=== PATIENT | male | born 1965 | race African-American/Black ===

== ENCOUNTER 2018-11-07 16:13 | Emergency (ER) | payer OTHER, SELFPAY ==
[2018-11-07] MEDS ORDERED: NA CHLORIDE 0.9% 1,000 ML ONE (17:04)
--- NOTE | 2018-11-07 17:04 | RAD REPORT ---
EXAM DESCRIPTION: CT - Stone Protocol - 11/07/2018 4:51 pm CLINICAL HISTORY: Abdominal pain. Hematuria and right flank pain COMPARISON: 2010 TECHNIQUE: Computed axial tomography of the abdomen pelvis was obtained without oral or IV contrast. Lack of IV and oral contrast limits evaluation of solid organs, bowel, and vessels. Coronal reformat citlaly images were obtained and reviewed. All CT scans are performed using dose optimization technique as appropriate and may include automated exposure control or mA/KV adjustment according to patient size. FINDINGS: A 3 millimeter left renal calculus without hydronephrosis. Right renal calculus is not see n. Right hydronephrosis is not noted. A ureteral calculus is not noted. A bladder calculus is not see n. Small left renal cyst is present The liver, spleen, pancreas and adrenals appear grossly normal There is no evidence of diverticulitis. The appendix appears normal Small bilateral inguinal hernias contain fat IMPRESSION: Small nonobstructing left renal calculus
[2018-11-07 17:35] LABS: Absolute Lymphocytes (CBC) 1.8 K/uL (0.7-4.9); Absolute Monocytes 0.8 K/uL (0.1-1.3); Absolute Neutrophil 3.6 K/uL (1.8-8.0); Eosinophils % 0.5 % (0-4.4); Hematocrit 46.3 % (39.6-49.0); Lymphocytes % 28.4 % (15.3-44.8); MCH 30.9 pg (27.0-35.0); MCV 94.5 fL (80-100); MPV 9.2 fL (7.6-11.3); Monocytes % 13.1 % (3.3-12.3)
--- NOTE | 2018-11-07 17:53 | EDPHYS ---
Physician Documentation [facility] Name: Chito Alfonso Age: 53 yrs Sex: Male : 1965 Arrival Date: 11/07/2018 Time: 16:16 Bed 26 Private MD: ED Physician Samuel Golden HPI: 11/07 16:40 This 53 yrs old Black Male presents to ER via Unassigned with complaints of Possible kb Kidney Stone. 16:40 The patient presents with urinary symptoms, dark urine, blood in semen. Onset: The kb symptoms/episode began/occurred this morning. Modifying factors: The symptoms are alleviated by nothing, the symptoms are aggravated by nothing. Associated signs and symptoms: The patient has no apparent associated signs or symptoms. Severity of symptoms: At their worst the symptoms were mild, in the emergency department the symptoms are unchanged. The patient has experienced similar episodes in the past. The patient has not recently seen a physician. Pt states he thinks his kidney stones are back because he had blood in his semen and dark urine today. Historical: - Allergies: 18:22 No Known Allergies; mg2 - Home Meds: 18:22 amlodipine 5 mg tab 1 tab once daily [Active]; mg2 - PMHx: 18:22 Hypertension; kidney stenting; mg2 - Immunization history:: Flu vaccine is not up to date. - Social history:: Smoking status: Patient/guardian denies using tobacco, Patient/guardian denies using alcohol, street drugs, IV drugs. - Ebola Screening: : No symptoms or risks identified at this time. ROS: 16:36 Constitutional: Negative for fever, chills, and weight loss, Cardiovascular: Negative kb for chest pain, palpitations, and edema, Respiratory: Negative for shortness of breath, cough, wheezing, and pleuritic chest pain, Abdomen/GI: Negative for abdominal pain, nausea, vomiting, diarrhea, and constipation, MS/Extremity: Negative for injury and deformity, Skin: Negative for injury, rash, and discoloration, Neuro: Negative for headache, weakness, numbness, tingling, and seizure. 16:36 : Positive for dark urine and blood in semen. Exam: 16:40 Constitutional: This is a well developed, well nourished patient who is awake, alert, kb and in no acute distress. Head/Face: Normocephalic, atraumatic. Neck: Trachea midline, no thyromegaly or masses palpated, and no cervical lymphadenopathy. Supple, full range of motion without nuchal rigidity, or vertebral point tenderness. No Meningismus. Chest/axilla: Normal chest wall appearance and motion. Nontender with no deformity. No lesions are appreciated. Cardiovascular: Regular rate and rhythm with a normal S1 and S2. No gallops, murmurs, or rubs. Normal PMI, no JVD. No pulse deficits. Respiratory: Lungs have equal breath sounds bilaterally, clear to auscultation and percussion. No rales, rhonchi or wheezes noted. No increased work of breathing, no retractions or nasal flaring. Abdomen/GI: Soft, non-tender, with normal bowel sounds. No distension or tympany. No guarding or rebound. No evidence of tenderness throughout. Back: No spinal tenderness. No costovertebral tenderness. Full range of motion. Skin: Warm, dry with normal turgor. Normal color with no rashes, no lesions, and no evidence of cellulitis. MS/ Extremity: Pulses equal, no cyanosis. Neurovascular intact. Full, normal range of motion. Neuro: Awake and alert, GCS 15, oriented to person, place, time, and situation. Cranial nerves II-XII grossly intact. Motor strength 5/5 in all extremities. Sensory grossly intact. Cerebellar exam normal. Normal gait. Vital Signs: 16:44 BP 170 / 100; Pulse 80; Resp 18; Temp 98.7; Pulse Ox 100% on R/A; Weight 93.44 kg; mg2 Height 5 ft. 9 in. (175.26 cm); Pain 2/10; 18:20 BP 160 / 100; Pulse 85; Resp 18; Pulse Ox 100% on R/A; Pain 0/10; mg2 16:44 Body Mass Index 30.42 (93.44 kg, 175.26 cm) mg2 MDM: 16:31 Patient medically screened. kb 16:36 Data reviewed: vital signs, nurses notes. Data interpreted: Pulse oximetry: on room air kb is 100 %. Interpretation: normal. 17:49 Counseling: I had a detailed discussion with the patient and/or guardian regarding: the kb historical points, exam findings, and any diagnostic results supporting the discharge/admit diagnosis, lab results, radiology results, the need for outpatient follow up, a urologist, to return to the emergency department if symptoms worsen or persist or if there are any questions or concerns that arise at home. 11/07 16:36 Order name: Basic Metabolic Panel; Complete Time: 17:48 kb 11/07 16:36 Order name: CBC with Diff kb 11/07 16:36 Order name: CT Stone Protocol; Complete Time: 17:06 kb 11/07 16:50 Order name: Urine Dipstick--Ancillary (enter results); Complete Time: 18:15 bd 11/07 16:36 Order name: Urine Dipstick-Ancillary (obtain specimen); Complete Time: 17:04 kb 11/07 16:36 Order name: IV Start; Complete Time: 17:14 kb Administered Medications: 17:04 Drug: NS 0.9% 1000 ml Route: IV; Rate: 1000 ml; Site: left antecubital; mg2 18:04 Follow up: Response: No adverse reaction; IV Status: Completed infusion mg2 18:21 Follow up: Response: No adverse reaction; IV Status: Completed infusion mg2 Disposition: 11/07/18 17:53 Discharged to Home. Impression: Calculus of kidney. - Condition is Stable. - Discharge Instructions: Kidney Stones, [id number]. - Medication Reconciliation Form, Thank You Letter, Antibiotic Education, Prescription Opioid Use form. - Follow up: Emergency Department; When: As needed; Reason: Worsening of condition. Follow up: Private Physician; When: 2 - 3 days; Reason: Recheck today's complaints, Continuance of care, Re-evaluation by your physician. Addendum: 11/13/2018 01:36 Co-signature as Attending Physician, Samuel Golden MD. r n Signatures: Dispatcher [employer] EDMarilin Nuno, SILICA FILTER OPERATOR-C SILICA FILTER OPERATOR-Ckb Samuel Golden MD MD rn Gardose, Michele, RN RN mg2 Corrections: (The following items were deleted from the chart) 11/07 18:22 17:53 11/07/2018 17:53 Discharged to Home. Impression: Calculus of kidney. Condition is mg2 Stable. Forms are Medication Reconciliation Form, Thank You Letter, Antibiotic Education, Prescription Opioid Use. Follow up: Emergency Department; When: As needed; Reason: Worsening of condition. Follow up: Private Physician; When: 2 - 3 days; Reason: Recheck today's complaints, Continuance of care, Re-evaluation by your physician. kb
--- NOTE | 2018-11-07 17:53 | ER ---
Nurse's Notes [facility] Name: Chito Alfonso Age: 53 yrs Sex: Male : 1965 Arrival Date: 11/07/2018 Time: 16:16 Bed 26 Private MD: Diagnosis: Calculus of kidney Presentation: 11/07 16:43 Presenting complaint: Patient states: he has hematuria and blood in his semen for 2 mg2 weeks, mild right flank pain. he has prior history of kidney stones. Transition of care: patient was not received from another setting of care. Onset of symptoms was October 2018. Risk Assessment: Do you want to hurt yourself or someone else? Patient reports no desire to harm self or others. Initial Sepsis Screen: Does the patient meet any 2 criteria? No. Patient's initial sepsis screen is negative. Does the patient have a suspected source of infection? No. Patient's initial sepsis screen is negative. Care prior to arrival: None. 16:43 Method Of Arrival: Ambulatory mg2 16:43 Acuity: MARK 3 mg2 Historical: - Allergies: 18:22 No Known Allergies; mg2 - Home Meds: 18:22 amlodipine 5 mg tab 1 tab once daily [Active]; mg2 - PMHx: 18:22 Hypertension; kidney stenting; mg2 - Immunization history:: Flu vaccine is not up to date. - Social history:: Smoking status: Patient/guardian denies using tobacco, Patient/guardian denies using alcohol, street drugs, IV drugs. - Ebola Screening: : No symptoms or risks identified at this time. Screenin:09 Abuse screen: Denies threats or abuse. Denies injuries from another. Nutritional mg2 screening: No deficits noted. Tuberculosis screening: No symptoms or risk factors identified. Fall Risk IV access (20 points). Assessment: 17:06 General: Appears in no apparent distress. comfortable, Behavior is calm, cooperative. mg2 Pain: Complains of pain in right flank Pain does not radiate. Pain currently is 2 out of 10 on a pain scale. Quality of pain is described as aching, Pain began gradually. Neuro: Level of Consciousness is awake, alert, obeys commands, Oriented to person, place, time, situation. Cardiovascular: Capillary refill < 3 seconds Patient's skin is warm and dry. Respiratory: Airway is patent Respiratory effort is even, unlabored, Respiratory pattern is regular, symmetrical. GI: Bowel sounds present X 4 quads. Abd is soft and non tender. : Reports pain in right flank(s). EENT: No signs and/or symptoms were reported regarding the EENT system. Derm: Skin is intact, is healthy with good turgor, Skin is pink, warm \T\ dry. normal. Musculoskeletal: No signs and/or symptoms reported regarding the musculoskeletal system. 18:20 Reassessment: Patient appears in no apparent distress at this time. Patient and/or mg2 family updated on plan of care and expected duration. Pain level reassessed. Patient is alert, oriented x 3, equal unlabored respirations, skin warm/dry/pink. Vital Signs: 16:44 BP 170 / 100; Pulse 80; Resp 18; Temp 98.7; Pulse Ox 100% on R/A; Weight 93.44 kg; mg2 Height 5 ft. 9 in. (175.26 cm); Pain 2/10; 18:20 BP 160 / 100; Pulse 85; Resp 18; Pulse Ox 100% on R/A; Pain 0/10; mg2 16:44 Body Mass Index 30.42 (93.44 kg, 175.26 cm) mg2 ED Course: 16:16 Patient arrived in ED. rg4 16:31 Marilin Salazar [facility]-C [facility] kb 16:31 Samuel Golden MD is Attending Physician. kb 16:43 Molina Sauer, PROSPER is Primary Nurse. mg2 16:44 Triage completed. mg2 16:[address] nj 16:49 CT completed. Patient tolerated procedure well. Patient moved back from CT. nj 16:52 CT Stone Protocol In Process Unspecified. EDMS 17:04 No provider procedures requiring assistance completed. Inserted saline lock: 20 gauge mg2 in left antecubital area, using aseptic technique. Blood collected. 17:09 Patient has correct armband on for positive identification. mg2 18:20 IV discontinued, intact, bleeding controlled, No redness/swelling at site. Pressure mg2 dressing applied. 18:22 Arm band placed on. mg2 Administered Medications: 17:04 Drug: NS 0.9% 1000 ml Route: IV; Rate: 1000 ml; Site: left antecubital; mg2 18:04 Follow up: Response: No adverse reaction; IV Status: Completed infusion mg2 18:21 Follow up: Response: No adverse reaction; IV Status: Completed infusion mg2 Outcome: 17:53 Discharge ordered by MD. kiran 18:21 Discharged to home ambulatory. mg2 18:21 Condition: stable 18:21 Discharge instructions given to patient, Instructed on discharge instructions, follow up and referral plans. Demonstrated understanding of instructions, follow-up care. 18:22 Patient left the ED. mg2 Signatures: Dispatcher [employer] EDMarilin Nuno, SIMRANC KIMMY-Adriana Linares rg4 rDe Sutton Michele, RN RN mg2
[2018-11-07 18:14] LABS: Urine Blood TRACE (NEG); Urine Glucose NEGATIVE (NEG); Urine Protein 3+ (NEG); Urine Specific Gravity >1.030 (1.005-1.030); Urine pH 5.5 (5.0-7.0)
[2018-11-07 18:32] LABS: Blood Morphology Comment NOT SEEN (NOT SEEN); Macrocytosis 1+; Platelet Estimate ADEQ; Platelets, Giant NOTED; Polychromasia SLIGHT
== END 2018-11-07 18:22 | disposition home or self-care (01) ==
LOC: ER 16:13
DX: N20.0 Calculus of kidney (principal); I10 Essential (primary) hypertension
CPT/HCPCS: 36415; 74176; 76377; 80048; 81003; 85025; 96360; 99284; J7030

== ENCOUNTER 2018-11-28 16:10 | Emergency (ER) | payer OTHER, SELFPAY ==
--- NOTE | 2018-11-28 17:53 | RAD REPORT ---
EXAM DESCRIPTION: US - Renal Ultrasound-Complete - 11/28/2018 5:40 pm CLINICAL HISTORY: SWELLING COMPARISON: No comparisons FINDINGS: Both kidneys are normal in size, shape and echotexture. The right kidney measures 11.4 x 5.3 x 5.3 cm. No hydronephrosis, focal mass or perinephric fluid. The left kidney measures 11.1 x 6.7 x 4.4 cm. No hydronephrosis, focal mass or perinephric fluid. 2 c m left renal cyst noted, benign in appearance. The urinary bladder is incompletely distended without gross abnormality seen. IMPRESSION: Unremarkable renal sonogram.
--- NOTE | 2018-11-28 18:01 | RAD REPORT ---
EXAM DESCRIPTION: RAD - Chest Pa And Lat (2 Views) - 11/28/2018 5:53 pm CLINICAL HISTORY: Cough;SOB Chest pain. COMPARISON: Chest Single View dated 08/26/2017 FINDINGS: Small right pleural effusion is noted. The lungs are grossly clear acute infiltrate. The h eart is upper limit normal size. No displaced fractures. IMPRESSION: Small right pleural effusion.
[2018-11-28] MEDS ORDERED: FUROSEMIDE 40 MG TABLET ONE (18:14)
[2018-11-28] MEDS ORDERED: AMLODIPINE 5 MG TAB ONE (18:15)
[2018-11-28] MEDS ORDERED: LISINOPRIL 10 MG TAB ONE (18:26)
[2018-11-28 18:31] LABS: Urine Blood TRACE (NEG); Urine Glucose NEGATIVE (NEG); Urine Protein 3+ (NEG); Urine Specific Gravity >1.030 (1.005-1.030); Urine pH 5.5 (5.0-7.0)
[2018-11-28 18:58] LABS: Absolute Lymphocytes (CBC) 1.6 K/uL (0.7-4.9); Absolute Monocytes 0.9 K/uL (0.1-1.3); Basophils % 0.8 % (0-1.3); Eosinophils % 1.4 % (0-4.4); Hematocrit 45.2 % (39.6-49.0); Lymphocytes % 24.2 % (15.3-44.8); MPV 9.8 fL (7.6-11.3); Monocytes % 13.6 % (3.3-12.3); RBC Red Blood Cell Count 4.79 M/uL (4.33-5.43)
[2018-11-28 19:31] LABS: Albumin 3.3 g/dL (3.4-5.0); Bilirubin Direct 0.3 mg/dL (0-0.2); Bilirubin Total 0.5 mg/dL (0.2-1.0); Potassium 5.1 mmol/L (3.5-5.1); Protein, Total 6.7 g/dL (6.4-8.2)
[2018-11-28] MEDS ORDERED: cloNIDine HCl 0.1 MG TAB ONE ×2 (20:57→21:44)
[2018-11-28] MEDS ORDERED: HYDRALAZINE HCL 20 MG/ML VIAL ONE (21:44)
--- NOTE | 2018-11-28 21:44 | ER ---
Nurse's Notes [facility] Name: Chito Alfonso Age: 53 yrs Sex: Male : 1965 Arrival Date: 11/28/2018 Time: 16:20 Bed 23 Private MD: Burton ANDERSON Diagnosis: Essential (primary) hypertension;Patient's noncompliance with medical treatment and regimen;Fluid overload, unspecified Presentation: 11/28 16:38 Presenting complaint: Patient states: Swelling all over body with SOB. Patient reports aj HX of being non compliant with HTN medications. Transition of care: patient was not received from another setting of care. Onset of symptoms was November 28, 2018. Risk Assessment: Do you want to hurt yourself or someone else? Patient reports no desire to harm self or others. Initial Sepsis Screen: Does the patient meet any 2 criteria? No. Patient's initial sepsis screen is negative. Does the patient have a suspected source of infection? No. Patient's initial sepsis screen is negative. Care prior to arrival: None. 16:38 Method Of Arrival: Ambulatory 16:38 Acuity: MARK 3 aj Triage Assessment: 16:40 General: Appears in no apparent distress. comfortable, Behavior is calm, cooperative, aj appropriate for age. Pain: Denies pain. Neuro: Level of Consciousness is awake, alert, obeys commands, Oriented to person, place, time, situation, Appropriate for age. Cardiovascular: Edema is 2+ to left midcalf, left ankle, right midcalf and right ankle. Respiratory: Airway is patent Respiratory effort is even, unlabored, Respiratory pattern is regular, symmetrical. GI: Abdomen is flat. Derm: Skin is intact, is healthy with good turgor, Skin is pink, warm \T\ dry. normal. Historical: - Allergies: 16:40 No Known Allergies; aj - Home Meds: 16:40 amlodipine 10 mg tab 1 tab once daily [Active]; aj - PMHx: 16:40 Hypertension; kidney stenting; aj - Immunization history:: Adult Immunizations up to date. - Social history:: Smoking status: Patient/guardian denies using tobacco. - Ebola Screening: : Patient negative for fever greater than or equal to 101.5 degrees Fahrenheit, and additional compatible Ebola Virus Disease symptoms Patient denies exposure to infectious person Patient denies travel to an Ebola-affected area in the 21 days before illness onset No symptoms or risks identified at this time. Screenin:13 Abuse screen: Denies threats or abuse. Denies injuries from another. Nutritional mg2 screening: No deficits noted. Tuberculosis screening: No symptoms or risk factors identified. Fall Risk None identified. Assessment: 16:45 General: Appears in no apparent distress. comfortable, well groomed, well developed, kr2 well nourished, Behavior is calm, cooperative, appropriate for age. Pain: Denies pain. Neuro: Level of Consciousness is awake, alert, obeys commands, Oriented to person, place, time, situation, Appropriate for age. Cardiovascular: Capillary refill < 3 seconds in bilateral fingers Patient's skin is warm and dry. Pulses are all present. Edema is 1+ to right ankle and right midcalf and left ankle and left midcalf Rhythm is regular. Cardiovascular: Reports being off of his blood pressure medication for six months, educated on importance of keeping regular follow up appointments with his primary care physician and staying on his medications, verbalized understanding. Respiratory: Reports shortness of breath on exertion Airway is patent Respiratory effort is even, unlabored, Respiratory pattern is regular, symmetrical. GI: Bowel sounds present X 4 quads. Abd is soft and non tender X 4 quads. Patient currently denies nausea, vomiting. : Denies inability to void. EENT: Oral mucosa is moist. Derm: Skin is intact, is healthy with good turgor, Skin is pink, warm \T\ dry. Musculoskeletal: Circulation, motion, and sensation intact. 17:45 Reassessment: Patient appears in no apparent distress at this time. Patient and/or kr2 family updated on plan of care and expected duration. Pain level reassessed. Patient is alert, oriented x 3, equal unlabored respirations, skin warm/dry/pink. Patient denies pain at this time. 18:55 Reassessment: Patient appears in no apparent distress at this time. Patient and/or kr2 family updated on plan of care and expected duration. Pain level reassessed. Patient is alert, oriented x 3, equal unlabored respirations, skin warm/dry/pink. Patient denies pain at this time. 19:00 Reassessment: Difficulty obtaining blood from patient, laboratory notified, provider kr2 notified. Transit Proof Machine Operator will attempt blood draw. 20:00 Reassessment: Patient appears in no apparent distress at this time. Patient and/or kr2 family updated on plan of care and expected duration. Pain level reassessed. Patient is alert, oriented x 3, equal unlabored respirations, skin warm/dry/pink. Patient denies pain at this time. 20:46 Reassessment: Patient appears in no apparent distress at this time. Patient and/or kr2 family updated on plan of care and expected duration. Pain level reassessed. Patient is alert, oriented x 3, equal unlabored respirations, skin warm/dry/pink. Patient denies pain at this time. 21:30 Reassessment: Patient appears in no apparent distress at this time. Patient and/or kr2 family updated on plan of care and expected duration. Pain level reassessed. Patient is alert, oriented x 3, equal unlabored respirations, skin warm/dry/pink. Patient denies pain at this time. 22:15 Reassessment: Patient appears in no apparent distress at this time. Patient and/or kr2 family updated on plan of care and expected duration. Pain level reassessed. Patient is alert, oriented x 3, equal unlabored respirations, skin warm/dry/pink. Patient denies pain at this time. Patient states symptoms have improved. Vital Signs: 16:40 BP 154 / 104; Pulse 115; Resp 24; Temp 97.0; Pulse Ox 98% on R/A; Weight 92.99 kg; aj Height 5 ft. 9 in. (175.26 cm); 17:58 BP 159 / 136; Pulse Ox 99% on R/A; gm 18:55 BP 156 / 119; Pulse 110; Resp 20; Pulse Ox 99% on R/A; kr2 19:23 BP 161 / 118; Pulse 108; Resp 18; Pulse Ox 98% ; kr2 20:00 BP 158 / 116; Pulse 108; Resp 18; Pulse Ox 99% on R/A; kr2 20:45 BP 162 / 116; Pulse 108; Resp 18; Pulse Ox 98% ; kr2 22:14 BP 149 / 109; Pulse 103; Resp 18; Pulse Ox 100% on R/A; Pain 0/10; mg2 22:20 BP 144 / 98; Pulse 100; Resp 16; Pulse Ox 99% on R/A; kr2 16:40 Body Mass Index 30.27 (92.99 kg, 175.26 cm) aj ED Course: 16:20 Patient arrived in ED. sb2 16:21 Burton ANDERSON is Private Physician. sb2 16:26 Viji Romano FNP-C is PHCP. snw 16:26 Shadi Reynoso MD is Attending Physician. snw 16:39 Triage completed. aj 16:40 Arm band placed on left wrist. Patient placed in an exam room. aj 16:45 Patient has correct armband on for positive identification. Bed in low position. Call kr2 light in reach. Side rails up X 1. pvc monitor on. Pulse ox on. NIBP on. Door closed. Warm blanket given. Head of bed elevated. 16:52 Alyssa John, PROSPER is Primary Nurse. kr2 17:00 Initial lab(s) drawn, by me, sent to lab. kr2 17:32 Patient taken to ultrasound. via wheelchair. aa4 17:32 Ultrasound completed. Patient moved back from ultrasound. aa4 17:41 US Rp Exam Complete In Process Unspecified. EDMS 17:52 Chest Pa And Lat (2 Views) XRAY In Process Unspecified. EDMS 18:15 PHCP role handed off by Viji Romano FNP-C kb 18:15 Marilin Salazar FNP-C is PHCP. kb 22:10 No provider procedures requiring assistance completed. Patient did not have IV access kr2 during this emergency room visit. Administered Medications: 18:17 Drug: Lisinopril 10 mg Route: PO; kr2 19:00 Follow up: Response: No adverse reaction; Blood pressure is unchanged; provider notifiedkr2 18:29 Drug: LaSIX 40 mg Route: PO; mg2 19:30 Follow up: Response: No adverse reaction; No adverse reaction, blood pressure kr2 unchanged, provider notified 18:29 Drug: amLODIPine 10 mg Route: PO; mg2 19:30 Follow up: Response: No adverse reaction; Blood pressure is unchanged; Blood pressure kr2 is unchanged, provider notified 20:48 Drug: cloNIDine 0.1 mg Route: PO; kr2 21:45 Follow up: Response: No adverse reaction; Blood pressure is unchanged; Blood pressure kr2 is unchanged, provider notified 21:43 Drug: hydrALAZINE 20 mg Route: IM; Site: left deltoid; kr2 22:15 Follow up: Response: No adverse reaction; Blood pressure is lowered kr2 21:43 Drug: cloNIDine 0.1 mg Route: PO; kr2 22:15 Follow up: Response: No adverse reaction; Blood pressure is lowered kr2 Intake: Outcome: 21:44 Discharge ordered by MD. kiran 22:15 Discharged to home ambulatory. kr2 22:15 Condition: improved 22:15 Discharge instructions given to patient, Instructed on discharge instructions, follow up and referral plans. medication usage, Demonstrated understanding of instructions, follow-up care, medications, Prescriptions given X 1. 22:21 Patient left the ED. kr2 Signatures: Dispatcher [employer] EDMS Marilin Salazar, DIRECTOR FINANCIAL PLANNING-C DIRECTOR FINANCIAL PLANNING-Deepti Canseco RN Viji Price, DIRECTOR FINANCIAL PLANNING-C DIRECTOR FINANCIAL PLANNING-Denysw Deepti Barber aa4 Alyssa John RN RN kr2 Donna Gutiérrez sb2 Molina Sauer RN RN mg2 Moya, Gabriella
--- NOTE | 2018-11-28 21:44 | EDPHYS ---
Physician Documentation [facility] Name: Chito Alfonso Age: 53 yrs Sex: Male : 1965 Arrival Date: 11/28/2018 Time: 16:20 Bed 23 Private MD: Burton ANDERSON ED Physician Shadi Reynoso HPI: 11/28 17:06 This 53 yrs old Black Male presents to ER via Ambulatory with complaints of Feet snw Swelling. 17:06 The patient has shortness of breath at rest, with light activity. Onset: The snw symptoms/episode began/occurred gradually, and became persistent. Duration: The symptoms are continuous. The patient's shortness of breath is aggravated by light activity. Associated signs and symptoms: The patient has no apparent associated signs or symptoms. Severity of symptoms: At their worst the symptoms were moderate. It is unknown whether or not the patient has had similar symptoms in the past. The patient has not recently seen a physician. Pt has not taken his Amlodipine in 6 months. Historical: - Allergies: 16:40 No Known Allergies; aj - Home Meds: 16:40 amlodipine 10 mg tab 1 tab once daily [Active]; aj - PMHx: 16:40 Hypertension; kidney stenting; aj - Immunization history:: Adult Immunizations up to date. - Social history:: Smoking status: Patient/guardian denies using tobacco. - Ebola Screening: : Patient negative for fever greater than or equal to 101.5 degrees Fahrenheit, and additional compatible Ebola Virus Disease symptoms Patient denies exposure to infectious person Patient denies travel to an Ebola-affected area in the 21 days before illness onset No symptoms or risks identified at this time. ROS: 17:04 Eyes: Negative for injury, pain, redness, and discharge, ENT: Negative for injury, snw pain, and discharge, Neck: Negative for injury, pain, and swelling. 17:04 Back: Negative for injury and pain, : Negative for injury, bleeding, discharge, and swelling, MS/Extremity: Negative for injury and deformity, Skin: Negative for injury, rash, and discoloration, Neuro: Negative for headache, weakness, numbness, tingling, and seizure. 17:04 Constitutional: Positive for body aches, fatigue, malaise. 17:04 Cardiovascular: Positive for palpitations. 17:04 Respiratory: Positive for dyspnea on exertion, orthopnea, shortness of breath. 17:04 Abdomen/GI: Positive for abdominal distension. Exam: 16:58 Head/Face: Normocephalic, atraumatic. Eyes: Pupils equal round and reactive to light, snw extra-ocular motions intact. Lids and lashes normal. Conjunctiva and sclera are non-icteric and not injected. Cornea within normal limits. Periorbital areas with no swelling, redness, or edema. ENT: Nares patent. No nasal discharge, no septal abnormalities noted. Tympanic membranes are normal and external auditory canals are clear. Oropharynx with no redness, swelling, or masses, exudates, or evidence of obstruction, uvula midline. Mucous membranes moist. Neck: Trachea midline, no thyromegaly or masses palpated, and no cervical lymphadenopathy. Supple, full range of motion without nuchal rigidity, or vertebral point tenderness. No Meningismus. Chest/axilla: Normal chest wall appearance and motion. Nontender with no deformity. No lesions are appreciated. 16:58 Back: No spinal tenderness. No costovertebral tenderness. Full range of motion. Skin: Warm, dry with normal turgor. Normal color with no rashes, no lesions, and no evidence of cellulitis. MS/ Extremity: Pulses equal, no cyanosis. Neurovascular intact. Full, normal range of motion. Neuro: Awake and alert, GCS 15, oriented to person, place, time, and situation. Cranial nerves II-XII grossly intact. Motor strength 5/5 in all extremities. Sensory grossly intact. Cerebellar exam normal. Normal gait. 16:58 Constitutional: The patient appears alert, uncomfortable. 16:58 Cardiovascular: Rate: tachycardic, Rhythm: regular, Pulses: no pulse deficits are appreciated, Heart sounds: normal, Edema: 2+ edema to level of bilateral lower ext, abdomen. 16:58 Respiratory: mild respiratory distress is noted, Respirations: shallow respirations, tachypnea. 16:58 Abdomen/GI: Bowel sounds: normal, Palpation: soft. Vital Signs: 16:40 BP 154 / 104; Pulse 115; Resp 24; Temp 97.0; Pulse Ox 98% on R/A; Weight 92.99 kg; aj Height 5 ft. 9 in. (175.26 cm); 17:58 BP 159 / 136; Pulse Ox 99% on R/A; gm 18:55 BP 156 / 119; Pulse 110; Resp 20; Pulse Ox 99% on R/A; kr2 19:23 BP 161 / 118; Pulse 108; Resp 18; Pulse Ox 98% ; kr2 20:00 BP 158 / 116; Pulse 108; Resp 18; Pulse Ox 99% on R/A; kr2 20:45 BP 162 / 116; Pulse 108; Resp 18; Pulse Ox 98% ; kr2 22:14 BP 149 / 109; Pulse 103; Resp 18; Pulse Ox 100% on R/A; Pain 0/10; mg2 22:20 BP 144 / 98; Pulse 100; Resp 16; Pulse Ox 99% on R/A; kr2 16:40 Body Mass Index 30.27 (92.99 kg, 175.26 cm) aj MDM: 16:43 Patient medically screened. snw 17:59 Data reviewed: vital signs, nurses notes. Data interpreted: Pulse oximetry: on room air snw is 99 %. Interpretation: normal. Counseling: I had a detailed discussion with the patient and/or guardian regarding: the historical points, exam findings, and any diagnostic results supporting the discharge/admit diagnosis, the presence of at least one elevated blood pressure reading (>120/80) during this emergency department visit, lab results, radiology results, the need for outpatient follow up. Special discussion: I have referred the patient to see his PCP for further evaluation of high blood pressure. Based on the history and exam findings, there is no indication for further emergent testing or inpatient evaluation. I discussed with the patient/guardian the need to see the primary care provider for further evaluation of the symptoms. 18:02 ED course: denies chest pain. snw 18:36 Transition of care: After a detail discussion of the patient's case, care is snw transferred to Marilin SANTIAGOPXiang. 11/28 16:53 Order name: CBC with Diff; Complete Time: 19:05 snw 11/28 16:53 Order name: Chem 7; Complete Time: 19:38 snw 11/28 16:53 Order name: Chest Pa And Lat (2 Views) XRAY; Complete Time: 18:04 snw 11/28 16:53 Order name: BNP; Complete Time: 19:38 snw 11/28 16:53 Order name: LFT's; Complete Time: 19:38 snw 11/28 16:57 Order name: Urine Dipstick--Ancillary (enter results); Complete Time: 18:35 ag 11/28 16:53 Order name: US Rp Exam Complete; Complete Time: 17:56 snw 11/28 17:58 Order name: EKG; Complete Time: 17:58 snw 11/28 16:27 Order name: Urine Dipstick-Ancillary (obtain specimen); Complete Time: 16:52 snw 11/28 17:25 Order name: Labs - recollect needed; Complete Time: 17:35 ag 11/28 17:58 Order name: EKG - Nurse/Tech; Complete Time: 19:21 snw 11/28 18:24 Order name: Vital Signs: q 30 min; Complete Time: 18:56 snw Administered Medications: 18:17 Drug: Lisinopril 10 mg Route: PO; kr2 19:00 Follow up: Response: No adverse reaction; Blood pressure is unchanged; provider notifiedkr2 18:29 Drug: LaSIX 40 mg Route: PO; mg2 19:30 Follow up: Response: No adverse reaction; No adverse reaction, blood pressure kr2 unchanged, provider notified 18:29 Drug: amLODIPine 10 mg Route: PO; mg2 19:30 Follow up: Response: No adverse reaction; Blood pressure is unchanged; Blood pressure kr2 is unchanged, provider notified 20:48 Drug: cloNIDine 0.1 mg Route: PO; kr2 21:45 Follow up: Response: No adverse reaction; Blood pressure is unchanged; Blood pressure kr2 is unchanged, provider notified 21:43 Drug: hydrALAZINE 20 mg Route: IM; Site: left deltoid; kr2 22:15 Follow up: Response: No adverse reaction; Blood pressure is lowered kr2 21:43 Drug: cloNIDine 0.1 mg Route: PO; kr2 22:15 Follow up: Response: No adverse reaction; Blood pressure is lowered kr2 Disposition: 11/28/18 21:44 Discharged to Home. Impression: Essential (primary) hypertension, Patient's noncompliance with medical treatment and regimen, Fluid overload, unspecified. - Condition is Stable. - Discharge Instructions: Heart Failure, Hypertension, Aspirin and Your Heart, DASH Eating Plan, Managing Your Hypertension. - Prescriptions for Lisinopril- Hydrochlorothiazide 20-12.5 mg Oral Tablet - take 1 tablet by ORAL route once daily; 20 tablet. - Medication Reconciliation Form, Thank You Letter, Antibiotic Education, Prescription Opioid Use, Work release form form. - Follow up: Private Physician; When: 1 - 2 days; Reason: Recheck today's complaints, Continuance of care, Re-evaluation by your physician. Follow up: Emergency Department; When: As needed; Reason: Worsening of condition. Addendum: 12/05/2018 10:48 Co-signature as Attending Physician, Shadi Reynoso MD I agree with the assessment and c pedro plan of care. Signatures: Dispatcher [employer] EDMS Marilin Salazar, DIRECTOR LEARNING-C DIRECTOR LEARNING-CkDeepti Retana RN Shadi Fernando MD MD cha Therrien, Shelly, DIRECTOR LEARNING-C DIRECTOR LEARNING-Csnw Cris Lazaro Karey RN RN kr2 David Li MD MD tw4 Molina Sauer RN RN mg2 Corrections: (The following items were deleted from the chart) 11/28 21:44 21:43 Transition of care: After a detail discussion of the patient's case, care is kb transferred to David kiran 22:21 21:44 11/28/2018 21:44 Discharged to Home. Impression: Essential (primary) kr2 hypertension; Patient's noncompliance with medical treatment and regimen; Fluid overload, unspecified. Condition is Stable. Discharge Instructions: Hypertension, Heart Failure, Aspirin and Your Heart, DASH Eating Plan, Managing Your Hypertension. Prescriptions for Lisinopril-Hydrochlorothiazide 20-12.5 mg Oral Tablet - take 1 tablet by ORAL route once daily; 20 tablet. and Forms are Work release form, Medication Reconciliation Form, Thank You Letter, Antibiotic Education, Prescription Opioid Use. Follow up: Private Physician; When: 1 - 2 days; Reason: Recheck today's complaints, Continuance of care, Re-evaluation by your physician. Follow up: Emergency Department; When: As needed; Reason: Worsening of condition. kb
--- NOTE | 2018-11-29 07:38 | EKG ---
Test Date: 2018-11-28 Test Time: 18:24:53 Electronic Publications Specialist: REGINA MEASUREMENT RESULTS: Intervals: Rate: 113 CO: 130 QRSD: 80 QT: 344 QTc: 471 [place]: P: 73 CO: 130 QRS: 38 T: 30 INTERPRETIVE STATEMENTS: Sinus tachycardia Possible Left atrial enlargement Possible Anterior infarct, age undetermined Abnormal ECG Compared to ECG 08/26/2017 11:13:41 Myocardial infarct finding now present Sinus rhythm no longer present Left ventricular hypertrophy no longer present Electronically Signed On 11-29-18 07:37:14 GENERAL FOUNDRY WORKER by Héctor Gamino
== END 2018-11-28 22:21 | disposition home or self-care (01) ==
LOC: ER 16:10
DX: I10 Essential (primary) hypertension (principal); E87.70 Fluid overload, unspecified; Z91.14 Patient's other noncompliance with medication regimen
CPT/HCPCS: 36415; 71046; 76770; 80048; 80076; 81003; 83880; 85025; 93005; 96372; 99285; J0360

== ENCOUNTER 2020-05-05 06:40 | Inpatient (IN) | payer OTHER, SELFPAY ==
[2020-05-05] MEDS ORDERED: FENTANYL CITR 100 MCG/2 ML ONE (07:34)
[2020-05-05 07:36] LABS: Absolute Lymphocytes (CBC) 1.6 K/uL (0.7-4.9); Hematocrit 45.2 % (39.6-49.0); Lymphocytes % 27.4 % (15.3-44.8); MPV 8.8 fL (7.6-11.3); RBC Red Blood Cell Count 4.82 M/uL (4.33-5.43)
[2020-05-05 07:40] LABS: Protime INR 1.53
[2020-05-05 08:04] LABS: Albumin 3.4 g/dL (3.4-5.0); Bilirubin Direct 0.4 mg/dL (0-0.2); Magnesium 2.2 mg/dL (1.8-2.4); Potassium 4.2 mmol/L (3.5-5.1); Protein, Total 7.6 g/dL (6.4-8.2)
[2020-05-05 08:06] LABS: Troponin (Emerg Dept Use Only) 0.55 ng/mL (0.0-0.045)
[2020-05-05] MEDS ORDERED: METOPROLOL TAR 25 MG TAB ONE (08:30)
[2020-05-05] MEDS ORDERED: ASPIRIN 81 MG CHEWABLE TABLET ONE (08:30)
[2020-05-05] MEDS ORDERED: CLOPIDOGREL 75 MG TABLET ONE (08:30)
--- NOTE | 2020-05-05 09:06 | RAD REPORT ---
EXAM DESCRIPTION: CT - Angio Aorta For Dissection - 05/05/2020 8:41 am CLINICAL HISTORY: . Chest and abd pain COMPARISON: 2018 CT abdomen TECHNIQUE: Computed tomography angiography of the chest, abdomen pelvis were obtained. 100 cc Isovue 370 was administered intravenously. Coronal and sagittal reconstruction were performed. MIP 3D reconstruction was performed All CT scans are performed using dose optimization technique as appropriate and may include automated exposure control or mA/KV adjustment according to patient size. FINDINGS: An aortic dissection is not seen. An aortic aneurysm is not displayed. The celiac, SMA and JOSH are patent . A lung consolidation is not present. A pericardial effusion is not seen. A pleural effusion is not n oted. Fatty liver Cholelithiasis. Gallbladder wall is thickened. 3 centimeter low-density area within the spleen reaching the periphery. The pancreas and adrenals are unremarkable. Small renal cysts The appendix is borderline enlarged. No stranding within the adjacent fat. There is no evidence of diverticulitis. Small amount of ascites is present. Inguinal hernias contain fat. IMPRESSION: Negative for an aortic dissection. Cholelithiasis. Thickened gallbladder wall may indicate cholecystitis Borderline enlargement of the appendix. No stranding within the adjacent fat 3 centimeter low-density area within the spleen reaching the periphery suspicious for infarction and can be monitored on subsequent exam
--- NOTE | 2020-05-05 09:08 | RAD REPORT ---
EXAM DESCRIPTION: Jesse Single View05/05/2020 7:50 am CLINICAL HISTORY: Abdominal pain COMPARISON: 2019 FINDINGS: The lungs appear clear of acute infiltrate. The heart is mildly to moderately enlarged. Upper lobe vessels are prominent indicative of pulmonary venous hypertension
--- NOTE | 2020-05-05 09:08 | RAD REPORT ---
EXAM DESCRIPTION: US - Abdomen Exam Limited - 05/05/2020 7:35 am CLINICAL HISTORY: Abdominal pain. COMPARISON: 2018 FINDINGS: Gallbladder wall is thickened measuring 5 millimeters. Tiny echogenic structures likely st ones The biliary tree is normal caliber. IMPRESSION: Cholelithiasis Thickened gallbladder wall may indicate cholecystitis
[2020-05-05 09:12] LABS: Urine Blood TRACE (NEG); Urine Glucose NEGATIVE (NEG); Urine Protein 3+ (NEG); Urine Specific Gravity >1.030 (1.005-1.030); Urine pH 5.5 (5.0-7.0)
--- NOTE | 2020-05-05 09:13 | ER ---
Nurse's Notes [facility] Name: Chito Alfonso Age: 55 yrs Sex: Male : 1965 Arrival Date: 05/05/2020 Time: 06:41 Bed 16 Private MD: Diagnosis: Essential (primary) hypertension;Upper abdominal pain, unspecified;Cholecystitis;Elevated troponin Presentation: 05/05 06:57 Chief complaint: Patient states: I have been having abdominal pain for about 4 weeks tl1 and have lost 30 pounds. I thought I might have a kidney stone because it shirley when I urinate. My back hurt about 4 weeks ago but it isn't hurting now. Coronavirus screen: Patient denies a cough. Patient denies shortness of breath or difficulty breathing. Patient denies measured and/or subjective temperature greater than 100.4F prior to today's visit. Patient denies travel on a cruise ship or to a country the [facility] currently lists as an affected area. Patient denies contact with known and/or suspected case of COVID-19. Ebola Screen: Patient negative for fever greater than or equal to 101.5 degrees Fahrenheit, and additional compatible Ebola Virus Disease symptoms Patient denies exposure to infectious person. Patient denies travel to an Ebola-affected area in the 21 days before illness onset. Initial Sepsis Screen: Does the patient meet any 2 criteria? No. Patient's initial sepsis screen is negative. Does the patient have a suspected source of infection? No. Patient's initial sepsis screen is negative. Risk Assessment: Do you want to hurt yourself or someone else? Patient reports no desire to harm self or others. Onset of symptoms was March 27, 2020. 06:57 Method Of Arrival: Ambulatory tl1 06:57 Acuity: MARK 3 tl1 Historical: - Allergies: 07:01 No Known Allergies; tl1 - Home Meds: 07:01 amlodipine 5 mg tab 1 tab once daily [Active]; Lasix Oral [Active]; tl1 - PMHx: 07:01 Hypertension; kidney stenting; tl1 - Immunization history:: Adult Immunizations up to date. - Social history:: Smoking status: Patient denies any tobacco usage or history of. Patient uses alcohol, occasionally. Screenin:00 Abuse screen: Denies threats or abuse. Nutritional screening: No deficits noted. rb1 Tuberculosis screening: No symptoms or risk factors identified. Fall Risk None identified. Assessment: 07:00 General: Appears uncomfortable, Behavior is calm, cooperative. Pain: Complains of pain rb1 in left upper quadrant and right upper quadrant and epigastric area Pain currently is 9 out of 10 on a pain scale. Pain began x 4 weeks ago. Pt. reports he thought it was a kidney stone that he needed to pass. Neuro: Level of Consciousness is awake, alert, obeys commands, Oriented to person, place, time, situation. Cardiovascular: Capillary refill < 3 seconds. Respiratory: Airway is patent Respiratory effort is even, unlabored, Respiratory pattern is regular, symmetrical. GI: Reports nausea, vomiting. : No signs and/or symptoms were reported regarding the genitourinary system. Derm: Skin is pink, warm \T\ dry. 08:00 Reassessment: Patient appears in no apparent distress at this time. Patient and/or rb1 family updated on plan of care and expected duration. Pain level reassessed. Patient is alert, oriented x 3, equal unlabored respirations, skin warm/dry/pink. 08:26 Reassessment: Pt. went to CT. rb1 09:18 Reassessment: Patient appears in no apparent distress at this time. Patient and/or rb1 family updated on plan of care and expected duration. Pain level reassessed. Patient is alert, oriented x 3, equal unlabored respirations, skin warm/dry/pink. Patient states feeling better. 10:20 Reassessment: Called report to PROSPER Curtis. Information from the [facility] was given. All rb1 questions asked and answered. 10:30 Reassessment: Patient appears in no apparent distress at this time. No changes from rb1 previously documented assessment. Vital Signs: 06:52 BP 148 / 112; Pulse 93; Pulse Ox 97% on R/A; rb1 07:00 BP 137 / 99; Pulse 100; Resp 17; Temp 98.2; Pulse Ox 97% on R/A; Weight 89.81 kg; tl1 Height 5 ft. 9 in. (175.26 cm); Pain 10; 08:04 BP 123 / 104; Pulse 115; Resp 22; Pulse Ox 94% on R/A; rb1 09:00 BP 126 / 115; Pulse 117; Resp 20; Pulse Ox 100% ; rb1 10:00 BP 119 / 94; Pulse 104; Resp 17; Pulse Ox 97% ; rb1 07:00 Body Mass Index 29.24 (89.81 kg, 175.26 cm) tl1 06:52 PROSPER Calvin did BP on left and right arm; second BP documented at 0700 rb1 ED Course: 06:41 Patient arrived in ED. ds1 06:43 Viji Romano FNP-C is [facility]. snw 06:43 Juan Manuel Elizalde MD is Attending Physician. snw 06:59 Triage completed. tl1 07:00 Arm band placed on right wrist. tl1 07:00 Patient has correct armband on for positive identification. Bed in low position. Call rb1 light in reach. Side rails up X 1. color television console monitor on. Pulse ox on. NIBP on. 07:20 Inserted saline lock: 22 gauge in left antecubital area, using aseptic technique. Blood rb1 collected. 07:22 Ale Arguelles RN is Primary Nurse. rb1 07:35 US Abdomen Limited In Process Unspecified. EDMS 07:51 XRAY Chest (1 view) In Process Unspecified. EDMS 08:35 EKG done, by ED staff, reviewed by Viji COLINDRES. em1 08:42 CT Aorta for Dissection In Process Unspecified. EDMS 09:09 Bradly Benson MD is Hospitalizing Provider. snw 09:14 Attending Physician role handed off by Juan Manuel Elizalde MD kdr 09:14 Shyam Almonte MD is Attending Physician. kdr 10:49 No provider procedures requiring assistance completed. Patient admitted, IV remains in rb1 place. Administered Medications: 07:35 Drug: fentaNYL (PF) 50 mcg Route: IVP; Site: left antecubital; rb1 07:55 Follow up: Response: No adverse reaction; Pain is decreased rb1 08:23 Drug: Aspirin Chewable Tablet 324 mg Route: PO; rb1 09:05 Follow up: Response: No adverse reaction rb1 08:23 Drug: PlaVIX 75 mg Route: PO; rb1 09:00 Follow up: Response: No adverse reaction rb1 08:23 Drug: Metoprolol 25 mg Route: PO; rb1 09:00 Follow up: Response: No adverse reaction rb1 Outcome: 09:12 Decision to Hospitalize by Provider. snw 10:49 Admitted to Med/surg accompanied by tech, via wheelchair, room 205, with chart, Report rb1 called to PROSPER Curtis 10:49 Condition: stable 10:49 Instructed on the need for admit. 10:50 Patient left the ED. rb1 Signatures: Dispatcher [employer] EDMS Shyam Almonte MD MD [facility] Viji Romano, [employer]-C [employer]-Csnw Brenda Epstein ds1 Lorenzo Grant em1 Tracy Carvalho RN RN tl1 Ale Arguelles, PROSPER RN rb1
--- NOTE | 2020-05-05 09:13 | EDPHYS ---
Physician Documentation [facility] Name: Chito Alfonso Age: 55 yrs Sex: Male : 1965 Arrival Date: 05/05/2020 Time: 06:41 Bed 16 Private MD: ED Physician Shyam Almonte HPI: 05/05 07:16 This 55 yrs old Black Male presents to ER via Ambulatory with complaints of Possible snw Kidney Stone. 07:16 Onset: The symptoms/episode began/occurred gradually, 4 week(s) ago, and became worse. snw Associated signs and symptoms: Pertinent positives: abdominal pain. Modifying factors: The patient symptoms are alleviated by nothing. pt states he thinks he has a kidney stone as he has a hx of htn and renal calculi. However, pt complains more of central upper abdominal pain and states he has lost 30 pounds during this time without trying. The patient has not recently seen a physician. pt did go to an urgent care a few weeks ago and they restarted his lisinopril at 5mg, lasix added. Pt denies hematuria. Historical: - Allergies: 07:01 No Known Allergies; tl1 - Home Meds: 07:01 amlodipine 5 mg tab 1 tab once daily [Active]; Lasix Oral [Active]; tl1 - PMHx: 07:01 Hypertension; kidney stenting; tl1 - Immunization history:: Adult Immunizations up to date. - Social history:: Smoking status: Patient denies any tobacco usage or history of. Patient uses alcohol, occasionally. ROS: 07:16 Constitutional: Negative for fever, chills, positive for 30# weight loss, Eyes: snw Negative for injury, pain, redness, and discharge, ENT: Negative for injury, pain, and discharge, Neck: Negative for injury, pain, and swelling, Cardiovascular: Negative for chest pain, palpitations, and edema, Respiratory: Negative for shortness of breath, cough, wheezing, and pleuritic chest pain, Back: Negative for injury and pain, : Negative for injury, bleeding, discharge, and swelling, + burning on urination MS/Extremity: Negative for injury and deformity, Skin: Negative for injury, rash, and discoloration, Neuro: Negative for headache, weakness, numbness, tingling, and seizure, Psych: Negative for depression, anxiety, suicide ideation, homicidal ideation, and hallucinations. 07:16 Abdomen/GI: Positive for abdominal pain, nausea and vomiting, of the epigastric area, right upper quadrant and left upper quadrant. Exam: 07:20 Head/Face: Normocephalic, atraumatic. Eyes: Pupils equal round and reactive to light, snw extra-ocular motions intact. Lids and lashes normal. Conjunctiva and sclera are non-icteric and not injected. Cornea within normal limits. Periorbital areas with no swelling, redness, or edema. ENT: Nares patent. No nasal discharge, no septal abnormalities noted. Tympanic membranes are normal and external auditory canals are clear. Oropharynx with no redness, swelling, or masses, exudates, or evidence of obstruction, uvula midline. Mucous membranes moist. Neck: Trachea midline, no thyromegaly or masses palpated, and no cervical lymphadenopathy. Supple, full range of motion without nuchal rigidity, or vertebral point tenderness. No Meningismus. Chest/axilla: Normal chest wall appearance and motion. Nontender with no deformity. No lesions are appreciated. 07:20 Respiratory: Lungs have equal breath sounds bilaterally, clear to auscultation and percussion. No rales, rhonchi or wheezes noted. No increased work of breathing, no retractions or nasal flaring. 07:20 Back: No spinal tenderness. No costovertebral tenderness. Full range of motion. Skin: Warm, dry with normal turgor. Normal color with no rashes, no lesions, and no evidence of cellulitis. MS/ Extremity: Pulses equal, no cyanosis. Neurovascular intact. Full, normal range of motion. Neuro: Awake and alert, GCS 15, oriented to person, place, time, and situation. Cranial nerves II-XII grossly intact. Motor strength 5/5 in all extremities. Sensory grossly intact. Cerebellar exam normal. Normal gait. Psych: Awake, alert, with orientation to person, place and time. Behavior, mood, and affect are within normal limits. 07:20 Constitutional: The patient appears uncomfortable. 07:20 Cardiovascular: Rate: tachycardic, Rhythm: regular, Heart sounds: gallop, S3 noted. 07:20 Abdomen/GI: Inspection: abdomen appears normal, Bowel sounds: normal, Palpation: moderate abdominal tenderness, in the epigastric area, right upper quadrant and left upper quadrant. Vital Signs: 06:52 BP 148 / 112; Pulse 93; Pulse Ox 97% on R/A; rb1 07:00 BP 137 / 99; Pulse 100; Resp 17; Temp 98.2; Pulse Ox 97% on R/A; Weight 89.81 kg; tl1 Height 5 ft. 9 in. (175.26 cm); Pain 9/10; 08:04 BP 123 / 104; Pulse 115; Resp 22; Pulse Ox 94% on R/A; rb1 09:00 BP 126 / 115; Pulse 117; Resp 20; Pulse Ox 100% ; rb1 10:00 BP 119 / 94; Pulse 104; Resp 17; Pulse Ox 97% ; rb1 07:00 Body Mass Index 29.24 (89.81 kg, 175.26 cm) tl1 06:52 PROSPER Calvin did BP on left and right arm; second BP documented at 0700 rb1 MDM: 06:51 Patient medically screened. snw 09:08 Data reviewed: vital signs, nurses notes. Data interpreted: Pulse oximetry: on room air snw is 94 %. Interpretation: hypoxia. Counseling: I had a detailed discussion with the patient and/or guardian regarding: the historical points, exam findings, and any diagnostic results supporting the discharge/admit diagnosis, the presence of at least one elevated blood pressure reading (>120/80) during this emergency department visit, lab results, radiology results, the need for further work-up and treatment in the hospital. Physician consultation: Bradly Benson MD was called at 09:08, was contacted at 09:08, regarding admission, to the telemetry unit. 09:22 Other consultation: Spoke with Dr. Ruelas to clarify interval for follow up exam to snw check possible splenic infarct. He recommends ultrasound in 2 weeks. 05/05 07:00 Order name: Basic Metabolic Panel; Complete Time: 08:10 snw 05/05 07:00 Order name: CBC with Diff; Complete Time: 08:06 snw 05/05 07:00 Order name: LFT's; Complete Time: 08:10 snw 05/05 07:00 Order name: Magnesium; Complete Time: 08:10 snw 05/05 07:00 Order name: NT PRO-BNP; Complete Time: 08:10 snw 05/05 07:00 Order name: PT-INR; Complete Time: 08:06 snw 05/05 07:00 Order name: Troponin (emerg Dept Use Only); Complete Time: 08:10 snw 05/05 07:20 Order name: Urine Culture snw 05/05 07:20 Order name: Urine Microscopic Only; Complete Time: 09:54 snw 05/05 07:44 Order name: Glucose, Ancillary Testing; Complete Time: 08:06 EDMS 05/05 07:45 Order name: Glucose, Ancillary Testing EDMS 05/05 09:03 Order name: Urine Dipstick--Ancillary (enter results); Complete Time: 09:14 bd 05/05 09:12 Order name: Add On-Lab snw 05/05 09:20 Order name: Thyroid Stimulating Hormone; Complete Time: 09:54 EDMS 05/05 07:00 Order name: XRAY Chest (1 view); Complete Time: 09:12 snw 05/05 07:00 Order name: EKG; Complete Time: 07:01 snw 05/05 07:00 Order name: Cardiac monitoring; Complete Time: 07:39 snw 05/05 07:00 Order name: EKG - Nurse/Tech; Complete Time: 08:29 snw 05/05 07:00 Order name: IV Saline Lock; Complete Time: 07:39 snw 05/05 07:00 Order name: Labs collected and sent; Complete Time: 07:39 snw 05/05 07:00 Order name: O2 Per Protocol; Complete Time: 07:39 snw 05/05 07:00 Order name: O2 Sat Monitoring; Complete Time: 07:40 snw 05/05 07:00 Order name: US Abdomen Limited; Complete Time: 09:12 snw 05/05 07:00 Order name: FSBS; Complete Time: 07:40 snw 05/05 08:17 Order name: CT Aorta for Dissection; Complete Time: 09:12 snw 05/05 07:20 Order name: Urine Dipstick-Ancillary (obtain specimen); Complete Time: 09:17 snw EC:30 Rate is 111 beats/min. Rhythm is regular. QRS [place] is Normal. WA interval is normal. snw QRS interval is normal. QT interval is normal. No Q waves. T waves are Inverted in leads V5, V6. Clinical impression: NSR w/ Non-specific ST/T Changes. Administered Medications: 07:35 Drug: fentaNYL (PF) 50 mcg Route: IVP; Site: left antecubital; rb1 07:55 Follow up: Response: No adverse reaction; Pain is decreased rb1 08:23 Drug: Aspirin Chewable Tablet 324 mg Route: PO; rb1 09:05 Follow up: Response: No adverse reaction rb1 08:23 Drug: PlaVIX 75 mg Route: PO; rb1 09:00 Follow up: Response: No adverse reaction rb1 08:23 Drug: Metoprolol 25 mg Route: PO; rb1 09:00 Follow up: Response: No adverse reaction rb1 Disposition: 05/06 00:07 Co-signature as Attending Physician, Juan Manuel Elizalde MD. [email or web address] Disposition: 05/05/20 09:12 Hospitalization ordered by Bradly Benson for Inpatient Admission. Preliminary diagnosis are Essential (primary) hypertension, Upper abdominal pain, unspecified, Cholecystitis, Elevated troponin. - Bed requested for Telemetry/MedSurg (Inpatient). - Status is Inpatient Admission. rb1 - Condition is Stable. - Problem is an ongoing problem. - Symptoms have worsened. Signatures: Dispatcher [employer] [facility] Isamar Sanchez RN RN dw Shyam Almonte MD MD kdr Viji Romano, CONVEYOR SYSTEM DISPATCHER-C CONVEYOR SYSTEM DISPATCHER-Csnw Tracy Carvalho, RN RN tl1 Ale Arguelles, PROSPER RN rb1 Juan Manuel Elizalde MD MD [email or web address] Corrections: (The following items were deleted from the chart) 05/05 08:31 07:02 Abdomen Pelvis W Con+CT.RAD.BRZ ordered. [facility] EDSD 09:53 09:12 Hospitalization Ordered by Bradly Benson MD for Inpatient Admission. Preliminary diagnosis is Essential (primary) hypertension; Upper abdominal pain, unspecified; Cholecystitis; Elevated troponin. Bed requested for Telemetry/MedSurg (Inpatient). Status is Inpatient Admission. Condition is Stable. Problem is an ongoing problem. Symptoms have worsened. snw 10:50 09:53 05/05/2020 09:12 Hospitalization Ordered by Bradly Benson MD for Inpatient rb1 Admission. Preliminary diagnosis is Essential (primary) hypertension; Upper abdominal pain, unspecified; Cholecystitis; Elevated troponin. Bed requested for Telemetry/MedSurg (Inpatient). Status is Inpatient Admission. Condition is Stable. Problem is an ongoing problem. Symptoms have worsened. dw
[2020-05-05 09:43] LABS: Urine Bacteria <20 /HPF (NONE SEEN); Urine Culture Reflex Order NOT NEEDED; Urine Mucus 2+ /HPF (NONE SEEN); Urine RBC <5 /HPF (NONE SEEN)
[2020-05-05] MEDS ORDERED: ACETAMINOPHEN 500 MG TAB PO PRN (10:50)
[2020-05-05] MEDS ORDERED: NITROGLYCERIN 0.4 MG/TAB SL PRN (10:50)
[2020-05-05 11:16] VITALS: BMI 28.9
--- NOTE | 2020-05-05 11:44 | EKG ---
Test Date: 2020-05-05 Test Time: 08:22:46 Assistant Brand Manager: BILLY MEASUREMENT RESULTS: Intervals: Rate: 111 MS: 140 QRSD: 82 QT: 364 QTc: 495 [place]: P: 70 MS: 140 QRS: 70 T: 31 INTERPRETIVE STATEMENTS: Sinus tachycardia Biatrial enlargement Nonspecific ST and T wave abnormality Abnormal ECG Compared to ECG 11/28/2018 18:24:53 ST (T wave) deviation now present Myocardial infarct finding no longer present Electronically Signed On 05-05-20 11:43:02 CDT by Elliott Mack
[2020-05-05] MEDS: ENOXAPARIN 100 MG/ML SYR SQ SCH ×2 (11:53→21:17)
[2020-05-05] MEDS: PIPER/TAZO/NS 2.25gm 2.25 GM/50 ML BAG IVPB SCH ×3 (12:41→23:22)
[2020-05-05] MEDS: D5 0.45 NS 1,000 ML IV SCH (16:01)
--- NOTE | 2020-05-05 16:28 | P.CNS ---
Date of Consult: 05/05/20 Reason for Consult: KATIE Requesting Physician: Bradly Benson Chief Complaint: Abdominal Pain History of Present Illness: 55 yo BM CKD, HTN presented to the ER with 4 weeks of moderate, progressive abdominal pain with associated weight loss. +Edema Reports a history of multiple kidney stones. Denies urinary complaints at this time. Denies NSAIDs. 07:16 This 55 yrs old Black Male presents to ER via Ambulatory with complaints of Possible snw Kidney Stone. 07:16 Onset: The symptoms/episode began/occurred gradually, 4 week(s) ago, and became worse. snw Associated signs and symptoms: Pertinent positives: abdominal pain. Modifying factors: The patient symptoms are alleviated by nothing. pt states he thinks he has a kidney stone as he has a hx of htn and renal calculi. However, pt complains more of central upper abdominal pain and states he has lost 30 pounds during this time wit hout trying. The patient has not recently seen a physician. pt did go to an urgent care a few weeks ago and they restarted his lisinopril at 5mg, lasix added. Pt denies hematuria. Allergies No Known Allergies Allergy (Unverified 08/26/17 14:10) Home medications list reviewed: Yes Home Medications: Furosemide [Lasix] 1 tab PO DAILY 05/05/20 Lisinopril [Zestril] 5 mg PO DAILY 05/05/20 - Past Medical/Surgical History Diabetic: No -: Hypertension -: Sleep Apnea -: Kidney stones -: Removal of soft palate,uvula, tonsils -: Removal of kidney stones -: surgery on right wrist- with Titanium plate - Social History Alcohol use: Yes Caffeine use: Yes Place of Residence: Home Review of Systems 10-point ROS is otherwise unremarkable Cardiovascular: Edema Gastrointestinal: Abdominal Pain Physical Examination Temp Pulse Resp BP Pulse Ox 97.1 F 107 H 16 129/86 100 05/05/20 12:00 05/05/20 12:00 05/05/20 12:00 05/05/20 12:00 05/05/20 12:00 General: In no apparent distress, Oriented x3, Cooperative HEENT: Atraumatic Neck: Supple Respiratory: Clear to auscultation bilaterally Cardiovascular: Regular rate/rhythm, Edema Gastrointestinal: Soft and benign, Non-distended Musculoskeletal: No clubbing, No contractures Integumentary: No rashes, No cyanosis Neurological: Normal speech Laboratory Data (last 24 hrs) 05/05/20 07:20: PT 17.9 H, INR 1.53 05/05/20 07:20: WBC 5.9, Hgb 14.2, Hct 45.2, Plt Count 319 05/05/20 07:20: Sodium 140, Potassium 4.2, BUN 17, Creatinine 1.55 H, Glucose 101, Magnesium 2.2, Total Bilirubin 1.0, AST 35, ALT 48, Alkaline Phosphatase 127 H Imagings Data: EXAM DESCRIPTION: CT - Angio Aorta For Dissection - 05/05/2020 8:41 am CLINICAL HISTORY: . Chest and abd pain COMPARISON: 2018 CT abdomen TECHNIQUE: Computed tomography angiography of the chest, abdomen pelvis were obtained. 100 cc Isovue 370 was administered intravenously. Coronal and sagittal reconstruction were performed. MIP 3D reconstruction was performed All CT scans are performed using dose optimization technique as appropriate and may include automated exposure control or mA/KV adjustment according to patient size. FINDINGS: An aortic dissection is not seen. An aortic aneurysm is not displayed The celiac, SMA and JOSH are patent . A lung consolidation is not present. A pericardial effusion is not seen. A pleural effusion is not noted. Fatty liver Cholelithiasis. Gallbladder wall is thickened. 3 centimeter low-density area within the spleen reaching the periphery. The pancreas and adrenals are unremarkable. Small renal cysts The appendix is borderline enlarged. No stranding within the adjacent fat. There is no evidence of diverticulitis. Small amount of ascites is present. Inguinal hernias contain fat. IMPRESSION: Negative for an aortic dissection. Cholelithiasis. Thickened gallbladder wall may indicate cholecystitis Borderline enlargement of the appendix. No stranding within the adjacent fat 3 centimeter low-density area within the spleen reaching the periphery suspicious for infarction and can be monitored on subsequent exam [facility] 7[facility]50 am CLINICAL HISTORY: Abdominal pain COMPARISON: 2019 FINDINGS: The lungs appear clear of acute infiltrate. The heart is mildly to moderately enlarged. Upper lobe vessels are prominent indicative of pulmonary venous hypertension EXAM DESCRIPTION: US - Abdomen Exam Limited - 05/05/2020 7:35 am CLINICAL HISTORY: Abdominal pain. COMPARISON: 2018 FINDINGS: Gallbladder wall is thickened measuring 5 millimeters. Tiny echogenic structures likely stones The biliary tree is normal caliber. IMPRESSION: Cholelithiasis Thickened gallbladder wall may indicate cholecystitis Conclusions/Impression: A/ KATIE/ CKD III Proteinuria. Recurrent nephrolithiasis. HTN with CKD. BRAYDEN LE Edema. HyperPTH Vitamin D Deficiency. P/ Continue current POC and Medications. Continue gentle IVF. Continue abx. Low sodium diet. No NSAIDs. AM labs. Daily weight. Thank you kindly for the consultation. Case reviewed with Dr. Benson.
--- NOTE | 2020-05-05 20:37 | HP ---
Date of Admission: 05/05/2020 Chief Complaint: Abdominal pain, shortness of breath. Primary Care Physician: None. Consultants: Dr. Mack, Cardiology and Dr. Summers of General Surgery. History Of Present Illness: Patient is a 55-year-old male with past medical history of hypertension, kidney stones, who comes into the hospital for abdominal pain, which is more in the center of his ab domen which is radiating to the back. Initially, patient thought he was having another kidney stone. He has had history of stenting in the past. Also, reports some decreased appetite, nausea, and vom iting. Also, reports some generalized weakness. The patient's symptoms are constant, moderate, prog ressively worsening. He also reports some gradual shortness of breath which is worse with lying flat . Patient also reported some lower extremity edema. Patient has not been on his blood pressure medi cations, usually takes lisinopril and Lasix, went to an Urgent Care couple weeks ago and was restarte d on a lower dose of lisinopril, came into the ER for further evaluation. His workup revealed normal WBC count. Kidney function was elevated at 1.55. Liver enzymes were normal. Did have elevated tro ponin of 0.55. Blood pressure was elevated 148/112. Patient was given aspirin and Plavix, fentanyl and metoprolol. Imaging studies including CT aortic dissection showed splenic infarction 3 cm, showe d acute cholecystitis and pericholecystic fluid. Ultrasound of the gallbladder also showed possible acute cholecystitis, normal CBD. Chest x-ray showed clear lungs. Patient was then referred for admi ssion. Past Medical History: Hypertension, history of kidney stones. Surgical History: Ureteral stent for kidney stones in the past by Dr. Feliz and right wrist trauma status post hardware placement. Allergies: NO KNOWN DRUG ALLERGIES. Social History: Patient does report drinking, drinks whiskey once a week and then binges on the week end, has been drinking like this for the past 25-30 years. Denies any illicit drug use or tobacco us e. Medications: Lisinopril 5 mg daily and Lasix. Family History: The patient specifically denies any family history of blood clots, diabetes, heart d isease, colon cancer. Review of Systems: Ten-point system reviewed, negative except as per HPI. The patient also reports 30 pounds weight los s over the past month or so. Physical Examination: Vital Signs: Temperature 98.2, heart rate 93, blood pressure 148/112, respirations 17, O2 97% on johnnie m air. General: Awake, alert, oriented x3, ill-appearing male in some mild distress. HEENT: Normocephalic, atraumatic. PERRLA, EOMI. Conjunctivae anicteric. Neck: Supple. No JVD. Trachea midline. CV: S1, S2. Sinus tachycardia. Peripheral pulses present. Respiratory: Moving air well bilaterally. No wheezing or stridor. No use of accessory muscles. Gastrointestinal: Abdomen is soft. Minimal tenderness to palpation in the epigastric region. No re bound or guarding. Positive bowel sounds. Extremities: No clubbing, cyanosis. Patient has peripheral edema, 2+ bilateral lower extremities. No calf tenderness. Neuro: Cranial nerves 2 through 12 intact grossly. No focal neurological deficits. Speech is jovanny l. Strength is symmetric bilateral upper and lower extremities Skin: No rashes. Normal skin turgor. Psych: Mood is okay. Affect is full. Insight and judgment are good. Laboratory Data: Sodium 140, potassium 4.2, chloride 107, CO2 of 26, BUN 17, creatinine 1.55, glucos e of 101, calcium 8.9, magnesium 2.2, AST 35, ALT 48, troponin 0.55. BNP 3996. TSH 3.66. INR 1.5. WBC 5.9, H and H 14.2 and 45.2, platelets 319. UA, negative nitrite, negative leukocyte esterase. Imaging Studies: Abdominal ultrasound shows cholelithiasis, thickened gallbladder wall may indicate cholecystitis. CT angio dissection shows negative for aortic dissection, cholelithiasis, thickened g allbladder wall may indicate cholecystitis, borderline enlargement of the appendix, no stranding with in the adjacent fat, 3 cm low-density area within the spleen which in the periphery suspicious for in farction. Chest x-ray personally reviewed shows lungs appear clear of acute infiltrate, heart is mil d to moderately enlarged, upper lobe vessels are prominent indicative of pulmonary venous hypertensio n. EKG shows sinus tachycardia, rate of 111, nonspecific ST-T changes. Assessment/plan: 55-year-old male with 1.Acute epigastric abdominal pain likely due to acute cholecystitis without obstruction. 2.Acute cholecystitis without obstruction. We will start on IV antibiotics. We spoke with Dr. Derek warren of General Surgery. No acute intervention at this time until the patient's cardiac issues have b een cleared up. 3.Elevated troponin level likely [id number] myocardial infarction versus possible result from splenic infarction per Cardiology. We will start on full-dose anticoagulation. Chest pain guideline s and monitor serial EKGs and obtain echocardiogram. Cardiology recommends Lexiscan in a.m. Spoke w corrina Mack. Troponin is 0.55. EKG is nonspecific. 4.Splenic infarction may be occult atrial fibrillation. Continue with anticoagulation and monitor. 5.Essential hypertension, not well controlled. Patient is on lisinopril at home has been noncomplia nt. He does not have a PCP, was unable to get his medications refilled. We will continue to monitor closely. 6.Likely congestive heart failure, acute, unknown ejection fraction. We will obtain echocardiogram. Chest x-ray shows cardiomegaly. Patient has peripheral edema. Chest x-ray, however, is clear. We will follow up on echocardiogram. Monitor I's and O's, free fluid restriction. 7.Possible acute appendicitis. CT scan shows borderline enlarged appendix, however, no fat strandin g. Case discussed with Dr. Summers. He recommends IV antibiotics at this time. No acute surgical i ntervention. We will keep n.p.o. 8.Alcohol dependence and abuse. Patient has been counseled. 9.Acute kidney injury. Creatinine is 1.55, likely due to dehydration. Patient has been having naus ea and vomiting. Start on gentle IV fluids. 10.Deep vein thrombosis prophylaxis. Patient is on full-dose Lovenox. PLAN: Admit patient to Med-Surg, place as inpatient. Length of stay greater than 2 midnights. /GULSHAN Voice ID: [id number]
[2020-05-05] MEDS ORDERED: ENOXAPARIN 100 MG/ML SYR SQ SCH (21:00)
[2020-05-05] MEDS: METOPROLOL TAR 25 MG TAB PO SCH (21:17)
[2020-05-05] MEDS: MORPHINE 2 MG/ML SYR IV PRN (23:09)
[2020-05-05] MEDS ORDERED: ONDANSETRON 4 MG/2 ML VIAL IV PRN (23:16)
--- NOTE | 2020-05-06 00:43 | CON ---
Date of Consultation: 05/05/2020 Patient was admitted to Dr. Benson's service on 05/05/2020. I saw the patient on 05/05/2020. Reason For Consultation: Elevated troponin and splenic infarct. History Of Present Illness: Mr. Alfonso is -utaa-jiv white male, no significant past medica l history except for hypertension and kidney stones. He came in with mid epigastric pain as well as right upper quadrant pain. He was found on workup to have a splenic infarct and possible cholecystit is with cholelithiasis. He was also noted on chest x-ray to have pulmonary venous hypertension. He had some issues with edema and weight gain. Has had some dyspnea on exertion. He denied any nausea or vomiting or diaphoresis. He denied any palpitations or syncope. Denied any fever or chills. His troponin was slightly elevated at 0.55. His creatinine is 1.55. The rest of his blood work was unr emarkable. Past Medical History: As stated above. Allergies: NONE. Review of Systems: Negative. Social History: Negative. Family History: Negative. Medications: He does not take any medications at home. Physical Examination: Vital Signs: Stable. He was afebrile. General: He was in no acute distress, although he complained of slight pain in the right upper quadr ant and mid epigastric region. HEENT: Negative. Neck: Supple with no bruit. Chest: Clear. Cardiac: Revealed a regular rhythm and rate with a tricuspid regurgitation murmur. No gallops or ru bs. Abdomen: Obese, but benign. Extremities: Revealed no clubbing, cyanosis. He had 1+ edema. Diagnostic Data: As stated earlier. Impression And Plan: 1.Splenic infarct. 2.Cholelithiasis with possible cholecystitis. 3.Renal insufficiency. 4.Abnormal troponin. 5.Pulmonary venous hypertension on x-ray. 6.History of hypertension. 7.Edema. 8.Nephrolithiasis history. I think Mr. Alfonso's history is rather interesting, his splenic infarct may or may not be causing his symptoms, but nevertheless, we should suspect that he has atrial fibrillation causing splenic infarc t. I think he needs to be diuresed and needs to have an echocardiogram and Lexiscan. He needs to be placed on Lovenox and eventually should be on Xarelto and he should also have an event monitor as an outpatient to rule out atrial fibrillation. Surgical consultation has been obtained regarding his g allbladder. I will continue to follow him. KAM/GULSHAN Voice ID: [id number] Report ID: [id number]
[2020-05-06] MEDS: PIPER/TAZO/NS 2.25gm 2.25 GM/50 ML BAG IVPB SCH ×3 (05:23→17:32)
[2020-05-06] MEDS: D5 0.45 NS 1,000 ML IV SCH (05:24)
[2020-05-06 05:31] LABS: Absolute Lymphocytes (CBC) 1.8 K/uL (0.7-4.9); Basophils % 1.2 % (0-1.3); Hematocrit 46.9 % (39.6-49.0); Lymphocytes % 26.2 % (15.3-44.8); MPV 9.4 fL (7.6-11.3); RBC Red Blood Cell Count 4.96 M/uL (4.33-5.43)
[2020-05-06 05:45] LABS: Albumin 3.2 g/dL (3.4-5.0); Bilirubin Total 1.5 mg/dL (0.2-1.0); Magnesium 2.1 mg/dL (1.8-2.4); Phosphorus 4.3 mg/dL (2.5-4.9); Potassium 4.9 mmol/L (3.5-5.1); Protein, Total 7.3 g/dL (6.4-8.2)
[2020-05-06 06:13] LABS: Urine Appearance CLOUDY; Urine Blood NEGATIVE (NEG); Urine Color DK YELLOW; Urine Glucose NEGATIVE (NEG); Urine Protein 3+ (NEG); Urine Specific Gravity >=1.030 (1.005-1.030); Urine pH 5.5 (5.0-7.0)
[2020-05-06 06:47] LABS: Urine Bilirubin 1+ (NEG)
[2020-05-06 07:57] LABS: Urine Bacteria <20 /HPF (NONE SEEN); Urine RBC <5 /HPF (NONE SEEN)
[2020-05-06 07:58] LABS: Urine Coarse Granular Casts 0-5 /LPF (NONE SEEN); Urine Culture Reflex Order NOT NEEDED
[2020-05-06] MEDS: ASPIRIN EC 81 MG TAB PO SCH (09:00)
[2020-05-06] MEDS ORDERED: lisinopriL 10 MG TAB PO SCH (09:00)
[2020-05-06] MEDS ORDERED: REGADENOSON 0.4 MG/5 ML SYR IV ONE (09:37)
--- NOTE | 2020-05-06 11:58 | PN ---
Date of Progress Note: 05/06/2020 Subjective: Patient was admitted with cholecystitis. Patient known to have kidney stone. Patient f ound to have ldf-JQ-lxfxusubo AK, over volume. Patient had orthopnea. Physical Examination: Vital Signs: When I saw the patient, blood pressure 103/87, pulse of 90, afebrile. Patient had been voiding normally. Chest: Crackles, bilateral base. Heart: S1, S2. Regular. Abdomen: Soft, nontender. Extremities: Trace edema. Neurologic: Alert. No focal. Laboratory Data: Chest x-ray, cardiomegaly with congestion. CT abdomen and pelvis, renal cyst witho ut any obstruction. WBC 6.9, H and H 14.9/46.9, platelets 334. Sodium 140, potassium 4.9, bicarb 23 , BUN 22, creatinine 1.6. Uric acid of 11, calcium 8.5, phosphorus 4.3. BNP 3400. PTH 249, vitamin D 21, TSH of 3.6. Current Medications: The patient on include: 1.Lisinopril 10 mg. 2.Metoprolol. 3.Nitroglycerin. 4.Tylenol. Assessment And Plan: 1.Acute kidney injury secondary to cardiorenal, slightly on the over volume side. I am going to go ahead and discontinue IV fluid. Start the patient on gentle diuresis. 2.Hyper uric acid without any gouty activity. I am going to start the patient on allopurinol. 3.Hypertension. We will utilize blood pressure for more diuresis. 4.Secondary hyperparathyroidism. We will start the patient on ergocalciferol and we will follow up the patient. 5.Ahf-XY-sxyezbscj myocardial infarction as by Cardiology. KATY/GULSHAN Voice ID: [id number] Report ID: [id number]
--- NOTE | 2020-05-06 13:21 | RAD REPORT ---
EXAM DESCRIPTION: NM - Rest Stress Cardiac Imaging - 05/06/2020 10:44 am CLINICAL HISTORY: Chest pain COMPARISON: None. TECHNIQUE: The patient was administered 9.6 mCi of Tc 99m Sestamibi prior to resting SPECT imaging o f the heart. The patient was then administered 32.2 mCi of Tc 99m Sestamibi following exercise or pha rmacologic stress. Multiplanar SPECT images were reviewed. FINDINGS: The end diastolic volume is 195 ml, the end systolic volume is 177 ml, and the ejection fr action is 9 %. No stress-induced ischemic changes are identifiable. There is thinning and diminished activity along the anterior wall base to apex similar between stress and rest imaging. Similar diminished activity a long the inferior wall also without change from stressed to rest imaging. Focal fixed defects seen at the apex. The unusually low ejection fraction was re-evaluated for possible technical artifact. Multiple re- ca lculations resulted in a similar very poor ejection fraction. No error could be identified. IMPRESSION: 1. No stress-induced ischemic changes identifiable. 2. Areas of fixed diminished activity along the anterior and inferior glass could be soft tissue atte nuation artifact, diaphragm artifact, scarring or a combination. 3. End-diastolic volume was calculated as 195 mL with the end systolic volume of 177 milliliters. The calculated ejection fraction was 9%. 4. No technical factor could be found to explain the extremely low and ejection fraction. Correlation is needed with cardiac echo study.
[2020-05-06] MEDS: METOPROLOL TAR 25 MG TAB PO SCH ×2 (15:02→20:38)
[2020-05-06] MEDS: ENOXAPARIN 100 MG/ML SYR SQ SCH ×2 (16:32→20:38)
--- NOTE | 2020-05-06 17:13 | CON ---
Date of Consultation: 05/05/2020 Brief History Of Present Illness: Patient is a 55-year-old black male with past medical history of h ypertension and kidney stones, who comes to hospital with abdominal pain in the epigastric region, wh ich was radiating to his back. He thought he was having kidney stones by report as he has had stenti ng procedure performed in the past. He has some decreased appetite, nausea, and vomiting. Some gene ralized weakness occurs as well. The pain was predominantly in the epigastric region, but significan tly better after come to the hospital. He has never had similar episodes before in the past. He is given aspirin and Plavix. Past Medical History: Significant for hypertension, kidney stones. Past Surgical History: Ureteral stent for kidney stones in the past by Dr. Feliz. Wrist surgery fo r traumatic fracture repair. Allergies: NO KNOWN DRUG ALLERGIES. Medications: Lisinopril and Lasix daily. Social History: He does report drinking whiskey once, binge drinking on the weekends. He has been d [employer] for approximately 30 years. He denies any recreational drug use. Review of Systems: 10-point review of systems other than HPI, he reports a weight loss of 30 pounds over the past 1 or 2 months. Physical Examination: Vital Signs: At the time of examination, his BMI was 28.7. His temperature was 98.2, heart rate 93, blood pressure 148/112, respirations 17, and O2 97% on room air. General: He is awake, alert, oriented. Psychiatric: Appropriate, conversive. HEENT: Normocephalic. Sclerae are icteric. Mucous membranes are moist. Oropharynx clear. Neck: Supple. No JVD. Chest: Normal expansion and excursion. Cardiovascular: Regular rate. Abdomen: Soft with mild epigastric tenderness to palpation. Negative right upper quadrant tendernes s to palpation. Negative Wood sign. No rebound. No guarding. No focal peritonitis. No palpable masses. Extremities: No clubbing, cyanosis, or edema. Skin: Warm and dry. Laboratory Data: White blood cell count of 5.9, hemoglobin was 14.2, hematocrit 45.2, platelet count was 319. His neutrophils were normal at 57%. His PT was 17.9, INR 1.53. His sodium was 140, potas sium 4.2, chloride 107, carbon dioxide 26, BUN 17, creatinine 1.5, glucose 101. His calcium was 8.9. His total bilirubin was 1.0, direct bilirubin 0.4, AST 35, ALT 48, alkaline phosphatase 127. His r apid troponin was 0.55. Subsequent check on troponin was 0.32 and then 0.27. His PTH was 249. TSH 3.6. He had UA, which was essentially negative. He had imaging performed, which included abdominal ultrasound performed on 05/05, which was officially read as cholelithiasis and thickened gallbladder wall, may indicate cholecystitis. The gallbladder was thickened. 5 mm tiny echogenic structures lik lalitha representing stones are evident. He had a CT dissection protocol, which was officially read as a ortic dissection, not seen; aortic aneurysm, not displayed. All the celiac SMA and JOSH are patent. Pericardial effusions not seen. Pleural effusion is not noted. Fatty liver, cholelithiasis, gallbla dder wall thickened. 3 cm low-density area within the spleen reaching the periphery. Appendix is rubina rderline enlarged. No evidence of diverticulosis. He is negative for aortic dissection. Cholelithi asis, thickened gallbladder wall, may indicate cholecystitis. Borderline enlargement of the appendix . No stranding within the adjacent fat. 3 cm low-density area within the spleen reaching the periph lottie suspicious for infarction, could be monitored on subsequent exam. Assessment And Plan: This is a 55-year-old male who comes in with epigastric abdominal pain. I am u ncertain if this is truly a cholecystitis as he does not have any right upper quadrant pain and curre ntly his symptoms have significantly improved; however, he has elevation of his cardiac enzymes. In addition, he has evidence of a possible splenic infarction. His coag panel is also abnormal. I am c oncerned about his cardiovascular status and as such I recommend consultation with Dr. Mack prior to any surgical intervention as the patient has no evidence of active cholecystitis causing infection on clinical grounds. Therefore, I recommend cardiac workup prior to consideration of any surgical i ntervention. I will follow along with you. The patient also would likely benefit from abdominal sherie n workup after his cardiovascular status has been properly ruled out. I have explained the risks, be nefits, and alternatives of the above-stated plan. The patient agrees to proceed as indicated. TK/MODL Voice ID: [id number] Report ID: [id number]
--- NOTE | 2020-05-06 19:04 | PN ---
Date of Progress Note: 05/06/2020 Subjective: Patient seen and examined. Chart reviewed and case discussed with RN and Dr. Summers. Patient states his pain is better. Had cardiac stress test and echocardiogram done today. Medications: List reviewed. Physical Examination: Vital Signs: Temperature 96.9, heart rate 90, blood pressure 103/87, respirations 18, O2 sat 93% on room air. General: Awake, alert, oriented x3 in some mild distress ill-appearing male. CV: S1, S2. Peripheral pulses present. Respiratory: Moving air well bilaterally. Diminished breath sounds on the bases. Gastrointestinal: Abdomen is soft. Mild tenderness and distention in the epigastric region. Hypoac tive bowel sounds. No guarding or rigidity. Extremities: No clubbing, cyanosis. Patient has peripheral edema 2+, bilateral lower extremities. Laboratory Data: Sodium 140, potassium 4.9, chloride 107, CO2 of 22, BUN 22, creatinine 1.64, glucos e 86, uric acid 11, calcium 8.5, magnesium 2.1, phosphorus 4.3, total bilirubin 1.5, AST 124, ALT 110 . Troponin 0.55, 0.32 and then 0.27. BNP 3402. Albumin 3.2. Triglycerides 59, cholesterol 103, LD L 68, HDL 23. PTH 249. WBC 6.9, H and H 14.9 and 46.9, platelets 334. Urine culture, no growth to date. Cardiac stress test shows no stress-induced ischemic changes identifiable areas of fixed dimin ished activity along the anterior inferior glass could be soft tissue attenuation artifact. Diaphrag m artifact, scarring or combination. End-diastolic volume was 195 mL with end-systolic volume of 177 mL. Calculated EF is 9%. Assessment And Plan: A 55-year-old male with 1.Acute epigastric abdominal pain secondary to acute cholecystitis. 2.Acute cholecystitis without obstruction. We will continue with IV antibiotics and n.p.o. Appreci ate Dr. Summers's input. No acute intervention at this time due to his cardiac issues, nonsurgical m anagement for right now. 3.Alx-IB-dudtgbtsr myocardial infarction. Continue with chest pain guidelines. Continue full-dose anticoagulation, EF is very low at 9 to 13%. 4.Alcohol related cardiomyopathy. We will adjust medications. We will add Aldactone. 5.Acute congestive heart failure, systolic dysfunction. We will start on diuretics. Monitor I's an d O's, daily weights. 6.Splenic infarction, may be due to occult atrial fibrillation. Continue with full-dose anticoagula tion. Patient will need to be on oral anticoagulation as outpatient. 7.Essential hypertension, not well controlled. Medications have been restarted. 8.Possible acute appendicitis, borderline enlarged appendix on CT scan without any fat stranding, ho wever. Continue with nonsurgical management. Continue IV antibiotics. Keep n.p.o. 9.Alcohol dependence and abuse, counseled. 10.Acute kidney injury. Creatinine worse today. Appreciate Nephrology input. 11.Deep venous thrombosis prophylaxis. Patient is on Lovenox. SA/MODL Voice ID: [id number] Report ID: [id number]
[2020-05-06] MEDS: MORPHINE 2 MG/ML SYR IV PRN (20:34)
[2020-05-07] MEDS: PIPER/TAZO/NS 2.25gm 2.25 GM/50 ML BAG IVPB SCH ×2 (00:10→07:00)
[2020-05-07] MEDS: MORPHINE 2 MG/ML SYR IV PRN (00:10)
[2020-05-07 06:36] LABS: Albumin 3.1 g/dL (3.4-5.0); Bilirubin Total 0.9 mg/dL (0.2-1.0); Potassium 5.1 mmol/L (3.5-5.1); Protein, Total 6.8 g/dL (6.4-8.2)
--- NOTE | 2020-05-07 08:51 | TREADPHA ---
DX: LANIEALLYSSA COXIO Date of Study: 05/06/2020 Ht: 5' 9 " Wt: 194 lb 3.2 oz Consulting Physician: CHING MEDICATIONS: LINSINOPRIL, LASIX, ASPIRIN, LOPRESSOR, LOVENOX, PRINIVIL, ZOFRAN, MORPHINE, ZOFRAN HISTORY: 55 YEAR OLD MALE WITH HISTORY OF HYPERTENSION, RENAL STONES. ADMITTED FOR ABDOMINAL PAIN AND ELEVATED TROPONIN PHYSICIAL EXAMINATION: RESTING B.P.: 131/105 RESTING H.R.: 98 RESTING EKG: SINUS RHYTHM, POSSIBLE LATERAL ISCHEMIA PROTOCOL: LEXISCAN EXERCISE TIME: 3:30 B.P. AT PEAK STRESS: 144/108 IMPRESSION: LEXISCAN STRESS TEST PERFORMED. CARDIOLITE INJECTED PER PROTOCOL. NO SUPRA VENTRICULAR TACHYCARDIA, NO VENTRICULAR TACHYCARDIA, OCCASIONAL PREMATURE VENTRICULAR COMPLEXES NOTED. PATIENT DENIED CHEST PAIN. RESPIRATORY NONLABORED, TOLERATED WELL. SEE NUCLEAR MEDICINE REPORT.
--- NOTE | 2020-05-07 08:54 | ECHO ---
HEIGHT: 5 ft 9 in WEIGHT: 194 lb 3.2 oz DATE OF STUDY: 05/06/[address]: Bradly Benson MD 2-DIMENSIONAL: YES M.MODE: YES DOPPLER: YES COLOR FLOW: YES TDS: NO PORTABLE: NO DEFINITY: NO BUBBLE STUDY: NO DIAGNOSIS: NSTEMI CARDIAC HISTORY: CATHERIZATION: NO SURGERY: NO PROSTHETIC VALVE: NO PACEMAKER: NO MEASUREMENTS (cm) DIASTOLIC (NORMALS) SYSTOLIC (NORMALS) IVSd 1.1 (0.6-1.2) LA Diam 4.8 (1.9-4.0) LVEF 11% LVIDd 5.8 (3.5-5.7) LVIDs 5.5 (2.0-3.5) %FS 5% LVPWd 1.0 (0.6-1.2) Ao Diam 2.5 (2.0-3.7) 2 DIMENSIONAL ASSESSMENT: RIGHT ATRIUM: NORMAL LEFT ATRIUM: DILATED RIGHT VENTRICLE: NORMAL LEFT VENTRICLE: DILATED TRICUSPID VALVE: NORMAL MITRAL VALVE: NORMAL PULMONIC VALVE: NORMAL AORTIC VALVE: NORMAL PERICARDIAL EFFUSION: NONE AORTIC ROOT: NORMAL LEFT VENTRICULAR WALL MOTION: SEVERE GLOBAL HYPOKINESIS. DOPPLER/COLOR FLOW: MILD TRICUSPID REGURGITATION. COMMENTS: SEVERE GLOBAL HYPOKINESIS. EJECTION FRACTION 10-11%. NO EFFUSION. MILD TRICUSPID REGURGITATION - NORMAL RIGHT VENTRICULAR SYSTOLIC PRESSURE. TECHNOLOGIST: SOCRATES FLORES
[2020-05-07] MEDS ORDERED: lisinopriL 5 MG TAB PO SCH (09:00)
[2020-05-07] MEDS ORDERED: HOME MED 1 EA UNK (Losartan Potassium [Cozaar] 100 MG) PO SCH (09:00)
[2020-05-07] MEDS: FUROSEMIDE 20 MG/ 2ML VIAL IV SCH (09:05)
[2020-05-07] MEDS: ENOXAPARIN 100 MG/ML SYR SQ SCH ×2 (09:05→20:09)
[2020-05-07] MEDS: allopurinoL 100 MG TAB PO SCH (09:05)
[2020-05-07] MEDS: TAMSULOSIN 0.4 MG SR CAP PO SCH (09:05)
[2020-05-07] MEDS: ASPIRIN EC 81 MG TAB PO SCH (09:06)
[2020-05-07] MEDS: SPIRONOLACTONE 25 MG TABLET PO SCH (09:06)
[2020-05-07] MEDS: LOSARTAN POTASSIUM 50 MG TABLET PO SCH (09:06)
[2020-05-07] MEDS: METOPROLOL TAR 25 MG TAB PO SCH (09:06)
[2020-05-07] MEDS: VITAMIN D 5,000 UNIT CAP PO SCH (09:07)
--- NOTE | 2020-05-07 12:36 | PN ---
Date of Progress Note: 05/07/2020 Subjective: Patient was admitted with cholecystitis. Patient apparently had new CHF secondary to no m-KG-pwbsypyfl DE. Patient was started on diuresis. Physical Examination: Vital Signs: Blood pressure 128/90, pulse of 88, afebrile. Patient had good urine output. Still pedro ve some swelling in his leg Chest: Crackles, left base. Heart: S1, S2. Systolic murmur. Abdomen: Soft, nontender. Extremities: Trace edema. Neurologic: Alert. No focal. Laboratory Data: WBC 6.9, H and H 14.9/46.9, platelets 334. Sodium 142, potassium 5.1, bicarb 19, B UN 28, creatinine 1.5, GFR of 58. Calcium 8.5. Uric acid of 11. AST 325, ALT 259, albumin 3.1. Current Medications: Zosyn 2.25 q.6, aspirin, Flomax, Lovenox, losartan 100 daily, metoprolol, negrita nolactone 25, Lasix 20, Zofran. Assessment And Plan: 1.Acute kidney injury on chronic kidney disease secondary to cardiorenal, slightly on the wet side. I am going to continue on the diuresis. Agree with Aldactone and challenging with losartan. We italo l follow up. 2.Congestive heart failure, advanced. Ejection fraction of 15%. Continue diuresis. We will follow up with the primary. 3.Hyper uric acid in the presence of acute kidney injury. We will continue allopurinol. 4.Secondary hyperparathyroidism, vitamin D deficiency. Patient was started on ergocalciferol. 5.Cholecystitis. Given the current kidney function, I am going to change the dosage for the patient . KATY/GULSHAN Voice ID: [id number] Report ID: [id number]
--- NOTE | 2020-05-07 14:15 | PN ---
Date of Progress Note: 05/07/2020 Subjective: Patient seen and examined, chart reviewed, and case discussed with RN and Dr. Summers. Patient is tolerating his diet. Does not complain of any abdominal pain. Patient counseled cheryl g his treatment plan and anticoagulation options. Medication List: Reviewed. Physical Examination: Vital Signs: Temperature 96.9, heart rate 88, blood pressure 128/90, respirations 18, O2 saturation 97% on room air. General: Awake, alert, oriented x3, does not appear to be in any acute distress. CV: S1, S2. Regular rate and rhythm. Peripheral pulses present. Respiratory: Moving air well bilaterally. No wheezing or stridor. Gastrointestinal: Abdomen is soft, nontender, nondistended. Positive bowel sounds. Extremities: No clubbing or cyanosis. Patient has 2+ edema, slightly improved from yesterday. Neurologic: Nonfocal. Laboratory Data: Sodium 142, potassium 5.1, chloride 111, CO2 of 19, BUN 28, creatinine 1.53, glucos e 73, calcium 8.5, total bilirubin 0.9, AST 325, ALT 259, alkaline phosphatase 107. COVID screen is negative. Assessment And Plan: 55-year-old male with: 1.Acute epigastric abdominal pain, likely secondary to acute cholecystitis. 2.Acute cholecystitis without obstruction. Continue with IV antibiotics. The patient is tolerating his diet. Nonsurgical management at this time. White count is normal. 3.Qpr-WL-nsbrlvmxa myocardial infarction. Continue with chest pain guidelines. Patient is on thera peutic dose of Lovenox. Has very low EF. 4.Alcohol-related cardiomyopathy. EF of 9% to 13%, has been added on Aldactone. Patient would bene fit from Entresto, however, is uninsured. 5.Acute congestive heart failure, systolic dysfunction, EF 9% to 13%. Continue diuretics. Monitor I's and O's, free fluid restriction, daily weights. 6.Splenic infarction, may be due to occult atrial fibrillation. Cardiology recommends oral anticoag ulation on discharge. Patient is uninsured, was given a coupon book for Eliquis. He is able to rece gibran 1 month for free. He was recommended to call the 800 number or go on the website to see if he wi ll qualify for longer, at least 3 months of the medication. If not, he will need to be switched to C oumadin with bridging with Lovenox. 7.Essential hypertension, not well controlled, improved with medications. 8.Alcohol dependence and abuse, counseled. 9.Acute kidney injury. Creatinine is slightly better. The patient is being seen by Nephrology. Ap preciate their input. 10.Elevated liver enzymes, likely secondary to acute cholecystitis. We will check hepatitis panel a s well. Surgery does not feel that the patient has acute appendicitis. CT scan had shown some borde rline enlarged appendix without any fat stranding. Patient is tolerating diet. White count is jovanny l. No signs of sepsis. 11.Deep venous thrombosis prophylaxis, Lovenox. Plan: The patient needs social director. Case Management is also now involved. Patient will need t o be set up with PCP, likely at the [facility], especially if he needs INR checks and he will also need to be evaluated for a LifeVest. However, due to his uninsured status, may not be deonna muniz. /GULSHAN Voice ID: [id number] Report ID: [id number]
[2020-05-07] MEDS: WARFARIN SODIUM 5 MG TAB PO SCH (16:32)
[2020-05-07] MEDS: PIPER/TAZO/NS 3.375gm 3.375 GM/100 ML BAG IVPB SCH (16:33)
[2020-05-07] MEDS: carvediloL 12.5 MG TAB PO SCH (17:40)
[2020-05-08] MEDS: PIPER/TAZO/NS 3.375gm 3.375 GM/100 ML BAG IVPB SCH ×3 (00:15→17:06)
[2020-05-08] MEDS: MORPHINE 2 MG/ML SYR IV PRN (01:47)
[2020-05-08] MEDS: carvediloL 12.5 MG TAB PO SCH ×2 (05:13→16:55)
[2020-05-08 06:34] LABS: Absolute Lymphocytes (CBC) 1.4 K/uL (0.7-4.9); Basophils % 1.3 % (0-1.3); Lymphocytes % 26.5 % (15.3-44.8); RBC Red Blood Cell Count 4.84 M/uL (4.33-5.43)
[2020-05-08 06:39] LABS: Protime INR 1.8
[2020-05-08 06:54] LABS: Albumin 2.9 g/dL (3.4-5.0); Bilirubin Total 0.9 mg/dL (0.2-1.0); Potassium 4.2 mmol/L (3.5-5.1); Protein, Total 6.3 g/dL (6.4-8.2)
[2020-05-08 09:06] LABS: Platelet Estimate ADEQ
[2020-05-08 09:07] LABS: Blood Morphology Comment NOTED (NOT SEEN); Polychromasia 1+
[2020-05-08] MEDS: FUROSEMIDE 20 MG/ 2ML VIAL IV SCH (09:26)
[2020-05-08] MEDS: VITAMIN D 5,000 UNIT CAP PO SCH (09:26)
[2020-05-08] MEDS: TAMSULOSIN 0.4 MG SR CAP PO SCH (09:26)
[2020-05-08] MEDS: LOSARTAN POTASSIUM 50 MG TABLET PO SCH (09:26)
[2020-05-08] MEDS: ASPIRIN EC 81 MG TAB PO SCH (09:27)
[2020-05-08] MEDS: allopurinoL 100 MG TAB PO SCH (09:27)
[2020-05-08] MEDS: ENOXAPARIN 100 MG/ML SYR SQ SCH ×2 (09:27→20:55)
[2020-05-08] MEDS: SPIRONOLACTONE 25 MG TABLET PO SCH (09:27)
--- NOTE | 2020-05-08 09:42 | P.PN ---
Subjective Date of Service: 05/08/20 Chief Complaint: Abdominal Pain Subjective pt admitted for abdominal pain, found to have elevated LFT and spelnic infraction , had KATIE Today no new complaints Cr stable Cont current meds INR 1.8 can be discharged tomorrow from Nephrology point of view Physical exam general: AAOX3, NAD , Neck; Supple, No elevated JVD hear: RRR, normal S1,2 no murmur or rub Chest: CTAB, no rlaes or wheezes Abdomen: Soft , Nt Extremities edema Assessment And Plan: KATIE on CKD III due to cardiorenal Cr stable now cont losartan renal dose meds HTN Bp cpntrolled CHF EF ~10% likely due to alcoholic cardiomyopathy cont diuretics Cholecysitis tolerating diet LFT improving , also elevated LFT could be due to alcoholic liver disease Splenic infraction on coumadin Total time spent 40 min Physical Examination - Vital Signs Temperature: 97.2 F Blood Pressure: 110/80 Pulse: 87 Respirations: 16 Pulse Ox (%): 100 - Studies Microbiology Data (last 24 hrs): 05/05/20 08:50 Clean Catch Urine [place] Count - Final 05/05/20 08:50 Clean Catch Urine - Final No growth.
--- NOTE | 2020-05-08 17:04 | PN ---
Subjective: Patient seen and examined, chart reviewed, and case discussed with RN and Dr. Burciaga. Patient is doing well, no acute events overnight. Medications: List reviewed. Physical Examination: Vital Signs: Temperature 97.2, heart rate 87, blood pressure 110/80 respirations 16, O2 100% on room air. General: Awake, alert, oriented x3. No acute distress. CV: S1, S2. Regular rate and rhythm. Peripheral pulses present. Respiratory: Moving air well bilaterally. No wheezing or stridor. Gastrointestinal: Abdomen is soft, nontender, nondistended. Positive bowel sounds. Extremities: No clubbing, cyanosis. Patient has 2+ edema. Neurologic: Nonfocal. Laboratory Data: Sodium 142, potassium 4.2, chloride 109, CO2 of 23, BUN 30, creatinine 1.49, glucos e 88, calcium 8.6, AST 283, ALT 289, albumin 2.9. INR 1.8. WBC 5.3, H and H 14.4 and 45, platelets 282. COVID test is negative. Hepatitis panel is pending. Assessment: 55-year-old male with: 1.Acute qnm-HL-atazntbdn myocardial infarction. Continue with chest pain guidelines. Patient is on therapy with Lovenox, very low ejection fraction. No further pain. Appreciate Cardiology input. 2.Acute cholecystitis without obstruction, improving. Continue IV antibiotics. Patient is tolerati ng his diet. Nonsurgical management. Surgery has signed off. 3.Acute epigastric abdominal pain secondary to above, resolved. 4.Acute alcohol related cardiomyopathy, ejection fraction of 11%. Continue Aldactone, unable to aff ord Entresto. 5.Acute congestive heart failure, systolic dysfunction, ejection fraction 11%. We will continue diu retics. Monitor I's and O's, free fluid restriction daily weights. 6.Splenic infarction, may be due to occult atrial fibrillation. We will continue anticoagulation fo r now. 7.Essential hypertension, improved with medications. 8.Alcohol dependence and abuse, counseled. 9.Acute kidney injury. Creatinine is improving. Appreciate Nephrology input. Continue to monitor creatinine level. Avoid NSAIDs. 10.Elevated liver enzymes secondary to acute cholecystitis. Hep panel is pending, trending down sli ghtly. 11.Deep venous thrombosis prophylaxis. Patient is on Lovenox. Plan: We will continue bridging with Coumadin. Patient unable to have Eliquis long-term due to unin sured status. He has been referred to [facility] for INR checks and he will need to hav e repeat echo done by Dr. Mack to be evaluated for LifeVest and possible defibrillator. Discharge once INR in range between 2 and 3. /GULSHAN Voice ID: [id number] Report ID: [id number]
[2020-05-08] MEDS: WARFARIN SODIUM 5 MG TAB PO SCH (17:05)
[2020-05-09] MEDS: PIPER/TAZO/NS 3.375gm 3.375 GM/100 ML BAG IVPB SCH ×3 (00:27→16:18)
[2020-05-09] MEDS: carvediloL 12.5 MG TAB PO SCH ×2 (05:14→16:59)
[2020-05-09 05:52] LABS: Absolute Lymphocytes (CBC) 1.6 K/uL (0.7-4.9); Basophils % 0.8 % (0-1.3); Hematocrit 44.3 % (39.6-49.0); Lymphocytes % 28.3 % (15.3-44.8); MPV 9.3 fL (7.6-11.3); RBC Red Blood Cell Count 4.72 M/uL (4.33-5.43)
[2020-05-09 06:56] LABS: Protime INR 1.82
[2020-05-09 07:10] LABS: Albumin 2.7 g/dL (3.4-5.0); Bilirubin Total 0.8 mg/dL (0.2-1.0); Potassium 4.3 mmol/L (3.5-5.1); Protein, Total 6.2 g/dL (6.4-8.2)
[2020-05-09] MEDS: LOSARTAN POTASSIUM 50 MG TABLET PO SCH (09:00)
[2020-05-09] MEDS: SPIRONOLACTONE 25 MG TABLET PO SCH (09:00)
[2020-05-09] MEDS: FUROSEMIDE 20 MG/ 2ML VIAL IV SCH ×2 (09:00→14:15)
[2020-05-09] MEDS: ENOXAPARIN 100 MG/ML SYR SQ SCH ×2 (09:50→20:50)
[2020-05-09] MEDS: ASPIRIN EC 81 MG TAB PO SCH (09:50)
[2020-05-09] MEDS: TAMSULOSIN 0.4 MG SR CAP PO SCH (09:51)
[2020-05-09] MEDS: allopurinoL 100 MG TAB PO SCH (09:52)
[2020-05-09] MEDS: VITAMIN D 5,000 UNIT CAP PO SCH (09:52)
--- NOTE | 2020-05-09 11:44 | PN ---
Date of Progress Note: 05/09/2020 Subjective: Patient was seen and examined. Chart was reviewed and case was discussed with RN and Dr Noe Burciaga. Patient denies any specific events overnight. No acute complaints. Medications: List reviewed. Physical Examination: Vital Signs: Temperature 97, heart rate 84, blood pressure 100/72, respirations 20, O2 of 99% on johnnie m air. General: Awake, alert, oriented x3, not in any acute distress. CV: S1, S2. Regular rate and rhythm. Peripheral pulses present. Respiratory: Moving air well bilaterally. No wheezing or stridor. Gastrointestinal: Abdomen is soft, nontender, nondistended. Positive bowel sounds. Extremities: No clubbing or cyanosis. Patient has 2+ edema of the lower extremities. Neurologic: Nonfocal. Laboratory Data: Sodium 142, potassium 4.3, chloride 111, CO2 of 24, BUN 26, creatinine 1.36, glucos e 94, calcium 8.5, AST 130, ALT 217, albumin 2.7. WBC 5.6, H and H 14.4 and 44.3, platelets 274, deborah trophils 53%. Assessment: A 55-year-old male with: 1.Acute non-ST elevation myocardial infarction. Continue with chest pain guidelines. No further ch est pain. Patient has very low ejection fraction. Cardiology on board. 2.Acute cholecystitis without obstruction, resolving. We will continue IV antibiotics. Nonsurgical management per Dr. Summers. 3.Acute epigastric abdominal pain secondary to above, resolved. 4.Acute alcoholic cardiomyopathy, ejection fraction of 11%. We will continue Aldactone, beta-blocke r, JEAN-PAUL inhibitor. Patient is unable to afford eParachuteo, uninsured. 5.Acute congestive heart failure, systolic dysfunction, ejection fraction of 11%. We will continue congestive heart failure guidelines. Monitor I's and O's, free fluid restriction. Patient still has some peripheral edema. 6.Splenic infarction, possibly due to occult atrial fibrillation. Continue with anticoagulation. 7.Essential hypertension, stable. Continue medications. 8.Acute kidney injury. Creatinine is improving. Appreciate Nephrology's input. Continue to monito r creatinine, avoid NSAIDs and nephrotoxins. 9.Elevated liver enzymes secondary to acute cholecystitis. Hepatitis panel is pending. Liver enzym es are trending down. 10.Alcohol dependence and abuse, counseled. 11.Deep venous thrombosis prophylaxis, Lovenox. Plan: We will adjust Coumadin dose to 7.5, INR is 1.82, can be discharged once INR is above 2. He w ill need close followup with Cardiology and he will need to establish care at the [facility], [place], operated by [facility] for INR checks and for evaluation for LifeVest or repeat echo to determine if he needs a defibri llator. Treatment plan was explained at length to the patient. All questions were answered. HENRY Voice ID: [id number] Report ID: [id number]
--- NOTE | 2020-05-09 13:30 | P.PN ---
Subjective Date of Service: 05/09/20 Chief Complaint: Abdominal Pain Subjective pt admitted for abdominal pain, found to have elevated LFT and spelnic infraction , had KATIE Today no new complaints INR 1.8 Cr and LFT rending down rales on exam, will increase lasix INT 1.8 Physical exam general: AAOX3, NAD , Neck; Supple, No elevated JVD hear: RRR, normal S1,2 no murmur or rub Chest: CTAB, mild basal rales Abdomen: Soft , Nt Extremities edema Assessment And Plan: KATIE on CKD III due to cardiorenal Cr stable now cont losartan renal dose meds HTN Bp cpntrolled CHF EF ~10% likely due to alcoholic cardiomyopathy will increase lasix Cholecysitis tolerating diet LFT improving , also elevated LFT could be due to alcoholic liver disease Splenic infraction on Coumadin Total time spent 35 min Physical Examination - Vital Signs Temperature: 97 F Blood Pressure: 90/60 Pulse: 81 Respirations: 20 Pulse Ox (%): 99
[2020-05-09] MEDS ORDERED: WARFARIN SODIUM 2.5 MG TAB ONE (16:08)
[2020-05-09] MEDS ORDERED: WARFARIN SODIUM 7.5 MG TAB PO SCH (17:00)
[2020-05-10] MEDS: PIPER/TAZO/NS 3.375gm 3.375 GM/100 ML BAG IVPB SCH ×2 (00:37→09:00)
[2020-05-10 02:06] VITALS: O2SAT 95
[2020-05-10] MEDS: carvediloL 12.5 MG TAB PO SCH (05:35)
[2020-05-10 05:55] LABS: Absolute Lymphocytes (CBC) 1.5 K/uL (0.7-4.9); Basophils % 0.9 % (0-1.3); Hematocrit 43.9 % (39.6-49.0); Lymphocytes % 30.6 % (15.3-44.8); MPV 9.5 fL (7.6-11.3); Protime INR 2.71; RBC Red Blood Cell Count 4.67 M/uL (4.33-5.43)
[2020-05-10 06:13] LABS: Albumin 2.8 g/dL (3.4-5.0); Bilirubin Total 0.5 mg/dL (0.2-1.0); Protein, Total 6.5 g/dL (6.4-8.2)
[2020-05-10] MEDS: ENOXAPARIN 100 MG/ML SYR SQ SCH (09:00)
[2020-05-10] MEDS: LOSARTAN POTASSIUM 50 MG TABLET PO SCH (09:57)
[2020-05-10] MEDS: FUROSEMIDE 20 MG/ 2ML VIAL IV SCH (09:57)
[2020-05-10] MEDS: ASPIRIN EC 81 MG TAB PO SCH (09:58)
[2020-05-10] MEDS: allopurinoL 100 MG TAB PO SCH (09:58)
[2020-05-10] MEDS: SPIRONOLACTONE 25 MG TABLET PO SCH (09:58)
[2020-05-10] MEDS: VITAMIN D 5,000 UNIT CAP PO SCH (09:58)
[2020-05-10] MEDS: TAMSULOSIN 0.4 MG SR CAP PO SCH (09:58)
[2020-05-10 09:59] VITALS: BP 136/76
[2020-05-10 10:09] VITALS: TEMP 97.3
--- NOTE | 2020-05-10 10:34 | P.PN ---
Subjective Date of Service: 05/10/20 Chief Complaint: Abdominal Pain Subjective pt admitted for abdominal pain, found to have elevated LFT and spelnic infraction , had KATIE Today no new complaints Cr stable BP borderline , will dc losartan can be discharged from nephrology point of view, to be discharged on lasix 40mg po daily f/u with nephrology clinic in 2-3 wks Physical exam general: AAOX3, NAD , Neck; Supple, No elevated JVD hear: RRR, normal S1,2 no murmur or rub Chest: CTAB, mild basal rales Abdomen: Soft , Nt Extremities trace edema Assessment And Plan: KATIE on CKD III due to cardiorenal Cr stable now cont losartan renal dose meds HTN Bp borderline dc losartan CHF EF ~10% likely due to alcoholic cardiomyopathy cont lasix Cholecysitis tolerating diet LFT improving , also elevated LFT could be due to alcoholic liver disease Splenic infraction on Coumadin Total time spent 35 min Physical Examination - Vital Signs Temperature: 97.3 F Blood Pressure: 136/76 Pulse: 90 Respirations: 18 Pulse Ox (%): 99
[2020-05-10] MEDS ORDERED: WARFARIN SODIUM 5 MG TAB PO SCH (17:00)
--- NOTE | 2020-05-10 21:26 | DS ---
Date of Discharge: 05/10/2020 Consultants: 1.Dr. Summers with General Surgery. 2.Dr. Mack with Cardiology. 3.Dr. Maier with Nephrology. 4.Dr. Burciaga. 5.Dr. Saenz with Nephrology. Procedures: Cardiac stress test on 05/06/2020 shows no stress-induced ischemic changes. There is a fixed diminished activity along the anterior inferior wall, could be soft tissue attenuation artifact , diaphragmatic artifact, scarring or combination. Calculated EF 9%. Admitting Diagnoses: 1.Bqk-HI-egjqceljq myocardial infarction. 2.Acute cholecystitis without obstruction. 3.Acute epigastric abdominal pain. 4.Splenic infarction. 5.Essential hypertension. 6.Congestive heart failure. 7.Possible acute appendicitis. 8.Alcohol dependence and abuse. 9.Acute kidney injury. Discharge Diagnoses: 1.Nkw-UM-qmeavuyir myocardial infarction. 2.Acute cholecystitis without obstruction. 3.Acute epigastric abdominal pain, resolved secondary to above. 4.Acute alcoholic cardiomyopathy, ejection fraction of 11%. 5.Acute congestive heart failure, systolic dysfunction. 6.Splenic infarction, possibly due to occult atrial fibrillation. 7.Essential hypertension, stable. 8.Acute kidney injury, improved. 9.Elevated liver enzymes secondary to acute cholecystitis, trending down. 10.Alcohol dependence and abuse, counseled. Hospital Course: Patient is a 55-year-old male with past medical history of hypertension, kidney sto greg, comes in with abdominal pain. Patient was found to have acute cholecystitis on CT scan, also fo und to have incidental finding of splenic infarction 3 cm, and the CT scan also showed some possible appendicitis due to borderline enlargement of the appendix, but no fat stranding. Patient was admitt ed to the hospital. He also had elevated cardiac enzyme of 0.55. Patient was started on therapeutic Lovenox. Cardiology and General Surgery were consulted regarding his acute cholecystitis. Patient was started on IV antibiotics. Dr. Summers evaluated him, did not feel that he would need to have dixon rgery immediately until cardiac issues were resolved. In the meantime echocardiogram was done, which showed a very low EF of about 11%. This was thought to be due to his alcoholic cardiomyopathy. The refore, cardiac stress test was ordered, which did not show any stress-induced ischemia. Please see report as listed above. EKG was nonspecific. Patient was continued on chest pain guidelines and he was started on Aldactone. Patient will be a good candidate for Entresto. However, he is unfunded, u nable to afford the Entresto. Patient's splenic infarction was thought to be due to possible occult atrial fibrillation. He was continued on telemetry and he will need anticoagulation going forward. Regarding his cholecystitis, the patient was managed nonoperatively per Dr. Summers. He did not feel that this patient had any appendicitis. He did not have any pain in the right lower quadrant and cherelle gallagher's diet was advanced. He was able to tolerate his diet. His white blood cell count remained st able. There was no signs of sepsis. Patient was counseled regarding his new onset congestive heart failure secondary to alcoholic cardiomyopathy. He will need to be on 1500 mL fluid restriction, sodi um restriction of 2 g, and he will need to completely discontinue any alcohol use. Patient is a long -time drinker for at least 25 years with hard liquor. Patient also had some acute kidney injury. Cr eatinine of 1.55. Seen by Nephrology. Creatinine remained stable. He also had some elevated liver enzymes, which were likely due to the acute cholecystitis, they were trending down. Hepatitis panel was also sent off, still pending. He will need to have hepatitis panel followed up by his PCP. Mallory joe was initially given trial of Eliquis, however, as he is unfunded despite the coupon card, he will not be able to receive more than 1 month, therefore he was switched to Coumadin with Lovenox bridgin g. Patient's INR slowly improved to within range. He was counseled regarding Coumadin, dietary rest rictions including avoiding leafy greens, which contain vitamin K. He was also counseled regarding w atching for signs of bleeding and the importance of monitoring his INR and to have his primary care p ortega adjust his dose. He was set up with [facility] and he was also given Dr. Nix 's information to establish care with a PCP. He will need to have his INR checked at the latest with in 24 to 72 hours. Patient will also finish up course of oral antibiotics. Patient is to follow up with plow shaker, Dr. Mack in 2 weeks. He will need to have a repeat echocardiogram to monitor h is ejection fraction. He will likely need a Life Vest. However, due to COVID-19 and due to his unfu nded status, he is unable to receive one. If his ejection fraction does not improve despite alcohol cessation and medications, he will need to be referred for defibrillator placement. Followup: With thresher broomcorn, Dr. Burciaga in 2 weeks. Follow up with general surgeon, Dr. Summers in 2 weeks. Return to ER for worsening condition. INR check in 2 to 3 days. PCP to adjust Coumadin dose. Establish care with primary care physician within the next 2 to 3 days. If unable to obtain appointment, return to ER. Call the nurses station with any questions. Diet: Low-sodium 1500 mL fluid restriction. Activity: As tolerated. Physical Examination: General: Awake, alert, and oriented x3. No acute distress. CV: S1, S2. No murmurs. Respiratory: Moving air well bilaterally. Abdomen: Soft, nontender, nondistended. Positive bowel sounds. Extremities: No clubbing or cyanosis. Patient has 2+ edema. Neurologic: Nonfocal. SA/MODL Voice ID: [id number] Report ID: [id number]
[2020-05-11 02:20] LABS: HBsAG Nonreactive (Nonreactive)
[2020-05-11] MEDS ORDERED: FUROSEMIDE 20 MG/ 2ML VIAL ONE (09:34)
== END 2020-05-10 10:30 | disposition home or self-care (01) | DRG 444 ==
LOC: ER 06:40 → ERHOLD 09:28 → 2ND 10:28
PROVIDERS: ADMIT Family Medicine; ATTEND Family Medicine
PROC: 4A02XM4 Measurement of Cardiac Total Activity, External Approach (ICD-10-PCS; principal; 2020-05-06)
DX: K81.0 Acute cholecystitis (principal); I21.4 Non-ST elevation (NSTEMI) myocardial infarction; I50.21 Acute systolic (congestive) heart failure; K35.80 Unspecified acute appendicitis; N17.9 Acute kidney failure, unspecified; I42.6 Alcoholic cardiomyopathy; I13.0 Hypertensive heart and chronic kidney disease with heart failure and stage 1 through stage 4 chronic kidney disease, or unspecified chronic kidney disease; N25.81 Secondary hyperparathyroidism of renal origin; F10.20 Alcohol dependence, uncomplicated; E86.0 Dehydration; N18.3 Chronic kidney disease, stage 3 (moderate); N20.0 Calculus of kidney; G47.33 Obstructive sleep apnea (adult) (pediatric); R60.0 Localized edema; E21.3 Hyperparathyroidism, unspecified; E55.9 Vitamin D deficiency, unspecified; N28.9 Disorder of kidney and ureter, unspecified; D73.5 Infarction of spleen; I48.91 Unspecified atrial fibrillation; Z20.828 Contact with and (suspected) exposure to other viral communicable diseases; Z79.899 Other long term (current) drug therapy
CPT/HCPCS: 36415; 71045; 71275; 74175; 76705; 78452; 80048; 80053; 80061; 80074; 80076; 81001; 81003; 81015; 82043; 82306; 82570; 82947; 83735; 83880; 83970; 84100; 84443; 84484; 84550; 85025; 85610; 87086; 87088; 93005; 93017; 93306; 94760; 96374; 99285; A9500; J1650; J1940; J2270; J2405; J2543; J2785; J3010; J7799; Q9967; U0002

== ENCOUNTER 2020-05-10 20:42 | Inpatient (IN) | payer SELFPAY ==
[2020-05-10] MEDS ORDERED: NITROGLYCERIN 0.4 MG/TAB SL ONE (21:12)
[2020-05-10 21:19] LABS: Protime INR 2.7
[2020-05-10 21:29] LABS: Absolute Lymphocytes (CBC) 1.3 K/uL (0.7-4.9); Basophils % 1.3 % (0-1.3); Hematocrit 44.9 % (39.6-49.0); Lymphocytes % 23.2 % (15.3-44.8); MPV 9.3 fL (7.6-11.3); RBC Red Blood Cell Count 4.78 M/uL (4.33-5.43)
[2020-05-10 21:39] LABS: Bilirubin Direct 0.3 mg/dL (0-0.2); Bilirubin Total 0.5 mg/dL (0.2-1.0); Magnesium 1.7 mg/dL (1.8-2.4); Potassium 4.1 mmol/L (3.5-5.1); Protein, Total 7.2 g/dL (6.4-8.2)
[2020-05-10 21:44] LABS: Troponin (Emerg Dept Use Only) 0.77 ng/mL (0.0-0.045)
--- NOTE | 2020-05-10 21:56 | RAD REPORT ---
EXAM DESCRIPTION: Jesse Single View05/10/2020 9:15 pm CLINICAL HISTORY: Chest pain COMPARISON: May 05 FINDINGS: The lungs appear clear of acute infiltrate. The heart is mildly to moderately enlarged IMPRESSION: No acute abnormalities displayed
[2020-05-10] MEDS ORDERED: ASPIRIN 81 MG CHEWABLE TABLET ONE (21:59)
[2020-05-10] MEDS ORDERED: CLOPIDOGREL 75 MG TABLET ONE (22:00)
[2020-05-10] MEDS ORDERED: MAGNESIUM SULFATE 1 gm IVPB 1 GM/100 ML BAG IV ONE (22:05)
[2020-05-10 22:14] LABS: Blood Morphology Comment NOTED (NOT SEEN); Platelet Estimate ADEQ; Poikilocytosis 1+; Urine White Blood Cell Casts OK
--- NOTE | 2020-05-10 22:24 | EDPHYS ---
Physician Documentation [facility] Name: Chito Alfonso Age: 55 yrs Sex: Male : 1965 Arrival Date: 05/10/2020 Time: 20:43 Bed 6 Private MD: ED Physician David Li HPI: 05/10 20:58 This 55 yrs old Black Male presents to ER via Unassigned with complaints of Chest Pain cp and numbness of left arm. 20:58 The patient or guardian reports chest pain that is located primarily in the left side cp of chest. 21:00 Onset: 1 hour(s) ago. cp 21:00 The pain radiates to the left arm. Associated signs and symptoms: Pertinent positives: cp numbness of left arm, Pertinent negatives: abdominal pain, diaphoresis, lower extremity pain, lower extremity swelling, palpitations, syncope. Duration: The patient or guardian reports a single episode, that is still ongoing. 21:00 The chest pain is described as burning. cp 21:00 Severity of pain: in the emergency department the pain is a 9 / 10. cp Historical: - Allergies: 21:02 No Known Allergies; aj1 - Home Meds: 21:02 spironolactone 25 mg Oral tab 1 tab once daily [Active]; aspirin 81 mg Oral chew 1 tab aj1 once daily [Active]; carvedilol 12.5 mg oral tab 1 tab every 12 hours [Active]; warfarin 5 mg Oral tab 1 tab once daily [Active]; Lasix 20 mg oral tab once daily [Active]; lisinopril 5 mg Oral tab 1 tab once daily [Active]; - PMHx: 21:02 Hypertension; kidney stenting; Kidney stones; Myocardial infarction; Atrial Fib; aj1 splenic infarct; cholecystitis; CHF; renal insufficiency; pulmonary hypertension; Sleep Apnea; - Immunization history:: Flu vaccine is not up to date. - Social history:: Smoking status: Patient/guardian denies using tobacco. ROS: 21:00 Cardiovascular: Positive for chest pain, Negative for palpitations. cp 21:00 Eyes: Negative for injury, pain, redness, and discharge. cp 21:00 Constitutional: Negative for body aches, chills, fever, poor PO intake. 21:00 Respiratory: Negative for cough, shortness of breath, wheezing. cp 21:00 Abdomen/GI: Negative for abdominal pain, nausea, vomiting, and diarrhea. cp 21:00 Back: Negative for pain at rest, pain with movement, radiated pain. 21:00 Skin: Negative for cellulitis, rash. 21:00 Neuro: Positive for numbness, of the left arm, Negative for altered mental status, dizziness, headache, weakness. 21:00 All other systems are negative. Exam: 21:00 ECG was reviewed by the Attending Physician. cp 21:05 Constitutional: The patient appears in no acute distress, alert, awake, cp non-diaphoretic, non-toxic, well developed, well nourished. 21:05 Head/Face: Normocephalic, atraumatic. cp 21:05 Eyes: Periorbital structures: appear normal, Pupils: equal, round, and reactive to light and accomodation, Extraocular movements: intact throughout, Conjunctiva: normal, no exudate, no injection, Sclera: no appreciated abnormality, Lids and lashes: appear normal, bilaterally. 21:05 ENT: External ear(s): are unremarkable, Nose: is normal, Mouth: is normal, Posterior pharynx: is normal, airway is patent, no erythema, no exudate. 21:05 Neck: ROM/movement: is normal, is supple, without pain, no range of motions limitations. 21:05 Chest/axilla: Inspection: normal, Palpation: is normal, no crepitus, no tenderness. 21:05 Cardiovascular: Rate: normal, Rhythm: regular, Pulses: Pulses are 2+ in right radial artery and left radial artery. Edema: ankle edema, that is mild, JVD: is not appreciated. 21:05 Respiratory: the patient does not display signs of respiratory distress, Respirations: normal, no use of accessory muscles, no retractions, no splinting, no tachypnea, labored breathing, is not present, Breath sounds: are clear throughout, no decreased breath sounds, no stridor, no wheezing. 21:05 Abdomen/GI: Inspection: abdomen appears normal, Bowel sounds: active, all quadrants, Palpation: abdomen is soft and non-tender, in all quadrants. 21:05 Back: pain, is absent, ROM is normal. 21:05 Skin: no rash present. 21:05 Neuro: Orientation: to person, place \T\ time. Mentation: is normal, Cerebellar function: is grossly normal, Motor: moves all fours, strength is normal, Sensation: numbness, that is mild, of the left arm. Vital Signs: 20:56 BP 152 / 112; Pulse 115; Resp 21; Temp 96.9(TE); Pulse Ox 100% on R/A; Weight 88 kg aj1 (R); Height 5 ft. 9 in. (175.26 cm) (R); 21:00 BP 148 / 114; Pulse 104; Resp 18; Pulse Ox 100% on R/A; mg2 21:27 BP 134 / 102; Pulse 104; Resp 18; Pulse Ox 100% on R/A; mg2 22:22 BP 140 / 98; Pulse 110; Resp 17; Pulse Ox 98% on R/A; Pain 0/10; mg2 05/11 00:04 BP 142 / 110; Pulse 107; Resp 18; Temp 97; Pulse Ox 100% on R/A; mg2 05/10 20:56 Body Mass Index 28.65 (88.00 kg, 175.26 cm) [facility] MDM: 05/10 20:56 Patient medically screened. 22:15 Data reviewed: vital signs, nurses notes, lab test result(s), EKG, radiologic studies, cp plain films, I have discussed the patient's presentation/case with the attending Emergency Department Physician;. 22:15 The patient was given aspirin in the Emergency Department. Test interpretation: by ED cp physician or midlevel provider: ECG. 22:15 Physician consultation: Jayson Pryor MD was contacted at 22:15, regarding consult, cp patient's condition, would like admission per Dr. Cabrera Rodriguez wants patient npo after midnight, Coumadin stopped and consult for cardiac cath. 22:25 Physician consultation: Cabrera Rodriguez was called at 22:20, was contacted at 22:20, regarding admission, to the telemetry unit. patient's condition, and will see patient in ED. 05/10 20:55 Order name: Basic Metabolic Panel; Complete Time: 21:46 05/10 21:46 Interpretation: Normal except: GLUC 131; BUN 25; CRE 1.63; GFR 54. 05/10 20:55 Order name: CBC with Diff; Complete Time: 22:36 05/10 21:46 Interpretation: Normal except: MCHC 31.7; RDW 16.3; MN% 15.1. cp /14 20:55 Order name: LFT's; Complete Time: 21:46 cp / 21:47 Interpretation: Normal except: AST 72; ALT 158; ALK 134; BILID 0.3; ALB 3.0; GLOB 4.2; cp A/G 0.7. 05/10 20:55 Order name: Magnesium; Complete Time: 21:46 cp /14 21:47 Interpretation: Abnormal: MG 1.7. cp /14 20:55 Order name: NT PRO-BNP; Complete Time: 21:46 cp 14 20:55 Order name: PT-INR; Complete Time: 21:46 cp /14 20:55 Order name: Troponin (emerg Dept Use Only); Complete Time: 21:46 cp /14 21:47 Interpretation: Abnormal: TROPED 0.77. cp /14 20:55 Order name: XRAY Chest (1 view); Complete Time: 22:14 cp 14 22:14 Order name: CBC Smear Scan; Complete Time: 22:36 EDMS 05/10 20:55 Order name: EKG; Complete Time: 20:56 cp 14 20:55 Order name: Cardiac monitoring; Complete Time: 21:04 cp /14 20:55 Order name: EKG - Nurse/Tech; Complete Time: 21:04 cp 14 20:55 Order name: IV Saline Lock; Complete Time: 21:04 cp /14 20:55 Order name: Labs collected and sent; Complete Time: 21:04 cp 14 20:55 Order name: O2 Per Protocol; Complete Time: 21:04 cp 14 20:55 Order name: O2 Sat Monitoring; Complete Time: 21:04 cp EC:00 Rate is 113 beats/min. Rhythm is regular. NC interval is normal. QRS interval is cp normal. QT interval is normal. T waves are Flattened in lead aVL. Interpreted by me. Reviewed by me. Administered Medications: 21:07 Drug: Nitroglycerin 0.4 mg Route: Sublingual; mg2 21:35 Follow up: Response: No adverse reaction; Pain is decreased mg2 21:50 Drug: Magnesium Sulfate 1 grams Route: IVPB; Infused Over: 1 hrs; Site: left forearm; mg2 23:04 Follow up: Response: No adverse reaction; IV Status: Completed infusion; IV Intake: rr5 100ml 21:55 Drug: Aspirin Chewable Tablet 324 mg Route: PO; rr5 23:05 Follow up: Response: No adverse reaction rr5 21:55 Drug: PlaVIX 300 mg Route: PO; rr5 23:05 Follow up: Response: No adverse reaction rr5 22:32 Drug: Lopressor 25 mg Route: PO; mg2 05/11 00:04 Follow up: Response: No adverse reaction mg2 Disposition: 05/10/20 22:23 Hospitalization ordered by Cabrera Rodriguez for Inpatient Admission. Preliminary diagnosis is Non-ST elevation (NSTEMI) myocardial infarction. - Bed requested for Telemetry/MedSurg (Inpatient). - Status is Inpatient Admission. mg2 - Condition is Stable. - Problem is new. - Symptoms have improved. Addendum: 05/12/2020 07:10 Co-signature as Attending Physician, David Li MD I agree with the assessment and t w4 plan of care. Signatures: Dispatcher [employer] EDMS Evelyn Olivares RN RN aj1 Shadi Tapia PA PA Alexus Yuen RN RN David Li MD MD tw4 Molina Sauer RN RN mg2 Bayron Shanks RN RN rr5 Corrections: (The following items were deleted from the chart) 05/10 23:48 22:23 Hospitalization Ordered by Cabrera Rodriguez for Inpatient Admission. Preliminary cg diagnosis is Non-ST elevation (NSTEMI) myocardial infarction. Bed requested for Telemetry/MedSurg (Inpatient). Status is Inpatient Admission. Condition is Stable. Problem is new. Symptoms have improved. cp 05/11 00:34 05/10 23:48 05/10/2020 22:23 Hospitalization Ordered by Cabrera Rodriguez for Inpatient mg2 Admission. Preliminary diagnosis is Non-ST elevation (NSTEMI) myocardial infarction. Bed requested for Telemetry/MedSurg (Inpatient). Status is Inpatient Admission. Condition is Stable. Problem is new. Symptoms have improved. cg
--- NOTE | 2020-05-10 22:24 | ER ---
Nurse's Notes [facility] Name: Chito Alfonso Age: 55 yrs Sex: Male : 1965 Arrival Date: 05/10/2020 Time: 20:43 Bed 6 Private MD: Diagnosis: Non-ST elevation (NSTEMI) myocardial infarction Presentation: 05/10 20:56 Chief complaint: Patient states: Chest pain, shortness of breath, and tingling to the aj1 left arm that started one hour ago. Patient states that he was discharged from this hospital this morning, where he had been admitted for the past 5 days. Patient's discharge paperwork lists diagnoses of NSTEMI, A-Fib, splenic infarct, nephrolithiasis, and cholecystitis. Patient describes his pain as "burning" and states that it does not feel like the pain he had prior to being admitted 5 days ago. Coronavirus screen: Proceed with normal triage. Patient denies measured and/or subjective temperature greater than 100.4F prior to today's visit. Prior COVID test collected on: While he was hospitalized, states he does not remember the day but he was told his test was negative results are located within the EHR/EMR. Ebola Screen: Patient denies travel to an Ebola-affected area in the 21 days before illness onset. Initial Sepsis Screen: Does the patient meet any 2 criteria? RR > 20 per min. HR > 90 bpm. Yes Does the patient have a suspected source of infection? No. Patient's initial sepsis screen is negative. Risk Assessment: Do you want to hurt yourself or someone else?. Onset of symptoms was May 10, 2020. 20:56 Method Of Arrival: Wheelchair aj1 20:56 Acuity: MARK 2 aj1 Triage Assessment: 21:02 General: Appears in no apparent distress. uncomfortable, Behavior is calm, cooperative, aj1 appropriate for age. Pain: Complains of pain in chest Pain radiates to left arm. Neuro: Level of Consciousness is awake, alert, obeys commands, Oriented to person, place, time, situation. Cardiovascular: Patient's skin is warm and dry. Respiratory: Airway is patent Respiratory effort is even, unlabored, Respiratory pattern is regular, symmetrical. Historical: - Allergies: 21: No Known Allergies; aj1 - Home Meds: 21:02 spironolactone 25 mg Oral tab 1 tab once daily [Active]; aspirin 81 mg Oral chew 1 tab aj1 once daily [Active]; carvedilol 12.5 mg oral tab 1 tab every 12 hours [Active]; warfarin 5 mg Oral tab 1 tab once daily [Active]; Lasix 20 mg oral tab once daily [Active]; lisinopril 5 mg Oral tab 1 tab once daily [Active]; - PMHx: 21:02 Hypertension; kidney stenting; Kidney stones; Myocardial infarction; Atrial Fib; aj1 splenic infarct; cholecystitis; CHF; renal insufficiency; pulmonary hypertension; Sleep Apnea; - Immunization history:: Flu vaccine is not up to date. - Social history:: Smoking status: Patient/guardian denies using tobacco. Screenin:07 Abuse screen: Denies threats or abuse. Denies injuries from another. Nutritional rr5 screening: No deficits noted. Tuberculosis screening: No symptoms or risk factors identified. Fall Risk IV access (20 points). Total Lazo Fall Scale indicates No Risk (0-24 pts). 21:07 Abuse screen: Denies threats or abuse. Denies injuries from another. Nutritional mg2 screening: No deficits noted. Tuberculosis screening: No symptoms or risk factors identified. Fall Risk IV access (20 points). Assessment: 21:05 General: Appears in no apparent distress. uncomfortable, Behavior is calm, cooperative, rr5 appropriate for age. Pain: Complains of pain in chest Pain radiates to left arm Pain currently is 8 out of 10 on a pain scale. Quality of pain is described as aching, tingling, Pain began gradually, Is intermittent. Neuro: Level of Consciousness is awake, alert, obeys commands, Oriented to person, place, time, situation, Appropriate for age. Cardiovascular: Reports chest pain, shortness of breath, numbness left arm Capillary refill < 3 seconds Patient's skin is warm and dry. Respiratory: Reports shortness of breath Airway is patent Respiratory effort is even, unlabored, Respiratory pattern is regular, symmetrical. GI: No signs and/or symptoms were reported involving the gastrointestinal system. : No signs and/or symptoms were reported regarding the genitourinary system. EENT: No signs and/or symptoms were reported regarding the EENT system. Derm: Skin is intact, is healthy with good turgor, Skin temperature is warm. Musculoskeletal: Circulation, motion, and sensation intact. Capillary refill < 3 seconds, Reports pain in left arm. 21:43 Reassessment: troponin of of 0.77 called by deborah from laboratory. ED provider informed. rr5 22:33 Reassessment: Patient appears in no apparent distress at this time. Patient and/or mg2 family updated on plan of care and expected duration. Pain level reassessed. Patient is alert, oriented x 3, equal unlabored respirations, skin warm/dry/pink. patient said the numbness in the left wrist disappeared Patient denies pain at this time. Patient states feeling better. Patient states symptoms have improved. 22:33 Reassessment: informed about the plan for hospitalization. mg2 22:55 Reassessment: hospitalist at bedside examining the patient. rr5 Vital Signs: 20:56 BP 152 / 112; Pulse 115; Resp 21; Temp 96.9(TE); Pulse Ox 100% on R/A; Weight 88 kg aj (R); Height 5 ft. 9 in. (175.26 cm) (R); 21:00 BP 148 / 114; Pulse 104; Resp 18; Pulse Ox 100% on R/A; mg2 21:27 BP 134 / 102; Pulse 104; Resp 18; Pulse Ox 100% on R/A; mg2 22:22 BP 140 / 98; Pulse 110; Resp 17; Pulse Ox 98% on R/A; Pain 0/10; mg2 05/11 00:04 BP 142 / 110; Pulse 107; Resp 18; Temp 97; Pulse Ox 100% on R/A; mg2 05/10 20:56 Body Mass Index 28.65 (88.00 kg, 175.26 cm) [facility] ED Course: 05/10 20:43 Patient arrived in ED. cl3 20:45 Molina Sauer, PROSPER is Primary Nurse. mg2 20:49 David Li MD is Attending Physician. tw4 20:49 Shadi Tapia PA is PHCP. cp 20:49 Shadi Tapia PA is PHCP. cp 20:49 David Li MD is Attending Physician. cp 20:50 EKG done, by ED staff, reviewed by David Li MD. rr5 20:55 Inserted saline lock: 20 gauge in left forearm, using aseptic technique. ,using aseptic rr5 technique. by jorge CHENG Blood collected. 20:59 Triage completed. aj1 21:02 Arm band placed on Patient placed in an exam room. aj1 21:07 Patient has correct armband on for positive identification. 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 Pulse mg2 ox on. NIBP on. Door closed. Warm blanket given. 21:16 XRAY Chest (1 view) In Process Unspecified. EDMS 22:21 Cabrera Rodriguez is Hospitalizing Provider. 05/11 00:02 No provider procedures requiring assistance completed. Patient admitted, IV remains in mg2 place. Administered Medications: 05/10 21:07 Drug: Nitroglycerin 0.4 mg Route: Sublingual; mg2 21:35 Follow up: Response: No adverse reaction; Pain is decreased mg2 21:50 Drug: Magnesium Sulfate 1 grams Route: IVPB; Infused Over: 1 hrs; Site: left forearm; mg2 23:04 Follow up: Response: No adverse reaction; IV Status: Completed infusion; IV Intake: rr5 100ml 21:55 Drug: Aspirin Chewable Tablet 324 mg Route: PO; rr5 23:05 Follow up: Response: No adverse reaction rr5 21:55 Drug: PlaVIX 300 mg Route: PO; rr5 23:05 Follow up: Response: No adverse reaction rr5 22:32 Drug: Lopressor 25 mg Route: PO; mg2 05/11 00:04 Follow up: Response: No adverse reaction mg2 Intake: 05/10 23:04 IV: 100ml; Total: 100ml. rr5 Outcome: 22:23 Decision to Hospitalize by Provider. 05/11 00:03 Admitted to Med/surg accompanied by tech, via wheelchair, room 214, with chart, Report mg2 called to PROSPER Lynch Condition: stable Instructed on the need for admit, Demonstrated understanding of instructions. 00:34 Patient left the ED. mg2 Signatures: Dispatcher [employer] EDID Evelyn Olivares RN RN aj1 Shadi Tapia PA PA cp David Li MD MD tw4 Molina Sauer RN RN mg2 Bayron Shanks RN RN rr5 Madhav Myers cl3
[2020-05-10] MEDS ORDERED: METOPROLOL TAR 25 MG TAB ONE (22:38)
--- NOTE | 2020-05-10 23:16 | P.HP ---
Certification for Inpatient Patient admitted to: Inpatient With expected LOS: <2 Midnights Practitioner: I am a practitioner with admitting privileges, knowledge of patient current condition, hospital course, and medical plan of care. Services: Services provided to patient in accordance with Admission requirements found in Title 42 Section 412.3 of the Code of Federal Regulations Patient History Date of Service: 05/10/20 Reason for admission: Chest pain History of Present Illness: 55-year-old gentleman, recently diagnosed with advanced systolic heart failure, EF of 9-11%, atrial fibrillation, nephrolithiasis and cholelithiasis, hospitalized 5 days ago and discharged this morning, presented to the ED with a complaint of chest pain described as burning and associated with shortness of breath. Patient stated his symptoms resolved after nitroglycerin given in the ED. His troponin is elevated to 0.77. EKG demonstrated sinus tachycardia with nonspecific ST-T changes. Nuclear stress test done 4 days ago demonstrated no stress-induced ischemia. Cardiology -Dr Pryor was contacted who recommended hospitalization for cardiac catheterization. Patient was chest pain-free during my examination in the ED. Allergies No Known Allergies Allergy (Unverified 08/26/17 14:10) Home Medications: Tamsulosin [Flomax*] 1 cap PO DAILY 05/06/20 Amox/Clavulanate [Augmentin 875-125 Tab] 875 mg PO BID #10 tab 05/10/20 Aspirin [Aspirin EC 81 MG] 81 mg PO DAILY #30 tablet. 05/10/20 Furosemide [Lasix] 20 mg PO DAILY #30 tablet 05/10/20 Spironolactone [Aldactone*] 25 mg PO DAILY #30 tab 05/10/20 Warfarin Sodium [Coumadin*] 5 mg PO DAILY 5 PM #30 tab 05/10/20 carvediloL [Coreg*] 12.5 mg PO BID 6AM 6PM #60 tab 05/10/20 lisinopriL [Lisinopril] 5 mg PO DAILY #30 tablet 05/10/20 - Past Medical/Surgical History Diabetic: No -: Hypertension -: Sleep Apnea -: Kidney stones -: Advanced systolic heart failure -: Atrial fibrillation -: Cholelithiasis -: Removal of soft palate,uvula, tonsils -: Removal of kidney stones -: surgery on right wrist- with Titanium plate - Family History Family History: Reviewed- Non-Contributory - Social History Alcohol use: Yes Caffeine use: Yes Review of Systems Other: Except as documented, all other systems reviewed and negative. Physical Examination - Physical Exam General: Alert, In no apparent distress, Oriented x3 HEENT: Mucous membr. moist/pink Neck: Supple, JVD not distended Respiratory: Clear to auscultation bilaterally, Normal air movement Cardiovascular: Normal pulses, Normal S1 S2, Other (Tachycardia), Edema (1+ bilateral lower extremity edema) Gastrointestinal: Normal bowel sounds, Soft and benign, Non-distended, No ascites, No tenderness Musculoskeletal: No erythema Integumentary: No rashes Neurological: Normal speech, Normal strength at 5/5 x4 extr - Studies Laboratory Data (last 24 hrs) 05/10/20 21:00: PT 31.2 H, INR 2.70 05/10/20 21:00: WBC 5.4, Hgb 14.3, Hct 44.9, Plt Count 259 05/10/20 21:00: Sodium 141, Potassium 4.1, BUN 25 H, Creatinine 1.63 H, Glucose 131 H, Magnesium 1.7 L, Total Bilirubin 0.5, AST 72 H, ALT 158 H, Alkaline Phosphatase 134 H Assessment and Plan - Problems (Diagnosis) (1) Chest pain Current Visit: Yes Status: Acute (2) Chronic systolic heart failure Current Visit: Yes Status: Acute (3) Atrial fibrillation Current Visit: Yes Status: Acute (4) Cholelithiasis Current Visit: Yes Status: Acute (5) Chronic kidney disease, stage 3 Current Visit: Yes Status: Acute - Plan Admit to the medical floor. Trend troponin. Aspirin, Coreg. Hold Lasix NTG p.r.n. Hold Coumadin Cardiology consult Monitor renal function. - Advance Directives Does patient have a Living Will: No Does patient have a Durable POA for Healthcare: No
[2020-05-11] MEDS ORDERED: MORPHINE 4 MG/ML SYR IV PRN (00:50)
[2020-05-11] MEDS: NITROGLYCERIN 0.4 MG/TAB SL PRN ×3 (03:12→03:34)
[2020-05-11 04:45] LABS: Absolute Lymphocytes (CBC) 1.6 K/uL (0.7-4.9); Hematocrit 40.3 % (39.6-49.0); Lymphocytes % 26.1 % (15.3-44.8); MPV 9.2 fL (7.6-11.3); RBC Red Blood Cell Count 4.36 M/uL (4.33-5.43)
[2020-05-11 05:09] LABS: Potassium 3.9 mmol/L (3.5-5.1)
[2020-05-11 05:12] LABS: Troponin I 8.62 ng/mL (0.0-0.045)
[2020-05-11] MEDS ORDERED: NA CHLORIDE 0.9% 1,000 ML ONE (06:06)
[2020-05-11] MEDS: carvediloL 12.5 MG TAB PO SCH ×2 (06:41→17:12)
--- NOTE | 2020-05-11 06:57 | P.PN ---
Subjective Date of Service: 05/11/20 Chief Complaint: Chest pain Patient denies any complain this morning. He has been afebrile. He denies shortness of breath. Physical Examination - Vital Signs Temperature: 97.5 F Blood Pressure: 124/82 Pulse: 102 Respirations: 20 Pulse Ox (%): 97 - Physical Exam General: Alert, In no apparent distress HEENT: Mucous membr. moist/pink Neck: JVD not distended Respiratory: Clear to auscultation bilaterally, Normal air movement Cardiovascular: No edema, Normal pulses, Regular rate/rhythm, Normal S1 S2 Gastrointestinal: Normal bowel sounds, Soft and benign, No tenderness Musculoskeletal: No erythema Neurological: Normal speech, Normal strength at 5/5 x4 extr - Studies Laboratory Data (last 24 hrs) 05/10/20 21:00: PT 31.2 H, INR 2.70 05/10/20 21:00: WBC 5.4, Hgb 14.3, Hct 44.9, Plt Count 259 05/10/20 21:00: Sodium 141, Potassium 4.1, BUN 25 H, Creatinine 1.63 H, Glucose 131 H, Magnesium 1.7 L, Total Bilirubin 0.5, AST 72 H, ALT 158 H, Alkaline Phosphatase 134 H Assessment And Plan - Current Problems (Diagnosis) (1) Chest pain Current Visit: Yes Status: Acute (2) Chronic systolic heart failure Current Visit: Yes Status: Acute (3) Atrial fibrillation Current Visit: Yes Status: Acute (4) Cholelithiasis Current Visit: Yes Status: Acute (5) Chronic kidney disease, stage 3 Current Visit: Yes Status: Acute - Plan Troponin trended up. Aspirin, Coreg. Heparin drip Hold Lasix NTG p.r.n. Hold Coumadin Cardiology is planning cardiac catheterization today. Add Plavix. Monitor renal function.
[2020-05-11] MEDS ORDERED: SPIRONOLACTONE 25 MG TABLET PO SCH (09:00)
[2020-05-11] MEDS ORDERED: ASPIRIN EC 81 MG TAB PO SCH (09:00)
[2020-05-11] MEDS ORDERED: TAMSULOSIN 0.4 MG SR CAP PO SCH (09:00)
[2020-05-11] MEDS ORDERED: CLOPIDOGREL 75 MG TABLET PO SCH (09:00)
[2020-05-11] MEDS ORDERED: SODIUM CHLORIDE 0.9% 10ML INJ IV PRN (09:01)
[2020-05-11] MEDS ORDERED: PANTOPRAZOLE 40 MG INJ IVP SCH (09:02)
[2020-05-11] MEDS ORDERED: ONDANSETRON 4 MG/2 ML VIAL IV PRN (09:03)
[2020-05-11] MEDS ORDERED: NITROGLYCERIN/D5W 50 MG/250 ML BTL IV PRN (09:27)
[2020-05-11] MEDS ORDERED: FUROSEMIDE 40 MG/4 ML VIAL ONE (09:29)
[2020-05-11] MEDS ORDERED: HEPA 1000U/500MLS 0 UNIT/0 ML BAG IV ONE (09:38)
[2020-05-11] MEDS ORDERED: HEPARIN 5000 UNIT/ML 1 ML VIAL ONE ×2 (09:39→09:40)
[2020-05-11] MEDS ORDERED: MIDAZOLAM HCL 2 MG/2 ML INJ ONE (09:39)
[2020-05-11] MEDS ORDERED: FENTANYL CITR 100 MCG/2 ML ONE (09:39)
[2020-05-11] MEDS ORDERED: ATROPINE SULF 1 MG/10 ML SYR IV ONE (09:39)
[2020-05-11] MEDS ORDERED: NICARDIPINE HCL 25 MG/10 ML IV ONE (09:39)
--- NOTE | 2020-05-11 09:50 | P.PN ---
Subjective Date of Service: 05/11/20 Primary Care Provider: none Chief Complaint: Chest pain Subjective: Other (Rapid response initiated. Patient was having shortness of breath. Patient found to have elevated blood pressure.) Physical Examination - Vital Signs Temperature: 97 F Blood Pressure: 136/92 Pulse: 99 Respirations: 18 Pulse Ox (%): 99 - Physical Exam General: Alert, Cooperative, Other (Patient appeared cold and clammy.) HEENT: Atraumatic Neck: JVD distended Respiratory: Diminished (Bilateral), Crackles/rales (Bilateral) Cardiovascular: Normal pulses, Regular rate/rhythm Gastrointestinal: Normal bowel sounds, No tenderness Musculoskeletal: Other (Extremities cold and clammy.) Neurological: Normal speech, Normal strength at 5/5 x4 extr, Normal tone - Studies Laboratory Data (last 24 hrs) 05/10/20 21:00: PT 31.2 H, INR 2.70 05/10/20 21:00: WBC 5.4, Hgb 14.3, Hct 44.9, Plt Count 259 05/10/20 21:00: Sodium 141, Potassium 4.1, BUN 25 H, Creatinine 1.63 H, Glucose 131 H, Magnesium 1.7 L, Total Bilirubin 0.5, AST 72 H, ALT 158 H, Alkaline Phosphatase 134 H Medications List Reviewed: Yes Assessment & Plan Discharge Plan: Transfer Plan to discharge in: 24 Hours Physician Review Additional Text: Impression: Shortness of breath secondary to acute on chronic systolic congestive heart failure with EF of 11% complicated with acute alcoholic cardiomyopathy, and non ST wave ME Hypertension Splenic infarct on chronic anti coagulation therapy Alcohol dependence and abuse Acute on chronic renal failure stage 3 BPH GERD Plan: Shortness of breath secondary to acute on chronic systolic congestive heart failure with EF of 11% complicated with acute alcoholic cardiomyopathy, and non ST wave ME: Patient stabilize at this time. Patient found to have acute on chronic systolic CHF. Patient transferred to ICU for close monitoring. Case discussed in detail with cardiology. Patient given 80 mg Lasix IV now. Patient to continue with Lasix 80 mg IV 3 times a day. Patient to be placed on a nitro drip to maintain systolic around 120. Cardiology recommends transfer to higher level care center as the patient will require intra-aortic balloon pump/Impella to support his CHF. Will need to monitor for cardiogenic shock. Patient will need ICU bed. Patient currently on Coumadin due to splenic infarct. INR therapeutic. Will recheck lab-CBC, INR, CMP, magnesium, cardiac enzymes. Patient currently on non-rebreather. Patient recently hospitalized for NSTEMI, acute cholecystitis without obstruction, and acute epigastric abdominal pain. Patient was recently evaluated by surgery. No surgical intervention was required or recommended due to his heart failure. Will initiate transfer at this time due to above recommendations. Patient remained stable. Continue with Cardiology recommendations. Hypertension: Patient will be placed on nitro drip to maintain systolic around 120. Splenic infarct on chronic anti coagulation therapy: Will continue to monitor closely. Will filter changer to Lovenox once INR below 2.0. Alcohol dependence and abuse: This was evaluated recently. Acute on chronic renal failure stage 3 failure: Will continue to monitor closely. Will consult nephrology for further recommendation. BPH: Hold Flomax. Sanders catheter to be placed. GERD: Continue Pepcid IV b.i.d.. Time Spent Managing Pts Care (In Minutes): 55
[2020-05-11 10:01] LABS: Blood Gas Oxyhemoglobin 92.1 % (94-97); Blood O2 Saturation 93.8 % (92-98.5)
[2020-05-11 10:03] LABS: Protime INR 1.98
[2020-05-11 10:19] VITALS: BMI 28.0
[2020-05-11 10:26] LABS: Bilirubin Total 0.7 mg/dL (0.2-1.0); Magnesium 1.9 mg/dL (1.8-2.4); Potassium 4.1 mmol/L (3.5-5.1); Protein, Total 7.5 g/dL (6.4-8.2)
[2020-05-11 10:29] LABS: Troponin I 10.5 ng/mL (0.0-0.045)
[2020-05-11] MEDS ORDERED: HEPARIN/D5W 25,000 UNIT/500 ML BAG IV SCH (11:00)
[2020-05-11 11:02] LABS: Barbiturates NEGATIVE (NEGATIVE); Benzodiazepines NEGATIVE (NEGATIVE); Cocaine NEGATIVE (NEGATIVE); METHAMPHETAM NEGATIVE (NEGATIVE); Methadone NEGATIVE (NEGATIVE); Opiates NEGATIVE (NEGATIVE); Phencyclidine NEGATIVE (NEGATIVE); THC Cannibis NEGATIVE (NEGATIVE)
[2020-05-11] MEDS ORDERED: FUROSEMIDE 40 MG/4 ML VIAL IV SCH (14:00)
[2020-05-11] MEDS ORDERED: FUROSEMIDE 100 MG in NA CHLORIDE 0.9% 90 ML IV SCH (15:00)
--- NOTE | 2020-05-11 16:08 | CON ---
Date of Consultation: 05/11/2020 Reason For Consultation: Advanced heart failure and elevated troponin. History Of Present Illness: This is a 55-year-old male with known advanced systolic dysfunction with very low ejection fraction at 10% . He was hospitalized about 5 days ago for gallbladder issues. Presented to the emergency room with chest pain associated with shortness of breath, signifi cant orthopnea and lower extremity edema. Chest pain was relieved after nitroglycerin. Troponin was elevated at 0.77 at the emergency room. I was contacted by the emergency room doctor and recommende d admission with thorough cardiac evaluation. Today this morning, he became unstable and respiratory distress, and rapid response team was called, was found to be in acute heart failure. Started on [place] six and 100% oxygen supplements, and ICU. I had discussion with [place] about the further care. Past Medical History: Hypertension, sleep apnea, congestive heart failure, systolic dysfunction, atr ial fibrillation. Medications: Refer to reconciliation sheet for detailed list. Allergies: NO KNOWN DRUG ALLERGIES. Social History: He uses alcohol and drinks on a regular basis. Does not smoke or use any drugs. Family History: No premature coronary artery disease or cancer. Review of Systems: All systems reviewed and they were negative except what is mentioned in the HPI. Physical Examination: Vital Signs: Showed a temperature of 97.0, pulse 99, breathing at 28, blood pressure is 136/92. General: Pleasant middle-aged man, in no apparent distress. Head and Neck: Pupils are equal and reactive to light. Intact eye movements. Positive JVD. No cer vical lymphadenopathy. Neck is supple. Thyroid is not enlarged. Lungs: Crackles half the way up with increased respiratory efforts and using accessory muscles. Heart: Regular rate and rhythm with S3. Abdomen: Soft, nontender. Bowel sounds positive. No organomegaly. No masses or hernia. No rigidi ty or rebound. Extremities: 2+ pitting edema bilaterally. No clubbing or cyanosis. Intact pulses. Skin: Cold extremities. No rash. Neurologic: Alert, awake, and oriented x3. No acute focal deficits appreciated. Lymph Nodes: No cervical or axillary lymphadenopathy. Investigations: Sodium 140, BUN is 27, creatinine is 1.35. His troponin is 8.62. INR is 2.7. Assessment And Plan: 1.Acute myocardial infarction, non-ST elevation type. Patient will need a cardiac cath done as soon as possible if his INR is elevated, but he is becoming rather unstable and he has a very low ejectio n fraction. He will need higher level of care facility for possible Impella assisted intervention. Of note, the patient had recent stress test that did not show any acute reversible ischemia, but has had fixed of inferior wall. His ejection fraction was reported at 9%, and on recent echo, EF was reported to be very low. Continue anticoagulation with heparin, aspirin 81 mg daily and I pedro d a long discussion with the primary hospitalist then to transfer the patient to higher level of care facility, as he has cold and clammy extremities suggesting of a beginning of cardiogenic shock. Pat ient will need a support device like Impella and proceed with angiogram after that immediately. 2.Acute respiratory failure due to acute congestive heart failure. Lasix 80 mg q.8 hours and use th e nitroglycerin drip to decrease afterload and maintain blood pressure below 120. Again, recommend t ransfer to higher level of care facility for possible cardiac support and needs left and right heart catheterization as soon as possible and may need to reverse the Coumadin effect atrial fib rillation. This is stable. As above, may need to reverse Coumadin effect to allow left and right co ronary angiogram and possible Impella insertion intervention as needed. This patient's prognosis is poor. He is crit ically ill. SR/MODL Voice ID: [id number] Report ID: [id number]
[2020-05-11 16:51] VITALS: O2SAT 100
[2020-05-11] MEDS ORDERED: HYDROCODONE/APAP 10/325 TAB PO PRN (20:32)
[2020-05-11] MEDS ORDERED: ENOXAPARIN 100 MG/ML SYR SQ SCH (21:00)
[2020-05-11] MEDS ORDERED: FAMOTIDINE 20 MG/2 ML VIAL IV SCH (21:00)
[2020-05-11 23:00] VITALS: BP 105/79
[2020-05-11 23:45] VITALS: TEMP 97.2
--- NOTE | 2020-05-12 05:58 | P.DS ---
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 Patient stated his symptoms resolved after nitroglycerin given in the ED. His troponin is elevated to 0.77. EKG demonstrated sinus tachycardia with nonspecific ST-T changes. Nuclear stress test done 4 days ago demonstrated no stress-induced ischemia. Cardiology -Dr Pryor was contacted who recommended hospitalization for cardiac catheterization. Patient was chest pain-free during my examination in the ED. Hospital Course: Patient was diagnosed with cardiogenic shock. Patient was going to need transfer to tertiary care facility. Patient was accepted at [facility]. Patient was transferred to cardiology service. Vital Signs/Physical Exam: Temp Pulse Resp BP Pulse Ox 97.2 F 90 19 105/79 99 05/11/20 20:00 05/11/20 22:45 05/11/20 22:45 05/11/20 22:45 05/11/20 22:45 General: Alert, In no apparent distress, Oriented x3 Laboratory Data at Discharge: WBC Cancelled 05/12/20 05:00 Hgb Cancelled 05/12/20 05:00 Hct Cancelled 05/12/20 05:00 Plt Count Cancelled 05/12/20 05:00 PT 23.1 SECONDS (9.5-12.5) H 05/11/20 09:44 INR 1.98 05/11/20 09:44 APTT 80.7 SECONDS (24.3-36.9) H 05/11/20 19:31 Sodium Cancelled 05/12/20 05:00 Potassium Cancelled 05/12/20 05:00 BUN Cancelled 05/12/20 05:00 Creatinine Cancelled 05/12/20 05:00 Glucose Cancelled 05/12/20 05:00 Magnesium 1.9 mg/dL (1.8-2.4) 05/11/20 09:44 Total Bilirubin 0.7 mg/dL (0.2-1.0) 05/11/20 09:44 AST 99 U/L (15-37) H 05/11/20 09:44 ALT 146 U/L (12-78) H 05/11/20 09:44 Alkaline Phosphatase 135 U/L (45-117) H 05/11/20 09:44 Troponin I 10.50 ng/mL (0.0-0.045) H* D 05/11/20 09:44 Home Medications: Tamsulosin [Flomax*] 1 cap PO DAILY 05/06/20 Aspirin [Aspirin EC 81 MG] 81 mg PO DAILY #30 tablet. 05/10/20 Furosemide [Lasix] 20 mg PO DAILY #30 tablet 05/10/20 Spironolactone [Aldactone*] 25 mg PO DAILY #30 tab 05/10/20 Warfarin Sodium [Coumadin*] 5 mg PO DAILY 5 PM #30 tab 05/10/20 carvediloL [Coreg*] 12.5 mg PO BID 6AM 6PM #60 tab 05/10/20 lisinopriL [Lisinopril] 5 mg PO DAILY #30 tablet 05/10/20 Patient Discharge Instructions: [facility] Diet: AHA Activity: Fall precautions Time spent managing pt's care (in minutes): 20
== END 2020-05-11 23:00 | disposition short-term general hospital (02) | DRG 280 ==
LOC: ER 20:42 → ERHOLD 23:22 → 2ND 05-11 00:03 → 3RD-ICU 05-11 09:37
PROVIDERS: ADMIT Internal Medicine; ATTEND Internal Medicine
DX: I13.0 Hypertensive heart and chronic kidney disease with heart failure and stage 1 through stage 4 chronic kidney disease, or unspecified chronic kidney disease (principal); I50.23 Acute on chronic systolic (congestive) heart failure; I21.4 Non-ST elevation (NSTEMI) myocardial infarction; J96.00 Acute respiratory failure, unspecified whether with hypoxia or hypercapnia; N17.9 Acute kidney failure, unspecified; N18.3 Chronic kidney disease, stage 3 (moderate); I48.91 Unspecified atrial fibrillation; K80.20 Calculus of gallbladder without cholecystitis without obstruction; I25.2 Old myocardial infarction; F10.20 Alcohol dependence, uncomplicated; I42.6 Alcoholic cardiomyopathy; D73.5 Infarction of spleen; N40.0 Benign prostatic hyperplasia without lower urinary tract symptoms; K21.9 Gastro-esophageal reflux disease without esophagitis; Z79.899 Other long term (current) drug therapy; Z79.82 Long term (current) use of aspirin; Z79.01 Long term (current) use of anticoagulants
CPT/HCPCS: 36415; 71045; 80048; 80053; 80076; 80307; 80320; 82805; 82947; 83605; 83735; 83880; 84484; 85025; 85610; 85730; 93005; 96365; 99285; C9113; J1644; J1940; J2250; J2405; J3010; J3475; J7030

== ENCOUNTER 2020-08-12 08:48 | Emergency (ER) | payer SELFPAY ==
--- OUTSIDE RECORDS SUMMARY | 2020-08-12 08:52 | XMS REPORT | Clinical Summary ---
:1965 Author Organization [facility] Address [address] [place] [address] Care Team Providers Name Role Phone Pcp, No Primary Care Provider Unavailable Allergies No Known Allergies Medications Medication Sig Dispensed Refills Start Date End Date Status furosemide (LASIX) Take 20 mg by 0 Active 20 MG tablet mouth daily. carvediloL (COREG) Take 2 60 tablet 11 05/19/2020 05/19/2021 Active 3.125 MG tablet tablets (6.25 mg total) by mouth 2 (two) times daily. pravastatin Take 1 tablet 0 05/19/2020 05/19/2021 Ac tive (PRAVACHOL) 40 MG (40 mg total) tablet by mouth nightly. sacubitriL-valsartan Take 1 tablet 0 05/19/2020 Active (ENTRESTO) 24-26 mg by mouth 2 Tab (two) times daily. spironolactone Take 1 tablet 0 05/20/2020 05/20/2021 Active (ALDACTONE) 25 MG (25 mg total) tablet by mouth daily. warfarin (COUMADIN, Take 5 mg by 0 Active JANTOVEN) 5 MG mouth daily. tablet isosorbide dinitrate Take 5 mg by 0 2019 Discontinued (ISORDIL) 5 MG mouth daily. tablet warfarin (COUMADIN, Take 1 tablet 0 05/19/202005/22 Discontinued JANTOVEN) 10 MG (10 mg total) tablet by mouth daily. 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) 05/22/2020 Atrial fibrillation 05/22/2020 Encounters Date Type Specialty Care Team Description 05/22/2020 Video - Telemedicine Cardiology [place], Chronic combined Emilie Mcnair, systolic an d MD diastolic CHF Carolann Grant (congestive hea rt MD Manjit failure) ([facility]) Walter Rees NP 05/13/2020 Surgery Bradly Pichardo R & L CATH / MD Tita CORONARY TERRANCE OS (+/- LV) 05/12/2020 - Hospital Encounter Cardiology [place], Acute on chronic 05/19/2020 Emilie Mcnair systolic he art MD failure ([facility]) Carolann Grant MD 05/12/2020 Orders Only General Internal Medicine 05/12/2020 Travel after 08/12/2019 Social History Tobacco Use Types Packs/Day Years Used Date Never Smoker Smokeless Tobacco: Never Used Alcohol Use Drinks/Week oz/Week Comments Yes Alcohol Habits Answer Date Recorded How often do you have a drink containing alcohol? 2-4 times a month 05/12/2020 How many drinks containing alcohol do you have on a Not aske d typical day when you are drinking? How often do you have six or more drinks on one Not asked occasion? Sex Assigned at Date Recorded Not on file Job Start Date Occupation Industry Not on file Not on file Not on file Travel History Travel Start Travel End No recent travel history available. Last Filed Vital Signs Vital Sign Reading Time Taken Blood Pressure 105/74 05/22/2020 3:46 PM CDT Pulse 60 05/22/2020 3:46 PM CDT Temperature 36.5 C (97.7 F) 05/19/2020 11:40 AM CDT Respiratory Rate 18 05/22/2020 3:46 PM CDT Oxygen Saturation 96% 05/19/2020 11:40 AM CDT Inhaled Oxygen Concentration - - Weight 79 kg (174 lb 2.6 oz) 05/22/2020 3:46 P M CDT Height 175.3 cm (5' 9") 05/22/2020 3:46 PM CDT Body Mass Index 25.72 05/22/2020 3:46 PM CDT Plan of Treatment Health Maintenance Due Date Last Done Comments COLON CANCER SCREENING COLONOSCOPY 1965 INFLUENZA VACCINE (#1) 2020 LIPID PANEL 05/15/2025 05/15/2020 Procedures Procedure Name Priority Date/Time Associated Diagnosis Comme nts CARDIAC CATH REPORT 05/20/2020 2:14 - SCAN PM CDT RHYTHM STRIP - SCAN 05/20/2020 2:14 PM CDT CBC (HEMOGRAM ONLY) Routine 05/19/2020 4:54 Resu lts for this AM CDT procedure are i n the results section. APTT Routine 05/19/2020 4:54 Results for this AM CDT procedure are i n the results section. PROTHROMBIN TIME/INR Routine 05/19/2020 4:54 Res ults for this AM CDT procedure are i n the results section. APTT Routine 05/18/2020 10:06 Results for this PM CDT procedure are i n the results section. APTT Routine 05/18/2020 1:40 Results for this PM CDT procedure are i n the results section. PROTHROMBIN TIME/INR Add-On 05/18/2020 5:30 Res ults for this AM CDT procedure are i n the results section. CBC (HEMOGRAM ONLY) Routine 05/18/2020 5:30 Resu lts for this AM CDT procedure are i n the results section. APTT Routine 05/18/2020 5:30 Results for this AM CDT procedure are i n the results section. BASIC METABOLIC Routine 05/18/2020 5:30 Results for this PANEL (7) AM CDT procedure are i n the results section. CBC (HEMOGRAM ONLY) Routine 05/17/2020 3:57 Resu lts for this AM CDT procedure are i n the results section. APTT Routine 05/17/2020 3:57 Results for this AM CDT procedure are i n the results section. HEPATIC FUNCTION Routine 05/17/2020 3:57 Results for this PANEL AM CDT procedure are i n the results section. BASIC METABOLIC Routine 05/17/2020 3:57 Results for this PANEL (7) AM CDT procedure are i n the results section. MAGNESIUM Routine 05/17/2020 3:57 Results for this AM CDT procedure are i n the results section. APTT Routine 05/16/2020 1:15 Results for this PM CDT procedure are i n the results section. MR CARDIAC WITHOUT & COREY 05/16/2020 12:03 Res ults for this WITH CONTRAST PM CDT procedure are in the results section. APTT Routine 05/16/2020 5:22 Results for this AM CDT procedure are i n the results section. CBC (HEMOGRAM ONLY) Routine 05/16/2020 5:22 Resu lts for this AM CDT procedure are i n the results section. HEPATIC FUNCTION Routine 05/16/2020 5:22 Results for this PANEL AM CDT procedure are i n the results section. BASIC METABOLIC Routine 05/16/2020 5:22 Results for this PANEL (7) AM CDT procedure are i n the results section. MAGNESIUM Routine 05/16/2020 5:22 Results for this AM CDT procedure are i n the results section. APTT Routine 05/15/2020 8:45 Results for this PM CDT procedure are i n the results section. APTT Routine 05/15/2020 1:18 Results for this PM CDT procedure are i n the results section. CBC (HEMOGRAM ONLY) Routine 05/15/2020 5:23 Resu lts for this AM CDT procedure are i n the results section. APTT Routine 05/15/2020 5:20 Results for this AM CDT procedure are i n the results section. LIPID PANEL Routine 05/15/2020 5:16 Results for this AM CDT procedure are i n the results section. HEPATIC FUNCTION Routine 05/15/2020 5:16 Results for this PANEL AM CDT procedure are i n the results section. HEMOGLOBIN A1C Routine 05/15/2020 5:16 Results f or this AM CDT procedure are i n the results section. BASIC METABOLIC Routine 05/15/2020 5:16 Results for this PANEL (7) AM CDT procedure are i n the results section. MAGNESIUM Routine 05/15/2020 5:16 Results for this AM CDT procedure are i n the results section. APTT Routine 05/14/2020 10:11 Results for this PM CDT procedure are i n the results section. TSH/FREE T4 IF Routine 05/14/2020 3:53 Results f or this INDICATED PM CDT procedure are i n the results section. MAGNESIUM Routine 05/14/2020 6:02 Results for this AM CDT procedure are i n the results section. BASIC METABOLIC Routine 05/14/2020 6:02 Results for this PANEL (7) AM CDT procedure are i n the results section. CBC (HEMOGRAM ONLY) Routine 05/14/2020 6:02 Resu lts for this AM CDT procedure are i n the results section. R & L CATH / 05/13/2020 2:49 Chest pain, CORONARY ANGIOS (+/- PM CDT unspecified type LV) MAGNESIUM Routine 05/13/2020 5:02 Results for this AM CDT procedure are i n the results section. BASIC METABOLIC Routine 05/13/2020 5:02 Results for this PANEL (7) AM CDT procedure are i n the results section. CBC (HEMOGRAM ONLY) Routine 05/13/2020 5:01 Resu lts for this AM CDT procedure are i n the results section. APTT Routine 05/12/2020 10:25 Results for this PM CDT procedure are i n the results section. APTT Routine 05/12/2020 3:40 Results for this PM CDT procedure are i n the results section. TROPONIN I STAT 05/12/2020 3:40 Results for this PM CDT procedure are i n the results section. 2D ECHO W/ DOPPLER Routine 05/12/2020 8:55 Resul ts for this (CW/PW/COLOR) AM CDT procedure are in the results section. MAGNESIUM Routine 05/12/2020 8:53 Results for this AM CDT procedure are i n the results section. POTASSIUM Routine 05/12/2020 8:53 Results for this AM CDT procedure are i n the results section. TROPONIN I STAT 05/12/2020 8:53 Results for this AM CDT procedure are i n the results section. SARS-COV2/RT-PCR Routine 05/12/2020 8:53 Results for this (HS & REF LABS) AM CDT procedure are in the results section. APTT Routine 05/12/2020 7:34 Results for this AM CDT procedure are i n the results section. XR CHEST 1 VIEW STAT 05/12/2020 1:49 Results for this PORTABLE/BEDSIDE AM CDT procedure a re in the results section. ECG 12-LEAD Routine 05/12/2020 1:39 Results for this AM CDT procedure are i n the results section. ECG 12-LEAD Routine 05/12/2020 1:39 AM CDT Procedure Note - Interface, External Ris In - 05/12/2020 6:43 AM CDT Ventricular Rate 86 BPM Atrial Rate 86 BPM P-R Interval 144 ms QRS Duration 88 ms Q-T Interval 450 ms QTC Calculation(Bazett) 538 ms P [place] 64 degrees R [place] -13 degrees T [place] 129 degrees Normal sinus rhythm Biatrial enlargement Possible Anterior infarct , age undetermined T wave abnormality, consider lateral ischemia Prolonged QT Abnormal ECG ECG 12-LEAD Routine 05/12/2020 1:39 AM CDT Procedure Note - Interface, External Ris In - 05/12/2020 6:43 AM CDT Ventricular Rate 86 BPM Atrial Rate 86 BPM P-R Interval 146 ms QRS Duration 88 ms Q-T Interval 446 ms QTC Calculation(Bazett) 533 ms P [place] 64 degrees R [place] -14 degrees T [place] 123 degrees Normal sinus rhythm Biatrial enlargement Cannot rule out Anterior inf arct , age undetermined T wave abnormality, consider lateral ischemia Abnormal ECG CBC W/PLT COUNT & AUTO Routine 05/12/2020 1:12 AM CDT Results for this DIFFERENTIAL procedure are i n the results section . HEPATIC FUNCTION PANEL Routine 05/12/2020 1:12 AM CDT Results for this procedure are i n the results section . APTT Routine 05/12/2020 1:12 AM CDT Resu lts for this procedure are i n the results section . LACTIC ACID, VENOUS Routine 05/12/2020 1:12 AM CDT Results for this procedure are i n the results section . CBC W/PLT COUNT & AUTO Routine 05/12/2020 1:12 AM CDT Results for this DIFFERENTIAL procedure are i n the results section . B-TYPE NATRIURETIC FACTOR Routine 05/12/2020 1:12 AM CDT Results for this (BNP) procedure are i n the results section . TROPONIN I STAT 05/12/2020 1:12 AM CDT Resu lts for this procedure are i n the results section . COMPREHENSIVE METABOLIC Routine 05/12/2020 1:12 AM CDT Results for this PANEL procedure are i n the results section . after 08/12/2019 Results CARDIAC CATH REPORT - SCAN (05/20/2020 2:14 PM CDT) Narrative Performed At This result has an attachment that is no t available. RHYTHM STRIP - SCAN (05/20/2020 2:14 PM CDT) Narrative Performed At This result has an attachment that is no t available. aPTT (05/19/2020 4:54 AM CDT)Only the most recent of15 resultswithin the time period is included. PTT 81.3 (H) 22.5 - 36.0 seconds [facility] Specimen Blood Performing Organization Address City/State/Zipcode Phone Number [facility] [address] [place] [address] [place] Prothrombin time/INR (05/19/2020 4:54 AM CDT)Only the most recent of2 results within the time period is included. Protime 14.2 11.9 - 14.2 seconds [facility] INR 1.1 <=5.9 [facility] Specimen Blood Narrative Performed At Effective 04/24/2019: PT Reference Range [facility] Change New: 11.9-14.2Previous: 11.7-14.7 RECOMMENDED COUMADIN/WARFARIN INR THERAPY RANGES STANDARD DOSE: 2.0-3.0Includes: PROPHYLAXIS for venous thrombosis, systemic embolization; TREATMENT for venous thrombosis and/or pulmonary embolus. HIGH RISK: Target INR is 2.5-3.5 for patients wiht mechanical heart valves. Performing Organization Address City/State/Zipcode Phone Number [place] [phone] [place] [address] [place] CBC (hemogram only) (05/19/2020 4:54 AM CDT)Only the most recent of7 results within the time period is included. WBC 5.3 3.5 - 10.5 K/L [facility] RBC 5.29 4.63 - 6.08 M/L [facility] Hemoglobin 15.3 13.7 - 17.5 GM/DL [facility] Hematocrit 49.3 40.1 - 51.0 % [facility] MCV 93.2 (H) 79.0 - 92.2 fL [facility] MCH 28.9 25.7 - 32.2 pg [facility] MCHC 31.0 (L) 32.3 - 36.5 GM/DL [facility] RDW 15.5 (H) 11.6 - 14.4 % [facility] Platelets 213 150 - 450 K/CU MM [facility] MPV 10.4 9.4 - 12.4 fL [facility] nRBC 0 0 - 0 /100 WBC [facility] Specimen Blood Performing Organization Address City/[facility]/Zipcode Phone Number [facility] [address] [place] [address] CENTER Basic Metabolic Panel (05/18/2020 5:30 AM CDT)Only the most recent of6 results within the time period is included. Sodium 140 136 - 145 meq/L [facility] Potassium 4.4 3.5 - 5.1 meq/L [facility] Chloride 108 (H) 98 - 107 meq/L [facility] CO2 23 22 - 29 meq/L [facility] BUN 14 7 - 21 mg/dL [facility] Creatinine 1.12 0.57 - 1.25 mg/dL [facility] Glucose 112 (H) 70 - 105 mg/dL [facility] Calcium 9.4 8.4 - 10.2 mg/dL [facility] EGFR 83Comment: ESTIMATED GFR IS mL/min/1.73 sq m [facility] NOT ACCURATE CREATININE NM DICAL CENTER CLEARANCE IN PREDICTING GLOMERULAR FILTRATION RATE. ESTIMATED GFR IS NOT APPLICABLE FOR DIALYSIS PATIENTS. Specimen Blood Narrative Performed At Route Driver ID - PIAYA L [facility] Performing Organization Address City/[facility]/Zipcode Phone Number [facility] [address] [place] [address] CENTER Magnesium (05/17/2020 3:57 AM CDT)Only the most recent of6 resultswithin the time period is included. Magnesium 1.6 1.6 - 2.6 mg/dL [facility] Specimen Blood Narrative Performed At Route Driver ID - PILITO Cole [facility] Performing Organization Address [facility]/Zipcode Phone Number [facility] [address] [place] [address] [place] Hepatic function panel (05/17/2020 3:57 AM CDT)Only the most recent of4 results within the time period is included. Protein, Total 7.0 6.0 - 8.3 gm/dL [facility] Albumin 3.4 (L) 3.5 - 5.0 g/dL [facility] Total Bilirubin 0.5 0.2 - 1.2 mg/dL [facility] Bilirubin, Direct 0.3 0.1 - 0.5 mg/dL [facility] Alkaline Phosphatase 129 40 - 150 U/L [facility] AST 37 (H) 5 - 34 U/L [facility] ALT 48 6 - 55 U/L [facility] Specimen Blood Narrative Performed At Route Driver ID - KALPESH Cole [facility] Performing Organization Address [facility] Phone Number [facility] [address] [place], [place] [id number] [place] MR cardiac without & with IV contrast (05/16/2020 12:03 PM CDT) Specimen Narrative Performed At FINAL REPORT [employer] [facility] Cardiac MRI dated 16-May-20 INDICATION: This is a 55 year-old male w ith cardiomyopathy presents for assessment. This also a concern for left ventricular thrombus. TECHNIQUE: Christophe ACHIEVAMRI scanne r. Morphologic and dynamic cine imaging were performed in multiple proje ctions before and after contrast administration.Thereafter, gadolinium was administered, which was followed by viability/scar carlyn ging.Finally, flow quantification sequences were performed to determine the degree of valvular dysfunction. Please refer to the contrast sheet scann ed in the EPIC system for the amount and route of contrast given. Scanning blood pressure was 112/74. Mallory ent weighs 178 pounds, with height of 69 inches. Body surface area i s approximately 1.98 sq m. FINDINGS: The chest wall and mediastinum appears unremarkable. No pericardial effusion is identified. The central pulmonary artery is normal in calibre. Limited imaging throu gh the lungs reveals no gross abnormalities; MR is not optimised in th e assessment of pulmonary parenchymal lung disease.The cardiac chambers demonstrate normal atrioventricular and ventriculoarterial concordance, and systemic and pulmonary venous return. The thoracic aorta is normal in course, calibre, and contour. There is no evidence of acute aortic pathology , such as dissection, intramural hematoma, or contained ruptur e. The left ventricle is enlarged, with sev ere global systolic dysfunction. The apex is akinetic. Q uantitative values are as follows: EDV = 250 cc; ESV = 211 cc; str mitra volume = 39 cc; and ejection fraction = 16%.Calculated a bsolute cardiac output = 3.9 liters/min.Absolute left ventricular mass = 145 grams. Indexed LVEDV = 126 cc/sq m. No imaging evidence of hypertrophic card iomyopathy or left ventricular noncompaction is noted. The right ventricle is normal in size wi th at least moderate systolic dysfunction globally.Quantitative va lues are as follows: EDV = 172 cc; ESV = 124 cc; stroke volume = 48 cc; and ejection fraction = 28%. Cine imaging and flow quantification rev eals trace mitral regurgitation is mild to moderate tricus pid regurgitation. Aortic valve function is unremarkable. Viability/scar imaging majority of the l eft ventricle has full-thickness, viable appearing myocard ium. Interestingly, in various imaging orientation including th e long axis and short axis orientations, hyperenhancement is identi fied confined to the the left ventricular apex. In addition, in the two chamber scar seq uence, tiny linear thrombus is identified, that measure 7 mm in dinorah th, and perhaps 1 to 2 mm in thickness, suggesting tiny laminated thr ombus in the left ventricular apex. Left atrial enlargement is identified. CONCLUSIONS: 1.The left ventricle is enlarged, wi th severe global systolic dysfunction. Ejection fraction is quanti fied to be 16%.Quantitative left ventricular functional values are a s described above. There is no evidence of hypertrophic car diomyopathy or left ventricular noncompaction. Viability/scar imaging majority of the l eft ventricle has full-thickness, viable appearing myocard ium. In various imaging orientation including the long axis and short axis orientations, hyperenhancement is identified localised to the left ventricular apex. In addition, in the two chamber scar seq uence, TINY LINEAR THROMBUS is identified, that measure 7 mm in dinorah th, and perhaps 1 to 2 mm in thickness, suggesting tiny laminated thr ombus in the left ventricular apex, especially in the setting of akine tic apex. 2.The right ventricle is normal in s ize, with at least moderate systolic dysfunction globally. Ejection fraction is quantified to be 20%. No abnormal enhancement of the right zo tricular myocardium is seen after contrast administration. 3.Other findings as described above. Signed: Solis Cross MD Report Verified Date/Time:05/17/2020 10:15:01 Reading Location: [place] [address] [address] Reading Room Procedure Note Interface, External Ris In - 05/17/2020 10:17 AM CDT FINAL REPORT Cardiac MRI dated 16-May-20 INDICATION: This is a 55 year-old male w ith cardiomyopathy presents for assessment. This also a concern for left ventricular thrombus. TECHNIQUE: Christophe ACHIEVA MRI scanner. Morphologic and dynamic cine imaging were performed in multiple proje ctions before and after contrast administration. Thereafter, ga dolinium was administered, which was followed by viability/scar carlyn ging. Finally, flow quantification sequences were performed to determine the degree of valvular dysfunction. Please refer to the contrast sheet scann ed in the EPIC system for the amount and route of contrast given. Scanning blood pressure was 112/74. Mallory ent weighs 178 pounds, with height of 69 inches. Body surface area i s approximately 1.98 sq m. FINDINGS: The chest wall and mediastinum appears unremarkable. No pericardial effusion is identified. The central pulmonary artery is normal in calibre. Limited imaging throu gh the lungs reveals no gross abnormalities; MR is not optimised in th e assessment of pulmonary parenchymal lung disease. The cardiac c hambers demonstrate normal atrioventricular and ventriculoarterial concordance, and systemic and pulmonary venous return. The thoracic aorta is normal in course, calibre, and contour. There is no evidence of acute aortic pathology , such as dissection, intramural hematoma, or contained ruptur e. The left ventricle is enlarged, with sev ere global systolic dysfunction. The apex is akinetic. Thuan ntitative values are as follows: EDV = 250 cc; ESV = 211 cc; str mitra volume = 39 cc; and ejection fraction = 16%. Calculated abs olute cardiac output = 3.9 liters/min. Absolute left ventricular m ass = 145 grams. Indexed LVEDV = 126 cc/sq m. No imaging evidence of hypertrophic card iomyopathy or left ventricular noncompaction is noted. The right ventricle is normal in size wi th at least moderate systolic dysfunction globally. Quantitative valu es are as follows: EDV = 172 cc; ESV = 124 cc; stroke volume = 48 cc; and ejection fraction = 28%. Cine imaging and flow quantification rev eals trace mitral regurgitation is mild to moderate tricus pid regurgitation. Aortic valve function is unremarkable. Viability/scar imaging majority of the l eft ventricle has full-thickness, viable appearing myocard ium. Interestingly, in various imaging orientation including th e long axis and short axis orientations, hyperenhancement is identi fied confined to the the left ventricular apex. In addition, in the two chamber scar seq uence, tiny linear thrombus is identified, that measure 7 mm in dinorah th, and perhaps 1 to 2 mm in thickness, suggesting tiny laminated thr ombus in the left ventricular apex. Left atrial enlargement is identified. CONCLUSIONS: 1. The left ventricle is enlarged, with severe global systolic dysfunction. Ejection fraction is quanti fied to be 16%. Quantitative left ventricular functional values are a s described above. There is no evidence of hypertrophic car diomyopathy or left ventricular noncompaction. Viability/scar imaging majority of the l eft ventricle has full-thickness, viable appearing myocard ium. In various imaging orientation including the long axis and short axis orientations, hyperenhancement is identified localised to the left ventricular apex. In addition, in the two chamber scar seq uence, TINY LINEAR THROMBUS is identified, that measure 7 mm in dinorah th, and perhaps 1 to 2 mm in thickness, suggesting tiny laminated thr ombus in the left ventricular apex, especially in the setting of akine tic apex. 2. The right ventricle is normal in siz e, with at least moderate systolic dysfunction globally. Ejection fraction is quantified to be 20%. No abnormal enhancement of the right zo tricular myocardium is seen after contrast administration. 3. Other findings as described above. Signed: Solis Cross MD Report Verified Date/Time: 05/17/2020 1 0:15:01 Reading Location: [facility] [id number] MD Reading Room Performing Organization Address City/State/Zipcode Phone Number [facility] Hemoglobin A1c (05/15/2020 5:16 AM CDT) Hemoglobin A1C 6.1 4.3 - 6.1 % [facility] Specimen Blood Performing Organization Address City/[facility] Phone Number [address] [address] C[place] Lipid panel (05/15/2020 5:16 AM CDT) Triglycerides 54Comment: Specimen slightly mg/dL [facility] Cholesterol 97Comment: Specimen slightly mg/dL [facility] HDL 31 mg/dL [facility] [facility] LDL Calculated 55 mg/dL [facility] Specimen Blood Narrative Performed At Triglyceride Reference Range: [facility] Low Risk <150 [id number] High Risk 200-499 Very High Risk>=500 Cholesterol Reference Range: Low Risk <200 [id number] High Risk>240 HDL Cholesterol Reference Range: Low Risk >=60 High Risk <40 LDL Cholesterol Reference Range: Optimal<100 Near [id number] Very High >=190 Route Driver ID - AAHAMID Performing Organization Address [facility] [place] Phone Number [address] [address] CENTER TSH/Free T4 If Indicated (05/14/2020 3:53 PM CDT) TSH 4.124 0.350 - 4.940 uIU/mL [facility] Specimen Blood Narrative Performed At Route Driver ID - BS [facility] Performing Organization Address City/[facility]/Zipcode Phone Number [address] [phone] CENTER Troponin I (05/12/2020 3:40 PM CDT)Only the most recent of3 resultswithin the time period is included. Troponin I 3.14 (HH) 0.00 - 0.03 ng/mL [facility] Specimen Blood Narrative Performed At Troponin I (TnI) levels must be interpreted [facility] in the context of the presenting symptoms and the clinical findings. Elevated TnI levels indicate myocardial damage, but are not specific for ischemic heart disease. Elevated TnI levels are seen in patients with other cardiac conditions (including myocarditis and congestive heart failure), and slight TnI elevations occur in patients with other conditions, including sepsis, renal failure, acidosis, acute neurological disease, and persistent tachyarrhythmia. Route Driver ID - BS Performing Organization Address City/State/Zipcode Phone Number [facility] [address] [place] [address] [place] Transthoracic 2D echo w/ doppler (cw/pw/color) (05/12/2020 8:55 AM CDT) Ejection Fraction [facility] ECHO HEAR TLAB [facility] Specimen Narrative Performed At Transthoracic Echocardiography Report (T TE) [facility] ECHO HEARTLAB CKESSON [facility] Demographics Patient Name ALIDA SHER Date of Study 05/12/2020 [id number] GenderMale Visit Number [id number] Black [id number] Room Number [id number] Number Date of Birth1965Referring Physician MD George Louis FEL Age55 year(s)Pension Adviser José TorrestIitalia GarciaNikia Brush MD Procedure Type of Study TTE procedure:2DECHO W DOPPLER(CW/PW/COLOR) (Routine) Indications:Known or suspected cardiomyo preston. Clinical History HGB 14.6 HCT 44.9 % HEART FAILURE Contrast Medium: Definity. Height: 69 inches Weight: 80.74 kg (178 lbs) BSA: 1.97 m^2 BMI: 26.29 kg/m^2 HR: 82 bpm BP: 98/79 mmHg Summary The left ventricle is chamber size (by vol index) is mildly enlarged (male - LVED 75-89ml/m2). LV endocardium is adequately visualized with IV ultrasound enhancing agent. Normal LV wall thickness. All of the LV segments are severely hyp okinetic . Global LV systolic function severely re duced . LVEF by Peralta's method of disk assessment is severely reduced (20-24%) . The LVEF was measured using Peralta's bi-plane method of disk . LV endocardium is adequately visualized with IV ultrasound enhancing agent. Grade 3 diastolic dysfunction (marked elevated LA pressure). Low (cardiac index <2 L/min/m2) cardiac output state at rest is noted. Mild tricuspid regurgitation. Estimated peak systolic PA pressure is 40-45 mmHg (mild pulmonary The estimated RA pressure by IVC dynamics 5-10mmHg . Previous Study No prior exam available for comparison. Signature Findings Technical Quality: Technically adequate exam. Rhythm/BPRegular sinus rhythm during the exam. Left Ventricle The left ventricle is chamber size (by vol index) is mildly enlarged (male - LVED 75-89ml/m2) . LV endocardium is adequately visualized wit h IV ul trasound enhancing agent. No rmal LV wall thickness. Al l of the LV segments are severely hypoki netic . Gl obal LV systolic function severely reduc ed . LV EF by Peralta's method of disk assessmen t is se verely reduced (20-24%) . Th e LVEF was measured using Peralta's bi-p melina me thod of disk . LV endocardium is adequately visualized wit h IV ul trasound enhancing agent. Gr laney 3 diastolic dysfunction (marked elev ated LA pr essure). Lo w (cardiac index <2 L/min/m2) cardiac ou tput st ate at rest is noted. Left AtriumLA size is severely enlarged (>48 ml/m2) . Right VentricleRV chamber size is moderately dilated . Gl obal RV systolic function is mildly redu kush . Right Atrium RA cavity size is normal . Aortic Valve Normal AoV structure and function. Mitral Valve Mild MV leaflet thickening. Mi ld mitral regurgitation. Tricuspid ValveMild TV leaflet thickening. Mi ld tricuspid regurgitation. Es timated peak systolic PA pressure is 40- 45 mmHg (m ild pulmonary hypertension) . Pulmonic Valve Normal PV structure and function. A trace of pulmonary regurgitation. AortaAortic root size (SInus of Valsalva diameter) i s no rmal . Proximal ascending aorta size is normal . PericardiumA trivial pericardial effusion is present po steriorly. IVC/SVC/PA/PV/PleuralPulmonary vein flow is consistent with increased LA P . Th e estimated RA pressure by IVC dynamics 5-10mmHg . Chambers/Structures Left Atrium LA Volume: 133.36 mlLA Area: 31.44 cm^2 LA Vol. Index: 68 ml/m^2 Left Ventricle LVIDd: 5.86 cm LVIDs: 5.5 cm LV Septum Diastolic: 0.79 cm LV PW Diastolic: 1 cm LV FS: 6.1 % LVEDV Peralta's:162.3 ml LVESV Peralta's:129.7 mlLVEDVI: 82 ml/m^2 LVEF Peralta's: 20.1 %LVESV I: 66 ml/m^2 LVOT Diameter: 2.03 cm Right Atrium RA Vol. (Sngl Plane): 5 5.38 ml Right Ventricle TAPSE: 1.39 cm Aorta Ao Root S of Vilma.: 2.23 cmAscending Aorta: 2.92 cm Doppler/Quantitative Measurements Mitral Valve MV Peak E-Wave: 0.73 m/sMV Peak A-Wave: 0.26 m/s E/A Ratio: 2. 79 Peak Gradient: 2.12 mmHg Deceleration Time: 95.3 msec MV Omar. Peak: Tissue Doppler E' Septal Velocity: 0.04 m/sE/E': 17.56 E' Lateral Velocity: 0.09 m/s Aortic Valve Peak Velocity: 0.8 m/sMean Velocity: 0.54 m/s Peak Gradient: 2.58 mmHgMean Gradient: 1.4 mmHg AV Area (continuity): 2.17 cm^2 AV VTI: 12.88 cm AV DVI: 0.67 LVOT Peak Velocity: 0.58 m/s Peak Gradient: 1.34 mmHg Mean Velocity: 0.42 m/s Mean Gradient: 0.78 mmHg LVOT Diameter: 2.03 cmLVOT VTI: 8.63 cm LVOT Area: 3.24 cm^2LVOT SV:27.92 ml LVOT CO: 2.29 l/min LVOT CI: 1.16 l/min/m^2 Tricuspid Valve TR Velocity: 3.14 m/s TR Gradient: 39.55 mmHg Procedure Note Interface, External Ris In - 05/12/2020 1:39 PM CDT Transthoracic Echocardiography Report (TTE) Demographics Patient Name ALIDA SHER Date of Study 05/12/2020 Gender Male Visit Number [id number] Race Black Room [place] [address] Number Date of 1965 Jose stroud Physician MD George Louis, MIRELA Age 55 year(s) Sonograp her JarrellJosé Neetu Die Try Out Worker Nikia Carnes MD Procedure Type of Study TTE procedure:2DECHO W DOPPLE R(CW/PW/COLOR) (Routine) Indications:Known or suspected cardiomyo preston. Clinical History HGB 14.6 HCT 44.9 % HEART FAILURE Contrast Medium: Definity. Height: 69 inches Weight: 80.74 kg (178 lbs) BSA: 1.97 m^2 BMI: 26.29 kg/m^2 HR: 82 bpm BP: 98/79 mmHg Summary The left ventricle is chamber size (by vol index) is mildly enlarged (male - LVED 75-89ml/m2). LV endocardium is adequately visualized with IV ultrasound enhancing agent. Normal LV wall thickness. All of the LV segments are severely hyp okinetic . Global LV systolic function severely re duced . LVEF by Peralta's method of disk assess ment is severely reduced (20-24%) . The LVEF was measured using Peralta's b i-plane method of disk . LV endocardium is adequately visualized with IV ultrasound enhancing agent. Grade 3 diastolic dysfunction (marked e levated LA pressure). Low (cardiac index <2 L/min/m2) cardiac output state at rest is noted. Mild tricuspid regurgitation. Estimated peak systolic PA pressure is 40-45 mmHg (mild pulmonary The estimated RA pressure by IVC dynami cs 5-10mmHg . Previous Study No prior exam available for comparison. Signature Findings Technical Quality: Technically adequate exam. Rhythm/BP Regular sinus rh ythm during the exam. Left Ventricle The left ventric le is chamber size (by vol index) is mildly enlarg ed (male - LVED 75-89ml/m2). LV endocardium i s adequately visualized with IV ultrasound enhan cing agent. Normal LV wall t hickness. All of the LV se gments are severely hypokinetic . Global LV systol ic function severely reduced . LVEF by Peralta' s method of disk assessment is severely reduced (20-24%) . The LVEF was estephania sured using Peralta's bi-plane method of disk . LV endocardium i s adequately visualized with IV ultrasound enhan cing agent. Grade 3 diastoli c dysfunction (marked elevated LA pressure). Low (cardiac ind ex <2 L/min/m2) cardiac output state at rest is noted. Left Atrium LA size is sever lalitha enlarged (>48 ml/m2) . Right Ventricle RV chamber size is moderately dilated . Global RV systol ic function is mildly reduced . Right Atrium RA cavity size i s normal . Aortic Valve Normal AoV struc ture and function. Mitral Valve Mild MV leaflet thickening. Mild mitral regu rgitation. Tricuspid Valve Mild TV leaflet thickening. Mild tricuspid r egurgitation. Estimated peak s ystolic PA pressure is 40-45 mmHg (mild pulmonary hypertension) . Pulmonic Valve Normal PV struct ure and function. A trace of pulmo nary regurgitation. Aorta Aortic root size (SInus of Valsalva diameter) is normal . Proxima l ascending aorta size is normal . Pericardium A trivial perica rdial effusion is present posteriorly. IVC/SVC/PA/PV/Pleural Pulmonary vein f low is consistent with increased LAP . The estimated RA pressure by IVC dynamics 5-10mmHg . Chambers/Structures Left Atrium LA Volume: 133.36 ml LA Area: 31.44 cm^2 LA Vol. Index: 68 ml/m^2 Left Ventricle LVIDd: 5.86 cm LVIDs: 5.5 cm LV Septum Diastolic: 0.79 cm LV PW Diastolic: 1 cm LV FS: 6.1 % LVEDV Peralta's:162.3 ml LVESV Peralta's:129.7 ml LVEDVI: 82 ml/m^2 LVEF Peralta's: 20.1 % LVESVI: 66 ml/m^2 LVOT Diameter: 2.03 cm Right Atrium RA Vol. (Sngl Plane): 55.38 ml Right Ventricle TAPSE: 1.39 cm Aorta Ao Root S of Vilma.: 2.23 cm Ascending Aorta: 2.92 cm Doppler/Quantitative Measurements Mitral Valve MV Peak E-Wave: 0.73 m/s M V Peak A-Wave: 0.26 m/s E /A Ratio: 2.79 P eak Gradient: 2.12 mmHg D eceleration Time: 95.3 msec MV Omar. Peak: Tissue Doppler E' Septal Velocity: 0.04 m/s E /E': 17.56 E' Lateral Velocity: 0.09 m/s Aortic Valve Peak Velocity: 0.8 m/s Mean Velocity: 0.54 m/s Peak Gradient: 2.58 mmHg Mean Gradient: 1.4 mmHg AV Area (continuity): 2.17 cm^2 AV VTI: 12.88 cm AV DVI: 0.67 LVOT Peak Velocity: 0.58 m/s Pea k Gradient: 1.34 mmHg Mean Velocity: 0.42 m/s Estephania n Gradient: 0.78 mmHg LVOT Diameter: 2.03 cm LVO T VTI: 8.63 cm LVOT Area: 3.24 cm^2 LVO T SV:27.92 ml LVOT CO: 2.29 l/min LVO T CI: 1.16 l/min/m^2 Tricuspid Valve TR Velocity: 3.14 m/s TR Gradient: 39.55 mmHg Performing Organization Address City/State/Zipcode Phone Number [facility] ECHO HEARTLAB MK[facility]ON [facility] SARS-CoV2/RT-PCR (Asymptomatic ONLY) (05/12/2020 8:53 AM CDT) SARS-COV2/RT-PCR Not Detected Not Detected, Negative [facility] SARS-COV-2 PERFORMING LAB [facility] Specimen Other Narrative Performed At Negative results do not preclude SARS-CoV-2 [facility] infection and should not be used as the sole basis for patient management decisions. Negative results must be combined with clinical observations, patient history, and epidemiological information. A false negative result may occur if a specimen is improperly collected, transported or handled. The limit of detection for this assay is 250 copies/mL. This SARS CoV-2 test is a rapid, real-time RT-PCR test intended for the qualitative detection of nucleic acid from SARS-CoV-2 in a nasopharyngeal swab specimen collected from individuals suspected of COVID-19 by their healthcare provider. This test has not been Food and Drug Administration (FDA) cleared or approved and has been authorized by FDA under an Emergency Use Authorization (EUA). This EUA will be effective until the declaration that circumstances exist justifying the authorization of the emergency use of in vitro diagnostic tests for detection and/or diagnosis of COVID-19 is terminated under Section 564(b)(2) of the Act or the EUA is revoked under Section 564(g) of the Act. Fact Sheet for Healthcare Providers: https://www.[employer]/Documents/Xpert%20Xpre ss%20SARS%20CoV-2/Fact%20Sheets/302-2659%20SAR S-COV-2%20HEALTHCARE%20PROVIDERS%20FACT%20SHEE T.pdf Fact Sheet for Healthcare Patients: https://www.[employer]/Documents/Xpert%20Xpre ss%20SARS%20CoV-2/Fact%20Sheets/302-3801%20SAR S-COV-2%20PATIENT%20FACT%20SHEET.pdf Performing Laboratory: [facility] [address] [place] [address]. [place] [address] Performing Organization Address City/[facility]/Zipcode Phone Number [address] [address] CENTER Potassium (05/12/2020 8:53 AM CDT) Potassium 3.6 3.5 - 5.1 meq/L [facility] Specimen Blood Narrative Performed At Route Driver ID - ROBERT Griffith [facility] Performing Organization Address [facility] [place] Phone Number [address] [address] CENTER XR chest 1 view portable / bedside (05/12/2020 1:49 AM CDT) Specimen Narrative Performed At FINAL REPORT GE RIS Chest, 1 view. History: Shortness of breath. Comparison: None available. IMPRESSION: Low lung volumes. Minimal bi basilar atelectasis. No pleural effusion or pneumothorax. Promin ence of interstitial lung markings favored to be related to techni que. No lobar consolidation. Osseous structures are grossly unremarka ble. Signed: Stanley Tucker MD Report Verified Date/Time:05/12/2020 02:04:12 Procedure Note Interface, External Ris In - 05/12/2020 2:06 AM CDT FINAL REPORT Chest, 1 view. History: Shortness of breath. Comparison: None available. IMPRESSION: Low lung volumes. Minimal bi basilar atelectasis. No pleural effusion or pneumothorax. Promin ence of interstitial lung markings favored to be related to techni que. No lobar consolidation. Osseous structures are grossly unremarka ble. Signed: Stanley Tucker MD Report Verified Date/Time: 05/12/2020 0 2:04:12 Performing Organization Address [facility] Phone Number GE RIS ECG 12 lead (05/12/2020 1:39 AM CDT) Specimen Narrative Performed At Ventricular Rate 86 BPM GE MUSE Atrial Rate 86 BPM P-R Interval 144 ms QRS Duration 88 ms Q-T Interval 450 ms QTC Calculation(Bazett) 538 ms P [place] 64 degrees R [place] -13 degrees T [place] 129 degrees Normal sinus rhythm Biatrial enlargement Possible Anterior infarct , age undeterm ined T wave inversion lateral leads consider postischemic changes Prolonged QT Abnormal ECG No previous ECGs available Confirmed by MD MAGUE, SACHIN ([id number]) on 05/12/2020 12:32:03 PM Procedure Note Interface, External Ris In - 05/12/2020 12:32 PM CDT Ventricular Rate 86 BPM Atrial Rate 86 BPM P-R Interval 144 ms QRS Duration 88 ms Q-T Interval 450 ms QTC Calculation(Bazett) 538 ms P [place] 64 degrees R [place] -13 degrees T [place] 129 degrees Normal sinus rhythm Biatrial enlargement Possible Anterior infarct , age undeterm ined T wave inversion lateral leads consider postischemic changes Prolonged QT Abnormal ECG No previous ECGs available Confirmed by MD MAGUE, SACHIN ([id number]) on 05/12/2020 12:32:03 PM Performing Organization Address [facility] Phone Number GE MUSE CBC with platelet count + automated diff (05/12/2020 1:12 AM CDT) WBC 7.5 3.5 - 10.5 K/L [facility] RBC 4.90 4.63 - 6.08 M/L [facility] Hemoglobin 14.6 13.7 - 17.5 GM/DL [facility] Hematocrit 44.9 40.1 - 51.0 % [facility] MCV 91.6 79.0 - 92.2 fL [facility] MCH 29.8 25.7 - 32.2 pg [facility] MCHC 32.5 32.3 - 36.5 GM/DL [facility] RDW 14.9 (H) 11.6 - 14.4 % [facility] Platelets 351 150 - 450 K/CU MM [facility] MPV 10.7 9.4 - 12.4 fL [facility] nRBC 0 0 - 0 /100 WBC [facility] % Neutros 56 % [facility] % Lymphs 27 % [facility] % Monos 15 % [facility] % Eos 1 % [facility] % Baso 1 % [facility] # Neutros 4.19 1.78 - 5.38 K/L [facility] # Lymphs 1.99 1.32 - 3.57 K/L [facility] # Monos 1.12 (H) 0.30 - 0.82 K/L [facility] # Eos 0.08 0.04 - 0.54 K/L [facility] # Baso 0.04 0.01 - 0.08 K/L [facility] Immature Granulocytes-Relative 0 0 - 1 % C HI [facility] Specimen Blood Performing Organization Address City/[facility]/Zipcode Phone Number [address] [address] CENTER Lactic acid, venous (05/12/2020 1:12 AM CDT) Lactate, Venous 0.98Comment: Specimen 0.50 - 2.20 mmol/L [facility] slightly hemolyzed [facility] Specimen Blood Narrative Performed At Route Driver ID - ECHO Stanford [facility] Performing Organization Address City/[facility]/Zipcode Phone Number [address] [address] CENTER B-type natriuretic peptide (05/12/2020 1:12 AM CDT) BNP 766 (H) 0 - 100 pg/mL [facility] Specimen Blood Narrative Performed At Route Driver ID Xiang Stanford [facility] CENTER Performing Organization Address City/State/Zipcode Phone Number [facility] [address] [place] [address] [place] Comprehensive metabolic panel (05/12/2020 1:12 AM CDT) Protein, Total 7.0Comment: Specimen 6.0 - 8.3 gm/dL [facility] slightly hemolyzed [facility] Albumin 3.4 (L)Comment: Specimen 3.5 - 5.0 g/dL [facility] slightly hemolyzed [facility] Alkaline Phosphatase 113 40 - 150 U/L [facility] Total Bilirubin 0.9Comment: Specimen 0.2 - 1.2 mg/dL [facility] slightly hemolyzed [facility] Sodium 142 136 - 145 meq/L [facility] Potassium 4.0Comment: Specimen 3.5 - 5.1 meq/L [facility] slightly hemolyzed [facility] Chloride 103 98 - 107 meq/L [facility] CO2 26 22 - 29 meq/L [facility] BUN 21 7 - 21 mg/dL [facility] Creatinine 1.39 (H)Comment: 0.57 - 1.25 mg/dL [facility] Specimen slightly [facility] hemolyzed Glucose 108 (H) 70 - 105 mg/dL [facility] Calcium 8.8 8.4 - 10.2 mg/dL [facility] AST 70 (H)Comment: Specimen 5 - 34 U/L [facility] slightly hemolyzed [facility] ALT 105 (H)Comment: Specimen 6 - 55 U/L [facility] slightly hemolyzed [facility] ENTER EGFR 65Comment: ESTIMATED GFR mL/min/1.[address] [facility] IS NOT ACCURATE [facility] CREATININE CLEARANCE IN PREDICTING GLOMERULAR FILTRATION RATE. ESTIMATED GFR IS NOT APPLICABLE FOR DIALYSIS PATIENTS. Specimen Blood Narrative Performed At Route Driver ID - ECHO W [facility] Performing Organization Address City/State/Zipcode Phone Number [facility] [address] [place], [place] [phone] CENTER after 08/12/2019 Insurance Payer Benefit Plan / Group Subscriber ID Type Phone A ddress PENDING EES PENDING SSI MEDICAID-OTHER CDC REVIEW CDC REVIEW xxxxx[place] [address] [place] [place] [address] Advance Directives For more information, please contact:[facility] [place] [address] [phone] Code Status Date Activated Date Inactivated Comments Full Code 05/12/2020 12:50 AM 05/19/2020 7:14 PM This code status was determined by: Patient
--- OUTSIDE RECORDS SUMMARY | 2020-08-12 08:52 | XMS REPORT | Continuity of Care Document ---
:1965 Author Organization [facility] Care Team Providers Name Role Phone [employer] Information [employer] Unavailable Un available Problems Problem Status Onset Classification Date Comments Sourc e Date Reported Closed Active 10/04/2013 [place] [facility] Fracture Of The Distal End Of The Radius Medications Medication Details Route Status Patient Ordering Order Source Instructions Provider Date Naproxen 500 ; Start Active [facility] MG Oral Date: [facility] Tablet 07/03/2013 (Active) Hydrocodone-A ; Start Active [facility] cetaminophen Date: Physicians 5-325 MG Oral 07/03/2013 Tablet (Active) Allergies, Adverse Reactions, Alerts Substance Category Reaction Severity Reaction Status Date Comments S ource type Reported No Known drug drug Active [facility] Drug allergy allergy Physicia ns Allergies Immunizations No Data Provided for This Section Results No Data Provided for This Section Pathology Reports No Data Provided for This Section Diagnostic Reports No Data Provided for This Section Consultation Notes No Data Provided for This Section Discharge Summaries No Data Provided for This Section History and Physicals No Data Provided for This Section Vital Signs No Data Provided for This Section Encounters Location Location Encounter Encounter Reason Attending ADM [place] Stat Source Details Type Number For Provider Date Date Visit AUDIT [id number] 07/06 /2012 [facility] [place], [id number] 07/17 07/06 [place] Provider: SHELLEY Ramirez, Status: Pen, Time: 8:30 AM AUDIT [id number] 10/03 /2012 [facility] [place], [id number] 12/04 10/04 [place] Provider: SHELLEY Ramirez, Status: Ryley, Time: 1:30 PM Procedures No Data Provided for This Section Assessment and Plan No Data Provided for This Section Plan of Care No Data Provided for This Section Social History Social History Date Source Never A Smoker 10/04/2013 [place] [facility] (Active) Family History No Data Provided for This Section Advance Directives Order Name Results Value Date Source Advance Directives Advance Directives No Advance 10/04/2013 [place] [facility] Directives available. Advance Directives Advance Directives No Advance 07/06/2013 [place] [facility] Directives available. Functional Status No Data Provided for This Section
--- OUTSIDE RECORDS SUMMARY | 2020-08-12 08:53 | XMS REPORT | Continuity of Care Document ---
:1965 Author Organization [facility] t Address [address] [place] [address] Care Team Providers Name Role Phone Pcp, No Primary Care Physician Unavailable Sonia JALLOH, Emilie Mcnair Attending Clinician [phone] Rudy JALLOH, Manjit Attending Clinician Cabrera PECK Attending Clinician Marino JALLOH, Tita Attending Clinician DEBBIE MORRISSEY Attending Clinician Unavailable DEBBIE MORRISSEY Admitting Clinician Unavailable Payers Payer Name Policy Type Policy Number Effective Date Expiration Date S ource [facility] REVIEWCDC xxxxxxxx [facility] RE[facility] [place] Medical [id number] Center Problems Condition Condition Condition Status Onset Resolution Last Treating Co mments Source Name Details Category Date Date Treatment Clinician Date Cholelithi Cholelithi Disease Active [facility] asis asis - [facility] - 00:00: Medical 00 Center Stage 3 Stage [address] [facility] chronic chronic -26 [facility] - kidney kidney 00:00: Medical disease disease 00 Center 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 - [facility] - systolic systolic 00:00: Medica l and and 00 Center diastolic diastolic CHF CHF (congestiv (congestiv e heart e heart failure) failure) Atrial Atrial Disease Active [facility] fibrillati fibrillati - Lynsey kes - on on 00:00: Medical 00 Center Closed Problem Active 2013-10-04 Memor ia Fracture 00:31:09 l Of The Closed [place] Distal End Fracture Of The Of The Radius Distal End Of The Radius Active 3 [place] Physicians Allergies, Adverse Reactions, Alerts Allergy Allergy Status Severity Reaction(s) Onset Inactive Treating Comm ents Source Name Type Date Date Clinician No Known No Known Active Memori a Drug Drug l Allergie Allergie Gary n s s Social History Social Habit Start Date Stop Date Quantity Comments Source History [facility] Alcohol [facility] - Std Drinks [facility] History [facility] Alcohol [facility] - [facility]inge [facility] Sex Assigned At [facility] kes - [facility] History SDMA Alcohol 2020-05-12 2020-05-12 3 [facility] - Frequency 00:00:00 00:00:[address] [facility] Social History 2013-10-04 2013-10-04 [facility] 00:31:09 00:31:09 Smoking Status Start Date Stop Date Source Never smoker [facility] Ordered Filled Start Stop Current Ordering Indication Dosage Frequency Signature Comments Components Source Medication Medication Date Date Medication? Clinician (SIG) Name Name warfarin Yes 5mg QD Take [address] [address] (COUMADIN, 6-26 by mouth [facility] - JANTOVEN) 5 11:32: daily. Medi chandra MG tablet 25 [place] spironolact 2020- Yes 25mg QD Take [address] one 6-20 05-24 tablet (25 [facility] - (ALDACTONE) 00:00: 23:59 mg total) Medical 25 MG 00 :00 by mouth Center tablet daily. isosorbide 2020- No 5mg QD Take [address] dinitrate 05-19- by mouth [facility] - (ISORDIL) 5 16:11: 00:00 daily. Med ical MG tablet 50 :00 Center sacubitriL- Yes 1{tbl} Q.5D Take [address] valsartan 6-23 tablet by [facility] - (ENTRESTO) 00:00: mouth 2 Medi chandra 24-26 mg 00 (two) Center Tab times daily. carvediloL 2020- Yes 6.25mg Q.5D Take [address] (COREG) 6-19 05- tablets [facility] - 3.125 MG 00:00: 23:59 (6.25 mg Medi chandra tablet 00 :00 total) by Center mouth 2 (two) times daily. pravastatin 2020- Yes 40mg QD Take [address] (PRAVACHOL) 05-19 tablet (40 L ukes - 40 MG 00:00: 23:59 mg total) Medica l tablet 00 :00 by mouth Center nightly. warfarin 2019- No 10mg QD Take [address] (COUMADIN, 05-19 tablet (10 Lynsey kes - JANTOVEN) 00:00: 00:00 mg total) Me dical 10 MG 00 :00 by mouth Center tablet daily. furosemide Yes 20mg QD Take [address] (LASIX) 20 05-13 by mouth [facility] - MG tablet 08:50: daily. Medica l 18 Center Naproxen Yes ; Start Memori a 500 MG Oral 07-03 Date: l Tablet 05:00: 07/03/2013 Jaleesa nn 00 (Active) Hydrocodone Yes ; Start Mem oria -Acetaminop 07-03 Date: l hen 5-325 05:00: 07/03/2013 He rmann MG Oral 00 (Active) Tablet Vital Signs Vital Name Observation Time Observation Value Comments Source Systolic blood 2020-05-22 15:46:00 105 mm[Hg] [facility] Diastolic blood 2020-05-22 15:46:00 74 mm[Hg] [facility] S [facility] Heart rate 2020-05-22 15:46:00 60 /min [facility] Respiratory rate 2020-05-22 15:46:00 18 /min [facility] Body height 2020-05-22 15:46:00 175.3 cm [facility] Body weight Measured 2020-05-22 15:46:[address] [facility] BMI 2020-05-22 15:46:00 25.72 kg/m2 [facility] Body temperature 2020-05-19 11:40:[address] [facility] Oxygen saturation in 2020-05-19 11:40:00 96 /min [facility] Arterial blood by Medical Ce nter Pulse oximetry Procedures Procedure Date / Time Performed Performing Clinician [facility] e CARDIAC CATH REPORT - 2020-05-20 14:14:32 Provider, [place] [facility] RHYTHM STRIP - SCAN 2020-05-20 14:14:30 Provider, [facility] PROTHROMBIN TIME/INR 2020-05-19 04:54:[address] [facility] APTT 2020-05-19 04:54:00 Bradly Pichardo [facility] CBC (HEMOGRAM ONLY) 2020-05-19 04:54:00 [facility] APTT 2020-05-18 22:06:00 [facility] APTT 2020-05-18 13:40:00 [facility] BASIC METABOLIC PANEL (7) 2020-05-18 05:30:00 Carolann Grant [facility] APTT 2020-05-18 05:30:00 [facility] CBC (HEMOGRAM ONLY) 2020-05-18 05:30:00 [facility] PROTHROMBIN TIME/INR 2020-05-18 05:30:[address] [facility] MAGNESIUM 2020-05-17 03:57:00 [facility]OL[facility] (7) 2020-05-17 03:57:00 Carolann Grant [facility] HEPATIC FUNCTION PANEL 2020-05-17 03:57:00 Carolann Grant [facility] APTT 2020-05-17 03:57:00 [facility] CBC (HEMOGRAM ONLY) 2020-05-17 03:57:00 [facility] APTT 2020-05-16 13:15:00 [facility] MR CARDIAC WITHOUT & WITH 2020-05-16 12:03:00 Toni Sanford [facility] MAGNESIUM 2020-05-16 05:22:00 [facility] BASIC METABOLIC PANEL (7) 2020-05-16 05:22:00 Rud[facility] HEPATIC FUNCTION PANEL 2020-05-16 05:22:00 Rudy [facility] CBC (HEMOGRAM ONLY) 2020-05-16 05:22:00 [facility] APTT 2020-05-16 05:22:00 [facility] APTT 2020-05-15 20:45:00 [facility] APTT 2020-05-15 13:18:00 [facility] CBC (HEMOGRAM ONLY) 2020-05-15 05:23:00 [facility] APTT 2020-05-15 05:20:00 [facility] MAGNESIUM 2020-05-15 05:16:00 Rudy Carolann [facility] BASIC METABOLIC PANEL (7) 2020-05-15 05:16:00 Rudy [facility] HEMOGLOBIN A1C 2020-05-15 05:16:00 Rudy [facility] HEPATIC FUNCTION PANEL 2020-05-15 05:16:00 Rduy [facility] LIPID PANEL 2020-05-15 05:16:00 Carolann Grant [facility] APTT 2020-05-14 22:11:00 [facility] T4 IF INDICATED 2020-05-14 15:53:00 Carolann Grant [facility] CBC (HEMOGRAM ONLY) 2020-05-14 06:02:[address] [facility] BASIC METABOLIC PANEL (7) 2020-05-14 06:02:00 Kelle Verde [facility] MAGNESIUM 2020-05-14 06:02:00 Courtney Angelp [facility] R & L CATH / CORONARY 2020-05-13 14:49:00 Bradly Pichardo [facility] S [facility] - ANGIOS (+/- LV) [facility] BASIC METABOLIC PANEL (7) 2020-05-13 05:02:00 Sonia Emilie [facility] MAGNESIUM 2020-05-13 05:02:00 [facility] (HE[facility] ONLY) 2020-05-13 05:01:[address] [facility] APTT 2020-05-12 22:25:00 [facility] TROPONIN I 2020-05-12 15:40:00 [facility] AP[facility] 2020-05-12 15:40:00 [facility] 2D ECHO W/ DOPPLER 2020-05-12 08:55:45 [facility] George [facility] S t [facility] - (CW/PW/COLOR) [facility] SARS-COV2/RT-PCR ([facility] & 2020-05-12 08:53:00 [facility] TROPONIN I 2020-05-12 08:53:00 [facility] POTASSIUM 2020-05-12 08:53:00 [facility] MAGNESIUM 2020-05-12 08:53:00 [facility] APTT 2020-05-12 07:34:00 [facility] XR CHEST 1 VIEW 2020-05-12 01:49:00 [facility] l[facility] PORTABLE/BEDSIDE [facility] ECG 12-LEAD 2020-05-12 01:39:58 Unknown, Hl7 Doctor [facility] ECG 12-LEAD 2020-05-12 01:39:24 Unknown, Hl7 [facility] COMPREHENSIVE METABOLIC 2020-05-12 01:12:00 [facility] TROPONIN I 2020-05-12 01:12:00 [facility] B-TYPE NATRIURETIC FACTOR 2020-05-12 01:12:00 [facility]Courtney [facility] (BNP) [facility] LACTIC ACID, VENOUS 2020-05-12 01:12:00 [facility] APTT 2020-05-12 01:12:00 [facility] HEPATIC FUNCTION PANEL 2020-05-12 01:12:00 [facility] stub[facility] CBC W/PLT COUNT & AUTO 2020-05-12 01:12:00 [facility] George C [facility] Plan of Care Planned Activity Planned Date Details Comments Source Future Scheduled 2025-05-[address] [facility] - Test 00:00:00 (procedure) [code = [facility] 78850320] Future Scheduled 2020-07-[address] [facility] - Test 00:00:00 (#1) [code = [facility] INFLUENZA VACCINE (#1)] Future Scheduled [address] [facility] - Test 00:00:00 malignant neoplasm Medical C enter of colon (procedure) [code = 900901390] Encounters Start End Encounter Admission Attending Care Care Encounter Source Date/Time Date/Time Type Type Clinicians Facility Department ID 2013-10-03 2013-10-03 Outpatient MEJIA BA [id number] 8 18:31:10 18:31:09 2013-07-06 2013-07-06 Outpatient MEJIA BA [id number] 3 18:23:12 18:22:52 Results Test Description Test Time Test Comments Results Result Comments Source Prothrombin time/INR 2020-05-19 05:21:00 Test Item Value Reference Range Interpretation Comme nts Protime (test code = 5902-2) 14.2 11.9- 14.2 seconds INR (test code = 6301-6) 1.1 <=5.9 TOBY (test code = TOBY) Effective 04/24/2019: PT Reference Range ChangeNew: 11.9-14.2 Previous: 11.7-14.7 RECOMMENDED COUMADIN/WARFARIN INR THERAPY RANGESSTANDARD DOSE: 2.0-3.0 Includes: PROPHYLAXIS for venous thrombosis, systemic embolization; TREATMENT for venous thrombosis and/or pulmonary embolus.HIGH RISK: Target INR is 2.5-3.5 for patients wiht mechanical heart valves. Lab Interpretation (test code = Normal 19983-2) [facility]/[id number] 05:21:00 Test Item Value Reference Range Interpretation Comments PROTIME (BEAKER) (test code = 14.2 seconds 11.9-14.2 759) INR (BEAKER) (test code = 370) 1.1 <=5.9 Effective 04/24/2019: PT Reference Range ChangeNew: 11.9-14.2 Previous: 11.7- 14.7RECOMMENDED COUMADIN/WARFARIN INR THERAPY RANGESSTANDARD DOSE: 2.0-3.0 Includes: PROPHYLAXIS for venous thrombosis, systemic embolization; TREATMENT for venous thrombosis and/or pulmonary embolus.HIGH RISK: Target INR is2.5-3.5 for patients wiht mechanical heart valves.[id number] 05:19:00 Test Item Value Reference Range Interpretation Comments PTT (test code = 98918-7) 81.3 22.5- 36.0 seconds H Lab Interpretation (test code = Abnormal 69603-2) [facility] 05:19:00 Test Item Value Reference Range Interpretation Comments PARTIAL THROMBOPLASTIN TIME 81.3 seconds 22.5-36.0 H (BEAKER) (test code = 760) CBC (hemogram only)2020-05-19 05:06:00 Test Item Value Reference Range Interpretation Comments WBC (test code = 6690-2) 5.3 3.5- 10.5 K/L RBC (test code = 789-8) 5.29 4.63- 6.08 M/L MCHC (test code = 786-4) 31.0 32.3- 36.5 GM/DL L Hematocrit (test code = 4544-3) 49.3 % 40.1-51 MCV (test code = 787-2) 93.2 fL 79-92.2 H MCH (test code = 785-6) 28.9 pg 25.7-32.2 RDW (test code = 788-0) 15.5 % 11.6-14.4 H Platelets (test code = 777-3) 213 150- 450 K/CU MM MPV (test code = 65201-5) 10.4 fL 9.4-12.4 nRBC (test code = 413) 0 0- 0 /100 WBC Lab Interpretation (test code = Abnormal 72546-5) [facility] (HEMOGRAM ONLY)2020-05-19 05:06:00 Test Item Value Reference Range Interpretation Comments WHITE BLOOD CELL COUNT (BEAKER) 5.3 K/ L 3.5-10.5 (test code = 775) RED BLOOD CELL COUNT (BEAKER) 5.29 M/ L 4.63-6.08 (test code = 761) HEMOGLOBIN (BEAKER) (test code = 15.3 GM/DL 13.7-17.5 410) HEMATOCRIT (BEAKER) (test code = 49.3 % 40.1-51.0 411) MEAN CORPUSCULAR VOLUME (BEAKER) 93.2 fL 79.0-92.2 H (test code = 753) MEAN CORPUSCULAR HEMOGLOBIN 28.9 pg 25.7-32.2 (BEAKER) (test code = 751) MEAN CORPUSCULAR HEMOGLOBIN CONC 31.0 GM/DL 32.3-36.5 L (BEAKER) (test code = 752) RED CELL DISTRIBUTION WIDTH 15.5 % 11.6-14.4 H (BEAKER) (test code = 412) PLATELET COUNT (BEAKER) (test 213 K/CU MM 150-450 code = 756) MEAN PLATELET VOLUME (BEAKER) 10.4 fL 9.4-12.4 (test code = 754) NUCLEATED RED BLOOD CELLS 0 /100 WBC 0-0 (BEAKER) (test code = 413) [id number] 22:22:00 Test Item Value Reference Range Interpretation Comments PARTIAL THROMBOPLASTIN TIME 74.7 seconds 22.5-36.0 H (BEAKER) (test code = 760) [id number] 14:21:00 Test Item Value Reference Range Interpretation Comments PARTIAL THROMBOPLASTIN TIME 69.9 seconds 22.5-36.0 H (BEAKER) (test code = 760) PROTHROMBIN TIME/[id number] 06:52:00 Test Item Value Reference Range Interpretation Comments PROTIME (BEAKER) (test code = 14.4 seconds 11.9-14.2 H 759) INR (BEAKER) (test code = 370) 1.2 <=5.9 Effective 04/24/2019: PT Reference Range ChangeNew: 11.9-14.2 Previous: 11.7- 14.7RECOMMENDED COUMADIN/WARFARIN INR THERAPY RANGESSTANDARD DOSE: 2.0-3.0 Includes: PROPHYLAXIS for venous thrombosis, systemic embolization; TREATMENT for venous thrombosis and/or pulmonary embolus.HIGH RISK: Target INR is2.5-3.5 for patients wiht mechanical heart valves.Basic Metabolic [id number] 06:46:00 Test Item Value Reference Range Interpretation Comments Sodium (test code = 140 meq/L 770-773 5615-2) Potassium (test code = 4.4 meq/L 3.5-5.1 2823-3) Chloride (test code = 108 meq/L 98-107 H 5-0) CO2 (test code = 23 meq/L 8-9) BUN (test code = 14 mg/dL 7- 3094-0) Creatinine (test code 1.12 mg/dL 0.57-1.25 = 2160-0) Glucose (test code = 112 mg/dL 70-105 H 2345-7) Calcium (test code = 9.4 mg/dL 8.4-10.2 48006-9) EGFR (test code = 83 mL/min/1.73 [place] [address]-5) NOT ACCURATE CREATININE CLEARANCE IN PREDICTING GLOMERULAR FILTRATION RATE . ESTIMATED GFR I S NOT APPLICABLE FOR DIALYSIS PATIENTS. TOBY (test code = TOBY) Tail Puller ID - PILITO L Lab Interpretation Abnormal (test code = 41934-2) [facility] [id number] 06:46:00 Test Item Value Reference Range Interpretation Comments SODIUM (BEAKER) 140 meq/L 136-145 (test code = 381) POTASSIUM (BEAKER) 4.4 meq/L 3.5-5.1 (test code = 379) CHLORIDE (BEAKER) 108 meq/L 98-107 H (test code = 382) CO2 (BEAKER) (test 23 meq/L 22-29 code = 355) BLOOD UREA NITROGEN 14 mg/dL 7-21 (BEAKER) (test code = 354) CREATININE (BEAKER) 1.12 mg/dL 0.57-1.25 (test code = 358) GLUCOSE RANDOM 112 mg/dL 70-105 H (BEAKER) (test code = 652) CALCIUM (BEAKER) 9.4 mg/dL 8.4-10.2 (test code = 697) EGFR (BEAKER) (test 83 mL/min/1.73 ESTIMA THERON GFR IS code = 1092) sq m NOT ACCURATE CREATININE CLEARANCE IN PREDICTING GLOMERULAR FILTRATION RATE . ESTIMATED GFR I S NOT APPLICABLE FOR DIALYSIS PATIEN TS. Tail Puller ID - PILITO [id number] 06:34:00 Test Item Value Reference Range Interpretation Comments PARTIAL THROMBOPLASTIN TIME 103.8 seconds 22.5-36.0 H (BEAKER) (test code = 760) CBC (HEMOGRAM ONLY)2020-05-18 06:11:00 Test Item Value Reference Range Interpretation Comments WHITE BLOOD CELL COUNT (BEAKER) 5.0 K/ L 3.5-10.5 (test code = 775) RED BLOOD CELL COUNT (BEAKER) 5.52 M/ L 4.63-6.08 (test code = 761) HEMOGLOBIN (BEAKER) (test code = 16.0 GM/DL 13.7-17.5 410) HEMATOCRIT (BEAKER) (test code = 52.0 % 40.1-51.0 H 411) MEAN CORPUSCULAR VOLUME (BEAKER) 94.2 fL 79.0-92.2 H (test code = 753) MEAN CORPUSCULAR HEMOGLOBIN 29.0 pg 25.7-32.2 (BEAKER) (test code = 751) MEAN CORPUSCULAR HEMOGLOBIN CONC 30.8 GM/DL 32.3-36.5 L (BEAKER) (test code = 752) RED CELL DISTRIBUTION WIDTH 15.6 % 11.6-14.4 H (BEAKER) (test code = 412) PLATELET COUNT (BEAKER) (test 225 K/CU MM 150-450 code = 756) MEAN PLATELET VOLUME (BEAKER) 10.9 fL 9.4-12.4 (test code = 754) NUCLEATED RED BLOOD CELLS 0 /100 WBC 0-0 (BEAKER) (test code = 413) MR, CARDIAC, [id number] 10:15:00Anesthesia:->NoneFINAL REPORT Cardiac MRI dated 16-May-20 INDICATION: This is a 55 year-old mal e with cardiomyopathy presents for assessment. This also a concern for left ventricular thrombus. TECHNIQUE: Christophe ACHIEVA MRI scanner. Morphologic and dynamic cine imaging were performed in multiple projections before and after contrast administration. Thereafter, gadolinium was administered, which was followed by viability/scar imaging. Finally, flow quantification sequences were performed to determine the degree of valvular dysfunction. Please refer to the contrast sheet scanned in the EPIC system for the amount and route of contrast given. Scanning blood pressure was 112/74. Patient weighs 178 pounds, with height of 69 inches. Body surface area is approximately 1.98 sq m. FINDINGS: The chest wall and mediastinum appears unremarkable. No pericardial effusion is identified. The central pulmonary artery is normal in calibre. Limited imaging through the lungs reveals no gross abnormalities; MR is not optimised in the assessment of pulmonary parenchymal lung disease. The cardiac chambers demonstrate normal atrioventricular and ventriculoarterial concordance, and systemic and pulmonary venous return. The thoracic aorta is normal in course, calibre, and contour. There is no evidence ofacute aortic pathology, such as dissection, intramural hematoma, or contained rupture. The left ventricle is enlarged, with severe global systolic dysfunction. The apex is akinetic. Quantitative values are as follows: EDV = 250 cc; ESV = 211 cc; stroke volume = 39 cc; and ejection fraction = 16%. Calculated absolute cardiac output = 3.9 liters/min. Absolute left ventricular mass = 145 grams. Indexed LVEDV = 126 cc/sq m. No imaging evidence of hypertrophic cardiomyopathy or left ventricular noncompaction is noted. The right ventricle is normal in size with at least moderate systolic dysfunctionglobally. Quantitative values are as follows: EDV = 172 cc; ESV = 124 cc; stroke volume = 48 cc; and ejection fraction = 28%. Cine imaging and flow quantification reveals trace mitral regurgitation is mild to moderate tricuspid regurgitation. Aortic valve function is unremarkable. Viability/scar imaging majority of the left ventricle has full-thickness, viable appearing myocardium. Interestingly, in various imaging orientation including the long axis and short axis orientations, hyperenhancement is identified confined to the the left ventricular apex. In addition, in the two chamber scar sequence, tiny linear thrombus is identified, that measure 7 mm in length, and perhaps 1 to 2 mm in thickness, suggesting tiny laminated thrombus in the left ventricular apex. Left atrial enlargement is identified. CONCLUSIONS: 1. The left ventricle is enlarged, with severe global systolic dysfunction. Ejection fraction is quantified to be 16%. Quantitative left ventricular functional values are as described above. There is no evidence of hypertrophic cardiomyopathy or left ventricular noncompaction. Viability/scar imaging majority of the left ventricle has full-thickness, viable appearing myocardium. In various imaging orientation including the long axis and short axis orientations, hyperenhancement is identified localised to the left ventricular apex. In addition, in the two chamber scar sequence, TINY LINEAR THROMBUS is identified, that measure 7 mm in length, and perhaps 1 to 2 mm in thickness, s uggesting tiny laminated thrombus in the left ventricular apex, especially in the setting of akinetic apex. 2. The right ventricle is normal in size, with at least moderate systolic dysfunction globally. Ejection fraction is quantified to be 20%. No abnormal enhancement of the right ventricular myocardium is seen after contrast administration. 3. Other findings as described above. Signed: Solis Cross MDReport Verified Date/Time: 05/17/2020 10:15:01 Reading Location: [place] [address] [address] Reading Room MR cardiac without & with IV contrast 2020-05-17 10:15:00Interface, External Ris In - 05/17/2020 10:17 AM CDTFINAL REPORT Cardiac MRI dated 16-May-20 INDICATION: This is a 55 year-old male with cardiomyopathy presents for assessment. This also a concern for left ventricular thrombus. TECHNIQUE: Christophe ACHIEVA MRI scanner. Morphologic and dynamic cine imaging were performed in multiple projections before and after contrast administration. Thereafter, gadolinium was administered, which was followed by viability/scar imaging. Finally, flow quantification sequences were performed to determine the degree of valvular dysfunction. Please refer to the contrast sheet scanned in the EPIC system for the amount and route of contrast given. Scanning blood pressure was 112/74. Patient weighs 178 pounds, with height of 69 inches. Body surface area is approximately 1.98 sq m. FINDINGS: The chest wall and mediastinum appears unremarkable. No pericardial effusion is identified. The central pulmonary artery is normal in calibre. Limited imaging through the lungs reveals no gross abnormalities; MR is not optimised in the assessment of pulmonary parenchymal lung disease. The cardiac chambers demonstrate normal atrioventricular and ventriculoarterial concordance, and systemic and pulmonary venous return. The thoracic aorta is normal in course, calibre, and contour. There is no evidence of acute aortic pathology, such as dissection, intramural hematoma, or contained rupture. The left ventricle is enlarged, with severe global systolic dy sfunction. The apex is akinetic. Quantitative values are as follows: EDV = 250 cc; ESV = 211 cc; stroke volume = 39 cc; and ejection fraction = 16%. Calculated absolute cardiac output = 3.9 liters/min. Absolute left ventricular mass = 145 grams. Indexed LVEDV = 126 cc/sq m. No imaging evidence of h ypertrophic cardiomyopathy or left ventricular noncompaction is noted. The right ventricle is normalin size with at least moderate systolic dysfunction globally. Quantitative values are as follows: EDV = 172 cc; ESV = 124 cc; stroke volume = 48 cc; and ejection fraction = 28%. Cine imaging and flow quantification reveals trace mitral regurgitation is mild to moderate tricuspid regurgitation. Aortic valve function is unremarkable. Viability/scar imaging majority of the left ventricle has full-thickness, viable appearing myocardium. Interestingly, in various imaging orientation including the longaxis and short axis orientations, hyperenhancement is identified confined to the the left ventricular apex. In addition, in the two chamber scar sequence, tiny linear thrombus is identified, that measure 7 mm in length, and perhaps 1 to 2 mm in thickness, suggesting tiny laminated thrombus in the left ventricular apex. Left atrial enlargement is identified. CONCLUSIONS: 1. The left ventricle is enla rged, with severe global systolic dysfunction. Ejection fraction is quantified to be 16%. Quantitative left ventricular functional values are as described above. There is no evidence of hypertrophic cardiomyopathy or left ventricular noncompaction. Viability/scar imaging majority of the left ventricle has full- thickness, viable appearing myocardium. In various imaging orientation including the long axis and short axis orientations, hyperenhancement is identified localised to the left ventricular apex. In addition, in the two chamber scar sequence, TINY LINEAR THROMBUS is identified, that measure 7 mm in length, and perhaps 1 to 2 mm in thickness, suggesting tiny laminated thrombus in the left ventricular apex, especially in the setting of akinetic apex. 2. The right ventricle is normal in size, with at least moderate systolic dysfunction globally. Ejection fraction is quantified to be 20%. Noabnormal enhancement of the right ventricular myocardium is seen after contrast administration. 3. O ther findings as described above. Signed: Solis Cross MDReport Verified Date/Time: 05/17/2020 10:15:01 Reading Location: [place] [address] [address] [facility] [id number] 05:35:00 Test Item Value Reference Range Interpretation Comments Protein, Total (test code 7.0 6.0- 8.3 gm/dL = 2885-2) Albumin (test code = 3.4 g/dL 3.5-5 L 86222-3) Total Bilirubin (test code 0.5 mg/dL 0.2-1.2 = 1975-2) Bilirubin, Direct (test 0.3 mg/dL 0.1-0.5 code = 1967-7) Alkaline Phosphatase (test 129 U/L 40-150 code = 6768-6) AST (test code = 1920-8) 37 U/L 5-34 H ALT (test code = 1742-6) 48 U/L 6-55 TOBY (test code = TOBY) Tail Puller ID - PIAYA L Lab Interpretation (test Abnormal code = 60093-4) [facility] 05[facility]35:00 Test Item Value Reference Range Interpretation Comments Magnesium (test code = 1.6 mg/dL 1.6-2.6 00884-3) TOBY (test code = TOBY) Tail Puller ID - KALPESH L Lab Interpretation (test Normal code = 80206-0) [facility]2020-[facility]-21 05:35:00 Test Item Value Reference Range Interpretation Comments MAGNESIUM (BEAKER) (test code = 1.6 mg/dL 1.6-2.6 627) Tail Puller ID - KALPESH LBASIC METABOLIC [id number] 05:35:00 Test Item Value Reference Range Interpretation Comments SODIUM (BEAKER) 138 meq/L 136-145 (test code = 381) POTASSIUM (BEAKER) 4.3 meq/L 3.5-5.1 (test code = 379) CHLORIDE (BEAKER) 108 meq/L 98-107 H (test code = 382) CO2 (BEAKER) (test 19 meq/L 22-29 L code = 355) BLOOD UREA NITROGEN 14 mg/dL 7-21 (BEAKER) (test code = 354) CREATININE (BEAKER) 1.11 mg/dL 0.57-1.25 (test code = 358) GLUCOSE RANDOM 105 mg/dL 70-105 (BEAKER) (test code = 652) CALCIUM (BEAKER) 9.2 mg/dL 8.4-10.2 (test code = 697) EGFR (BEAKER) (test 84 mL/min/1.73 ESTIMA THERON GFR IS code = 1092) sq m NOT ACCURATE CREATININE CLEARANCE IN PREDICTING GLOMERULAR FILTRATION RATE . ESTIMATED GFR I S NOT APPLICABLE FOR DIALYSIS PATIEN TS. Tail Puller ID - KALPESH LHEPATIC FUNCTION [id number] 05:35:00 Test Item Value Reference Range Interpretation Comments TOTAL PROTEIN (BEAKER) (test code = 7.0 gm/dL 6.0-8.3 770) ALBUMIN (BEAKER) (test code = 1145) 3.4 g/dL 3.5-5.0 L BILIRUBIN TOTAL (BEAKER) (test code 0.5 mg/dL 0.2-1.2 = 377) BILIRUBIN DIRECT (BEAKER) (test 0.3 mg/dL 0.1-0.5 code = 706) ALKALINE PHOSPHATASE (BEAKER) (test 129 U/L 40-150 code = 346) AST (SGOT) (BEAKER) (test code = 37 U/L 5-34 H 353) ALT (SGPT) (BEAKER) (test code = 48 U/L 6-55 347) Tail Puller ID - KALPESH [id number] 05:02:00 Test Item Value Reference Range Interpretation Comments PARTIAL THROMBOPLASTIN TIME 83.8 seconds 22.5-36.0 H (BEAKER) (test code = 760) CBC (HEMOGRAM ONLY)2020-05-17 04:43:00 Test Item Value Reference Range Interpretation Comments WHITE BLOOD CELL COUNT (BEAKER) 4.9 K/ L 3.5-10.5 (test code = 775) RED BLOOD CELL COUNT (BEAKER) 5.45 M/ L 4.63-6.08 (test code = 761) HEMOGLOBIN (BEAKER) (test code = 15.9 GM/DL 13.7-17.5 410) HEMATOCRIT (BEAKER) (test code = 50.3 % 40.1-51.0 411) MEAN CORPUSCULAR VOLUME (BEAKER) 92.3 fL 79.0-92.2 H (test code = 753) MEAN CORPUSCULAR HEMOGLOBIN 29.2 pg 25.7-32.2 (BEAKER) (test code = 751) MEAN CORPUSCULAR HEMOGLOBIN CONC 31.6 GM/DL 32.3-36.5 L (BEAKER) (test code = 752) RED CELL DISTRIBUTION WIDTH 15.3 % 11.6-14.4 H (BEAKER) (test code = 412) PLATELET COUNT (BEAKER) (test 241 K/CU MM 150-450 code = 756) MEAN PLATELET VOLUME (BEAKER) 11.0 fL 9.4-12.4 (test code = 754) NUCLEATED RED BLOOD CELLS 0 /100 WBC 0-0 (BEAKER) (test code = 413) [id number] 13:44:00 Test Item Value Reference Range Interpretation Comments PARTIAL THROMBOPLASTIN TIME 67.5 seconds 22.5-36.0 H (BEAKER) (test code = 760) [id number] 07:07:00 Test Item Value Reference Range Interpretation Comments MAGNESIUM (BEAKER) (test code = 1.8 mg/dL 1.6-2.6 627) Tail Puller ID - DBBASIC METABOLIC [id number] 07:07:00 Test Item Value Reference Range Interpretation Comments SODIUM (BEAKER) 137 meq/L 136-145 (test code = 381) POTASSIUM (BEAKER) 4.2 meq/L 3.5-5.1 (test code = 379) CHLORIDE (BEAKER) 106 meq/L 98-107 (test code = 382) CO2 (BEAKER) (test 24 meq/L 22-29 code = 355) BLOOD UREA NITROGEN 15 mg/dL 7-21 (BEAKER) (test code = 354) CREATININE (BEAKER) 1.05 mg/dL 0.57-1.25 (test code = 358) GLUCOSE RANDOM 132 mg/dL 70-105 H (BEAKER) (test code = 652) CALCIUM (BEAKER) 9.2 mg/dL 8.4-10.2 (test code = 697) EGFR (BEAKER) (test 89 mL/min/1.73 ESTIMA THERON GFR IS code = 1092) sq m NOT ACCURATE CREATININE CLEARANCE IN PREDICTING GLOMERULAR FILTRATION RATE . ESTIMATED GFR I S NOT APPLICABLE FOR DIALYSIS PATIEN TS. Tail Puller ID - DBHEPATIC FUNCTION [id number] 07:07:00 Test Item Value Reference Range Interpretation Comments TOTAL PROTEIN (BEAKER) (test code = 7.6 gm/dL 6.0-8.3 770) ALBUMIN (BEAKER) (test code = 1145) 3.6 g/dL 3.5-5.0 BILIRUBIN TOTAL (BEAKER) (test code 0.6 mg/dL 0.2-1.2 = 377) BILIRUBIN DIRECT (BEAKER) (test 0.4 mg/dL 0.1-0.5 code = 706) ALKALINE PHOSPHATASE (BEAKER) (test 130 U/L 40-150 code = 346) AST (SGOT) (BEAKER) (test code = 36 U/L 5-34 H 353) ALT (SGPT) (BEAKER) (test code = 50 U/L 6-55 347) Tail Puller ID - [id number] 06:17:00 Test Item Value Reference Range Interpretation Comments PARTIAL THROMBOPLASTIN TIME 88.7 seconds 22.5-36.0 H (BEAKER) (test code = 760) CBC (HEMOGRAM ONLY)2020-05-16 06:05:00 Test Item Value Reference Range Interpretation Comments WHITE BLOOD CELL COUNT (BEAKER) 4.9 K/ L 3.5-10.5 (test code = 775) RED BLOOD CELL COUNT (BEAKER) 5.66 M/ L 4.63-6.08 (test code = 761) HEMOGLOBIN (BEAKER) (test code = 16.4 GM/DL 13.7-17.5 410) HEMATOCRIT (BEAKER) (test code = 52.6 % 40.1-51.0 H 411) MEAN CORPUSCULAR VOLUME (BEAKER) 92.9 fL 79.0-92.2 H (test code = 753) MEAN CORPUSCULAR HEMOGLOBIN 29.0 pg 25.7-32.2 (BEAKER) (test code = 751) MEAN CORPUSCULAR HEMOGLOBIN CONC 31.2 GM/DL 32.3-36.5 L (BEAKER) (test code = 752) RED CELL DISTRIBUTION WIDTH 15.2 % 11.6-14.4 H (BEAKER) (test code = 412) PLATELET COUNT (BEAKER) (test 248 K/CU MM 150-450 code = 756) MEAN PLATELET VOLUME (BEAKER) 11.1 fL 9.4-12.4 (test code = 754) NUCLEATED RED BLOOD CELLS 0 /100 WBC 0-0 (BEAKER) (test code = 413) [id number] 21:07:00 Test Item Value Reference Range Interpretation Comments PARTIAL THROMBOPLASTIN TIME 97.2 seconds 22.5-36.0 H (BEAKER) (test code = 760) [id number] 13:45:00 Test Item Value Reference Range Interpretation Comments PARTIAL THROMBOPLASTIN TIME 66.1 seconds 22.5-36.0 H (BEAKER) (test code = 760) Lipid [id number] 08:41:00 Test Item Value Reference Range Interpretation Comments Triglycerides (test 54 mg/dL Specimen code = 2571-8) slightly hemolyzed Cholesterol (test 97 mg/dL Specimen code = 2093-3) slightly hemolyzed HDL (test code = 31 mg/dL 5-9) LDL Calculated (test 55 mg/dL code = 39839-0) TOBY (test code = Triglyceride TOBY) Reference Range: Low Risk <150 Borderline 150-199 High Risk 200-499 Very High Risk >=500 Cholesterol Reference Range: Low Risk <200 Borderline 200-239 High Risk >240 HDL Cholesterol Reference Range: Low Risk >=60 High Risk <40 LDL Cholesterol Reference Range: Optimal <100 Near Optimal 100-129 Borderline 130-159 High 160-189 Very High >=190 Tail Puller ID - AALAURIE [facility]2020-06-19 08:41:00 Test Item Value Reference Range Interpretation Comments MAGNESIUM (BEAKER) 1.7 mg/dL 1.6-2.6 Specimen slightly (test code = 627) hemolyzed Tail Puller ID - AALINDAIDBASIC METABOLIC [id number] 08:41:00 Test Item Value Reference Range Interpretation Comments SODIUM (BEAKER) 136 meq/L 136-145 (test code = 381) POTASSIUM (BEAKER) 3.8 meq/L 3.5-5.1 Specimen slightly (test code = 379) hemolyzed CHLORIDE (BEAKER) 104 meq/L 98-107 (test code = 382) CO2 (BEAKER) (test 24 meq/L 22-29 code = 355) BLOOD UREA NITROGEN 17 mg/dL 7-21 (BEAKER) (test code = 354) CREATININE (BEAKER) 1.13 mg/dL 0.57-1.25 Specimen slightly (test code = 358) hemolyzed GLUCOSE RANDOM 126 mg/dL 70-105 H (BEAKER) (test code = 652) CALCIUM (BEAKER) 8.9 mg/dL 8.4-10.2 (test code = 697) EGFR (BEAKER) (test 82 mL/min/1.73 ESTIMA THERON GFR IS code = 1092) sq m NOT ACCURATE CREATININE CLEARANCE IN PREDICTING GLOMERULAR FILTRATION RATE . ESTIMATED GFR I S NOT APPLICABLE FOR DIALYSIS PATIEN TS. Tail Puller ID - AALAURIELIPID [id number] 08:41:00 Test Item Value Reference Range Interpretation Comments TRIGLYCERIDES (BEAKER) 54 mg/dL Speci men slightly (test code = 540) hemolyzed CHOLESTEROL (BEAKER) 97 mg/dL Specime n slightly (test code = 631) hemolyzed HDL CHOLESTEROL (BEAKER) 31 mg/dL (test code = 976) LDL CHOLESTEROL 55 mg/dL CALCULATED (BEAKER) (test code = 633) Triglyceride Reference Range: Low Risk <150 Borderline 150-199 High Risk 200-499 Very High Risk >=500Cholesterol Reference Range: Low Risk <200 Borderline 200-239 High Risk >240HDL Cholesterol Reference Range: Low Risk >=60 High Risk <40LDL Cholesterol Reference Range: Optimal <100 Near Optimal 100-129 Borderline 130-159 High 160-189 Very High >=190 Tail Puller ID - AAHAMIDHEPATIC FUNCTION [id number] 08:41:00 Test Item Value Reference Range Interpretation Comments TOTAL PROTEIN (BEAKER) 6.9 gm/dL 6.0-8.3 Speci men slightly (test code = 770) hemolyzed ALBUMIN (BEAKER) (test 3.3 g/dL 3.5-5.0 L Speci men slightly code = 1145) hemolyzed BILIRUBIN TOTAL 0.8 mg/dL 0.2-1.2 Specimen sli ghtly (BEAKER) (test code = hemoly zed 377) BILIRUBIN DIRECT 0.4 mg/dL 0.1-0.5 Specimen sl ightly (BEAKER) (test code = hemoly zed 706) ALKALINE PHOSPHATASE 109 U/L 40-150 (BEAKER) (test code = 346) AST (SGOT) (BEAKER) 36 U/L 5-34 H Specimen slightly (test code = 353) hemolyzed ALT (SGPT) (BEAKER) 50 U/L 6-55 Specimen slightly (test code = 347) hemolyzed Tail Puller ID - AAHAMIDHemoglobin [id number] 07:06:00 Test Item Value Reference Range Interpretation Comments Hemoglobin A1C (test code = 4548-4) 6.1 % 4.3-6.1 Lab Interpretation (test code = Normal 52125-9) [facility] [id number] 07:06:00 Test Item Value Reference Range Interpretation Comments HEMOGLOBIN A1C (BEAKER) (test code = 6.1 % 4.3-6.1 368) [id number] 06:13:00 Test Item Value Reference Range Interpretation Comments PARTIAL THROMBOPLASTIN TIME 108.5 seconds 22.5-36.0 H (BEAKER) (test code = 760) CBC (HEMOGRAM ONLY)2020-05-15 06:04:00 Test Item Value Reference Range Interpretation Comments WHITE BLOOD CELL COUNT (BEAKER) 5.0 K/ L 3.5-10.5 (test code = 775) RED BLOOD CELL COUNT (BEAKER) 5.22 M/ L 4.63-6.08 (test code = 761) HEMOGLOBIN (BEAKER) (test code = 15.0 GM/DL 13.7-17.5 410) HEMATOCRIT (BEAKER) (test code = 47.6 % 40.1-51.0 411) MEAN CORPUSCULAR VOLUME (BEAKER) 91.2 fL 79.0-92.2 (test code = 753) MEAN CORPUSCULAR HEMOGLOBIN 28.7 pg 25.7-32.2 (BEAKER) (test code = 751) MEAN CORPUSCULAR HEMOGLOBIN CONC 31.5 GM/DL 32.3-36.5 L (BEAKER) (test code = 752) RED CELL DISTRIBUTION WIDTH 14.8 % 11.6-14.4 H (BEAKER) (test code = 412) PLATELET COUNT (BEAKER) (test 239 K/CU MM 150-450 code = 756) MEAN PLATELET VOLUME (BEAKER) 10.7 fL 9.4-12.4 (test code = 754) NUCLEATED RED BLOOD CELLS 0 /100 WBC 0-0 (BEAKER) (test code = 413) [id number] 22:40:00 Test Item Value Reference Range Interpretation Comments PARTIAL THROMBOPLASTIN TIME 63.8 seconds 22.5-36.0 H (BEAKER) (test code = 760) TSH/Free T4 If [id number] 16:53:00 Test Item Value Reference Range Interpretation Comments TSH (test code = 91305-9) 4.124 0.350- 4.940 uIU/mL TOBY (test code = TOBY) Tail Puller ID - BS Lab Interpretation (test Normal code = 26410-4) [facility] T4 IF [id number] 16:53:00 Test Item Value Reference Range Interpretation Comments THYROID STIMULATING HORMONE 4.124 uIU/mL 0.350-4.940 (BEAKER) (test code = 772) Tail Puller ID - [id number] 07:00:00 Test Item Value Reference Range Interpretation Comments MAGNESIUM (BEAKER) (test code = 1.8 mg/dL 1.6-2.6 627) Tail Puller ID - DEON CBASIC METABOLIC [id number] 07:00:00 Test Item Value Reference Range Interpretation Comments SODIUM (BEAKER) 137 meq/L 136-145 (test code = 381) POTASSIUM (BEAKER) 4.0 meq/L 3.5-5.1 (test code = 379) CHLORIDE (BEAKER) 105 meq/L 98-107 (test code = 382) CO2 (BEAKER) (test 24 meq/L 22-29 code = 355) BLOOD UREA NITROGEN 19 mg/dL 7-21 (BEAKER) (test code = 354) CREATININE (BEAKER) 1.12 mg/dL 0.57-1.25 (test code = 358) GLUCOSE RANDOM 97 mg/dL 70-105 (BEAKER) (test code = 652) CALCIUM (BEAKER) 8.9 mg/dL 8.4-10.2 (test code = 697) EGFR (BEAKER) (test 83 mL/min/1.73 ESTIMA THERON GFR IS code = 1092) sq m NOT ACCURATE CREATININE CLEARANCE IN PREDICTING GLOMERULAR FILTRATION RATE . ESTIMATED GFR I S NOT APPLICABLE FOR DIALYSIS PATIEN TS. Tail Puller ID - DEON CCBC (HEMOGRAM ONLY)2020-05-14 06:14:00 Test Item Value Reference Range Interpretation Comments WHITE BLOOD CELL COUNT (BEAKER) 4.6 K/ L 3.5-10.5 (test code = 775) RED BLOOD CELL COUNT (BEAKER) 4.93 M/ L 4.63-6.08 (test code = 761) HEMOGLOBIN (BEAKER) (test code = 14.4 GM/DL 13.7-17.5 410) HEMATOCRIT (BEAKER) (test code = 45.4 % 40.1-51.0 411) MEAN CORPUSCULAR VOLUME (BEAKER) 92.1 fL 79.0-92.2 (test code = 753) MEAN CORPUSCULAR HEMOGLOBIN 29.2 pg 25.7-32.2 (BEAKER) (test code = 751) MEAN CORPUSCULAR HEMOGLOBIN CONC 31.7 GM/DL 32.3-36.5 L (BEAKER) (test code = 752) RED CELL DISTRIBUTION WIDTH 15.1 % 11.6-14.4 H (BEAKER) (test code = 412) PLATELET COUNT (BEAKER) (test 244 K/CU MM 150-450 code = 756) MEAN PLATELET VOLUME (BEAKER) 10.4 fL 9.4-12.4 (test code = 754) NUCLEATED RED BLOOD CELLS 0 /100 WBC 0-0 (BEAKER) (test code = 413) [id number] 05:46:00 Test Item Value Reference Range Interpretation Comments MAGNESIUM (BEAKER) 2.0 mg/dL 1.6-2.6 Specimen slightly (test code = 627) hemolyzed Tail Puller ID - KALPESH LBASIC METABOLIC [id number] 05:46:00 Test Item Value Reference Range Interpretation Comments SODIUM (BEAKER) 138 meq/L 136-145 (test code = 381) POTASSIUM (BEAKER) 4.2 meq/L 3.5-5.1 Specimen slightly (test code = 379) hemolyzed CHLORIDE (BEAKER) 103 meq/L 98-107 (test code = 382) CO2 (BEAKER) (test 26 meq/L 22-29 code = 355) BLOOD UREA NITROGEN 20 mg/dL 7-21 (BEAKER) (test code = 354) CREATININE (BEAKER) 1.28 mg/dL 0.57-1.25 H Specimen slightly (test code = 358) hemolyzed GLUCOSE RANDOM 96 mg/dL 70-105 (BEAKER) (test code = 652) CALCIUM (BEAKER) 8.9 mg/dL 8.4-10.2 (test code = 697) EGFR (BEAKER) (test 71 mL/min/1.73 ESTIMA THERON GFR IS code = 1092) sq m NOT ACCURATE CREATININE CLEARANCE IN PREDICTING GLOMERULAR FILTRATION RATE . ESTIMATED GFR I S NOT APPLICABLE FOR DIALYSIS PATIEN TS. Tail Puller ID - PIAYA LCBC (HEMOGRAM ONLY)2020-05-13 05:21:00 Test Item Value Reference Range Interpretation Comments WHITE BLOOD CELL COUNT (BEAKER) 6.3 K/ L 3.5-10.5 (test code = 775) RED BLOOD CELL COUNT (BEAKER) 4.93 M/ L 4.63-6.08 (test code = 761) HEMOGLOBIN (BEAKER) (test code = 14.3 GM/DL 13.7-17.5 410) HEMATOCRIT (BEAKER) (test code = 45.4 % 40.1-51.0 411) MEAN CORPUSCULAR VOLUME (BEAKER) 92.1 fL 79.0-92.2 (test code = 753) MEAN CORPUSCULAR HEMOGLOBIN 29.0 pg 25.7-32.2 (BEAKER) (test code = 751) MEAN CORPUSCULAR HEMOGLOBIN CONC 31.5 GM/DL 32.3-36.5 L (BEAKER) (test code = 752) RED CELL DISTRIBUTION WIDTH 15.3 % 11.6-14.4 H (BEAKER) (test code = 412) PLATELET COUNT (BEAKER) (test 278 K/CU MM 150-450 code = 756) MEAN PLATELET VOLUME (BEAKER) 10.6 fL 9.4-12.4 (test code = 754) NUCLEATED RED BLOOD CELLS 0 /100 WBC 0-0 (BEAKER) (test code = 413) [id number] 22:47:00 Test Item Value Reference Range Interpretation Comments PARTIAL THROMBOPLASTIN TIME 91.2 seconds 22.5-36.0 H (BEAKER) (test code = 760) Troponin [id number] 16:46:00 Test Item Value Reference Range Interpretation Comments Troponin I (test code = 3.14 ng/mL 0-0.03 19280-2) TOBY (test code = TOBY) Troponin I (TnI) levels must be interpreted in the context of the presenting symptoms and the clinical findings. Elevated TnI levels indicate myocardial damage, but are not specific for ischemic heart disease. Elevated TnI levels are seen in patients with other cardiac conditions (including myocarditis and congestive heart failure), and slight TnI elevations occur in patients with other conditions, including sepsis, renal failure, acidosis, acute neurological disease, and persistent tachyarrhythmia.Opera tor ID - BS Lab Interpretation (test Abnormal code = 73438-6) [facility] [id number] 16:46:00 Test Item Value Reference Range Interpretation Comments TROPONIN I (BEAKER) (test code = 3.14 ng/mL 0.00-0.03 397) Troponin I (TnI) levels must be interpreted in the context of the presenting symptoms and the clinical findings. Elevated TnI levels indicate myocardial damage, but are not specific for ischemic heart disease. Elevated TnI levels are seen in patients with other cardiac conditions (including myocarditis and congestive heart failure), and slight TnI elevations occur in patients with other conditions, including sepsis, renal failure, acidosis, acute neurological disease, and persistent tachyarrhythmia.Tail Puller ID - [id number] 16:16:00 Test Item Value Reference Range Interpretation Comments PARTIAL THROMBOPLASTIN TIME 89.0 seconds 22.5-36.0 H (NAPOLEON) (test code = 760) Transthoracic 2D echo w/ doppler (cw/pw/color)2020-05-12 13:39:24Ejection FractionSLEH ECHO HEARTLAB MKCKESSON CPACSInterface, External Ris In - 05/12/2020 1:39 PM CDTTransthoracic Echocardiography Report (TTE) Demographics Patient Name ALIDA SHER Date of Study 05/12/2020 Gender Male Visit Number [id number] Race Black Room Number [id number] Number Date of 1965 Referring Physician MD George Louis FELAge 55 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 LVendocardium is adequately visualized with IV ultrasound enhancing agent. Normal LV wall thickness. All of the LV segments are severely hypokinetic . Global LV systolic function severely reduced . LVEF by Peralta's method of disk assessment is severely reduced (20-24%) . The LVEF was measured using [facility] son's bi-plane method of disk . LV endocardium is adequately visualized with IV ultrasound enhancingagent. Grade 3 diastolic dysfunction (marked elevated LA pressure). Low (cardiac index <2 L/min/m2) cardiac output state at rest is noted. Mild tricuspid regurgitation. Estimated peak systolic PA pressure is 40- 45 mmHg (mild pulmonary The estimated RA pressure by IVC dynamics 5-10mmHg . Previous Study No prior exam available for comparison. Signature Findings TechnicalQuality: Technically adequate exam. Rhythm/BP Regular sinus rhythm during the exam. Left Ventricle The left ventricle is chamber size (by vol index) is mildly enlarged (male - LVED 75-89ml/m2). LV endocardium is adequately visualized with IV ultrasound enhancing agent. Normal LV wall thickness. All of the LV segments are severely hypokinetic . Global LV systolic function severely reduced . LVEF by Peralta's method of disk assessment is severely reduced (20-24%) . The LVEF was measured using Peralta's bi-plane method of disk . LV endocardium is adequately visualized with IV ultrasound enhancing agent. Grade 3 diastolic dysfunction (marked elevated LA pressure). Low (cardiac index <2 L/min/m2) cardiac output state at rest is noted. Left Atrium LA size is severely enlarged (>48 ml/m2) . Right Ventricle RV chamber size is moderately dilated . Global RV systolic function is mildly reduced . Right Atrium RA cavity size is normal . Aortic Valve Normal AoV structure and function. Mitral Valve Mild MV leaflet thickening. Mild mitral regurgitation. Tricuspid Valve Mild TV leaflet thickening. Mild tricuspid regurgitation. Estimated peak systolic PA pressure is40-45 mmHg (mild pulmonary hypertension) . Pulmonic Valve Normal PV structure and function. A trace of pulmonary regurgitation. Aorta Aortic root size (SInus of Valsalva diameter) is normal . Proximal ascending aorta size is normal . Pericardium A trivial pericardial effusion is present posteriorly. IVC/SVC/PA/PV/Pleural Pulmonary vein flow is consistent with increased LAP . The [...] Right Atrium RA Vol. (Sngl Plane): 55.38 mlRight Ventricle TAPSE: 1.39 cm Aorta Ao Root S of Vimla.: 2.23 cm Ascending Aorta: 2.92 cm Doppler/Quantitative Measurements Mitral Valve MV Peak E-Wave: 0.73 m/s MV Peak A-Wave: 0.26 m/s E/A Ratio: 2.79 Peak Gradient: 2.12 mmHg Deceleration Time: 95.3 msec MV Omar. Peak: Tissue Doppler E' Septal Velocity: 0.04 m/s E/E': 17.56 E' Lateral Velocity: 0.09 m/s Aortic Valve Peak Velocity: 0.8 m/s Mean Velocity: 0.54 m/s Peak Gradient: 2.58 mmHg Mean Gradient: 1.4 mmHg AV Area (continuity): 2.17 cm^2 AV VTI: 12.88 cm AV DVI: 0.67 LVOT Peak Velocity: 0.58 m/s Peak Gradient: 1.34 mmHgMean Velocity: 0.42 m/s Mean Gradient: 0.78 mmHg LVOT Diameter: 2.03 cm LVOT VTI: 8.63 cm LVOT Area: 3.24 cm^2 LVOT SV:27.92 ml LVOT CO: 2.29 l/min LVOT CI: 1.16 l/min/m^2 Tricuspid Valve TR Velocity: 3.14 m/s TR Gradient: 39.[address] [facility]EC 12 naul1921-21-60 12:32:06Interface, External Ris In - 05/12/2020 12:32 PM CDTVentricular Rate 86 BPMAtrial Rate 86 BPMP-R Interval 144 msQRS Duration 88 msQ-T Interval 450 msQTC Calculation(Mikaelzereynaldo) 538 msP [place] 64 degreesR [place] -13 degreesT [place] 129 degreesNormal sinus rhythmBiatrial enlargementPossible Anterior infarct , age undeterminedT wave inversion lateral leads consider postischemic changesProlonged QTAbnormal ECGNo previous ECGs availableConfirmed by MD BOWSER YOCHAI ([id number]) on 05/12/2020 12:32:03 [facility] [place] SARS-CoV2/RT-PCR (Asymptomatic ONLY)2020-05-12 11:41:00 Test Item Value Reference Range Interpretation Comments SARS-COV2/RT-PCR Not Detected Not Detected, (test code = Negative 65603-9) SARS-COV-2 [facility] PERFORMING [facility] (test code = 50863-5) TOBY (test code = Negative results do not TOBY) preclude SARS-CoV-2 infection and should not be used as [...] of the Act. Fact Sheet for Healthcare Providers:[email or web address] Networks.[employer]/Documents/Xper t%20Xpress%20SARS%20CoV- 2/Fact%20Sheets/302-8452 %22GCDD-CZI-5%20HEALTHCA RE%20PROVIDERS%20FACT%20 SHEET.pdf Fact Sheet for Healthcare Patients:https://www.cep heid.com/Documents/Xpert %20Xpress%20SARS%20CoV-2 /Fact%20Sheets/3023801% 33VOPJ-DDE-9%20PATIENT%2 0FACT%20SHEET.pdf Performing Laboratory:[facility] [place] [address] [facility])2020-05-12 11:41:00 Test Item Value Reference Range Interpretation Comments SARS-COV2/RT-PCR (test Not Detected Not Detected, Negative code = 8220940) SARS-COV-2 PERFORMING LAB [facility] (test code = 6070530) Negative results do not preclude SARS-CoV-2 infection and should not be used as the sole basis for patient management decisions. Negative results must be combined with clinical observations, patient history, and epidemiological information. A false negative result may occur if a specimen is improperly collected, transported or handled.The limit of detection for this assay is 250 copies/mL.This SARS CoV-2 test is a rapid, real-time RT-PCR test intended for the qualitative detection of nucleic acid from SARS-CoV-2 in a nasopharyngeal swab specimen collected from individuals suspected of COVID-19 by their healthcare provider.This test has not been Food and Drug [...] is revoked under Section 564(g) of the Act.Fact Sheet for Healthcare Pro viders:https://www.[employer]/Documents/Xpert%20Xpress%20SARS%20CoV-2/Fact%20Sh eets/3023802%58QSWZ-VDJ-5%20HEALTHCARE%20PROVIDERS%20FACT%20SHEET.pdfFact Sheet for Healthcare Patients:https://www.[employer]/Documents/Xpert%20Xpress%20SARS%20CoV-2/Fact%20Sheets/3023801%20SARS-COV -2%20PATIENT%20FACT%20SHEET.pdfPerforming Laboratory:[facility], [place] [address]PSNFAXKB [id number] 09:59:00 Test Item Value Reference Range Interpretation Comments TROPONIN I (BEAKER) (test code = 3.66 ng/mL 0.00-0.03 HH 397) Troponin I (TnI) levels must be interpreted in the context of the presenting symptoms and the clinical findings. Elevated TnI levels indicate myocardial damage, but are not specific for ischemic heart disease. Elevated TnI levels are seen in patients with other cardiac conditions (including myocarditis and congestive heart failure), and slight TnI elevations occur in patients with other conditions, including sepsis, renal failure, acidosis, acute neurological disease, and persistent tachyarrhythmia.Tail Puller ID Xiang JONES FPotassium 2020-05-12 09:50:00 Test Item Value Reference Range Interpretation Comments Potassium (test code = 3.6 meq/L 3.5-5.1 2823-3) TOBY (test code = TOBY) Tail Puller ID Xiang JONES F Lab Interpretation (test Normal code = 18224-6) [facility] 09:50:00 Test Item Value Reference Range Interpretation Comments POTASSIUM (BEAKER) (test code = 3.6 meq/L 3.5-5.1 379) Tail Puller SAMUEL JONES [id number] 09:50:00 Test Item Value Reference Range Interpretation Comments MAGNESIUM (BEAKER) (test code = 1.7 mg/dL 1.6-2.6 627) Tail Puller ID Xiang JONES [id number] 08:06:00 Test Item Value Reference Range Interpretation Comments PARTIAL THROMBOPLASTIN TIME 58.6 seconds 22.5-36.0 H (BEAKER) (test code = 760) HEPATIC FUNCTION [id number] 02:41:00 Test Item Value Reference Range Interpretation Comments TOTAL PROTEIN (BEAKER) 7.0 gm/dL 6.0-8.3 Speci men slightly (test code = 770) hemolyzed ALBUMIN (BEAKER) (test 3.4 g/dL 3.5-5.0 L Speci men slightly code = 1145) hemolyzed BILIRUBIN TOTAL 0.9 mg/dL 0.2-1.2 Specimen sli ghtly (BEAKER) (test code = hemoly zed 377) BILIRUBIN DIRECT 0.5 mg/dL 0.1-0.5 Specimen sl ightly (BEAKER) (test code = hemoly zed 706) ALKALINE PHOSPHATASE 113 U/L 40-150 (BEAKER) (test code = 346) AST (SGOT) (BEAKER) 70 U/L 5-34 H Specimen slightly (test code = 353) hemolyzed ALT (SGPT) (BEAKER) 105 U/L 6-55 H Specimen slightly (test code = 347) hemolyzed Tail Puller ID - ECHO GARCIAperator ID - STARR MA [id number] 02:12:00 Test Item Value Reference Range Interpretation Comments TROPONIN I (BEAKER) (test code = 4.47 ng/mL 0.00-0.03 HH 397) Troponin I (TnI) levels must be interpreted in the context of the presenting symptoms and the clinical findings. Elevated TnI levels indicate myocardial damage, but are not specific for ischemic heart disease. Elevated TnI levels are seen in patients with other cardiac conditions (including myocarditis and congestive heart failure), and slight TnI elevations occur in patients with other conditions, including sepsis, renal failure, acidosis, acute neurological disease, and persistent tachyarrhythmia.Tail Puller ID - ECHO ACE, CHEST, 1 VIEW, NON [id number] 02:04:00Reason for exam:->sobShould this be performed at the bedside?->YesFINAL REPORT Chest, 1 view. History: Shortness of breath. Comparison: None available. IMPRESSION: Low lung volumes. Minimal bibasilar atelectasis. No pleural effusion or pneumothorax. Prominence of interstitial lung markings favored to be related to technique. No lobar consolidation. Osseous structures are grossly unremarkable. Signed: Stanley Tuckerjohn j. [facility] Verified Date/Time: 05/12/2020 02:04:12 XR chest 1 view portable / [id number] 02:04:00Interface, External Ris In - 05/12/2020 2:06 AM CDTFINAL REPORT Chest, 1 view. History: Shortness of breath. Comparison: None available. IMPRESSION: Low lung volumes. Minimal bibasilar atelectasis. No pleural effusion or pneumothorax. Prominence of interstitial lung markings favored to be related to technique. No lobar consolidation. Osseous structures are grossly unremarkable. Signed: Stanley Tucker MDReport Verified Date/Time: 05/12/2020 02:04:12 Electronically si gned by: STANLEY TUCKER MD on 05/12/2020 02:04 [facility] [id number] 02:03:00 Test Item Value Reference Range Interpretation Comments Protein, Total (test 7.0 6.0- 8.3 gm/dL Speci men slightly code = 2885-2) hemolyzed Albumin (test code = 3.4 g/dL 3.5-5 L Specime n slightly 10175-0) hemolyzed Alkaline Phosphatase 113 U/L 40-150 (test code = 6768-6) Total Bilirubin (test 0.9 mg/dL 0.2-1.2 Specim en slightly code = 1975-2) hemolyzed Sodium (test code = 142 meq/L 521-379 4070-2) Potassium (test code = 4.0 meq/L 3.5-5.1 Speci men slightly 2823-3) hemolyzed Chloride (test code = 103 meq/L 98-107 2075-0) CO2 (test code = 26 meq/L 22-29 8-9) BUN (test code = 21 mg/dL 7-21 3094-0) Creatinine (test code 1.39 mg/dL 0.57-1.25 H Specim en slightly = 2160-0) hemolyzed Glucose (test code = 108 mg/dL 70-105 H 2345-7) Calcium (test code = 8.8 mg/dL 8.4-10.2 34436-5) AST (test code = 70 U/L 5-34 H Specimen sl ightly 1920-8) hemolyzed ALT (test code = 105 U/L 6-55 H Specimen sl ightly 1742-6) hemolyzed EGFR (test code = 65 mL/min/1.73 [place] [address]-7) NOT ACCURATE CREATININE CLEARANCE IN PREDICTING GLOMERULAR FILTRATION RATE . ESTIMATED GFR I S NOT APPLICABLE FOR DIALYSIS PATIENTS. TOBY (test code = TOBY) Tail Puller ID - ECHO [facility] Interpretation Abnormal (test code = 23990-4) [facility] METABOL[facility] [id number] 02:03:00 Test Item Value Reference Range Interpretation Comments TOTAL PROTEIN 7.0 gm/dL 6.0-8.3 Specimen sligh tly (BEAKER) (test code = hemoly zed 770) ALBUMIN (BEAKER) 3.4 g/dL 3.5-5.0 L Specimen sl ightly (test code = 1145) hemolyzed ALKALINE PHOSPHATASE 113 U/L 40-150 (BEAKER) (test code = 346) BILIRUBIN TOTAL 0.9 mg/dL 0.2-1.2 Specimen sli ghtly (BEAKER) (test code = hemoly zed 377) SODIUM (BEAKER) (test 142 meq/L 136-145 code = 381) POTASSIUM (BEAKER) 4.0 meq/L 3.5-5.1 Specimen slightly (test code = 379) hemolyzed CHLORIDE (BEAKER) 103 meq/L 98-107 (test code = 382) CO2 (BEAKER) (test 26 meq/L 22-29 code = 355) BLOOD UREA NITROGEN 21 mg/dL 7-21 (BEAKER) (test code = 354) CREATININE (BEAKER) 1.39 mg/dL 0.57-1.25 H Specimen slightly (test code = 358) hemolyzed GLUCOSE RANDOM 108 mg/dL 70-105 H (BEAKER) (test code = 652) CALCIUM (BEAKER) 8.8 mg/dL 8.4-10.2 (test code = 697) AST (SGOT) (BEAKER) 70 U/L 5-34 H Specimen slightly (test code = 353) hemolyzed ALT (SGPT) (BEAKER) 105 U/L 6-55 H Specimen slightly (test code = 347) hemolyzed EGFR (BEAKER) (test 65 mL/min/1.73 ESTIMA THERON GFR IS code = 1092) sq m NOT ACCURATE CREATININE CLEARANCE IN PREDICTING GLOMERULAR FILTRATION RATE . ESTIMATED GFR I S NOT APPLICABLE FOR DIALYSIS PATIEN TS. Tail Puller ID - ECHO WB-type natriuretic [id number] 01:57:00 Test Item Value Reference Range Interpretation Comments BNP (test code = 95015-6) 766 pg/mL 0-100 H TOBY (test code = TOBY) Tail Puller ID - ECHO W Lab Interpretation (test Abnormal code = 85907-3) [facility] NAT[facility] FACTOR (BNP)2020-05-12 01:57:00 Test Item Value Reference Range Interpretation Comments B-TYPE NATRIURETIC PEPTIDE (BEAKER) 766 pg/mL 0-100 H (test code = 700) Tail Puller ID - ECHO WLactic acid, [id number] 01:47:00 Test Item Value Reference Range Interpretation Comments Lactate, Venous (test 0.98 mmol/L 0.5-2.2 Specim en code = 2872) slightly hemolyzed TOBY (test code = TOBY) Tail Puller ID Xiang DODGE W Lab Interpretation Normal (test code = 15291-8) [facility] Center[facility], [id number] 01:47:00 Test Item Value Reference Range Interpretation Comments LACTATE BLOOD VENOUS 0.98 mmol/L 0.50-2.20 Specime n slightly (2) (BEAKER) (test hemolyzed code = 2872) Tail Puller ID - ECHO [id number] 01:41:00 Test Item Value Reference Range Interpretation Comments PARTIAL THROMBOPLASTIN TIME 44.5 seconds 22.5-36.0 H (BEAKER) (test code = 760) Prior to initiating heparinCBC with platelet count + automated [id number] 01:30:00 Test Item Value Reference Range Interpretation Comments WBC (test code = 6690-2) 7.5 3.5- 10.5 K/L RBC (test code = 789-8) 4.90 4.63- 6.08 M/L MCHC (test code = 786-4) 32.5 32.3- 36.5 GM/DL Hematocrit (test code = 4544-3) 44.9 % 40.1-51 MCV (test code = 787-2) 91.6 fL 79-92.2 MCH (test code = 785-6) 29.8 pg 25.7-32.2 RDW (test code = 788-0) 14.9 % 11.6-14.4 H Platelets (test code = 777-3) 351 150- 450 K/CU MM MPV (test code = 20169-6) 10.7 fL 9.4-12.4 nRBC (test code = 413) 0 0- 0 /100 WBC % Neutros (test code = 429) 56 % % Lymphs (test code = 430) 27 % % Monos (test code = 431) 15 % % Eos (test code = 432) 1 % % Baso (test code = 437) 1 % # Neutros (test code = 670) 4.19 1.78- 5.38 K/L # Lymphs (test code = 414) 1.99 1.32- 3.57 K/L # Monos (test code = 415) 1.12 0.30- 0.82 K/L H # Eos (test code = 416) 0.08 0.04- 0.54 K/L # Baso (test code = 417) 0.04 0.01- 0.08 K/L Immature Granulocytes-Relative 0 % 0-1 (test code = 2801) Lab Interpretation (test code = Abnormal 48460-3) [facility] W/PLT COUNT & AUTO [id number] 01:30:00 Test Item Value Reference Range Interpretation Comments WHITE BLOOD CELL COUNT (BEAKER) 7.5 K/ L 3.5-10.5 (test code = 775) RED BLOOD CELL COUNT (BEAKER) 4.90 M/ L 4.63-6.08 (test code = 761) HEMOGLOBIN (BEAKER) (test code = 14.6 GM/DL 13.7-17.5 410) HEMATOCRIT (BEAKER) (test code = 44.9 % 40.1-51.0 411) MEAN CORPUSCULAR VOLUME (BEAKER) 91.6 fL 79.0-92.2 (test code = 753) MEAN CORPUSCULAR HEMOGLOBIN 29.8 pg 25.7-32.2 (BEAKER) (test code = 751) MEAN CORPUSCULAR HEMOGLOBIN CONC 32.5 GM/DL 32.3-36.5 (BEAKER) (test code = 752) RED CELL DISTRIBUTION WIDTH 14.9 % 11.6-14.4 H (BEAKER) (test code = 412) PLATELET COUNT (BEAKER) (test 351 K/CU MM 150-450 code = 756) MEAN PLATELET VOLUME (BEAKER) 10.7 fL 9.4-12.4 (test code = 754) NUCLEATED RED BLOOD CELLS 0 /100 WBC 0-0 (BEAKER) (test code = 413) NEUTROPHILS RELATIVE PERCENT 56 % (BEAKER) (test code = 429) LYMPHOCYTES RELATIVE PERCENT 27 % (BEAKER) (test code = 430) MONOCYTES RELATIVE PERCENT 15 % (BEAKER) (test code = 431) EOSINOPHILS RELATIVE PERCENT 1 % (BEAKER) (test code = 432) BASOPHILS RELATIVE PERCENT 1 % (BEAKER) (test code = 437) NEUTROPHILS ABSOLUTE COUNT 4.19 K/ L 1.78-5.38 (BEAKER) (test code = 670) LYMPHOCYTES ABSOLUTE COUNT 1.99 K/ L 1.32-3.57 (BEAKER) (test code = 414) MONOCYTES ABSOLUTE COUNT (BEAKER) 1.12 K/ L 0.30-0.82 H (test code = 415) EOSINOPHILS ABSOLUTE COUNT 0.08 K/ L 0.04-0.54 (BEAKER) (test code = 416) BASOPHILS ABSOLUTE COUNT (BEAKER) 0.04 K/ L 0.01-0.08 (test code = 417) IMMATURE GRANULOCYTES-RELATIVE 0 % 0-1 PERCENT (BEAKER) (test code = 3605)
[2020-08-12 09:27] LABS: Absolute Lymphocytes (CBC) 1.5 K/uL (0.7-4.9); Hematocrit 43.2 % (39.6-49.0); Lymphocytes % 36.4 % (15.3-44.8); MPV 8.2 fL (7.6-11.3); RBC Red Blood Cell Count 4.92 M/uL (4.33-5.43)
[2020-08-12 09:29] LABS: Protime INR 2.7
[2020-08-12 09:44] LABS: Albumin 4.1 g/dL (3.4-5.0); Bilirubin Direct 0.1 mg/dL (0-0.2); Bilirubin Total 0.3 mg/dL (0.2-1.0); Potassium 4.1 mmol/L (3.5-5.1); Protein, Total 8.2 g/dL (6.4-8.2)
--- NOTE | 2020-08-12 09:55 | RAD REPORT ---
EXAM DESCRIPTION: CTAbdomen Pelvis W Contrast - 08/12/2020 9:32 am CLINICAL HISTORY: Abdominal pain. ABDOMINAL DISTENTION COMPARISON: No comparisons TECHNIQUE: Biphasic CT imaging of the abdomen and pelvis was performed with 100 ml non-ionic IV cont rast. All CT scans are performed using dose optimization technique as appropriate and may include automated exposure control or mA/KV adjustment according to patient size. FINDINGS: The lung bases are clear. The liver, spleen, pancreas, adrenal glands and kidneys are within normal limits. No bowel obstruction, free air, free fluid or abscess. The appendix is normal. No evidence of signi ficant lymphadenopathy. No suspicious bony findings. Small fat containing right inguinal hernia. IMPRESSION: No acute intra-abdominal or pelvic finding.
[2020-08-12 10:30] LABS: Blood Morphology Comment NOTED (NOT SEEN); Platelet Estimate ADEQ; White Blood Cell Scan OK (OK)
--- NOTE | 2020-08-12 10:41 | RAD REPORT ---
EXAM DESCRIPTION: RAD - Chest Single View - 08/12/2020 9:46 am CLINICAL HISTORY: DYSPNEA Chest pain. COMPARISON: Chest Single View dated 05/10/2020; Chest Single View dated 05/05/2020; Chest Pa And Lat (2 Views) dated 11/28/2018; Chest Single View dated 08/26/2017 FINDINGS: Portable technique limits examination quality. The lungs are grossly clear. The heart is normal in size. No displaced fractures. IMPRESSION: No acute intrathoracic process suspected.
--- NOTE | 2020-08-12 10:42 | RAD REPORT ---
EXAM DESCRIPTION: US - Abdomen Exam Limited - 08/12/2020 9:57 am CLINICAL HISTORY: ABD PAIN COMPARISON: Abdomen Exam Limited dated 05/05/2020 FINDINGS: The gallbladder demonstrates small amount of gallbladder sludge. 6 mm polyp is present the gallbladder inferiorly. No pericholecystic fluid or gallbladder wall thickening. The common bile eva t is normal measuring 3 mm. The liver demonstrates no findings of intrahepatic biliary dilatation. IMPRESSION: 6 mm gallbladder polyp and a small amount gallbladder sludge is noted.
--- NOTE | 2020-08-12 10:49 | EDPHYS ---
Physician Documentation [facility] Name: Chito Alfonso Age: 55 yrs Sex: Male : 1965 Arrival Date: 08/12/2020 Time: 08:51 Bed 17 Private MD: ED Physician Samuel Golden HPI: 08/12 09:08 This 55 yrs old Black Male presents to ER via Unassigned with complaints of Abdominal rn Swelling. 09:08 The patient presents with abdominal distention in the upper abdomen. Onset: The rn symptoms/episode began/occurred yesterday. The symptoms do not radiate. Associated signs and symptoms: Pertinent positives: shortness of breath, Pertinent negatives: nausea and vomiting, blood in stools, chest pain, fever, vomiting. The symptoms are described as achy. Modifying factors: The symptoms are alleviated by nothing, the symptoms are aggravated by nothing. Severity of pain: At its worst the pain was very mild in the emergency department the pain is unchanged. The patient has experienced a previous episode. Reports noticed upper abd swelling and slight discomfort since yesterday, no trauma. Reports similar episode 3 months ago when told had gallbladder problem and "too much fluid". Reports hasn't been taking his diuretics lately because hasn't noticed swelling, and took one pill today. No fever. No vomiting. Reports sob, but only when exercising. Very mild pain. No trouble/vomiting/pain with eating. Given abx 3 months ago for gallbladder problem and hasn't had any issues since. . Historical: - Allergies: 09:27 No Known Allergies; jl7 - Home Meds: 09:27 Entresto 24-26 mg oral tab twice a day [Active]; warfarin 5 mg Oral tab 1 tab once jl7 daily [Active]; pravastatin 40 mg oral tab 1 tab once daily [Active]; spironolactone 25 mg Oral tab 1 tab once daily [Active]; carvedilol 12.5 mg Oral tab 1 tab every 12 hours [Active]; - PMHx: 09:13 Atrial Fib; CHF; Cholecystitis; Hypertension; kidney stenting; Kidney stones; ss Myocardial infarction; PULMONARY HYPERTENSION; renal insufficiency; Sleep Apnea; splenic infarct; - Immunization history:: Adult Immunizations up to date. - Social history:: Smoking status: Patient denies any tobacco usage or history of. - Family history:: not pertinent. - Hospitalizations: : No recent hospitalization is reported. ROS: 09:08 Constitutional: Negative for fever, chills, and weight loss, Cardiovascular: Negative rn for chest pain, palpitations, and edema, Respiratory: Negative for cough, wheezing, and pleuritic chest pain, Abdomen/GI: Negative for nausea, vomiting, diarrhea, and constipation, Back: Negative for injury and pain, MS/Extremity: Negative for injury and deformity, Skin: Negative for injury, rash, and discoloration, Neuro: Negative for headache, weakness, numbness, tingling, and seizure. Exam: 09:08 Constitutional: This is a well developed, well nourished patient who is awake, alert, rn and in no acute distress. Head/Face: Normocephalic, atraumatic. Cardiovascular: Regular rate and rhythm. No pulse deficits. Respiratory: Speaking full sentences. No increased work of breathing, no retractions or nasal flaring. Abdomen/GI: soft, non-tender Skin: Warm, dry MS/ Extremity: Pulses equal, no cyanosis. Neurovascular intact. Full, normal range of motion. Equal circumference. Neuro: Awake and alert, GCS 15 Vital Signs: 09:10 Resp 15; Temp 97.0(TE); Weight 87.54 kg; Height 5 ft. 9 in. (175.26 cm); Pain 0/10; ss 09:15 BP 140 / 84; Pulse 79; Resp 16 S; Pulse Ox 97% on R/A; Pain 0/10; jl7 11:00 BP 136 / 91; Pulse 68; Resp 15; Pulse Ox 100% ; Pain 0/10; jl7 09:10 Body Mass Index 28.50 (87.54 kg, 175.26 cm) ss MDM: 08:57 Patient medically screened. rn 10:48 Differential diagnosis: cholecystitis, Cholelithiasis, gastritis, gastroesophageal rn reflux disease, non-specific abd pain, pancreatitis. Data reviewed: vital signs, nurses notes, lab test result(s), radiologic studies, CT scan, plain films, ultrasound, and as a result, I will discharge patient. Counseling: I had a detailed discussion with the patient and/or guardian regarding: the historical points, exam findings, and any diagnostic results supporting the discharge/admit diagnosis, lab results, radiology results, the need for outpatient follow up, to return to the emergency department if symptoms worsen or persist or if there are any questions or concerns that arise at home. Special discussion: I discussed with the patient/guardian in detail that at this point there is no indication for admission to the hospital. It is understood, however, that if the symptoms persist or worsen the patient needs to return immediately for re-evaluation. ED course: No acute findings on CT abdomen/ultrasound/xray, will dc home with pcp f/u.. 08/12 09:05 Order name: Basic Metabolic Panel; Complete Time: 10:08/12 09:05 Order name: CBC with Diff; Complete Time: 10:47 08/12 09:05 Order name: Hepatic Function; Complete Time: :08/12 09:05 Order name: Lipase; Complete Time: :08/12 09:05 Order name: BNP; Complete Time: 10:08/12 09:07 Order name: Protime (+inr); Complete Time: 10:08/12 09:05 Order name: IV Saline Lock; Complete Time: :08/12 09:05 Order name: Labs collected and sent; Complete Time: :08/12 09:05 Order name: CT Abd/Pelvis - IV Contrast Only; Complete Time: 10:08/12 09:05 Order name: XRAY Chest (1 view); Complete Time: 10:47 08/12 09:05 Order name: US Abdomen Limited; Complete Time: 10:47 08/12 09:07 Order name: Ptt, Activated; Complete Time: :08/12 09:30 Order name: CBC Smear Scan; Complete Time: 10:47 EDMS Administered Medications: No medications were administered Disposition: 08/12/20 10:49 Discharged to Home. Impression: Upper abdominal pain, unspecified. - Condition is Stable. - Discharge Instructions: Abdominal Pain, Adult, Pain Without a Known Cause. - Medication Reconciliation Form, Thank You Letter, Antibiotic Education, Prescription Opioid Use form. - Follow up: Private Physician; When: As needed; Reason: Recheck today's complaints, Re-evaluation by your physician. - Problem is new. - Symptoms have improved. Signatures: Dispatcher [employer] EDMS Samuel Golden MD MD rn Smirch, Shelby, RN RN ss Nuvia Morse RN RN jl7 Corrections: (The following items were deleted from the chart) 11:07 10:49 08/12/2020 10:49 Discharged to Home. Impression: Upper abdominal pain, jl7 unspecified. Condition is Stable. Forms are Medication Reconciliation Form, Thank You Letter, Antibiotic Education, Prescription Opioid Use. Follow up: Private Physician; When: As needed; Reason: Recheck today's complaints, Re-evaluation by your physician. Problem is new. Symptoms have improved. rn
--- NOTE | 2020-08-12 10:49 | ER ---
Nurse's Notes [facility] Name: Chito Alfonso Age: 55 yrs Sex: Male : 1965 Arrival Date: 08/12/2020 Time: 08:51 Bed 17 Private MD: Diagnosis: Upper abdominal pain, unspecified Presentation: 08/12 09:10 Chief complaint: Patient states: "I was supposed to have my gallbladder out 3 months ss ago, but they said my heart was too weak. I noticed some swelling around my upper abd this morning and I'm just worried it might affect my heart." Denies pain. Coronavirus screen: Client denies travel out of the [place] in the last 14 days. Ebola Screen: Patient denies exposure to infectious person. Patient denies travel to an Ebola-affected area in the 21 days before illness onset. Initial Sepsis Screen: Does the patient meet any 2 criteria? No. Patient's initial sepsis screen is negative. Does the patient have a suspected source of infection? No. Patient's initial sepsis screen is negative. Risk Assessment: Do you want to hurt yourself or someone else? Patient reports no desire to harm self or others. Onset of symptoms was August 12, 2020. 09:10 Method Of Arrival: Ambulatory ss 09:10 Acuity: MARK 3 ss Historical: - Allergies: 09:27 No Known Allergies; jl7 - Home Meds: 09:27 Entresto 24-26 mg oral tab twice a day [Active]; warfarin 5 mg Oral tab 1 tab once jl7 daily [Active]; pravastatin 40 mg oral tab 1 tab once daily [Active]; spironolactone 25 mg Oral tab 1 tab once daily [Active]; carvedilol 12.5 mg Oral tab 1 tab every 12 hours [Active]; - PMHx: 09:13 Atrial Fib; CHF; Cholecystitis; Hypertension; kidney stenting; Kidney stones; ss Myocardial infarction; PULMONARY HYPERTENSION; renal insufficiency; Sleep Apnea; splenic infarct; - Immunization history:: Adult Immunizations up to date. - Social history:: Smoking status: Patient denies any tobacco usage or history of. - Family history:: not pertinent. - Hospitalizations: : No recent hospitalization is reported. Screenin:28 Abuse screen: Denies threats or abuse. Denies injuries from another. Nutritional jl7 screening: No deficits noted. Tuberculosis screening: No symptoms or risk factors identified. Fall Risk IV access (20 points). Total Lazo Fall Scale indicates No Risk (0-24 pts). Assessment: 09:20 General: Appears in no apparent distress. uncomfortable, Behavior is calm, cooperative, jl7 appropriate for age. Pain: Denies pain. Neuro: Level of Consciousness is awake, alert, obeys commands, Oriented to person, place, time, situation. Cardiovascular: Patient's skin is warm and dry. Respiratory: Airway is patent Respiratory effort is even, unlabored, Respiratory pattern is regular, symmetrical. GI: Abdomen is non-distended, Abdomen is tender to palpation in epigastric area. Derm: Skin is pink, warm \\T\\ dry. 10:30 Reassessment: Patient appears in no apparent distress at this time. No changes from jl7 previously documented assessment. Patient and/or family updated on plan of care and expected duration. Pain level reassessed. Patient is alert, oriented x 3, equal unlabored respirations, skin warm/dry/pink. Vital Signs: 09:10 Resp 15; Temp 97.0(TE); Weight 87.54 kg; Height 5 ft. 9 in. (175.26 cm); Pain 0/10; ss 09:15 BP 140 / 84; Pulse 79; Resp 16 S; Pulse Ox 97% on R/A; Pain 0/10; jl7 11:00 BP 136 / 91; Pulse 68; Resp 15; Pulse Ox 100% ; Pain 0/10; jl7 09:10 Body Mass Index 28.50 (87.54 kg, 175.26 cm) ED Course: 08:51 Patient arrived in ED. mr 08:57 Samuel Golden MD is Attending Physician. rn 09:10 Nuvia Morse RN is Primary Nurse. jl7 09:13 Triage completed. ss 09:13 Arm band placed on right wrist. ss 09:28 Patient has correct armband on for positive identification. Placed in gown. Bed in low jl7 position. Call light in reach. Side rails up X 1. Pulse ox on. NIBP on. 09:28 Initial lab(s) drawn, by az, sent to lab. Inserted saline lock: 20 gauge in left jl7 antecubital area, using aseptic technique. Blood collected. 09:33 CT Abd/Pelvis - IV Contrast Only In Process Unspecified. EDMS 09:46 XRAY Chest (1 view) In Process Unspecified. EDMS 09:57 US Abdomen Limited In Process Unspecified. EDMS 11:07 No provider procedures requiring assistance completed. IV discontinued, intact, jl7 bleeding controlled, No redness/swelling at site. Pressure dressing applied. Administered Medications: No medications were administered Outcome: 10:49 Discharge ordered by . rn 11:07 Discharged to home ambulatory. jlValeri 11:07 Condition: stable 11:07 Discharge instructions given to patient, Instructed on discharge instructions, follow up and referral plans. Demonstrated understanding of instructions, follow-up care. 11:07 Patient left the ED. kvng Signatures: Dispatcher [employer] SURJITMT Veronica Espinal Roman, MD MD rn Smirch, Shelby, RN RN ss Leal, Jahala, RN RN kvng
[2020-08-12 11:12] VITALS: TEMP 97
[2020-08-12 11:14] VITALS: BP 136/91; O2SAT 100
== END 2020-08-12 11:07 | disposition home or self-care (01) ==
LOC: ER 08:48
DX: R10.10 Upper abdominal pain, unspecified (principal); I10 Essential (primary) hypertension; I50.9 Heart failure, unspecified; I48.91 Unspecified atrial fibrillation; Z79.01 Long term (current) use of anticoagulants
CPT/HCPCS: 36415; 71045; 74177; 76705; 80048; 80076; 82565; 83690; 83880; 85025; 85610; 85730; 99284; Q9967

== ENCOUNTER 2020-09-10 01:48 | Observation (INO) | payer SELFPAY ==
--- OUTSIDE RECORDS SUMMARY | 2020-09-10 01:50 | XMS REPORT | Clinical Summary ---
:1965 Author Organization [facility] Address [address] [place] [address] Care Team Providers Name Role Phone Pcp, No Primary Care Provider Unavailable Allergies No Known Allergies Medications Medication Sig Dispensed Refills Start Date End Date Status furosemide (LASIX) Take 20 mg 0 Active 20 MG tablet by mouth daily. carvediloL (COREG) Take 2 60 tablet 11 05/19/2020 Active 3.125 MG tablet tablets 1 (6.25 mg total) by mouth 2 (two) times daily. pravastatin Take 1 0 05/19/2020 Active (PRAVACHOL) 40 MG tablet (40 1 tablet mg total) by mouth nightly. sacubitriL-valsarta Take 1 0 05/19/2020 Active n (ENTRESTO) 24-26 tablet by mg Tab mouth 2 (two) times daily. spironolactone Take 1 0 05/20/2020 Acti ve (ALDACTONE) 25 MG tablet (25 1 tablet mg total) by mouth daily. warfarin (COUMADIN, Take 5 mg by 0 Active JANTOVEN) 5 MG mouth daily. tablet isosorbide Take 5 mg by 0 Discon tinued dinitrate (ISORDIL) mouth daily. 0 (Stop Taking at 5 MG tablet Discharg e) warfarin (COUMADIN, Take 1 0 05/19/2020 Discontinued JANTOVEN) 10 MG tablet (10 0 tablet mg total) by mouth daily. 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) 05/22/2020 Atrial fibrillation 05/22/2020 Encounters Date Type Specialty Care Team Description 05/22/2020 Video - Telemedicine Cardiology Sonia, Chronic combined Emilie Mcnair, systolic an d MD diastolic CHF Carolann Grant (congestive hea rt MD Manjti failure) (FORMERLY [facility]) Walter Rees NP 05/13/2020 Surgery Bradly Pichardo R & L CATH / MD Tita CORONARY TERRANCE OS (+/- LV) 05/12/2020 - Hospital Encounter Cardiology Sonia, Acute on chronic 05/19/2020 Emilie Mcnair systolic he art MD failure (FORM[facility]LY [facility]) Carolann Grant MD 05/12/2020 Orders Only General Internal Medicine 05/12/2020 Travel after 09/10/2019 Social History Tobacco Use Types Packs/Day Years [...] Assigned at Date Recorded Not on file Last Filed Vital Signs Vital Sign Reading Time Taken Comments Blood Pressure 105/74 05/22/2020 3:46 PM CDT Pulse 60 05/22/2020 3:46 PM CDT Temperature 36.5 C (97.7 F) 05/19/2020 11:40 AM CDT Respiratory Rate 18 05/22/2020 3:46 PM CDT Oxygen Saturation 96% 05/19/2020 11:40 AM CDT Inhaled Oxygen Concentration - - Weight 79 kg (174 lb 2.6 oz) 05/22/2020 3:46 PM CDT Height 175.3 cm (5' 9") 05/22/2020 [...] section. R & L CATH / 05/13/2020 1:36 Chest pain, CORONARY ANGIOS (+/- PM CDT [...] SARS-COV2/RT-PCR Routine 05/12/2020 8:53 Results for this ([facility] REF LABS) AM CDT procedure are [...] 450 ms QTC Calculation(Bazett) 538 ms P [place] 64 degrees R [place] -13 degrees T [place] 129 degrees Normal sinus rhythm Biatrial enlargement [...] 446 ms QTC Calculation(Bazett) 533 ms P [place] 64 degrees R [place] -14 degrees T [place] 123 degrees Normal sinus rhythm Biatrial enlargement [...] i n the results section . after 09/10/2019 Results CARDIAC CATH REPORT - SCAN (05/20/2020 2:14 PM CDT) Narrative Performed At This result has an attachment that is no t available. RHYTHM STRIP - SCAN (05/20/2020 2:14 PM CDT) Narrative Performed At This result has an attachment that is no t available. aPTT (05/19/2020 4:54 AM CDT)Only the most recent of15 resultswithin the time period is included. Pathologist Sig nature PTT 81.3 (H) 22.5 - 36.0 seconds [facility] Specimen Blood Performing Organization Address City/State/Zipcode Phone Number [facility] [address] [place] [address] CENTER Prothrombin time/INR (05/19/2020 4:54 AM CDT)Only the most recent of2 results within the time period is included. Pathologist Sig nature Protime 14.2 11.9 - 14.2 seconds [facility] INR 1.1 <=5.9 [facility] Specimen Blood Narrative Performed At Effective 04/24/2019: PT Reference Range [facility] Change New: 11.9-14.2 Previous: 11.7-14.7 RECOMMENDED COUMADIN/WARFARIN INR THERAPY RANGES STANDARD DOSE: 2.0-3.0 Includes: PROPHYLAXIS for venous thrombosis, systemic embolization; TREATMENT for venous thrombosis and/or pulmonary embolus. HIGH RISK: Target INR is 2.5-3.5 for patients wiht mechanical heart valves. Performing Organization Address City/State/Zipcode Phone Number [facility] [address] [place] [address] CENTER CBC (hemogram only) (05/19/2020 4:54 AM CDT)Only the most recent of7 results within the time period is included. Pathologist Sig nature WBC 5.3 3.5 - 10.5 K/L [facility] RBC 5.29 4.63 - 6.08 M/L [facility] Hemoglobin 15.3 13.7 - 17.5 GM/DL [facility] Hematocrit 49.3 40.1 - 51.0 % [facility] MCV 93.2 (H) 79.0 - 92.2 fL [facility] MCH 28.9 25.7 - 32.2 pg [facility] MCHC 31.0 (L) 32.3 - 36.5 GM/DL [facility] RDW 15.5 (H) 11.6 - 14.4 % [facility] Platelets 213 150 - 450 K/CU MM [facility] MPV 10.4 9.4 - 12.4 fL [facility] nRBC 0 0 - 0 /100 WBC [facility] Specimen Blood Performing Organization Address City/[facility]/Zipcode Phone Number [facility] [address] [place] [address] CENTER Basic Metabolic Panel (05/18/2020 5:30 AM CDT)Only the most recent of6 results within the time period is included. Sodium 140 136 - 145 meq/L [facility] Potassium 4.4 3.5 - 5.1 meq/L [facility] Chloride 108 (H) 98 - 107 meq/L [facility] CO2 23 22 - 29 meq/L [facility] BUN 14 7 - 21 mg/dL [facility] Creatinine 1.12 0.57 - 1.25 [facility] mg/dL [facility] Glucose 112 (H) 70 - 105 mg/dL [facility] Calcium 9.4 8.4 - 10.2 [facility] mg/dL [facility] EGFR 83Comment: ESTIMATED mL/min/1.73 sq [facility] GFR IS NOT m [facility] ACCURATE [place] CREATININE CLEARANCE IN PREDICTING GLOMERULAR FILTRATION RATE. ESTIMATED GFR IS NOT APPLICABLE FOR DIALYSIS PATIENTS. Specimen Blood Narrative Performed At Obiee Lead Developer ID - PIAYA L [facility] Performing Organization Address City/[facility] Phone Number [facility] [address] [place] [address] CENTER Magnesium (05/17/2020 3:57 AM CDT)Only the most recent of6 resultswithin the time period is included. Pathologist Sig nature Magnesium 1.6 1.6 - 2.6 mg/dL [facility] Specimen Blood Narrative Performed At Obiee Lead Developer ID - PIAYA L [facility] Performing Organization Address City/[facility]/Zipcode Phone Number [facility] [address] [place] [address] [place] Hepatic function panel (05/17/2020 3:57 AM CDT)Only the most recent of4 results within the time period is included. Pathologist Sig nature Protein, Total 7.0 6.0 - 8.3 gm/dL [facility] Albumin 3.4 (L) 3.5 - 5.0 g/dL [facility] Total Bilirubin 0.5 0.2 - 1.2 mg/dL [facility] Bilirubin, Direct 0.3 0.1 - 0.5 mg/dL [facility] Alkaline Phosphatase 129 40 - 150 U/L [facility] AST 37 (H) 5 - 34 U/L [facility] ALT 48 6 - 55 U/L [facility] Specimen Blood Narrative Performed At Obiee Lead Developer ID - PIAYA Douglas [facility] Performing Organization Address City/State/Zipcode Phone Number [facility] [address] [place], [place] [phone] [place] MR cardiac without & with IV contrast (05/16/2020 12:03 PM CDT) Specimen Narrative Performed At FINAL REPORT [facility] Cardiac MRI dated 16-May-20 INDICATION: This is a 55 year-old male w ith cardiomyopathy presents for assessment. This also a concern for left ventricular thrombus. TECHNIQUE: Christophe ACHIEVA MRI scanner . Morphologic and dynamic cine imaging were performed in multiple proje ctions before and after contrast administration. Thereafter, g adolinium was administered, which was followed by viability/scar carlyn ging. Finally, flow quantification sequences were performed to determine the degree of valvular dysfunction. Please refer to the contrast sheet scann ed in the SDNsquare system for the amount and route of [...] global systolic dysfunction. The apex is akinetic. Qu antitative values are as follows: EDV = 250 cc; ESV = 211 cc; str mitra volume = 39 cc; and ejection fraction = 16%. Calculated ab solute cardiac output = 3.9 liters/min. Absolute left ventricular mass = 145 grams. Indexed LVEDV = 126 cc/sq m. No imaging evidence of hypertrophic card iomyopathy or left ventricular noncompaction is noted. The right ventricle is normal in size wi th at least moderate systolic dysfunction globally. Quantitative vilma ues are as follows: EDV = 172 cc; [...] CONCLUSIONS: 1. The left ventricle is enlarged, wit h severe global systolic dysfunction. Ejection fraction is [...] 2. The right ventricle is normal in si ze, with at least moderate systolic dysfunction globally. Ejection fraction is quantified to be 20%. No abnormal enhancement of the right zo tricular myocardium is seen after contrast administration. 3. Other findings as described above. Signed: Solis Cross MD Report Verified Date/Time: 05/17/2020 10:15:01 Reading Location: [facility] P027 CT Reading Room Procedure Note Interface, External [...] the contrast sheet scann ed in the SDNsquare system for the amount and route of [...] Verified Date/Time: 05/17/2020 1 0:15:01 Reading Location: [place] [address] [address] Reading Room Performing Organization Address City/State/Zipcode Phone Number GE [facility] Hemoglobin A1c (05/15/2020 5:16 AM CDT) Pathologist Sig nature Hemoglobin A1C 6.1 4.3 - 6.1 % [facility] Specimen Blood Performing Organization Address City/[facility]/Zipcode Phone Number [address] [address] CENTER Lipid panel (05/15/2020 5:16 AM CDT) Pathologist Sig [facility] Triglycerides 54Comment: Specimen mg/dL [facility] slightly hemolyzed [facility] Cholesterol 97Comment: Specimen mg/dL [facility] hemolyFormerly [facility] HDL 31 mg/dL [facility] LDL Calculated 55 mg/dL [facility] Specimen Blood Narrative Performed At Triglyceride Reference Range: [facility] Low Risk <150 Borderline 150-199 High Risk 200-499 Very High Risk >=500 Cholesterol Reference Range: Low Risk <200 Borderline 200-239 High Risk >240 HDL Cholesterol Reference Range: Low Risk >=60 High Risk <40 LDL Cholesterol Reference Range: Optimal <100 Near Optimal 100-129 Borderline 130-159 High 160-189 Very High >=190 Obiee Lead Developer ID - AAHAMID Performing Organization Address City/[facility]/Zipcode Phone Number [address] [address] CENTER TSH/Free T4 If Indicated (05/14/2020 3:53 PM CDT) Pathologist Sig nature TSH 4.124 0.350 - 4.940 uIU/mL [facility] Specimen Blood Narrative Performed At Obiee Lead Developer ID - BS [facility] Performing Organization Address City/State/Zipcode Phone Number [address] [address] CENTER Troponin I (05/12/2020 3:40 PM CDT)Only the most recent of3 resultswithin the time period is included. Pathologist Sig nature Troponin I 3.14 (HH) 0.00 - 0.03 ng/mL [facility] Specimen Blood Narrative Performed At Troponin I (TnI) levels must be interpreted [facility] in the context of the presenting symptoms and the clinical findings. Elevated TnI levels indicate myocardial damage, but are not specific for ischemic heart disease. Elevated TnI levels are seen in patients with other cardiac conditions (including myocarditis and congestive heart failure), and slight TnI elevations occur in patients with other conditions, including sepsis, renal failure, acidosis, acute neurological disease, and persistent tachyarrhythmia. Obiee Lead Developer ID - BS Performing Organization Address City/State/Zipcode Phone Number [place] [phone] [place] [address] CENTER Transthoracic 2D echo w/ doppler (cw/pw/color) (05/12/2020 8:55 AM CDT) Pathologist Sig nature Ejection Fraction [facility]CHO [facility] Specimen Narrative Performed At Transthoracic Echocardiography Report (T TE) [facility] ECHO [facility] Demographics Patient Name ALIDA SHER Date of Study 05/12/2020 Gender Male Visit Number [id number] Race Black Room Number [id number] Number Date of 1965 Referring Physician MD George Louis FEL Age 55 year(s) 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 Rhythm/BP Regular sinus rhythm [...] agent. Grade 3 diastolic dysfunction (marked elevated L A pres sure). Low (cardiac index <2 L/min/m2) cardiac output [...] Pericardium A trivial pericardial effusion is present post eriorly. IVC/SVC/PA/PV/Pleural Pulmonary vein flow is consistent with [...] (Sngl Plane): 55.38 ml Right Ventricle TAPSE: 1.3 9 cm Aorta Ao Root S of Vilma.: [...] of Study 05/12/2020 Gender Male Visit Number [id number] Race Black Room Num [facility] 6219 Number Date of 1965 Jose stroud Physician MD George Louis, MIRELA Age 55 year(s) Sonograp José De Anda Commercial Account Manager Nikia Carnes MD Procedure Type of Study [...] AM CDT) SARS-COV2/RT-PCR Not Detected Not Detected, [facility] Negative [facility] SARS-COV-2 BSC [facility] PERFORMING LAB [facility] Specimen Other - Nasopharyngeal wall structure (b jose structure) Narrative Performed At Negative results do not preclude SARS-CoV-2 [facility] infection and should not be used as [...] the Act. Fact Sheet for Healthcare Providers: https://www.Silvercar/Documents/Xpert%20Xpre ss%20SARS%20CoV-2/Fact%20Sheets/302-1372%20SAR S-COV-2%20HEALTHCARE%20PROVIDERS%20FACT%20SHEE T.pdf Fact Sheet for Healthcare Patients: https://www.Silvercar/Documents/Xpert%20Xpre ss%20SARS%20CoV-2/Fact%20Sheets/302-8081%20SAR S-COV-2%20PATIENT%20FACT%20SHEET.pdf Performing Laboratory: [facility] [address] [place] [address] Performing Organization Address City/State/Zipcode Phone Number [facility] [address] [place] [address] CENTER Potassium (05/12/2020 8:53 AM CDT) Pathologist Sig nature Potassium 3.6 3.5 - 5.1 meq/L [facility] Specimen Blood Narrative Performed At Obiee Lead Developer ID - ROBERT Griffith [facility] Performing Organization Address [facility] Phone Number [facility] [address] [place] [address] CENTER XR chest 1 view portable / bedside (05/12/2020 1:49 AM CDT) Specimen Narrative Performed At FINAL REPORT RIS Chest, 1 view. History: Shortness of breath. Comparison: None available. IMPRESSION: Low lung volumes. Minimal bi basilar atelectasis. No pleural effusion or pneumothorax. Promin ence of interstitial lung markings favored to be related to techni que. No lobar consolidation. Osseous structures are grossly unremarka ble. Signed: Stanley Tucker MD Report Verified Date/Time: 05/12/2020 02:04:12 Procedure Note Interface, External Ris In [...] Date/Time: 05/12/2020 0 2:04:12 Performing Organization Address City/[facility]/Zipcode Phone Number [facility] ECG 12 lead (05/12/2020 1:39 AM CDT) Specimen Narrative Performed At Ventricular Rate 86 BPM [facility] Atrial Rate 86 BPM P-R Interval 144 ms QRS Duration 88 ms Q-T Interval 450 ms QTC Calculation(Bazett) 538 ms P [place] 64 degrees R [place] -13 degrees T [place] 129 degrees Normal sinus rhythm Biatrial enlargement [...] 450 ms QTC Calculation(Bazett) 538 ms P [place] 64 degrees R [place] -13 degrees T [place] 129 degrees Normal sinus rhythm Biatrial enlargement Possible Anterior infarct , age undeterm ined T wave inversion lateral leads consider postischemic changes Prolonged QT Abnormal ECG No previous ECGs available Confirmed by MD MAGUE, SACHIN ([id number]) on 05/12/2020 12:32:03 PM Performing Organization Address City/State/Zipcode Phone Number GE MUSE CBC with platelet count + automated diff (05/12/2020 1:12 AM CDT) Pathologist Sig nature WBC 7.5 3.5 - 10.5 [facility] K/L [facility] RBC 4.90 4.63 - 6.08 [facility] M/L [facility] Hemoglobin 14.6 13.7 - 17.5 [facility] GM/DL [facility] Hematocrit 44.9 40.1 - 51.0 % [facility] MCV 91.6 79.0 - 92.2 fL [facility] MCH 29.8 25.7 - 32.2 pg [facility] MCHC 32.5 32.3 - 36.5 [facility] GM/DL [facility] RDW 14.9 (H) 11.6 - 14.4 % [facility] Platelets 351 150 - 450 K/CU [facility] MM [facility] MPV 10.7 9.4 - 12.4 fL [facility] nRBC 0 0 - 0 /100 WBC [facility] % Neutros 56 % [facility] % Lymphs 27 % [facility] % Monos 15 % [facility] % Eos 1 % [facility] % Baso 1 % [facility] # Neutros 4.19 1.78 - 5.38 [facility] # Lymphs 1.99 1.32 - 3.57 [facility] # Monos 1.12 (H) 0.30 - 0.82 [facility] # Eos 0.08 0.04 - 0.54 [facility] # Baso 0.04 0.01 - 0.08 [facility] Immature 0 0 - 1 % [facility] Granulocytes-Relative [facility] Specimen Blood Performing Organization Address City/[facility]/Zipcode Phone Number [address] [address] [place] Lactic acid, venous (05/12/2020 1:12 AM CDT) Lactate, Venous 0.98Comment: 0.50 - 2.20 [facility] Specimen slightly mmol/L [facility] hemolyzed [facility] Specimen Blood Narrative Performed At Obiee Lead Developer ID - ECHO W [facility] ICAL [place] Performing Organization Address City/State/Zipcode Phone Number [facility] [address] [place] [address] CENTER B-type natriuretic peptide (05/12/2020 1:12 AM CDT) Pathologist Sig nature BNP 766 (H) 0 - 100 pg/mL [facility] Specimen Blood Narrative Performed At Obiee Lead Developer ID - ECHO W [facility] Performing Organization Address City/State/Zipcode Phone Number [facility] [address] [place] [address] CENTER Comprehensive metabolic panel (05/12/2020 1:12 AM CDT) Protein, Total 7.0Comment: 6.0 - 8.3 [facility] Specimen slightly gm/dL [facility] Albumin 3.4 (L)Comment: 3.5 - 5.0 [facility] Specimen slightly g/dL [facility] Alkaline 113 40 - 150 U/L [facility] Phosphatase [facility] Total Bilirubin 0.9Comment: 0.2 - 1.2 [facility] Specimen slightly mg/dL [facility] Sodium 142 136 - 145 [facility] meq/L [facility] Potassium 4.0Comment: 3.5 - 5.1 [facility] Specimen slightly meq/L [facility] Chloride 103 98 - 107 [facility] meq/L [facility] CO2 26 22 - 29 meq/L [facility] BUN 21 7 - 21 mg/dL [facility] Creatinine 1.39 (H)Comment: 0.57 - 1.25 [facility] slightly mg/dL [facility] Glucose 108 (H) 70 - 105 [facility] mg/dL [facility] Calcium 8.8 8.4 - 10.2 [facility] mg/dL [facility] AST 70 (H)Comment: 5 - 34 U/L [facility] ALT 105 (H)Comment: 6 - 55 U/L [facility] EGFR 65Comment: mL/min/1.73 [facility] ESTIMATED GFR IS sq [facility] NOT ACCURATE [facility] CREATININE CLEARANCE IN PREDICTING GLOMERULAR FILTRATION RATE. ESTIMATED GFR IS NOT APPLICABLE FOR DIALYSIS PATIENTS. Specimen Blood Narrative Performed At Obiee Lead Developer SAMUEL Stanford [facility] Performing Organization Address City/State/Zipcode Phone Number [facility] [address] [place] [address] CENTER after 09/10/2019 Insurance Payer Benefit Plan / Subscriber ID Effective Dates Phone Addre ss Type Group CDC REVIEW CDC REVIEW [id number] 2020-[place] [address] [place] [address] Advance Directives For more information, please contact: [phone] Code Status Date Activated Date Inactivated Comments Full Code 05/12/2020 12:50 AM 05/19/2020 7:14 PM This code status was determined by: Patient
--- OUTSIDE RECORDS SUMMARY | 2020-09-10 01:51 | XMS REPORT | Continuity of Care Document ---
:1965 Author Organization [facility] [employer] Care Team Providers Name Role Phone InterviewBest Information Busy Moos Unavailable Un available Problems Problem Status Onset [...] Location Location Encounter Encounter Reason Attending ADM SC Stat Source Details Type Number For Provider Date Date Visit AUDIT [id number] 07/06 /2012 [facility], [id number] 07/17 07/06 [place] Provider: SHELLEY Ramirez, Status: Pen, Time: 8:30 AM AUDIT [id number] 10/03 /2012 [facility], [id number] 12/04 10/04 [place] Provider: SHELLEY Ramirez, Status: Ryley, Time: 1:30 PM Procedures No Data Provided for This Section Assessment and Plan No Data Provided for This Section Plan of Care No Data Provided for This Section Social History Social History Date Source Never A Smoker 10/04/2013 [place] [facility] (Active) Family History No Data Provided for This Section Advance Directives Order Name Results Value Date Source Advance Directives Advance Directives No Advance 10/04/2013 [place] [facility] Directives available. Advance Directives Advance Directives No Advance 07/06/2013 [place] [facility] Directives available. Functional Status No Data Provided for This Section
--- OUTSIDE RECORDS SUMMARY | 2020-09-10 01:53 | XMS REPORT | Continuity of Care Document ---
:1965 Author Organization [facility] t Address [address] [place] [address] Care Team Providers Name Role Phone Pcp, No Primary Care Physician Unavailable Sonia JALLOH, Emilie Mcnair Attending Clinician [phone] Manjit Grant MD Attending Clinician Cabrera PECK Attending Clinician Marino JALLOH, Tita Attending Clinician DEBBIE SCOTT Attending Clinician Unavailable DEBBIE SCOTT Admitting Clinician Unavailable Payers Payer Name Policy Type Policy Number Effective Date Expiration Date S herlinda [facility] [id number] [facility] [id number] 00:00[place] [address] Problems Condition Condition Condition Status Onset Resolution Last Treating Co mments Source Name Details Category Date Date Treatment Clinician Date Cholelithi Cholelithi Disease Active C [facility] asis 05-22 [facility] 00 Center Stage 3 Stage [address] [facility] chronic chronic 05-22 [facility] - kidney kidney 00:00: Medical disease disease 00 Center 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 00:00: Medica l and and 00 Center diastolic diastolic CHF CHF (congestiv (congestiv e heart e heart failure) failure) Atrial Atrial Disease Active 2020-[address] fibrillati fibrillati 05-22 Lynsey kes - on on 00:00: Medical 00 Center Closed Problem Active 2013-10-04 Memor ia Fracture 00:31:09 l Of The Closed Waqas Distal End Fracture Of The Of The Radius Distal End Of The Radius Active 3 [place] Physicians Allergies, Adverse Reactions, Alerts Allergy Allergy Status Severity Reaction(s) Onset Inactive Treating Comm ents Source Name Type Date Date Clinician No Known No Known Active Memori a Drug Drug l Allergie Allergrenay Vega n s s Social History Social Habit Start Date Stop Date Quantity Comments Source History [facility] - Alcohol Std Drinks Medica l Center History [facility] - Alcohol Binge Medical Jerry ter Sex Assigned At [facility] Tobacco use and 2020-05-22 2020-05-[address] [facility] Lynsey kes - exposure 00:00:00 00:00:00 [facility] Alcohol intake 2020-05-22 2020-05-[address] [facility] S t [facility] - 00:00:00 00:00:00 of alcohol Medical Center (finding) History [facility] 2020-05-12 2020-05-[address] [facility] - Alcohol Frequency 00:00:00 00:00:00 [facility] Social History 2013-10-04 2013-10-04 [facility] 00:31:09 00:31:09 Smoking Status Start Date Stop Date Source [facility] smoker [facility] edical Castana Medications Ordered Filled Start Stop Current Ordering Indication Dosage Frequency Signature Comments Components Source Medication Medication Date Date Medication? Clinician (SIG) Name Name warfarin Yes 5mg QD Take [address] (COUMADIN, 05-22 by mouth [facility] - JANTOVEN) 5 15:48: daily. Medi chandra MG tablet 56 Castana furosemide Yes 20mg QD Take [address] (LASIX) 20 05-22 by mouth [facility] - MG tablet 11:32: daily. Medica l 25 Castana spironolact 2020- No 25mg QD Take [address] one 05-20 tablet (25 [facility] - (ALDACTONE) 00:00: 23:59 mg total) Medical 25 MG 00 :00 by mouth Center tablet daily. isosorbide 2019- No 5mg QD Take [address] dinitrate 05-19 by mouth [facility] - (ISORDIL) 5 16:11: 00:00 daily. Med ical MG tablet 52 :00 Center sacubitriL- Yes 1{tbl} Q.5D Take [address] valsartan -23 tablet by [facility] - (ENTRESTO) 00:00: mouth 2 Medi chandra 24-26 mg 00 (two) Center Tab times daily. carvediloL No 6.25mg Q.5D Take [address] (COREG) 05-19 tablets [facility] - 3.125 MG 00:00: 23:59 (6.25 mg Medi chandra tablet 00 :00 total) by Center mouth 2 (two) times daily. pravastatin No 40mg QD Take [address] (PRAVACHOL) 05-19 tablet (40 L ukes - 40 MG 00:00: 23:59 mg total) Medica l tablet 00 :00 by mouth Center nightly. warfarin No 10mg QD Take [address] (COUMADIN, 05-19 tablet (10 Lynsey kes - JANTOVEN) 00:00: 00:00 mg total) Me dical 10 MG 00 :00 by mouth Center tablet daily. Naproxen Yes ; Start Memori a 500 MG Oral 07-03 Date: l Tablet 05:00: 07/03/2013 Jaleesa nn 00 (Active) Hydrocodone Yes ; Start Mem oria -Acetaminop 07-03 Date: l hen 5-325 05:00: 07/03/2013 He rmann MG Oral 00 (Active) Tablet Vital Signs Vital Name Observation Time Observation Value Comments Source Systolic blood 2020-05-22 15:46:00 105 mm[Hg] [facility] Diastolic blood 2020-05-22 15:46:00 74 mm[Hg] [facility] S [facility] Heart rate 2020-05-22 15:46:00 60 /min [facility] Respiratory rate 2020-05-22 15:46:00 18 /min [facility] Body height 2020-05-22 15:46:00 175.3 cm [facility] Body weight 2020-05-22 15:46:00 79 kg [facility] BMI 2020-05-22 15:46:00 25.72 kg/m2 [facility] Body temperature 2020-05-19 11:40:00 36.5 Gail [facility] Oxygen saturation in 2020-05-19 11:40:00 96 /min [facility] - Arterial blood by Medical Ce nter Pulse oximetry Procedures Procedure Date / Time Performed Performing Clinician [facility] e CARDIAC CATH REPORT - 2020-05-20 14:14:32 Provider, Default [facility] RHYTHM STRIP - SCAN 2020-05-20 14:14:30 Provider, Default [facility] PROTHROMBIN TIME/INR 2020-05-19 04:54:00 Manjit Ross [facility] APTT 2020-05-19 04:54:00 Bradly Pichardo [facility] CBC (HEMOGRAM ONLY) 2020-05-19 04:54:00 [facility] 2020-05-18 22:06:00 [facility] APTT 2020-05-18 13:40:00 [facility], [facility] BASIC METABOLIC PANEL (7) 2020-05-18 05:30:00 Carolann Grant [facility] APTT 2020-05-18 05:30:00 [facility] CBC (HEMOGRAM ONLY) 2020-05-18 05:30:00 Kukristinabhbenjaminla, George [facility] PROTHROMBIN TIME/INR 2020-05-18 05:30:00 Enid Peterson [facility] MAGNESIUM 2020-05-17 03:57:00 Carolann Grant Manjit [facility] BASIC METABOLIC PANEL (7) 2020-05-17 03:57:00 Carolann Grant Manjit [facility] HEPATIC FUNCTION PANEL 2020-05-17 03:57:00 Carolann Grant Manjit [facility] APTT 2020-05-17 03:57:00 Kualan, George [facility] CBC (HEMOGRAM ONLY) 2020-05-17 03:57:00 Kualan, George [facility] APTT 2020-05-16 13:15:00 Maryguicho, George [facility] MR CARDIAC WITHOUT & WITH 2020-05-16 12:03:00 Toni [facility] MAGNESIUM 2020-05-16 05:22:00 Rudy [facility] BASIC METABOLIC PANEL (7) 2020-05-16 05:22:00 Rudy [facility] HEPATIC FUNCTION PANEL 2020-05-16 05:22:00 [facility] CBC (HEMOGRAM ONLY) 2020-05-16 05:22:00 Kukristinabhguicho, George [facility] APTT 2020-05-16 05:22:00 [facility] APTT 2020-05-15 20:45:00 [facility] APTT 2020-05-15 13:18:00 [facility] CBC (HEMOGRAM ONLY) 2020-05-15 05:23:00 Kukristinabhbenjaminla, George [facility] APTT 2020-05-15 05:20:00 Kuchibhotla, George [facility] MAGNESIUM 2020-05-15 05:16:00 Rudy [facility] BASIC METABOLIC PANEL (7) 2020-05-15 05:16:00 [facility] A1C 2020-05-15 05:16:00 [facility] 2020-05-15 05:16:00 Rudy [facility] LIPID PANEL 2020-05-15 05:16:00 RudyCarolann [facility] APTT 2020-05-14 22:11:00 LukekristinaGeorge lindo [facility] TSH/FREE T4 IF INDICATED 2020-05-14 15:53:00 Carolann Grant [facility] CBC (HEMOGRAM ONLY) 2020-05-14 06:02:00 Koringuicho George [facility] BASIC METABOLIC PANEL (7) 2020-05-14 06:02:00 [place] [facility] MAGNESIUM 2020-05-14 06:02:00 Justinaevelyne George [facility] R & L CATH / CORONARY 2020-05-13 13:36:[address] [facility] S [facility] - ANGIOS (+/- LV) [facility] BASIC METABOLIC PANEL (7) 2020-05-13 05:02:[address] [facility] MAGNESIUM 2020-05-13 05:02:00 kristinabenjaminnh [facility] CBC (HEMOGRAM ONLY) 2020-05-13 05:01:00 [facility]guicho [facility] APTT 2020-05-12 22:25:00 [facility] TROPONIN I 2020-05-12 15:40:00 [facility] APTT 2020-05-12 15:40:00 [facility] 2D ECHO W/ DOPPLER 2020-05-12 08:55:[address] [facility] [address] [facility] S [facility] (CW/PW/COLOR) [facility] SARS-COV2/RT-PCR ([facility] & 2020-05-12 08:53:00 [facility] TROPONIN I 2020-05-12 08:53:00 [facility] POTASSIUM 2020-05-12 08:53:00 [facility] Campus[facility] lindop [facility] MAGNESIUM 2020-05-12 08:53:00 [facility] lindop [facility] APTT 2020-05-12 07:34:00 [facility] XR CHEST 1 VIEW 2020-05-12 01:49:00 [facility] PORT[facility]/BEDSIDE [facility] ECG 12-LEAD 2020-05-12 01:39:58 Unknown, Hl7 Doctor [facility] ECG 12-LEAD 2020-05-12 01:39:24 Unknown, Hl7 Doctor [facility] COMPREHENSIVE METABOLIC 2020-05-12 01:12:00 [facility] TROPONIN I 2020-05-12 01:12:00 [facility] B-TYPE NATRIURETIC FACTOR 2020-05-12 01:12:00 [facility] Courtney [facility] (BNP) [facility] LACTIC ACID, VENOUS 2020-05-12 01:12:00 [facility] APTT 2020-05-12 01:12:00 [facility] HEPATIC FUNCTION PANEL 2020-05-12 01:12:00 [facility] CBC W/PLT COUNT & AUTO 2020-05-12 01:12:00 [facility] George [facility] Plan of Care Planned Activity Planned Date Details Comments Source Future Scheduled 2025-05-[address] [facility] - Test 00:00:00 (procedure) [code = [facility] [id number]] Future Scheduled 2020-07-[address] [facility] - Test 00:00:00 (#1) [code = [facility] INFLUENZA VACCINE (#1)] Future Scheduled [address] - Test 00:00:00 malignant neoplasm Medical C enter of colon (procedure) [code = [id number]] Encounters Start End Encounter Admission Attending Care Care Encounter Source Date/Time Date/Time Type Type Clinicians Facility Department ID 2013-10-03 2013-10-03 Outpatient RENAY BA [id number] 18:31:10 18:31:09 2013-07-06 2013-07-06 Outpatient MEJIA BA [id number] 18:23:12 18:22:52 Results Test Description Test [...] valves. Lab Interpretation (test code = Normal 56929-3) [facility]/[id number] 05:21:00 Test Item Value Reference Range Interpretation [...] INR is2.5-3.5 for patients wiht mechanical heart valves.[id number] 05:19:00 Test Item Value Reference Range Interpretation Comments PTT (test code = 87052-1) 81.3 22.5- 36.0 seconds H Lab Interpretation (test code = Abnormal 47928-2) [facility] 05:19:00 Test Item Value Reference Range Interpretation [...] 450 K/CU MM MPV (test code = 20811-8) 10.4 fL 9.4-12.4 nRBC (test code = 413) 0 0- 0 /100 WBC Lab Interpretation (test code = Abnormal 78529-9) [facility] ONLY)2020-05-19 05:06:00 Test Item Value Reference [...] WBC 0-0 (BEAKER) (test code = 413) [id number] 22:22:00 Test Item Value Reference Range Interpretation Comments PARTIAL THROMBOPLASTIN TIME 74.7 seconds 22.5-36.0 H (BEAKER) (test code = 760) [id number] 14:21:00 Test Item Value Reference Range Interpretation Comments PARTIAL THROMBOPLASTIN TIME 69.9 seconds 22.5-36.0 H (BEAKER) (test code = 760) PROTHROMBIN TIME/[id number] 06:52:00 Test Item Value Reference Range Interpretation [...] for patients wiht mechanical heart valves.Basic Metabolic [id number] 06:46:00 Test Item Value Reference Range Interpretation Comments Sodium (test code = 140 meq/L 250-420 0160-2) Potassium (test code = 4.4 meq/L 3.5-5.1 2823-3) Chloride (test code = 108 meq/L 98-107 H 2074-0) CO2 (test code = 23 meq/L -2027-9) BUN (test code = 14 mg/dL 7-21 3094-0) Creatinine (test code 1.12 mg/dL 0.57-1.25 = 2160-0) Glucose (test code = 112 mg/dL 70-105 H 2345-7) Calcium (test code = 9.4 mg/dL 8.4-10.2 08128-7) EGFR (test code = 83 mL/min/1.73 [place] [address]-9) NOT ACCURATE CREATININE CLEARANCE IN PREDICTING GLOMERULAR FILTRATION RATE . ESTIMATED GFR I S NOT APPLICABLE FOR DIALYSIS PATIENTS. TOBY (test code = TOBY) Nipple Maker SAMUEL POSEY L Lab Interpretation Abnormal (test code = 03054-5) [facility] METABOLIC [id number] 06:46:00 Test Item Value Reference Range Interpretation [...] S NOT APPLICABLE FOR DIALYSIS PATIEN TS. Nipple Maker ID Xiang POSEY [id number] 06:34:00 Test Item Value Reference Range Interpretation [...] (BEAKER) (test code = 413) MR, CARDIAC, [id number] 10:15:00Anesthesia:->NoneFINAL REPORT Cardiac MRI dated 16-May-20 INDICATION: This is a 55 year-old mal e with cardiomyopathy presents for assessment. This also a concern for left ventricular thrombus. TECHNIQUE: Christophe [employer] MRI scanner. Morphologic and dynamic cine imaging [...] Other findings as described above. Signed: [facility] [place] Verified Date/Time: 05/17/2020 10:15:01 Reading Location: [facility] P027 CT Reading Room MR cardiac without & [...] to the contrast sheet scanned in the [employer] system for the amount and route of [...] MDReport Verified Date/Time: 05/17/2020 10:15:01 Reading Location: [place] [address] [address] Reading [facility] [id number] 05:35:00 Test Item Value Reference Range Interpretation Comments Protein, Total (test code 7.0 6.0- 8.3 gm/dL = 2885-2) Albumin (test code = 3.4 g/dL 3.5-5 L 70363-7) Total Bilirubin (test code 0.5 mg/dL 0.2-1.2 = 1974-2) Bilirubin, Direct (test 0.3 mg/dL 0.1-0.5 code = 1967-7) Alkaline Phosphatase (test 129 U/L 40-150 code = 6768-6) AST (test code = 1920-8) 37 U/L 5-34 H ALT (test code = 1742-6) 48 U/L 6-55 TOBY (test code = TOBY) Nipple Maker ID - KALPESH L Lab Interpretation (test Abnormal code = 51472-6) [facility]2020-[facility]-21 05:35:00 Test Item Value Reference Range Interpretation Comments Magnesium (test code = 1.6 mg/dL 1.6-2.6 25009-2) TOBY (test code = TOBY) Nipple Maker ID - KALPESH L Lab Interpretation (test Normal code = 03608-5) [facility]2020-06-21 05:35:00 Test Item Value Reference Range Interpretation Comments MAGNESIUM (BEAKER) (test code = 1.6 mg/dL 1.6-2.6 627) Nipple Maker ID - KALPESH LBASIC METABOLIC [id number] 05:35:00 Test Item Value Reference Range Interpretation [...] S NOT APPLICABLE FOR DIALYSIS PATIEN TS. Nipple Maker ID - PIAYA LHEPATIC FUNCTION [id number] 05:35:00 Test Item Value Reference Range Interpretation [...] (test code = 48 U/L 6-55 347) Nipple Maker SAMUEL ORTIZ2020-06-21 05:02:00 Test Item Value Reference Range Interpretation [...] WBC 0-0 (BEAKER) (test code = 413) [id number] 13:44:00 Test Item Value Reference Range Interpretation Comments PARTIAL THROMBOPLASTIN TIME 67.5 seconds 22.5-36.0 H (BEAKER) (test code = 760) [id number] 07:07:00 Test Item Value Reference Range Interpretation Comments MAGNESIUM (BEAKER) (test code = 1.8 mg/dL 1.6-2.6 627) Nipple Maker ID - DBBASIC METABOLIC [id number] 07:07:00 Test Item Value Reference Range Interpretation [...] S NOT APPLICABLE FOR DIALYSIS PATIEN TS. Nipple Maker ID - DBHEPATIC FUNCTION [id number] 07:07:00 Test Item Value Reference Range Interpretation [...] (test code = 50 U/L 6-55 347) Nipple Maker ID - [id number] 06:17:00 Test Item Value Reference Range Interpretation [...] WBC 0-0 (BEAKER) (test code = 413) [id number] 21:07:00 Test Item Value Reference Range Interpretation Comments PARTIAL THROMBOPLASTIN TIME 97.2 seconds 22.5-36.0 H (BEAKER) (test code = 760) [id number] 13:45:00 Test Item Value Reference Range Interpretation Comments PARTIAL THROMBOPLASTIN TIME 66.1 seconds 22.5-36.0 H (BEAKER) (test code = 760) Lipid [id number] 08:41:00 Test Item Value Reference Range Interpretation Comments Triglycerides (test 54 mg/dL Specimen code = 2571-8) slightly hemolyzed Cholesterol (test 97 mg/dL Specimen code = 2093-3) slightly hemolyzed HDL (test code = 31 mg/dL 2085-07) LDL Calculated (test 55 mg/dL code = 44273-0) TOBY (test code = Triglyceride TOBY) Reference Range: Low Risk <150 Borderline 150-199 High Risk 200-499 Very High Risk >=500 Cholesterol Reference Range: Low Risk <200 Borderline 200-239 High Risk >240 HDL Cholesterol Reference Range: Low Risk >=60 High Risk <40 LDL Cholesterol Reference Range: Optimal <100 Near Optimal 100-129 Borderline 130-159 High 160-189 Very High >=190 Nipple Maker ID - AAHAMID [facility] 08:41:00 Test Item Value Reference Range Interpretation Comments MAGNESIUM (BEAKER) 1.7 mg/dL 1.6-2.6 Specimen slightly (test code = 627) hemolyzed Nipple Maker ID - AAHAMIDBASIC METABOLIC [id number] 08:41:00 Test Item Value Reference Range Interpretation [...] S NOT APPLICABLE FOR DIALYSIS PATIEN TS. Nipple Maker ID - AAHAMIDLIPID [id number] 08:41:00 Test Item Value Reference Range Interpretation [...] Borderline 130-159 High 160-189 Very High >=190 Nipple Maker ID - AAHAMIDHEPATIC FUNCTION [id number] 08:41:00 Test Item Value Reference Range Interpretation [...] Specimen slightly (test code = 347) hemolyzed Nipple Maker ID - AAHAMIDHemoglobin [id number] 07:06:00 Test Item Value Reference Range Interpretation Comments Hemoglobin A1C (test code = 4548-4) 6.1 % 4.3-6.1 Lab Interpretation (test code = Normal 13291-7) [facility]MO[facility] [id number] 07:06:00 Test Item Value Reference Range Interpretation Comments HEMOGLOBIN A1C (BEAKER) (test code = 6.1 % 4.3-6.1 368) [id number] 06:13:00 Test Item Value Reference Range Interpretation [...] WBC 0-0 (BEAKER) (test code = 413) [id number] 22:40:00 Test Item Value Reference Range Interpretation Comments PARTIAL THROMBOPLASTIN TIME 63.8 seconds 22.5-36.0 H (BEAKER) (test code = 760) TSH/Free T4 If [id number] 16:53:00 Test Item Value Reference Range Interpretation Comments TSH (test code = 74915-0) 4.124 0.350- 4.940 uIU/mL TOBY (test code = TOBY) Nipple Maker ID - BS Lab Interpretation (test Normal code = 51551-5) [facility]SH[facility]FREE T4 IF [id number] 16:53:00 Test Item Value Reference Range Interpretation Comments THYROID STIMULATING HORMONE 4.124 uIU/mL 0.350-4.940 (BEAKER) (test code = 772) Nipple Maker ID - [id number] 07:00:00 Test Item Value Reference Range Interpretation Comments MAGNESIUM (BEAKER) (test code = 1.8 mg/dL 1.6-2.6 627) Nipple Maker ID - DEON CBASIC METABOLIC [id number] 07:00:00 Test Item Value Reference Range Interpretation [...] S NOT APPLICABLE FOR DIALYSIS PATIEN TS. Nipple Maker ID - NOV CCBC (HEMOGRAM ONLY)2020-05-14 06:14:00 Test Item Value [...] WBC 0-0 (BEAKER) (test code = 413) [id number] 05:46:00 Test Item Value Reference Range Interpretation Comments MAGNESIUM (BEAKER) 2.0 mg/dL 1.6-2.6 Specimen slightly (test code = 627) hemolyzed Nipple Maker ID - PIAYA LBASIC METABOLIC [id number] 05:46:00 Test Item Value Reference Range Interpretation [...] S NOT APPLICABLE FOR DIALYSIS PATIEN TS. Nipple Maker ID - PIAYA LCBC (HEMOGRAM ONLY)2020-05-13 05:21:00 [...] WBC 0-0 (BEAKER) (test code = 413) [id number] 22:47:00 Test Item Value Reference Range Interpretation Comments PARTIAL THROMBOPLASTIN TIME 91.2 seconds 22.5-36.0 H (BEAKER) (test code = 760) Troponin [id number] 16:46:00 Test Item Value Reference Range Interpretation Comments Troponin I (test code = 3.14 ng/mL 0-0.03 43493-9) TOBY (test code = TOBY) Troponin I [...] BS Lab Interpretation (test Abnormal code = 48902-7) [facility]OP[facility] [id number] 16:46:00 Test Item Value Reference Range Interpretation [...] failure, acidosis, acute neurological disease, and persistent tachyarrhythmia.Nipple Maker ID - [id number] 16:16:00 Test Item Value Reference Range Interpretation Comments PARTIAL THROMBOPLASTIN TIME 89.0 seconds 22.5-36.0 H (NAPOLEON) (test code = 760) Transthoracic 2D echo w/ doppler (cw/pw/color)2020-05-12 13:39:24Ejection FractionSLEH ECHO HEARTLAB MKCKESSON CPACSInterface, External Ris In - 05/12/2020 1:39 PM CDTTransthoracic Echocardiography Report (TTE) Demographics Patient Name ALIDA SHER Date of Study 05/12/2020 Gender Male Visit Number [id number] Race Black Room Number [id number] Number Date of 1965 Referring Physician MD George Louis FELAge 55 year(s) 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 The LVEF was measured using Sim son's bi-plane method of disk . LV [...] TR Velocity: 3.14 m/s TR Gradient: 39.55 mmHgAdventist Health TehachapiECG 12 [id number] 12:32:06Interface, External Ris In - 05/12/2020 12:32 PM CDTVentricular Rate 86 BPMAtrial Rate 86 BPMP-R Interval 144 msQRS Duration 88 msQ-T Interval 450 msQTC Calculation(Bazett) 538 msP Covina 64 degreesR Covina -13 degreesT [place] 129 degreesNormal sinus rhythmBiatrial enlargementPossible Anterior infarct , age undeterminedT wave inversion lateral leads consider postischemic changesProlonged QTAbnormal ECGNo previous ECGs availableConfirmed by MD MAGUE, SACHIN ([id number]) on 05/12/2020 12:32:03 [facility] SARS-CoV2/RT-PCR (Asymptomatic ONLY)2020-05-12 11:41:00 Test Item Value Reference Range Interpretation Comments SARS-COV2/RT-PCR Not Detected Not Detected, (test code = Negative 38545-7) SARS-COV-2 [facility] PERFORMING LAB (test code = 03032-9) TOBY (test code = Negative results do [...] of the Act. Fact Sheet for Healthcare Providers:https://www.[employer]/Documents/Xper t%20Xpress%20SARS%20CoV- 2/Fact%20Sheets/302-3802 %88XLSN-KAB-5%20HEALTHCA RE%20PROVIDERS%20FACT%20 SHEET.pdf Fact Sheet for Healthcare Patients:https://www.[employer]/Documents/Xpert %20Xpress%20SARS%20CoV-2 /Fact%20Sheets/302-3801% 42SJIJ-NRJ-7%20PATIENT%2 0FACT%20SHEET.pdf Performing Laboratory:[facility], [place] [address] [place], [place] [address]ARS-COV2/RT-PCR ([facility] & REF LABS)2020-05-12 11:41:00 Test Item Value Reference Range Interpretation Comments SARS-COV2/RT-PCR (test Not Detected Not Detected, Negative code = 8716249) SARS-COV-2 PERFORMING LAB [facility] (test code = 3018877) Negative results do not preclude SARS-CoV-2 infection [...] of the Act.Fact Sheet for Healthcare Pro viders:https://www.[employer]/Documents/Xpert%20Xpress%20SARS%20CoV-2/Fact%20Sh eets/302-3802%53PGPQ-MMY-1%20HEALTHCARE%20PROVIDERS%20FACT%20SHEET.pdfFact Sheet for Healthcare Patients:[email or web address]%20CoV-[email or web address]/Fact%[email or web address]-COV -2%20PATIENT%20FACT%20SHEET.pdfPerforming Laboratory:[facility], [place] [id number] 09:59:00 Test Item Value Reference Range Interpretation [...] failure, acidosis, acute neurological disease, and persistent tachyarrhythmia.Nipple Maker ID - ROBERT FPotassium 2020-05-12 09:50:00 Test Item Value Reference Range Interpretation Comments Potassium (test code = 3.6 meq/L 3.5-5.1 2823-3) TOBY (test code = TOBY) Nipple Maker ID - ROBERT F Lab Interpretation (test Normal code = 17336-1) [facility] 09:[facility]00 Test Item Value Reference Range Interpretation Comments POTASSIUM (BEAKER) (test code = 3.6 meq/L 3.5-5.1 379) Nipple Maker ID Xiang JONES [id number] 09:50:00 Test Item Value Reference Range Interpretation Comments MAGNESIUM (BEAKER) (test code = 1.7 mg/dL 1.6-2.6 627) Nipple Maker ID - ROBERT [id number] 08:06:00 Test Item Value Reference Range Interpretation Comments PARTIAL THROMBOPLASTIN TIME 58.6 seconds 22.5-36.0 H (BEAKER) (test code = 760) HEPATIC FUNCTION [id number] 02:41:00 Test Item Value Reference Range Interpretation [...] Specimen slightly (test code = 347) hemolyzed Nipple Maker ID - ECHO WOperator ID - STARR MTROPONIN [id number] 02:12:00 Test Item Value Reference Range Interpretation Comments TROPONIN I (BEAKER) (test code = 4.47 ng/mL 0.00-0.03 397) Troponin I (TnI) levels [...] failure, acidosis, acute neurological disease, and persistent tachyarrhythmia.Nipple Maker ID - ECHO ACE, CHEST, 1 VIEW, NON [id number] 02:04:00Reason for exam:->sobShould this be performed at the bedside?->YesFINAL REPORT Chest, 1 view. History: Shortness of breath. Comparison: None available. IMPRESSION: Low lung volumes. Minimal bibasilar atelectasis. No pleural effusion or pneumothorax. Prominence of interstitial lung markings favored to be related to technique. No lobar consolidation. Osseous structures are grossly unremarkable. Signed: Stanley Tucker Verified Date/Time: 05/12/2020 02:04:12 XR chest 1 view portable / [id number] 02:04:00Interface, External Ris In - 05/12/2020 2:06 AM CDTFINAL REPORT Chest, 1 view. History: Shortness of breath. Comparison: None available. IMPRESSION: Low lung volumes. Minimal bibasilar atelectasis. No pleural effusion or pneumothorax. Prominence of interstitial lung markings favored to be related to technique. No lobar consolidation. Osseous structures are grossly unremarkable. Signed: Stanley Tucker Verified Date/Time: 05/12/2020 02:04:12 Electronically si gned by: STANLEY TUCKER MD on 05/12/2020 02:04 [facility] [id number] 02:03:00 Test Item Value Reference Range Interpretation Comments Protein, Total (test 7.0 6.0- 8.3 gm/dL Speci men slightly code = 2885-2) hemolyzed Albumin (test code = 3.4 g/dL 3.5-5 L Specime n slightly 41549-1) hemolyzed Alkaline Phosphatase 113 U/L 40-150 (test code = 6768-6) Total Bilirubin (test 0.9 mg/dL 0.2-1.2 Specim en slightly code = 1975-2) hemolyzed Sodium (test code = 142 meq/L 463-422 5131-2) Potassium (test code = 4.0 meq/L 3.5-5.1 Speci men slightly 2823-3) hemolyzed Chloride (test code = 103 meq/L 98-107 5-0) CO2 (test code = 26 meq/L 22-29 2027-9) BUN (test code = 21 mg/dL 7-21 3094-0) Creatinine (test code 1.39 mg/dL 0.57-1.25 H Specim en slightly = 2160-0) hemolyzed Glucose (test code = 108 mg/dL 70-105 H 2345-7) Calcium (test code = 8.8 mg/dL 8.4-10.2 28076-0) AST (test code = 70 U/L 5-34 H Specimen sl ightly 1920-8) hemolyzed ALT (test code = 105 U/L 6-55 H Specimen sl ightly 1742-6) hemolyzed EGFR (test code = 65 mL/min/1.73 [place] [address]-9) NOT ACCURATE CREATININE CLEARANCE IN PREDICTING GLOMERULAR FILTRATION RATE . ESTIMATED GFR I S NOT APPLICABLE FOR DIALYSIS PATIENTS. TOBY (test code = TOBY) Nipple Maker ID - ECHO W Lab Interpretation Abnormal (test code = 04661-1) [facility]PRE[facility] METABOL[facility] [id number] 02:03:00 Test Item Value Reference Range Interpretation [...] S NOT APPLICABLE FOR DIALYSIS PATIEN TS. Nipple Maker ID - ECHO WB-type natriuretic [id number] 01:57:00 Test Item Value Reference Range Interpretation Comments BNP (test code = 75237-9) 766 pg/mL 0-100 H TOBY (test code = TOBY) Nipple Maker ID - ECHO W Lab Interpretation (test Abnormal code = 00296-6) [facility] NATRIURETIC FACTOR (BNP)2020-05-12 01:57:00 Test Item Value Reference Range Interpretation Comments B-TYPE NATRIURETIC PEPTIDE (BEAKER) 766 pg/mL 0-100 H (test code = 700) Nipple Maker ID - ECHO WLactic acid, [id number] 01:47:00 Test Item Value Reference Range Interpretation Comments Lactate, Venous (test 0.98 mmol/L 0.5-2.2 Specim en code = 2872) slightly hemolyzed TOBY (test code = TOBY) Nipple Maker ID Xiang DODGE W Lab Interpretation Normal (test code = 73112-5) [facility], [id number] 01:47:00 Test Item Value Reference Range Interpretation Comments LACTATE BLOOD VENOUS 0.98 mmol/L 0.50-2.20 Specime n slightly (2) ([facility]) (test hemolyzed code = 2872) Nipple Maker ID - ECHO [id number] 01:41:00 Test Item Value Reference Range Interpretation Comments PARTIAL THROMBOPLASTIN TIME 44.5 seconds 22.5-36.0 H (BEAKER) (test code = 760) Prior to initiating heparinCBC with platelet count + automated [id number] 01:30:00 Test Item Value Reference Range Interpretation [...] 450 K/CU MM MPV (test code = 48099-0) 10.7 fL 9.4-12.4 nRBC (test code = [...] 2801) Lab Interpretation (test code = Abnormal 48658-3) [facility] W/PLT COUNT & AUTO [id number] 01:30:00 Test Item Value Reference Range Interpretation [...] % 0-1 PERCENT (BEAKER) (test code = 8717)
[2020-09-10 02:30] LABS: Protime INR 2.64
[2020-09-10 02:32] LABS: Absolute Lymphocytes (CBC) 2.2 K/uL (0.7-4.9); Basophils % 0.9 % (0-1.3); Hematocrit 40.8 % (39.6-49.0); MPV 8.1 fL (7.6-11.3); RBC Red Blood Cell Count 4.55 M/uL (4.33-5.43)
[2020-09-10] MEDS ORDERED: MORPHINE 2 MG/ML SYR ONE (02:36)
[2020-09-10] MEDS ORDERED: ONDANSETRON 4 MG/2 ML VIAL ONE (02:36)
[2020-09-10 03:43] LABS: ALT/SGPT 32 U/L (12-78); Alkaline Phosphatase 103 U/L (45-117); BUN Blood Urea Nitrogen 21 mg/dL (7-18); Bicarbonate 28 mmol/L (21-32); Bilirubin Direct < 0.1 mg/dL (0-0.2); Bilirubin Total 0.3 mg/dL (0.2-1.0); Glucose Level 113 mg/dL (74-106); NT PRO-BNP 50 pg/mL (<125); Protein, Total 7.8 g/dL (6.4-8.2); Sodium Level 141 mmol/L (136-145); Troponin (Emerg Dept Use Only) < 0.02 ng/mL (0.0-0.045)
[2020-09-10 03:44] LABS: AST/SGOT 24 U/L (15-37); Potassium 4.5 mmol/L (3.5-5.1)
[2020-09-10 03:45] LABS: Magnesium 2.1 mg/dL (1.8-2.4)
--- NOTE | 2020-09-10 04:16 | EDPHYS ---
Physician Documentation [facility] Name: Chito Alfonso Age: 55 yrs Sex: Male : 1965 Arrival Date: 09/10/2020 Time: 01:48 Bed 3 Private MD: ED Physician Juan Manuel Elizalde HPI: 09/10 02:43 This 55 yrs old Black Male presents to ER via Ambulatory with complaints of Chest pain. mh7 Numbness Of Hand. 02:43 The patient or guardian reports chest pain that is located primarily in the anterior mh7 chest wall, left. Onset: just prior to arrival, today. The pain radiates to the left arm. Associated signs and symptoms: Pertinent positives: lightheadedness, shortness of breath, Pertinent negatives: abdominal pain, cough, diaphoresis, dizziness, headache, lower extremity pain, lower extremity swelling, nausea, near syncope, palpitations, recent travel, syncope, vomiting. The chest pain is described as a heaviness. Duration: The patient or guardian reports multiple episodes, that are intermittent, that wax and wane, with no pattern. Modifying factors: The symptoms are alleviated by nothing. the symptoms are aggravated by nothing. Severity of pain: At its worst the pain was moderate today, in the emergency department the pain has improved moderately. Historical: - Allergies: 02:03 No Known Allergies; sg - Home Meds: 02:03 carvedilol 12.5 mg Oral tab 1 tab every 12 hours [Active]; Entresto 24-26 mg Oral tab sg twice a day [Active]; pravastatin 40 mg Oral tab 1 tab once daily [Active]; spironolactone 25 mg Oral tab 1 tab once daily [Active]; warfarin 5 mg Oral tab 1 tab once daily [Active]; - PMHx: 02:03 Atrial Fib; CHF; Cholecystitis; Hypertension; kidney stenting; Kidney stones; sg Myocardial infarction; PULMONARY HYPERTENSION; renal insufficiency; Sleep Apnea; splenic infarct; - Immunization history:: Adult Immunizations up to date. - Social history:: Smoking status: Patient denies any tobacco usage or history of. ROS: 02:43 Constitutional: Negative for fever, chills, and weight loss, Eyes: Negative for injury, mh7 pain, redness, and discharge, ENT: Negative for injury, pain, and discharge, Neck: Negative for injury, pain, and swelling, Abdomen/GI: Negative for abdominal pain, nausea, vomiting, diarrhea, and constipation, Back: Negative for injury and pain, : Negative for injury, bleeding, discharge, and swelling, Skin: Negative for injury, rash, and discoloration, Neuro: Negative for headache, weakness, numbness, tingling, and seizure, Psych: Negative for depression, anxiety, suicide ideation, homicidal ideation, and hallucinations, Allergy/Immunology: Negative for hives, rash, and allergies, Endocrine: Negative for neck swelling, polydipsia, polyuria, polyphagia, and marked weight changes, Hematologic/Lymphatic: Negative for swollen nodes, abnormal bleeding, and unusual bruising. Exam: 02:43 Constitutional: This is a well developed, well nourished patient who is awake, alert, mh7 and in no acute distress. Head/Face: Normocephalic, atraumatic. Eyes: Pupils equal round and reactive to light, extra-ocular motions intact. Lids and lashes normal. Conjunctiva and sclera are non-icteric and not injected. Cornea within normal limits. Periorbital areas with no swelling, redness, or edema. Neck: Trachea midline, no thyromegaly or masses palpated, and no cervical lymphadenopathy. Supple, full range of motion without nuchal rigidity, or vertebral point tenderness. No Meningismus. Chest/axilla: Normal chest wall appearance and motion. Nontender with no deformity. No lesions are appreciated. Cardiovascular: Regular rate and rhythm with a normal S1 and S2. No gallops, murmurs, or rubs. Normal PMI, no JVD. No pulse deficits. Respiratory: Lungs have equal breath sounds bilaterally, clear to auscultation and percussion. No rales, rhonchi or wheezes noted. No increased work of breathing, no retractions or nasal flaring. Abdomen/GI: Soft, non-tender, with normal bowel sounds. No distension or tympany. No guarding or rebound. No evidence of tenderness throughout. Back: No spinal tenderness. No costovertebral tenderness. Full range of motion. Skin: Warm, dry with normal turgor. Normal color with no rashes, no lesions, and no evidence of cellulitis. MS/ Extremity: Pulses equal, no cyanosis. Neurovascular intact. Full, normal range of motion. Neuro: Awake and alert, GCS 15, oriented to person, place, time, and situation. Cranial nerves II-XII grossly intact. Motor strength 5/5 in all extremities. Sensory grossly intact. Cerebellar exam normal. Normal gait. Psych: Awake, alert, with orientation to person, place and time. Behavior, mood, and affect are within normal limits. Vital Signs: 02:00 BP 143 / 83; Pulse 63; Resp 18; Temp 98.3; Pulse Ox 100% on R/A; Weight 88 kg; Height 5 wh ft. 9 in. (175.26 cm); 02:37 BP 145 / 82; Pulse 63; Resp 16; Pulse Ox 98% on R/A; wh 03:35 BP 131 / 72; Pulse 61; Resp 18; Pulse Ox 98% on R/A; wh 04:57 BP 137 / 80; Pulse 62; Resp 16; Pulse Ox 100% on R/A; wh 02:00 Body Mass Index 28.65 (88.00 kg, 175.26 cm) MDM: 02:18 Patient medically screened. [facility] 04:12 Differential diagnosis: acute myocardial infarction, acute pericarditis, anxiety, [facility] coronary artery disease chest wall pain, congestive heart failure myocarditis, pericarditis, pneumonia. HEART Score: History: Highly Suspicious (2), ECG: Non specific repolarization disturbance / LBTB / PM (1), Age: > 45 and < 65 years (1), Risk Factors: 1 or 2 risk factors (1), [Hypertension] Troponin: < or = 1 x Normal Limit (0), Total Score = 4. Data reviewed: vital signs, nurses notes, old medical records, lab test result(s), cardiac enzymes, CBC, electrolytes, urinalysis, EKG, radiologic studies, plain films. Data interpreted: Pulse oximetry: on room air is 98 %. Interpretation: normal. Counseling: I had a detailed discussion with the patient and/or guardian regarding: the historical points, exam findings, and any diagnostic results supporting the discharge/admit diagnosis, the presence of at least one elevated blood pressure reading (>120/80) during this emergency department visit, lab results, radiology results, the need for further work-up and treatment in the hospital. 09/10 02:14 Order name: Basic Metabolic Panel sg 09/10 02:14 Order name: CBC with Diff sg 09/10 02:14 Order name: LFT's sg 09/10 02:14 Order name: Magnesium sg 09/10 02:14 Order name: NT PRO-BNP sg 09/10 02:14 Order name: PT-INR sg 09/10 02:14 Order name: Troponin (emerg Dept Use Only) sg 09/10 02:43 Order name: CBC with Automated Diff EDMS 09/10 02:44 Order name: Protime (+INR); Complete Time: 02:49 EDMS 09/10 03:45 Order name: Basic Metabolic Panel; Complete Time: 03:48 EDMS 09/10 03:45 Order name: Liver (Hepatic) Function; Complete Time: 03:48 EDMS 09/10 03:45 Order name: Troponin (Emerg Dept Use Only); Complete Time: 03:48 EDMS 09/10 03:45 Order name: NT PRO-BNP; Complete Time: 03:48 EDMS 09/10 03:45 Order name: Magnesium; Complete Time: 03:48 EDMS 09/10 02:03 Order name: EKG; Complete Time: 02:04 sg 09/10 02:14 Order name: XRAY Chest (1 view) 09/10 02:14 Order name: Cardiac monitoring; Complete Time: 02:18 sg 09/10 02:14 Order name: IV Saline Lock; Complete Time: 02:18 sg 09/10 02:14 Order name: Labs collected and sent; Complete Time: 02:18 sg 09/10 02:14 Order name: O2 Per Protocol; Complete Time: 02:18 sg 09/10 02:14 Order name: O2 Sat Monitoring; Complete Time: 02:18 09/10 04:18 Order name: Manual Differential EDLA 09/10 05:13 Order name: COVID-19 rv Administered Medications: 02:27 Drug: morphine 2 mg {Note: RASS 0.} Route: IVP; Site: right antecubital; 04:58 Follow up: Response: No adverse reaction; Pain is decreased; RASS: Alert and Calm (0) 02:29 Drug: Zofran (Ondansetron) 4 mg Route: IVP; Site: right antecubital; 04:58 Follow up: Response: No adverse reaction; Nausea is decreased Disposition: 09/10/20 04:15 Hospitalization ordered by Abbe Hernandez for Observation. Preliminary diagnosis is Chest pain, unspecified. - Bed requested for Telemetry/MedSurg (observation). - Status is Observation. - Condition is Stable. - Problem is new. - Symptoms have improved. Signatures: Dispatcher [employer] EDJaya Romo, RN RN Alexus Philip RN RN Randal Amador Juan Manuel Elizalde MD MD mh7 Corrections: (The following items were deleted from the chart) 04:50 04:15 Hospitalization Ordered by Abbe Hernandez DO for Observation. Preliminary diagnosis is Chest pain, unspecified. Bed requested for Telemetry/MedSurg (observation). Status is Observation. Condition is Stable. Problem is new. Symptoms have improved. mh7 05:22 04:50 09/10/2020 04:15 Hospitalization Ordered by Abbe Hernandez DO for Observation. Preliminary diagnosis is Chest pain, unspecified. Bed requested for Telemetry/MedSurg (observation). Status is Observation. Condition is Stable. Problem is new. Symptoms have improved.
--- NOTE | 2020-09-10 04:16 | ER ---
Nurse's Notes [facility] Name: Chito Alfonso Age: 55 yrs Sex: Male : 1965 Arrival Date: 09/10/2020 Time: 01:48 Bed 3 Private MD: Diagnosis: Chest pain, unspecified Presentation: 09/10 01:57 Chief complaint: Patient states: Chest pain, left sided radiating to the left hand, sg reports numbness in the left hand that began 40 mins MAT CUTTER with the chest pain, reports blurred vision that began 40 mins ago MAT CUTTER, no other symptoms reported at this time. Coronavirus screen: Client denies travel out of the [place] in the last 14 days. At this time, the client does not indicate any symptoms associated with coronavirus-19. Ebola Screen: Patient negative for fever greater than or equal to 101.5 degrees Fahrenheit, and additional compatible Ebola Virus Disease symptoms Patient denies exposure to infectious person. Patient denies travel to an Ebola-affected area in the 21 days before illness onset. No symptoms or risks identified at this time. Initial Sepsis Screen: Does the patient meet any 2 criteria? No. Patient's initial sepsis screen is negative. Does the patient have a suspected source of infection? No. Patient's initial sepsis screen is negative. Risk Assessment: Do you want to hurt yourself or someone else? Patient reports no desire to harm self or others. Onset of symptoms was September 10, 2020. Care prior to arrival: None. Activity prior to arrival: None. Mechanism of Injury: No Mechanism of Injury. Transition of care: patient was not received from another setting of care. 01:57 Method Of Arrival: Ambulatory sg 01:57 Acuity: MARK 2 sg Historical: - Allergies: 02:03 No Known Allergies; sg - Home Meds: 02:03 carvedilol 12.5 mg Oral tab 1 tab every 12 hours [Active]; Entresto 24-26 mg Oral tab sg twice a day [Active]; pravastatin 40 mg Oral tab 1 tab once daily [Active]; spironolactone 25 mg Oral tab 1 tab once daily [Active]; warfarin 5 mg Oral tab 1 tab once daily [Active]; - PMHx: 02:03 Atrial Fib; CHF; Cholecystitis; Hypertension; kidney stenting; Kidney stones; sg Myocardial infarction; PULMONARY HYPERTENSION; renal insufficiency; Sleep Apnea; splenic infarct; - Immunization history:: Adult Immunizations up to date. - Social history:: Smoking status: Patient denies any tobacco usage or history of. Screenin:37 Abuse screen: Denies threats or abuse. Denies injuries from another. Nutritional wh screening: No deficits noted. Tuberculosis screening: No symptoms or risk factors identified. Fall Risk None identified. Assessment: 02:36 General: Appears in no apparent distress. Behavior is calm, cooperative, appropriate wh for age. Pain: Complains of pain in left lateral anterior chest Pain radiates to left arm Pain currently is 7 out of 10 on a pain scale. Quality of pain is described as burning, Pain began 1 hour ago. Neuro: Level of Consciousness is awake, alert, obeys commands, Oriented to person, place, time, situation, Appropriate for age. Cardiovascular: Reports chest pain, Heart tones S1 S2 Rhythm is regular. Respiratory: Airway is patent Respiratory effort is even, unlabored, Respiratory pattern is regular, symmetrical, Breath sounds are clear bilaterally. GI: Abdomen is flat, non-distended. : No signs and/or symptoms were reported regarding the genitourinary system. EENT: No signs and/or symptoms were reported regarding the EENT system. Derm: Skin is intact, is healthy with good turgor, Skin is pink, warm \T\ dry. normal. Musculoskeletal: Circulation, motion, and sensation intact. 04:00 Reassessment: Patient appears in no apparent distress at this time. No changes from previously documented assessment. Patient and/or family updated on plan of care and expected duration. Pain level reassessed. Patient is alert, oriented x 3, equal unlabored respirations, skin warm/dry/pink. 04:45 Reassessment: Provider at bedside explaining POC need for admit. Vital Signs: 02:00 BP 143 / 83; Pulse 63; Resp 18; Temp 98.3; Pulse Ox 100% on R/A; Weight 88 kg; Height 5 wh ft. 9 in. (175.26 cm); 02:37 BP 145 / 82; Pulse 63; Resp 16; Pulse Ox 98% on R/A; wh 03:35 BP 131 / 72; Pulse 61; Resp 18; Pulse Ox 98% on R/A; wh 04:57 BP 137 / 80; Pulse 62; Resp 16; Pulse Ox 100% on R/A; 02:00 Body Mass Index 28.65 (88.00 kg, 175.26 cm) ED Course: 01:48 Patient arrived in ED. cl3 01:57 Arm band placed on. sg 01:58 Juan Manuel Elizalde MD is Attending Physician. [facility] 02:02 Triage completed. 02:15 Brett Leo, RN is Primary Nurse. rv 02:15 Inserted saline lock: 20 gauge in right antecubital area, using aseptic technique. Blood collected. 02:38 Patient has correct armband on for positive identification. Bed in low position. Call light in reach. Side rails up X 1. monitoring manager on. Pulse ox on. NIBP on. 04:15 Abbe Hernandez DO is Hospitalizing Provider. [facility] 05:13 No provider procedures requiring assistance completed. IV is patent, with fluids rv infusing freely, Administered Medications: 02:27 Drug: morphine 2 mg {Note: RASS 0.} Route: IVP; Site: right antecubital; 04:58 Follow up: Response: No adverse reaction; Pain is decreased; RASS: Alert and Calm (0) 02:29 Drug: Zofran (Ondansetron) 4 mg Route: IVP; Site: right antecubital; 04:58 Follow up: Response: No adverse reaction; Nausea is decreased Outcome: 04:15 Decision to Hospitalize by Provider. [facility] 05:14 Admitted to Med/surg accompanied by tech, via wheelchair, room 222, Other sbar, ekg rv Report called to NATHAN CHENG 05:14 Condition: good 05:14 Instructed on the need for admit. 05:22 Patient left the ED. Signatures: Jaya Santos, RN RN Randal Amador Brett Leo, PROSPER RN Madhav Myers cl3 Juan Manuel Elizalde MD MD [facility]
[2020-09-10 04:17] LABS: Blood Morphology Comment NOT SEEN (NOT SEEN); Platelet Estimate ADEQ
--- NOTE | 2020-09-10 04:52 | P.HP ---
Certification for Inpatient Patient admitted to: Observation With expected LOS: <2 Midnights Patient will require the following post-hospital care: None Practitioner: I am a practitioner with admitting privileges, knowledge of patient current condition, hospital course, and medical plan of care. Services: Services provided to patient in accordance with Admission requirements found in Title 42 Section 412.3 of the Code of Federal Regulations <Dilip Saez - Last Filed: 09/10/20 04:45> Patient admitted to: Observation <Abbe Hernandez - Last Filed: 09/10/20 08:08> Patient History Date of Service: 09/10/20 Primary Care Provider: Wanda, Cardiology: Dr. Scott Reason for admission: Chest pain History of Present Illness: 55-year-old male with history of paroxysmal atrial fibrillation, chronic systolic congestive heart failure, hypertension, hyper lipidemia presents emergency department for chest pain. Patient reports that he began having chest pain that awoke him from sleeping at approximately 1:00 a.m. this morning. Patient reports chest pain was pressure/stabbing like and radiated down his left arm causing some numbness. Patient denies shortness of breath, nausea, diaphoresis at that time. Patient was here in April of this year and found to have ejection fraction of 9% and proceeded to go into cardiogenic shock and was transferred to [facility] in [place] for higher level of care. Patient was evaluated there, did not receive heart catheterization at that time. Patient has been seeing new court orderly Dr. Scott on a monthly basis since then, patient initial wore life vest for the 1st couple of months but since beginning o his ejection fraction has greatly improved. Patient reports last ejection fraction on the 24 of August was 38%. Patient's workup in the emergency department unremarkable, troponin, BNP, chest x-ray, EKG unremarkable. ED provider wishes to admit patient for further evaluation and management. When I saw the patient in the emergency department is awake, alert, orient x3. Chest pain has resolved at this time. Patient be admitted for further evaluation and management. - Past Medical/Surgical History Diabetic: No -: Hypertension -: Sleep Apnea -: Kidney stones -: Advanced systolic heart failure -: Paroxysmal atrial fibrillation -: Removal of soft palate,uvula, tonsils -: Removal of kidney stones -: surgery on right wrist- with Titanium plate Psychosocial/ Personal History: Patient lives at home with his son and is currently unemployed. - Social History Smoking Status: Never smoker Alcohol use: Yes CD- Drugs: No Caffeine use: Yes Place of Residence: Home <Dilip Saez - Last Filed: 09/10/20 04:45> Date of Service: 09/10/20 Home medications list reviewed: Yes - Past Medical/Surgical History -: Chronic systolic CHF -: Paroxysmally atrial fibrillation -: History of blood clot to the heart -: On chronic anti coagulation therapy - Family History Family History: Reviewed- Non-Contributory <Abbe Hernandez - Last Filed: 09/10/20 08:08> Allergies No Known Allergies Allergy (Verified 05/11/20 01:23) Home Medications: Aspirin [Aspirin EC 81 MG] 81 mg PO DAILY #30 tablet. 05/10/20 Spironolactone [Aldactone*] 25 mg PO DAILY #30 tab 05/10/20 Pantoprazole [Protonix Tab] 40 mg PO DAILY #30 tab 09/10/20 Sacubitril/Valsartan [Entresto 24 mg-26 mg Tablet] 1 tab PO BID 09/10/20 Warfarin Sodium [Coumadin*] 7.5 mg PO SEECOM 09/10/20 carvediloL [Coreg*] 12.5 mg PO TID 09/10/20 Review of Systems 10-point ROS is otherwise unremarkable Cardiovascular: Chest Pain <GianniDilip rodriguez - Last Filed: 09/10/20 04:45> Physical Examination - Physical Exam General: Alert, In no apparent distress HEENT: Atraumatic, PERRLA, Mucous membr. moist/pink Neck: Supple, 2+ carotid pulse no bruit, No LAD Respiratory: Clear to auscultation bilaterally, Normal air movement Cardiovascular: Regular rate/rhythm, Normal S1 S2 Gastrointestinal: Normal bowel sounds, No tenderness Musculoskeletal: No tenderness Integumentary: No rashes Neurological: Normal gait, Normal speech, Normal strength at 5/5 x4 extr, Normal tone, Normal affect - Studies Laboratory Data (last 24 hrs) 09/10/20 03:00: Sodium 141, Potassium 4.5, BUN 21 H, Creatinine 1.24, Glucose 113 H, Magnesium 2.1, Total Bilirubin 0.3, AST 24, ALT 32, Alkaline Phosphatase 103 09/10/20 02:15: PT 30.6 H, INR 2.64 09/10/20 02:15: WBC 5.4, Hgb 13.8, Hct 40.8, Plt Count 181 <Dilip Saez - Last Filed: 09/10/20 04:45> - Studies Laboratory Data (last 24 hrs) 09/10/20 03:00: Sodium 141, Potassium 4.5, BUN 21 H, Creatinine 1.24, Glucose 113 H, Magnesium 2.1, Total Bilirubin 0.3, AST 24, ALT 32, Alkaline Phosphatase 103 09/10/20 02:15: PT 30.6 H, INR 2.64 09/10/20 02:15: WBC 5.4, Hgb 13.8, Hct 40.8, Plt Count 181 <Abbe Hernandez - Last Filed: 09/10/20 08:08> Assessment and Plan - Plan Assessment Chest pain rule out ACS Chronic systolic congestive heart failure Hypertension Hyperlipidemia Plan Chest pain rule out ACS: Will monitor on telemetry, cardiology consult in place. Trend troponins. Continue patient's Coumadin for DVT prophylaxis. Appreciate further input from cardiology. Chronic systolic congestive heart failure: Previous ejection fraction in April was 9%, patient seeing court orderly in [place] Dr. Scott and began taking entrest, patient reports ejection fraction has improved to 38% on his last echocardiogram on 08/24/2020. Continue home medications. Hypertension: Continue home medications with hold parameters. Hyperlipidemia: Continue home medications. Discharge Plan: Home Plan to discharge in: 24 Hours - Advance Directives Does patient have a Living Will: No Does patient have a Durable POA for Healthcare: No - Code Status/Comfort Care Code Status Assessed: Yes (Patient is full code) Critical Care: No Time Spent Managing Pts Care (In Minutes): 55 <Dilip Saez - Last Filed: 09/10/20 04:45> - Plan Case discussed at length with nurse practitioner. Agree with plan of care. Case also discuss with cardiology. Please see discharge summary for details. <Abbe Hernandez - Last Filed: 09/10/20 08:08>
[2020-09-10 05:49] VITALS: BMI 28.6
[2020-09-10] MEDS ORDERED: ONDANSETRON 4 MG/2 ML VIAL IV PRN (05:51)
[2020-09-10] MEDS ORDERED: ACETAMINOPHEN 500 MG TAB PO PRN (05:51)
[2020-09-10] MEDS ORDERED: carvediloL 12.5 MG TAB PO SCH (06:00)
--- NOTE | 2020-09-10 07:04 | EKG ---
Test Date: 2020-09-10 Test Time: 01:55:23 Game Trapper: SWG MEASUREMENT RESULTS: Intervals: Rate: 67 NM: 160 QRSD: 88 QT: 408 QTc: 431 [place]: P: 76 NM: 160 QRS: 42 T: -35 INTERPRETIVE STATEMENTS: Normal sinus rhythm T wave abnormality, consider inferolateral ischemia Abnormal ECG Compared to ECG 05/10/2020 20:50:25 T-wave abnormality now present Possible ischemia now present Sinus tachycardia no longer present Atrial abnormality no longer present Myocardial infarct finding no longer present Electronically Signed On 09-10-20 07:03:26 CDT by Elliott Mack
[2020-09-10 07:08] LABS: CKMB Creatine Kinase MB < 1.0 ng/mL (0.3-3.6); Creatine Phosphokinase 185 U/L (39-308); Troponin I < 0.02 ng/mL (0.0-0.045)
--- NOTE | 2020-09-10 08:00 | P.DS ---
Admission Date: 09/10/20 Discharge Date: 09/10/20 Primary Care Provider: None, Cardiology: Dr. Scott Disposition: ROUTINE DISCHARGE Discharge Condition: GOOD Reason for Admission: Chest pain Consultations: Cardiology-Dr. Mack Procedures: Medical problem list: Atypical chest pain likely GERD related Chronic systolic congestive heart failure with prior ejection fraction 8% now around 38% Hypertension History of heart blood clot currently on Coumadin with possible underlying paroxysmally atrial fibrillation Brief History of Present Illness: 55-year-old male with history of paroxysmal atrial fibrillation, chronic systolic congestive heart failure, hypertension, hyperlipidemia presents emergency department for chest pain. Patient reports that he began having chest pain that awoke him from sleeping at approximately 1:00 a.m. this morning. Patient reports chest pain was pressure/stabbing like and radiated down his left arm causing some numbness. Patient denies shortness of breath, nausea, diaphoresis at that time. Patient reports chest pain occurred after he ate late last night. He admits eating a burger. He does not usually do this. Patient was here in April of this year and found to have ejection fraction of 9% and proceeded to go into cardiogenic shock and was transferred to [facility] in [place] for higher level of care. Patient reports that he had a heart catheterization at that time. Patient found to have a blood clot in his heart requiring anti coagulation therapy. He reports no significant stenosis to the arteries. Since that time patient is seen by cardiology in [place]- Dr. Scott. Most recent echocardiogram with cardiology showed improvement of his ejection fraction at about 38%. Patient admitted for further evaluation and treatment. Hospital Course: Patient presented with chest pain. Patient reports this likely occurred after eating a late dinner. Patient was admitted for further evaluation. Patient with multiple risk factors. Chest pain now resolved. Cardiac enzymes unremarkable. Cardiology evaluated patient. Cardiology suspects this is not cardiac in nature. This may be related to GERD. Cardiology recommends no further cardiac intervention at this time. At discharge patient will continue with Protonix 40 mg daily. GERD education provided. Recommend not to eat late at night. He will need to give himself at least 3-4 hr before going to bed after eating. Recommend [employer] diet. Patient with underlying cardiac disease with chronic systolic CHF. Patient was recently hospitalized and sent out to [place]. He was found to have an ejection fraction of 8% and ate blood clot to the heart. Paroxysmally atrial fibrillation was also noted. Patient has done well since his hospitalization in [place]. Patient reports having a heart catheterization done without significant stenosis. Most recently patient was seen by Cardiology. Echocardiogram shows improvement of ejection fraction around 38%. Patient reports that cardiology was considering a defibrillator but this is to be further addressed by cardiology. Patient has significantly improved. Patient will continue with a 1500 cc per day fluid restriction and low-salt diet. Recommend to monitor his weight daily. If his weight increases by more than 5 lb he is to contact cardiology for further evaluation. Patient does have a follow up here soon with cardiology. At discharge patient will continue with his current medications of aspirin 81 mg daily, carvedilol 12.5 mg 1 pill 3 times a day, Entresto 24/26 mg 1 pill twice daily, Aldactone 2 25 mg daily, and Coumadin 7.5 min as directed. Cardiology is monitoring INR every week. INR within therapeutic range. Recommend follow up with cardiology in 1-2 weeks to follow up this hospitalization. Vital Signs/Physical Exam: Temp Pulse Resp BP Pulse Ox 97.6 F 62 16 137/80 99 09/10/20 04:00 09/10/20 07:20 09/10/20 04:57 09/10/20 07:20 09/10/20 04:00 General: Alert, In no apparent distress, Oriented x3, Cooperative HEENT: Atraumatic Neck: Supple Respiratory: Clear to auscultation bilaterally, Normal air movement Cardiovascular: Normal pulses, Regular rate/rhythm Gastrointestinal: Normal bowel sounds, Soft and benign, Non-distended, No tenderness, No masses, No rebound, No guarding Musculoskeletal: No erythema, No tenderness, No warmth Integumentary: No tenderness/swelling, No erythema, No warmth, No cyanosis Neurological: Normal speech, Normal strength at 5/5 x4 extr, Normal tone, Normal affect Laboratory Data at Discharge: WBC 5.4 K/uL (4.3-10.9) 09/10/20 02:15 Hgb 13.8 g/dL (13.6-17.9) 09/10/20 02:15 Hct 40.8 % (39.6-49.0) 09/10/20 02:15 Plt Count 181 K/uL (152-406) 09/10/20 02:15 PT 30.6 SECONDS (9.5-12.5) H 09/10/20 02:15 INR 2.64 09/10/20 02:15 Sodium 141 mmol/L (136-145) 09/10/20 03:00 Potassium 4.5 mmol/L (3.5-5.1) 09/10/20 03:00 BUN 21 mg/dL (7-18) H 09/10/20 03:00 Creatinine 1.24 mg/dL (0.55-1.3) 09/10/20 03:00 Glucose 113 mg/dL (74-106) H 09/10/20 03:00 Magnesium 2.1 mg/dL (1.8-2.4) 09/10/20 03:00 Total Bilirubin 0.3 mg/dL (0.2-1.0) 09/10/20 03:00 AST 24 U/L (15-37) 09/10/20 03:00 ALT 32 U/L (12-78) 09/10/20 03:00 Alkaline Phosphatase 103 U/L (45-117) 09/10/20 03:00 Troponin I < 0.02 ng/mL (0.0-0.045) 09/10/20 06:22 Home Medications: Aspirin [Aspirin EC 81 MG] 81 mg PO DAILY #30 tablet. 05/10/20 Spironolactone [Aldactone*] 25 mg PO DAILY #30 tab 05/10/20 Pantoprazole [Protonix Tab] 40 mg PO DAILY #30 tab 09/10/20 Sacubitril/Valsartan [Entresto 24 mg-26 mg Tablet] 1 tab PO BID 09/10/20 Warfarin Sodium [Coumadin*] 7.5 mg PO SEECOM 09/10/20 carvediloL [Coreg*] 12.5 mg PO TID 09/10/20 New Medications: Pantoprazole [Protonix Tab] 40 mg PO DAILY #30 tab Patient Discharge Instructions: 1. Recommend to establish care locally with a PCP preferably Internal Medicine. 2. Patient presented with chest pain. Patient reports this likely occurred after eating a late dinner. Patient was admitted for further evaluation. Patient with multiple risk factors. Chest pain now resolved. Cardiac enzymes unremarkable. Cardiology evaluated patient. Cardiology suspects this is not cardiac in nature. This may be related to GERD. Cardiology recommends no further cardiac intervention at this time. At discharge patient will continue with Protonix 40 mg daily. GERD education provided. Recommend not to eat late at night. He will need to give himself at least 3-4 hr before going to bed after eating. Recommend [employer] diet. 3. Patient with underlying cardiac disease with chronic systolic CHF. Patient was recently hospitalized and sent out to [place]. He was found to have an ejection fraction of 8% and ate blood clot to the heart. Paroxysmally atrial fibrillation was also noted. Patient has done well since his hospitalization in [place]. Patient reports having a heart catheterization done without significant stenosis. Most recently patient was seen by Cardiology. Echocardiogram shows improvement of ejection fraction around 38%. Patient reports that cardiology was considering a defibrillator but this is to be further addressed by cardiology. Patient has significantly improved. Patient will continue with a 1500 cc per day fluid restriction and low-salt diet. Recommend to monitor his weight daily. If his weight increases by more than 5 lb he is to contact cardiology for further evaluation. Patient does have a follow up here soon with cardiology. At discharge patient will continue with his current medications of aspirin 81 mg daily, carvedilol 12.5 mg 1 pill 3 times a day, Entresto 24/26 mg 1 pill twice daily, Aldactone 2 25 mg daily, and Coumadin 7.5 min as directed. Cardiology is monitoring INR every week. INR within therapeutic range. Recommend follow up with cardiology in 1-2 weeks to follow up this hospitalization. Diet: AHA Activity: Ad kathya Time spent managing pt's care (in minutes): 55
[2020-09-10 08:35] VITALS: BP 122/71; TEMP 97.8
--- NOTE | 2020-09-10 08:51 | RAD REPORT ---
EXAM DESCRIPTION: RAD - Chest Single View - 09/10/2020 2:57 am CLINICAL HISTORY: CHEST PAIN Chest pain. COMPARISON: Chest Single View dated 08/12/2020; Chest Single View dated 05/10/2020; Chest Single View dated 05/05/2020; Chest Pa And Lat (2 Views) dated 11/28/2018 FINDINGS: Portable technique limits examination quality. The lungs are grossly clear. The heart is normal in size. No displaced fractures. IMPRESSION: No acute intrathoracic process suspected.
[2020-09-10] MEDS ORDERED: ASPIRIN EC 81 MG TAB PO SCH (09:00)
[2020-09-10] MEDS ORDERED: SPIRONOLACTONE 25 MG TABLET PO SCH (09:00)
[2020-09-10] MEDS ORDERED: INFLUENZA VACCINE (for 3y+) 0.5 ML DOSE IMVAC ONE (09:00)
[2020-09-10] MEDS ORDERED: SACUBITRIL/VALSARTAN 24/26 MG TAB PO SCH (09:00)
[2020-09-10 09:46] VITALS: O2SAT 97
[2020-09-10] MEDS ORDERED: WARFARIN SODIUM 5 MG TAB PO SCH (17:00)
[2020-09-10] MEDS ORDERED: ATORVASTATIN 10 MG TAB PO SCH (21:00)
--- NOTE | 2020-09-17 08:28 | CON ---
Date of Consultation: 09/10/2020 Reason For Admission: Atypical chest pain. History Of Present Illness: Mr. Alfonso is a 55-year-old black male with history of atrial fibrillati on, hypertension, congestive heart failure, cholecystitis, has had kidney stones and kidney stenting in the past. He came in with mid-epigastric indigestion type of symptoms after he ate a hamburger. He described the pain as sharp, but it did radiate to the left arm. He got lightheaded and dizzy. D id complain of some shortness of breath. He denied any PND, orthopnea, pedal edema, palpitations, or syncope. Denied any fever or chills. He is already ruled out for MA. Past Medical History: Include atrial fibrillation, CHF, CAD, pulmonary hypertension, sleep apnea, sp lenic infarct, renal insufficiency, kidney stenting and kidney stones, and cholecystitis, as well as hypertension. Medications: At home include carvedilol, Entresto, Pravachol, spironolactone, and Coumadin 5 mg jeffrey y. Review of Systems: Negative. Social History: Negative. Family History: Noncontributory. Physical Examination: Vital Signs: Blood pressure is 143/83, pulse was 63, respiratory rate was 18. HEENT: Negative. Neck: Supple without any bruit, lymphadenopathy, JVD, or thyromegaly. Chest: Clear to auscultation and percussion. Cardiac: Revealed a regular rhythm and rate. No murmurs, gallops, or rubs. Abdomen: Benign. Extremities: Revealed no clubbing, cyanosis, or edema. Diagnostic Data: Within normal limits except for an INR of 2.64. Patient takes Coumadin. Chest x-r ay showed normal sinus rhythm with possible inferolateral ischemia. Chest x-ray was negative. Impression And Plan: Atypical chest pain, most likely gastroesophageal reflux in nature. The patien t has had a history of severe advanced systolic congestive heart failure with an ejection fraction of 9%, previous history of cardiogenic shock, seen by Dr. Irvin in [place]. Last ejection fraction ac cording to him in July was 38%. The patient does not recall having a heart catheterization at t hat time, but I am not so sure of the details, and records from Dr. Irvin's office would be helpful in managing Mr. Alfonso just in case he comes back into town. For now, I am comfortable with him viri g home. I think his chest pain is gastrointestinal in nature. He is already ruled out for an MA. H is EKG does not really show any acute changes. I am comfortable with him continuing his congestive h eart failure medication and seeing his pe manager in [place]. [facility] as [facility]. His other issues include hypertension, sleep apnea, paroxysmal atrial fib rillation for which he takes Coumadin. His blood pressure is well controlled. He has a history of p ulmonary hypertension, but I am not so sure of the severity of that. Nevertheless, he is on very ronna ropriate medication regimen. He also has dyslipidemia, for which he takes Pravachol. I would contin ue his present regimen when he goes home. Case was discussed with Dr. Hernandez. KAM/GULSHAN Voice ID: [id number] Report ID: [id number]
== END 2020-09-10 09:26 | disposition home or self-care (01) ==
LOC: ER 01:48 → ERHOLD 04:47 → 2ND 05:15
PROVIDERS: ADMIT Family Medicine; ATTEND Family Medicine
DX: R07.89 Other chest pain (principal); I11.0 Hypertensive heart disease with heart failure; I50.22 Chronic systolic (congestive) heart failure; I25.10 Atherosclerotic heart disease of native coronary artery without angina pectoris; I27.20 Pulmonary hypertension, unspecified; G47.30 Sleep apnea, unspecified; Z79.01 Long term (current) use of anticoagulants; I48.0 Paroxysmal atrial fibrillation; E78.5 Hyperlipidemia, unspecified; R94.31 Abnormal electrocardiogram [ECG] [EKG]; Z20.828 Contact with and (suspected) exposure to other viral communicable diseases
CPT/HCPCS: 36415; 71045; 80048; 80076; 82550; 82553; 83735; 83880; 84484; 85025; 85610; 93005; 96374; 96375; 99285; G0378; J2270; J2405; U0002

== ENCOUNTER 2021-01-24 05:06 | Emergency (ER) | payer SELFPAY ==
--- OUTSIDE RECORDS SUMMARY | 2021-01-24 05:12 | XMS REPORT | Continuity of Care Document ---
:1965 Author Organization [facility] t Address [address] [place] [address] Care Team Providers Name Role Phone Pcp MD, No Primary Care Physician Unavailable Sonia JALLOH, Emilie Mcnair Attending Clinician [phone] Manjit Grant MD Attending Clinician Cabrera PECK Attending Clinician Tita Pichardo MD Attending Clinician DEBBIE SCOTT Attending Clinician Unavailable DEBBIE SCOTT Admitting Clinician Unavailable Problems Condition Condition Condition Status Onset Resolution Last Treating Co mments Source Name Details Category Date Date Treatment Clinician Date Cholelithi Cholelithi Disease Active [facility] - [facility]: Medical 00 [place] Stage 3 Stage [address] [facility] chronic chronic 26 [facility] - kidney kidney 00:00: Medical disease disease 00 Center 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 [facility] - systolic systolic 00:00: Medica l and and 00 Center diastolic diastolic CHF CHF (congestiv (congestiv e heart e heart failure) failure) Atrial Atrial Disease Active 2019-[address] fibrillati fibrillati -26 Lynsey kes - on on 00:00: Medical 00 Center Closed Problem Active 2013-10-04 Memor ia Fracture 00:31:09 l Of The Closed [place] Distal End Fracture Of The Of The Radius Distal End Of The Radius Active 3 [facility] Allergies, Adverse Reactions, Alerts Allergy Allergy Status Severity Reaction(s) Onset Inactive Treating Comm ents Source Name Type Date Date Clinician No Known No Known Active Memori a Drug Drug l Allergie Allergrenay suárez s Social History Social Habit Start Date Stop Date Quantity Comments Source History [facility] - Alcohol Std Drinks Medica l Center History SDAK [facility] - Alcohol Binge Medical Jerry ter Sex Assigned At [facility] Alcohol intake 2020-05-22 2020-05-22 Current drinker ANTOINE yadav [facility] - 00:00:00 00:00:00 of alcohol Medical Center (finding) Tobacco use and 2020-05-22 2020-05-22 [facility]00 Medical Center History SDOH 2020-05-12 2020-05-12 [address] [facility] - Alcohol Frequency 00:00:00 00:00:00 [facility] Social History 2013-10-04 2013-10-04 [facility] 00:31:09 00:31:09 Smoking Status Start Date Stop Date Source Never smoker [facility] [place] Medications Ordered Filled Start Stop Current Ordering Indication Dosage Frequency Signature Comments Components Source Medication Medication Date Date Medication? Clinician (SIG) Name Name warfarin Yes 5mg QD Take [address] (COUMADIN, 6-26 by mouth [facility] - JANTOVEN) 5 15:48: daily. Medi chandra MG tablet 56 [place] furosemide Yes 20mg QD Take [address] (LASIX) 20 6-26 by mouth [facility] - MG tablet 11:32: daily. Medica l 25 [place] spironolact 2020- No 25mg QD Take [address] one 6-24 06-24 tablet (25 [facility] - (ALDACTONE) 00:00: 23:59 mg total) Medical 25 MG 00 :00 by mouth [place] tablet daily. isosorbide 2019- No 5mg QD Take [address] dinitrate 6-23 06-23 by mouth [facility] - (ISORDIL) 5 16:11: 00:00 daily. Med ical MG tablet 52 :00 [place] sacubitriL- Yes 1{tbl} Q.5D Take [address] valsartan 6-23 tablet by [facility] - (ENTRESTO) 00:00: mouth 2 Medi chandra 24-26 mg 00 (two) [place] Tab times daily. carvediloL No 6.25mg Q.5D [...] 00 :00 by mouth Center nightly. warfarin 10mg QD Take 1 [facility] (COUMADIN, 05-19 tablet (10 Lynsey kes - [...] Source Systolic blood 2020-05-22 15:46:00 105 mm[Hg] [facility] Diastolic blood 2020-05-22 15:46:00 74 mm[Hg] [facility] Heart rate 2020-05-22 15:46:00 60 /min [facility] Respiratory rate 2020-05-22 15:46:00 18 /min [facility] Body height 2020-05-22 15:46:00 175.3 cm [facility] Body weight 2020-05-22 15:46:00 79 kg [facility] BMI 2020-05-22 15:46:00 25.72 kg/m2 [facility] Body temperature 2020-05-19 11:40:00 36.5 Gail [facility] Oxygen saturation in 2020-05-19 11:40:00 96 /min [facility] - Arterial blood by Medical Ce nter Pulse oximetry Procedures Procedure Date / Time Performed Performing Clinician Sour e CARDIAC CATH REPORT - 2020-05-20 14:14:32 Provider, [facility] RHYTHM STRIP - SCAN 2020-05-20 14:14:30 Provider, [facility] PROTHROMBIN TIME/INR 2020-05-19 04:54:00 Manjit Ross [facility] APTT 2020-05-19 04:54:00 Bradly Pichardo [facility] CBC (HEMOGRAM ONLY) 2020-05-19 04:54:00 [facility] APTT 2020-05-18 22:06:00 [facility] APTT 2020-05-18 13:40:00 [facility] BASIC METABOLIC PANEL (7) 2020-05-18 05:30:00 Carolann Grant [facility] APTT 2020-05-18 05:30:00 [facility] CBC (HEMOGRAM ONLY) 2020-05-18 05:30:00 [facility] PROTHROMBIN TIME/INR 2020-05-18 05:30:00 Enid Peterson [facility] MAGNESIUM 2020-05-17 03:57:00 [facility] (7) 2020-05-17 03:57:00 Carolann Grant [facility] HEPATIC FUNCTION PANEL 2020-05-17 03:57:00 Carolann Grant [facility] APTT 2020-05-17 03:57:00 [facility] CBC (HEMOGRAM ONLY) 2020-05-17 03:57:00 [facility] APTT 2020-05-16 13:15:00 [facility] WITHOUT & WITH 2020-05-16 12:03:00 Toni San[facility] MAGNESIUM 2020-05-16 05:22:00 [facility] BASIC [facility]OLIC PANEL (7) 2020-05-16 05:22:00 [facility] HEPATIC FUNCTION PANEL 2020-05-16 05:22:00 [facility] ([facility] ONLY) 2020-05-16 05:22:00 [facility] APTT 2020-05-16 05:22:00 [facility] APTT 2020-05-15 20:45:00 [facility] APTT 2020-05-15 13:18:00 [facility] CBC (HEMOGRAM ONLY) 2020-05-15 05:23:00 [facility] APTT 2020-05-15 05:20:00 [facility] MAGNESIUM 2020-05-15 05:16:00 Rudy [facility] BASIC METABOLIC PANEL (7) 2020-05-15 05:16:00 Rudy [facility] HEMOGLOBIN A1C 2020-05-15 05:16:00 Rudy, [facility] HEPATIC FUNCTION PANEL 2020-05-15 05:16:00 [facility] LIPID PANEL 2020-05-15 05:16:00 [facility] APTT 2020-05-14 22:11:00 [facility] TSH/FREE T4 IF INDICATED 2020-05-14 15:53:00 Carolann Grant [facility] CBC (HEMOGRAM ONLY) 2020-05-14 06:02:00 Iggy Angeleep [facility] BASIC METABOLIC PANEL (7) 2020-05-14 06:02:00 Kelle Verde [facility] MAGNESIUM 2020-05-14 06:02:00 Lukeantoineguicho, George [facility] R & L CATH / CORONARY 2020-05-13 13:36:00 Bradly Pichardo [facility] S t [facility] - ANGIOS (+/- LV) [facility] BASIC METABOLIC PANEL (7) 2020-05-13 05:02:00 Emilie Scott [facility] MAGNESIUM 2020-05-13 05:02:00 [facility] ([facility] ONLY[facility] 2020-05-13 05:01:00 Justinaevelyne George [facility] APTT 2020-05-12 22:25:00 [facility] George [facility] TROPONIN I 2020-05-12 15:40:00 [facility] 2020-05-12 15:40:00 [facility] 2D ECHO W/ DOPPLER 2020-05-12 08:55:45 [facility] George [facility] S t Lynseykes - (CW/PW/COLOR) [facility] SARS-COV2/RT-PCR ([facility] & 2020-05-12 08:53:00 [facility] TROPONIN I 2020-05-12 08:53:00 [facility], George [facility] POTASSIUM 2020-05-12 08:53:00 [facility], George [facility] MAGNESIUM 2020-05-12 08:53:00 [facility], George [facility] APTT 2020-05-12 07:34:00 [facility] XR CHEST 1 VIEW 2020-05-12 01:49:00 [facility] PORT[facility]IDE Medical [place] ECG 12-LEAD 2020-05-12 01:39:58 Unknown, Hl7 Doctor [facility] ECG 12-LEAD 2020-05-12 01:39:24 Unknown, Hl7 [facility] CBC W/PLT COUNT & AUTO 2020-05-12 01:12:[address] [facility] COMPREHENSIVE METABOLIC 2020-05-12 01:12:[address] [facility] [place] [place] TROPONIN I 2020-05-12 01:12:00 [facility] B-TYPE NATRIURETIC FACTOR 2020-05-12 01:12:00 [facility] (BNP) [facility] LACTIC ACID, VENOUS 2020-05-12 01:12:00 [facility] APTT 2020-05-12 01:12:00 [facility] HEPATIC FUNCTION PANEL 2020-05-12 01:12:00 [facility] VASCULAR DIAGRAM -SCAN 2020-05-12 00:00:00 Provider, Anthony [facility] Plan of Care Planned Activity Planned Date Details Comments Source Future Scheduled 2025-05-[address] [facility] - Test 00:00:00 (procedure) [code = [facility] 05171822] Future Scheduled 2020-07-[address] [facility] - Test 00:00:00 (#1) [code = [facility] INFLUENZA VACCINE (#1)] Future Scheduled [address] [facility] - Test 00:00:00 malignant neoplasm Medical C enter of colon (procedure) [code = 039749496] Encounters Start End Encounter Admission Attending Care Care Encounter Source Date/Time Date/Time Type Type Clinicians Facility Department ID 2013-10-03 2013-10-03 Outpatient 3 [id number] 8 18:31:10 18:31:09 2013-07-06 2013-07-06 Outpatient 3 [id number] 18:23:12 18:22:52 Results Test Description Test Time Test Comments Results Result Sourc e Comments VASCULAR DIAGRAM 2020-10-16 Ordered by an ANTOINE Le -SCAN 10:48:09 unspecified - Medical provider. Center Prothrombin time/INR 2020-05-19 05:21:00 Test Item Value Reference Range Interpretation Comme nts Protime (test code = 14.2 See_Comment [Autom ated message] The 5902-2) system which [employer] nerated this result tra nsmitted reference range : 11.9 - 14.2 seconds. T he reference range was not used to interpr et this result as normal/abnormal . INR (test code = 1.1 See_Comment [Automated message] The 6301-6) system which [employer] nerated this result tra nsmitted reference range : <=5.9. The reference r annetta was not used to int erpret this result as normal/abnormal . TOBY (test code = TOBY) Effective 04/24/2019: PT Reference Range ChangeNew: 11.9-14.2 Previous: 11.7-14.7 RECOMMENDED COUMADIN/WARFARIN INR THERAPY RANGESSTANDARD DOSE: 2.0-3.0 Includes: PROPHYLAXIS for venous thrombosis, systemic embolization; TREATMENT for venous thrombosis and/or pulmonary embolus.HIGH RISK: Target INR is 2.5-3.5 for patients wiht mechanical heart valves. Lab Interpretation Normal (test code = 60651-7) [facility]/[id number] 05:21:00 Test Item Value Reference Range Interpretation [...] INR is2.5-3.5 for patients wiht mechanical heart valves.[id number] 05:19:00 Test Item Value Reference Range Interpretation Comments PTT (test code = 81.3 See_Comment H [Automated message] 49496-4) The system [employer] generated this result transmitted ref erence range: 22.5 - 3 6.0 seconds. The reference range was not used to int erpret this result as normal/abnormal . Lab Interpretation (test Abnormal code = 77690-9) [facility] 05:19:00 Test Item Value Reference Range Interpretation Comments PARTIAL THROMBOPLASTIN TIME 81.3 seconds 22.5-36.0 H (BEAKER) (test code = 760) CBC (hemogram only)2020-05-19 05:06:00 Test Item Value Reference Range Interpretation Comments WBC (test code = 6690-2) 5.3 See_Comment [A utomated message] The system [employer] generated this result transmitted ref erence range: 3.5 - 10 .5 K/L. The refe rence range was not u sed to interpret this result as normal/abnor mal. RBC (test code = 789-8) 5.29 See_Comment [Au tomated message] The system [employer] generated this result transmitted ref erence range: 4.63 - 6 .08 M/L. The refe rence range was not u sed to interpret this result as normal/abnor mal. MCHC (test code = 786-4) 31.0 See_Comment L [A utomated message] The system [employer] generated this result transmitted ref erence range: 32.3 - 3 6.5 GM/DL. The refe rence range was not u sed to interpret this result as normal/abnor mal. Hematocrit (test code = 49.3 % 40.1-51 4544-3) MCV (test code = 787-2) 93.2 fL 79-92.2 H MCH (test code = 785-6) 28.9 pg 25.7-32.2 RDW (test code = 788-0) 15.5 % 11.6-14.4 H Platelets (test code = 213 See_Comment [Aut omated message] 067-3) The system [employer] generated this result transmitted ref erence range: 150 - 45 0 K/CU MM. The referen ce range was not u sed to interpret this result as normal/abnor mal. MPV (test code = 10.4 fL 9.4-12.4 66000-5) nRBC (test code = 413) 0 See_Comment [Aut omated message] The system [employer] generated this result transmitted ref erence range: 0 - 0 /1 00 WBC. The refere nce range was not u sed to interpret this result as normal/abnor mal. Lab Interpretation (test Abnormal code = 88677-8) [facility] (HEMOGRAM ONLY)2020-05-19 05:06:00 Test Item Value Reference [...] WBC 0-0 (BEAKER) (test code = 413) [id number] 22:22:00 Test Item Value Reference Range Interpretation Comments PARTIAL THROMBOPLASTIN TIME 74.7 seconds 22.5-36.0 H (BEAKER) (test code = 760) [id number] 14:21:00 Test Item Value Reference Range Interpretation Comments PARTIAL THROMBOPLASTIN TIME 69.9 seconds 22.5-36.0 H (BEAKER) (test code = 760) PROTHROMBIN [id number] 06:52:00 Test Item Value Reference Range Interpretation [...] for patients wiht mechanical heart valves.Basic Metabolic [id number] 06:46:00 Test Item Value Reference Range Interpretation Comments Sodium (test code = 140 meq/L 305-041 8534-2) Potassium (test code = 4.4 meq/L 3.5-5.1 2823-3) Chloride (test code = 108 meq/L 98-107 H 2075-0) CO2 (test code = 23 meq/L -8-9) BUN (test code = 14 mg/dL 7-21 3094-0) Creatinine (test code 1.12 mg/dL 0.57-1.25 = 2160-0) Glucose (test code = 112 mg/dL 70-105 H 2345-7) Calcium (test code = 9.4 mg/dL 8.4-10.2 96075-1) EGFR (test code = 83 mL/min/1.73 [place] [address]-8) NOT ACCURATE CREATININE CLEARANCE IN PREDICTING GLOMERULAR FILTRATION RATE . ESTIMATED GFR I S NOT APPLICABLE FOR DIALYSIS PATIENTS. TOBY (test code = TOBY) Household Appliance Repairer ID - PIAYA L Lab Interpretation Abnormal (test code = 48478-5) [facility] METABOLIC [id number] 06:46:00 Test Item Value Reference Range Interpretation [...] S NOT APPLICABLE FOR DIALYSIS PATIEN TS. Household Appliance Repairer ID - PIAYA [id number] 06:34:00 Test Item Value Reference Range Interpretation [...] (BEAKER) (test code = 413) MR, CARDIAC, [id number] 10:15:00Anesthesia:->NoneFINAL REPORT Cardiac MRI dated 16-May-20 INDICATION: [...] MDReport Verified Date/Time: 05/17/2020 10:15:01 Reading Location: [place] [address] [address] Reading Room cardiac without & with IV contrast 2020-05-17 10:15:00Interface, External Ris In - 05/17/2020 10:17 AM CDTFINAL REPORT Cardiac MRI dated 16-May-20 INDICATION: This is a 55 year-old male with cardiomyopathy presents for assessment. This also a concern for left ventricular thrombus. TECHNIQUE: Christophe Zane Prep MRI scanner. Morphologic and dynamic cine imaging [...] MDReport Verified Date/Time: 05/17/2020 10:15:01 Reading Location: [place] [address] [address] [facility] [id number] 05:35:00 Test Item Value Reference Range Interpretation Comments Protein, Total (test 7.0 See_Comment [Autom ated code = 2885-2) message] The system which generated this result transmit theron reference range : 6.0 - 8.3 gm/dL . The reference range was not u sed to interpret th is result as normal/abnormal . Albumin (test code = 3.4 g/dL 3.5-5 L 03851-3) Total Bilirubin (test 0.5 mg/dL 0.2-1.2 code = 1975-2) Bilirubin, Direct 0.3 mg/dL 0.1-0.5 (test code = 1968-7) Alkaline Phosphatase 129 U/L 40-150 (test code = 6768-6) AST (test code = 37 U/L 5-34 H 1920-8) ALT (test code = 48 U/L 6-55 1742-6) TOBY (test code = TOBY) Household Appliance Repairer ID - PIAYA L Lab Interpretation Abnormal (test code = 35071-1) [facility] CenterMagnesium2020-06-21 05:35:00 Test Item Value Reference Range Interpretation Comments Magnesium (test code = 1.6 mg/dL 1.6-2.6 34790-3) TOBY (test code = TOBY) Household Appliance Repairer ID - PIAYA L Lab Interpretation (test Normal code = 59828-6) [facility] CenterMAGNESIUM2020-06-21 05:35:00 Test Item Value Reference Range Interpretation Comments MAGNESIUM (BEAKER) (test code = 1.6 mg/dL 1.6-2.6 627) Household Appliance Repairer SAMUEL POSEY LBASIC METABOLIC [id number] 05:35:00 Test Item Value Reference Range Interpretation [...] S NOT APPLICABLE FOR DIALYSIS PATIEN TS. Household Appliance Repairer SAMUEL POSEY LHEPATIC FUNCTION [id number] 05:35:00 Test Item Value Reference Range Interpretation [...] (test code = 48 U/L 6-55 347) Household Appliance Repairer SAMUEL POSEY [id number] 05:02:00 Test Item Value Reference Range Interpretation [...] WBC 0-0 (BEAKER) (test code = 413) [id number] 13:44:00 Test Item Value Reference Range Interpretation Comments PARTIAL THROMBOPLASTIN TIME 67.5 seconds 22.5-36.0 H (BEAKER) (test code = 760) [id number] 07:07:00 Test Item Value Reference Range Interpretation Comments MAGNESIUM (BEAKER) (test code = 1.8 mg/dL 1.6-2.6 627) Household Appliance Repairer ID - DBBASIC METABOLIC [id number] 07:07:00 Test Item Value Reference Range Interpretation [...] S NOT APPLICABLE FOR DIALYSIS PATIEN TS. Household Appliance Repairer ID - DBHEPATIC FUNCTION [id number] 07:07:00 Test Item Value Reference Range Interpretation [...] (test code = 50 U/L 6-55 347) Household Appliance Repairer ID - [id number] 06:17:00 Test Item Value Reference Range Interpretation [...] WBC 0-0 (BEAKER) (test code = 413) [id number] 21:07:00 Test Item Value Reference Range Interpretation Comments PARTIAL THROMBOPLASTIN TIME 97.2 seconds 22.5-36.0 H (BEAKER) (test code = 760) [id number] 13:45:00 Test Item Value Reference Range Interpretation Comments PARTIAL THROMBOPLASTIN TIME 66.1 seconds 22.5-36.0 H (BEAKER) (test code = 760) Lipid [id number] 08:41:00 Test Item Value Reference Range Interpretation Comments Triglycerides (test 54 mg/dL Specimen code = 2571-8) slightly hemolyzed Cholesterol (test 97 mg/dL Specimen code = 2093-3) slightly hemolyzed HDL (test code = 31 mg/dL 5-9) LDL Calculated (test 55 mg/dL code = 77789-6) OTBY (test code = Triglyceride TOBY) Reference Range: Low Risk <150 Borderline 150-199 High Risk 200-499 Very High Risk >=500 Cholesterol Reference Range: Low Risk <200 Borderline 200-239 High Risk >240 HDL Cholesterol Reference Range: Low Risk >=60 High Risk <40 LDL Cholesterol Reference Range: Optimal <100 Near Optimal 100-129 Borderline 130-159 High 160-189 Very High >=190 Household Appliance Repairer ID - AALINDAID [facility] 08:41:00 Test Item Value Reference Range Interpretation Comments MAGNESIUM (BEAKER) 1.7 mg/dL 1.6-2.6 Specimen slightly (test code = 627) hemolyzed Household Appliance Repairer ID - AAHAMIDBASIC METABOLIC [id number] 08:41:00 Test Item Value Reference Range Interpretation [...] S NOT APPLICABLE FOR DIALYSIS PATIEN TS. Household Appliance Repairer ID - AAHAMIDLIPID [id number] 08:41:00 Test Item Value Reference Range Interpretation [...] Borderline 130-159 High 160-189 Very High >=190 Household Appliance Repairer ID - AAHAMIDHEPATIC FUNCTION [id number] 08:41:00 Test Item Value Reference Range Interpretation [...] Specimen slightly (test code = 347) hemolyzed Household Appliance Repairer ID - AAHAMIDHemoglobin [id number] 07:06:00 Test Item Value Reference Range Interpretation Comments Hemoglobin A1C (test code = 4548-4) 6.1 % 4.3-6.1 Lab Interpretation (test code = Normal 90007-6) [facility] CenterHEMOGLOBIN [id number] 07:06:00 Test Item Value Reference Range Interpretation Comments HEMOGLOBIN A1C (BEAKER) (test code = 6.1 % 4.3-6.1 368) [id number] 06:13:00 Test Item Value Reference Range Interpretation [...] WBC 0-0 (BEAKER) (test code = 413) [id number] 22:40:00 Test Item Value Reference Range Interpretation Comments PARTIAL THROMBOPLASTIN TIME 63.8 seconds 22.5-36.0 H (BEAKER) (test code = 760) TSH/Free T4 If [id number] 16:53:00 Test Item Value Reference Range Interpretation Comments TSH (test code = 4.124 See_Comment [Automated 87256-1) message] The system which generated this result transmit theron reference range : 0.350 - 4.940 uIU/mL. The reference range was not used to interpret this result as normal/abnormal . TOBY (test code = TOBY) Household Appliance Repairer ID - BS Lab Interpretation Normal (test code = 43752-7) [facility] Center[facility]SH[facility]FREE T4 IF [id number] 16:53:00 Test Item Value Reference Range Interpretation Comments THYROID STIMULATING HORMONE 4.124 uIU/mL 0.350-4.940 (BEAKER) (test code = 772) Household Appliance Repairer ID - [id number] 07:00:00 Test Item Value Reference Range Interpretation Comments MAGNESIUM (BEAKER) (test code = 1.8 mg/dL 1.6-2.6 627) Household Appliance Repairer ID - DEON CBASIC METABOLIC [id number] 07:00:00 Test Item Value Reference Range Interpretation [...] S NOT APPLICABLE FOR DIALYSIS PATIEN TS. Household Appliance Repairer ID - DEON CCBC (HEMOGRAM ONLY)2020-05-14 06:14:00 [...] WBC 0-0 (BEAKER) (test code = 413) [id number] 05:46:00 Test Item Value Reference Range Interpretation Comments MAGNESIUM (BEAKER) 2.0 mg/dL 1.6-2.6 Specimen slightly (test code = 627) hemolyzed Household Appliance Repairer ID - KALPESH LBASIC METABOLIC [id number] 05:46:00 Test Item Value Reference Range Interpretation [...] S NOT APPLICABLE FOR DIALYSIS PATIEN TS. Household Appliance Repairer ID - PIAYA LCBC (HEMOGRAM ONLY)2020-05-13 05:21:00 [...] WBC 0-0 (BEAKER) (test code = 413) [id number] 22:47:00 Test Item Value Reference Range Interpretation Comments PARTIAL THROMBOPLASTIN TIME 91.2 seconds 22.5-36.0 H (BEAKER) (test code = 760) Troponin [id number] 16:46:00 Test Item Value Reference Range Interpretation Comments Troponin I (test code = 3.14 ng/mL 0-0.03 25413-9) TOBY (test code = TOBY) Troponin I [...] BS Lab Interpretation (test Abnormal code = 51294-5) [facility] CenterTROPONIN [id number] 16:46:00 Test Item Value Reference Range Interpretation [...] failure, acidosis, acute neurological disease, and persistent tachyarrhythmia.Household Appliance Repairer ID - [id number] 16:16:00 Test Item Value Reference Range Interpretation Comments PARTIAL THROMBOPLASTIN TIME 89.0 seconds 22.5-36.0 H (NAPOLEON) (test code = 760) Transthoracic 2D echo w/ doppler (cw/pw/color)2020-05-12 13:39:24Ejection FractionSLEH ECHO HEARTLAB MKCKESSON CPACSInterface, External Ris In - 05/12/2020 1:39 PM CDTTransthoracic Echocardiography Report (TTE) Demographics Patient Name ALIDA SHER Date of Study 05/12/2020 Gender Male Visit Number [id number] Race Black Room Number [id number] Number Date of 1965 Referring Physician MD George Louis FELAge 55 year(s) Insole And Outsole Preparer José De Anda Tool Setter Marlene MeiInterpreting Nikia Fraser MD Procedure Type [...] (20-24%) . The LVEF [facility]'s bi-plane method of disk . LV [...] 3.14 m/s TR Gradient: 39.[address] [facility] 12 [id number] 12:32:06Interface, External Ris In - 05/12/2020 12:32 PM CDTVentricular Rate 86 BPMAtrial Rate 86 BPMP-R Interval 144 msQRS Duration 88 msQ-T Interval 450 msQTC Calculation(Bazett) 538 msP [place] 64 degreesR [place] -13 degreesT [place] 129 degreesNormal sinus rhythmBiatrial enlargementPossible Anterior infarct , age undeterminedT wave inversion lateral leads consider postischemic changesProlonged QTAbnormal ECGNo previous ECGs availableConfirmed by MD MAGUE, SACHIN ([id number]) on 05/12/2020 12:32:03 [facility] SARS-CoV2/RT-PCR (Asymptomatic ONLY)2020-05-12 11:41:00 Test Item Value Reference Range Interpretation Comments SARS-COV2/RT-PCR Not Detected Not Detected, (test code = Negative 19926-1) SARS-COV-2 [facility] PERFORMING LAB (test code = 56622-0) TOBY (test code = Negative results do [...] of the Act. Fact Sheet for Healthcare Providers:https://www.Presstlerid.Proofpoint/Documents/Xper t%20Xpress%20SARS%20CoV- 2/Fact%20Sheets/302-8582 %59JWNF-SCC-3%20HEALTHCA RE%20PROVIDERS%20FACT%20 SHEET.pdf Fact Sheet for Healthcare Patients:https://www.[place] [employer]oridLoccie/Documents/Xpert %20Xpress%20SARS%20CoV-2 /Fact%20Sheets/3023801% 43CQSS-PMP-5%20PATIENT%2 0FACT%20SHEET.pdf Performing Laboratory:[facility] [place] [address] [facility] ([facility])2020-05-12 11:41:00 Test Item Value Reference Range Interpretation Comments SARS-COV2/RT-PCR (test Not Detected Not Detected, Negative code = 4346328) SARS-COV-2 PERFORMING LAB [facility] (test code = 8364759) Negative results do not preclude SARS-CoV-2 infection [...] of the Act.Fact Sheet for Healthcare Pro viders:https://www.[employer]oEvolution.Proofpoint/Documents/Xpert%20Xpress%20SARS%20CoV-2/Fact%20Sh eets/3023802%38ZIXI-CRW-6%20HEALTHCARE%20PROVIDERS%20FACT%20SHEET.pdfFact Sheet for Healthcare Patients:https://www.[employer].Proofpoint/Documents/Xpert%20Xpress%20SARS%20CoV-2/Fact%20Sheets/3023801%20SARS-COV -2%20PATIENT%20FACT%20SHEET.pdfPerforming Laboratory:[facility], [place] [address]PEDZAGEL [id number] 09:59:00 Test Item Value Reference Range Interpretation [...] failure, acidosis, acute neurological disease, and persistent tachyarrhythmia.Household Appliance Repairer ID Xiang JONES FPotassium 2020-05-12 09:50:00 Test Item Value Reference Range Interpretation Comments Potassium (test code = 3.6 meq/L 3.5-5.1 2823-3) TOBY (test code = TOBY) Household Appliance Repairer ID Xiang JONES F Lab Interpretation (test Normal code = 69531-2) [facility]2020-06-16 09:50:00 Test Item Value Reference Range Interpretation Comments POTASSIUM (BEAKER) (test code = 3.6 meq/L 3.5-5.1 379) Household Appliance Repairer SAMUEL JONES [id number] 09:50:00 Test Item Value Reference Range Interpretation Comments MAGNESIUM (BEAKER) (test code = 1.7 mg/dL 1.6-2.6 627) Household Appliance Repairer ID Xiang JONES [id number] 08:06:00 Test Item Value Reference Range Interpretation Comments PARTIAL THROMBOPLASTIN TIME 58.6 seconds 22.5-36.0 H (BEAKER) (test code = 760) HEPATIC FUNCTION [id number] 02:41:00 Test Item Value Reference Range Interpretation [...] Specimen slightly (test code = 347) hemolyzed Household Appliance Repairer ID - ECHO GARCIAperator ID - STARR ALVAREZOPONIN [id number] 02:12:00 Test Item Value Reference Range Interpretation [...] failure, acidosis, acute neurological disease, and persistent tachyarrhythmia.Household Appliance Repairer ID - ECHO ACE, CHEST, 1 VIEW, NON [id number] 02:04:00Reason for exam:->sobShould this be performed at the bedside?->YesFINAL REPORT Chest, 1 view. History: Shortness of breath. Comparison: None available. IMPRESSION: Low lung volumes. Minimal bibasilar atelectasis. No pleural effusion or pneumothorax. Prominence of interstitial lung markings favored to be related to technique. No lobar consolidation. Osseous structures are grossly unremarkable. Signed: Stanley Tuckerort Verified Date/Time: 05/12/2020 02:04:12 XR chest 1 view portable / [id number] 02:04:00Interface, External Ris In - 05/12/2020 2:06 [...] by: STANLEY TUCKER MD on 05/12/2020 02:04 [facility] [id number] 02:03:00 Test Item Value Reference Range Interpretation Comments Protein, Total (test 7.0 See_Comment Specime n slightly code = 2885-2) hemolyzed [Automated message] The system which generated this result transmit theron reference range : 6.0 - 8.3 gm/dL . The reference range was not u sed to interpret th is result as normal/abnormal . Albumin (test code = 3.4 g/dL 3.5-5 L Specime n slightly 61075-3) hemolyzed Alkaline Phosphatase 113 U/L 40-150 (test code = 6768-6) Total Bilirubin (test 0.9 mg/dL 0.2-1.2 Specim en slightly code = 1974-2) hemolyzed Sodium (test code = 142 meq/L 324-663 0595-2) Potassium (test code 4.0 meq/L 3.5-5.1 Specime n slightly = 2823-3) hemolyzed Chloride (test code = 103 meq/L 98-107 5-0) CO2 (test code = 26 meq/L 22-29 2027-9) BUN (test code = 21 mg/dL 7-21 3094-0) Creatinine (test code 1.39 mg/dL 0.57-1.25 H Specim en slightly = 2160-0) hemolyzed Glucose (test code = 108 mg/dL 70-105 H 5-7) Calcium (test code = 8.8 mg/dL 8.4-10.2 81558-3) AST (test code = 70 U/L 5-34 H Specimen sl ightly 0-8) hemolyzed ALT (test code = 105 U/L 6-55 H Specimen sl ightly 1742-6) hemolyzed EGFR (test code = 65 mL/min/1.73 [place] [address]-5) NOT ACCURATE CREATININE CLEARANCE IN PREDICTING GLOMERULAR FILTRATION RATE . ESTIMATED GFR I S NOT APPLICABLE FOR DIALYSIS PATIEN TS. LUIS (test code = TOBY) Household Appliance Repairer ID - ECHO [facility] Interpretation Abnormal (test code = 10921-9) [facility] CenterCOMPREHENSIVE METABOLIC [id number] 02:03:00 Test Item Value Reference Range Interpretation [...] S NOT APPLICABLE FOR DIALYSIS PATIEN TS. Household Appliance Repairer ID Xiang DODGE WB-type natriuretic [id number] 01:57:00 Test Item Value Reference Range Interpretation Comments BNP (test code = 31695-8) 766 pg/mL 0-100 H TOBY (test code = TOBY) Household Appliance Repairer ID - ECHO W Lab Interpretation (test Abnormal code = 26034-2) [facility] CenterB-TYPE NATRIURETIC FACTOR (BNP)2020-05-12 01:57:00 Test Item Value Reference Range Interpretation Comments B-TYPE NATRIURETIC PEPTIDE (BEAKER) 766 pg/mL 0-100 H (test code = 700) Household Appliance Repairer ID - ECHO WLactic acid, [id number] 01:47:00 Test Item Value Reference Range Interpretation Comments Lactate, Venous (test 0.98 mmol/L 0.5-2.2 Specim en code = 2872) slightly hemolyzed TOBY (test code = TOBY) Household Appliance Repairer ID Xiang DODGE W Lab Interpretation Normal (test code = 49217-0) [facility] CenterLACTIC ACID, [id number] 01:47:00 Test Item Value Reference Range Interpretation Comments LACTATE BLOOD VENOUS 0.98 mmol/L 0.50-2.20 Specime n slightly (2) (BEAKER) (test hemolyzed code = 2872) Household Appliance Repairer ID - ECHO [id number] 01:41:00 Test Item Value Reference Range Interpretation Comments PARTIAL THROMBOPLASTIN TIME 44.5 seconds 22.5-36.0 H (BEAKER) (test code = 760) Prior to initiating heparinCBC with platelet count + automated [id number] 01:30:00 Test Item Value Reference Range Interpretation Comments WBC (test code = 6690-2) 7.5 See_Comment [A utomated message] The system RocketBolt generated this result transmitted ref erence range: 3.5 - 10 .5 K/L. The refe rence range was not u sed to interpret this result as normal/abnor mal. RBC (test code = 789-8) 4.90 See_Comment [Au tomated message] The system [employer]ocket[employer] generated this result transmitted ref erence range: 4.63 - 6 .08 M/L. The refe rence range was not u sed to interpret this result as normal/abnor mal. MCHC (test code = 786-4) 32.5 See_Comment [A utomated message] The system [employer] generated this result transmitted ref erence range: 32.3 - 3 6.5 GM/DL. The refe rence range was not u sed to interpret this result as normal/abnor mal. Hematocrit (test code = 44.9 % 40.1-51 4544-3) MCV (test code = 787-2) 91.6 fL 79-92.2 MCH (test code = 785-6) 29.8 pg 25.7-32.2 RDW (test code = 788-0) 14.9 % 11.6-14.4 H Platelets (test code = 351 See_Comment [Aut omated message] 777-3) The system [employer] generated this result transmitted ref erence range: 150 - 45 0 K/CU MM. The referen ce range was not u sed to interpret this result as normal/abnor mal. MPV (test code = 10.7 fL 9.4-12.4 46721-2) nRBC (test code = 413) 0 See_Comment [Aut omated message] The system [employer]ocket[employer]olt generated this result transmitted ref erence range: 0 - 0 /1 00 WBC. The refere nce range was not u sed to interpret this result as normal/abnor mal. % Neutros (test code = 56 % 429) % Lymphs (test code = 27 % 430) % Monos (test code = 15 % 431) % Eos (test code = 432) 1 % % Baso (test code = 437) 1 % # Neutros (test code = 4.19 See_Comment [Aut omated message] 670) The system [employer] generated this result transmitted ref erence range: 1.78 - 5 .38 K/L. The refe rence range was not u sed to interpret this result as normal/abnor mal. # Lymphs (test code = 1.99 See_Comment [Auto mated message] 414) The system [employer]ocket[employer]olt generated this result transmitted ref erence range: 1.32 - 3 .57 K/L. The refe rence range was not u sed to interpret this result as normal/abnor mal. # Monos (test code = 1.12 See_Comment H [Autom ated message] 415) The system [employer]ocket[employer]olt generated this result transmitted ref erence range: 0.30 - 0 .82 K/L. The refe rence range was not u sed to interpret this result as normal/abnor mal. # Eos (test code = 416) 0.08 See_Comment [Au tomated message] The system [employer]ocket[employer]olt generated this result transmitted ref erence range: 0.04 - 0 .54 K/L. The refe rence range was not u sed to interpret this result as normal/abnor mal. # Baso (test code = 417) 0.04 See_Comment [A utomated message] The system Rocket[employer]olt generated this result transmitted ref erence range: 0.01 - 0 .08 K/L. The refe rence range was not u sed to interpret this result as normal/abnor mal. Immature 0 % 0-1 Granulocytes-Relative (test code = 2801) Lab Interpretation (test Abnormal code = 96075-7) [facility] W/PLT COUNT & AUTO [id number] 01:30:00 Test Item Value Reference Range Interpretation [...] % 0-1 PERCENT (BEAKER) (test code = 2801)
[2021-01-24 05:45] LABS: Absolute Lymphocytes (CBC) 2.2 K/uL (0.7-4.9); Basophils % 1.2 % (0-1.3); Hematocrit 39.2 % (39.6-49.0); Lymphocytes % 33.4 % (15.3-44.8); MPV 7.9 fL (7.6-11.3); RBC Red Blood Cell Count 4.12 M/uL (4.33-5.43)
[2021-01-24] MEDS ORDERED: MORPHINE 2 MG/ML SYR ONE (05:50)
[2021-01-24] MEDS ORDERED: ONDANSETRON 4 MG/2 ML VIAL ONE (05:50)
[2021-01-24] MEDS ORDERED: FAMOTIDINE 20 MG/2 ML VIAL IV ONE (05:50)
[2021-01-24 05:58] LABS: Albumin 3.6 g/dL (3.4-5.0); Bilirubin Direct 0.1 mg/dL (0-0.2); Bilirubin Total 0.3 mg/dL (0.2-1.0)
--- NOTE | 2021-01-24 07:25 | RAD REPORT ---
EXAM DESCRIPTION: CT - Abdomen Pelvis W Contrast - 01/24/2021 7:13 am CLINICAL HISTORY: Abdominal pain COMPARISON: 2019 TECHNIQUE: Computed axial tomography of the abdomen pelvis was obtained. 100 cc Isovue-300 was admin istered intravenously. Oral contrast was not requested which limits evaluation of bowel. All CT scans are performed using dose optimization technique as appropriate and may include automated exposure control or mA/KV adjustment according to patient size. FINDINGS: Cortical thinning involves portion of the spleen probably secondary to prior infarct. No a cute infarct seen. Small renal cysts. Liver, pancreas and adrenals are unremarkable. Normal appendix. Small inguinal hernias. The wall of the transverse colon appears mildly to moderately thickened with adjacent stranding proba prince colitis. . There is no evidence of diverticulitis. IMPRESSION: Mild to moderate transverse colitis
[2021-01-24] MEDS ORDERED: CIPROFLOXACIN 400mg IV 400 MG/200 ML BAG IV ONE (08:11)
[2021-01-24] MEDS ORDERED: METRONIDAZOLE 500mg IVPB 500 MG/100 ML BAG IV ONE (08:11)
[2021-01-24 09:40] LABS: Urine Blood NEGATIVE (NEG); Urine Glucose NEGATIVE (NEG); Urine Protein NEGATIVE (NEG); Urine pH 6.5 (5.0-7.0)
--- NOTE | 2021-01-24 09:49 | RAD REPORT ---
EXAM DESCRIPTION: US - Abdomen Exam Limited - 01/24/2021 9:36 am CLINICAL HISTORY: Abdominal pain. COMPARISON: July 2020 FINDINGS: The gallbladder wall is not thickened. A gallstone is not seen. A 6 millimeter gallbladde r polyp The biliary tree is normal caliber. IMPRESSION: A 6 millimeter gallbladder polyp unchanged from the prior exam. Follow-up gallbladder ul trasound would be recommended for re-evaluation
--- NOTE | 2021-01-24 09:53 | EDPHYS ---
Physician Documentation [facility] Name: Chito Alfonso Age: 55 yrs Sex: Male : 1965 Arrival Date: 01/24/2021 Time: 05:08 Bed 7 Private MD: SURJIT Physician Shadi Reynoso HPI: 01/24 05:31 This 55 yrs old Black Male presents to ER via Ambulatory with complaints of Gallbladder mh7 Pain. 05:31 The patient presents with abdominal pain in the upper abdomen. Onset: The mh7 symptoms/episode began/occurred 2 week(s) ago. The symptoms radiate to the right flank. Associated signs and symptoms: Pertinent positives: diarrhea, Pertinent negatives: nausea and vomiting, anorexia, blood in stools, chest pain, constipation, dysuria, fever, headache, hematuria, nausea, palpitations, shortness of breath, testicular pain, vomiting, vomiting blood. The symptoms are described as intermittent, vague, waxing/waning. Modifying factors: The symptoms are alleviated by nothing, the symptoms are aggravated by food. Severity of pain: At its worst the pain was moderate 3 day(s) ago, in the emergency department the pain has improved moderately. Historical: - Allergies: 05:19 No Known Allergies; - Home Meds: 05:19 carvedilol 25 mg oral tab 1 tab 2 times per day [Active]; pravastatin 40 mg Oral tab 1 wh tab once daily [Active]; spironolactone 25 mg Oral tab 1 tab once daily [Active]; Entresto 49-51 mg oral tab daily [Active]; - PMHx: 05:19 Atrial Fib; CHF; Cholecystitis; Hypertension; kidney stenting; Kidney stones; Myocardial infarction; PULMONARY HYPERTENSION; renal insufficiency; Sleep Apnea; splenic infarct; - Immunization history:: Adult Immunizations not up to date. - Social history:: Smoking status: Patient/guardian denies using. ROS: 05:31 Constitutional: Negative for fever, chills, and weight loss, Eyes: Negative for injury, mh7 pain, redness, and discharge, ENT: Negative for injury, pain, and discharge, Neck: Negative for injury, pain, and swelling, Cardiovascular: Negative for chest pain, palpitations, and edema, Respiratory: Negative for shortness of breath, cough, wheezing, and pleuritic chest pain, Back: Negative for injury and pain, : Negative for injury, bleeding, discharge, and swelling, MS/Extremity: Negative for injury and deformity, Skin: Negative for injury, rash, and discoloration, Neuro: Negative for headache, weakness, numbness, tingling, and seizure, Psych: Negative for depression, anxiety, suicide ideation, homicidal ideation, and hallucinations, Allergy/Immunology: Negative for hives, rash, and allergies, Endocrine: Negative for neck swelling, polydipsia, polyuria, polyphagia, and marked weight changes, Hematologic/Lymphatic: Negative for swollen nodes, abnormal bleeding, and unusual bruising. Exam: 05:31 Constitutional: This is a well developed, well nourished patient who is awake, alert, mh7 and in no acute distress. Head/Face: Normocephalic, atraumatic. Eyes: Pupils equal round and reactive to light, extra-ocular motions intact. Lids and lashes normal. Conjunctiva and sclera are non-icteric and not injected. Cornea within normal limits. Periorbital areas with no swelling, redness, or edema. Neck: Trachea midline, no thyromegaly or masses palpated, and no cervical lymphadenopathy. Supple, full range of motion without nuchal rigidity, or vertebral point tenderness. No Meningismus. Chest/axilla: Normal chest wall appearance and motion. Nontender with no deformity. No lesions are appreciated. Cardiovascular: Regular rate and rhythm with a normal S1 and S2. No gallops, murmurs, or rubs. Normal PMI, no JVD. No pulse deficits. Respiratory: Lungs have equal breath sounds bilaterally, clear to auscultation and percussion. No rales, rhonchi or wheezes noted. No increased work of breathing, no retractions or nasal flaring. 05:31 Back: No spinal tenderness. No costovertebral tenderness. Full range of motion. Skin: Warm, dry with normal turgor. Normal color with no rashes, no lesions, and no evidence of cellulitis. MS/ Extremity: Pulses equal, no cyanosis. Neurovascular intact. Full, normal range of motion. Neuro: Awake and alert, GCS 15, oriented to person, place, time, and situation. Cranial nerves II-XII grossly intact. Motor strength 5/5 in all extremities. Sensory grossly intact. Cerebellar exam normal. Normal gait. Psych: Awake, alert, with orientation to person, place and time. Behavior, mood, and affect are within normal limits. 05:31 Abdomen/GI: Inspection: abdomen appears normal, Bowel sounds: normal, in all quadrants, Palpation: mild abdominal tenderness, in the epigastric area and right upper quadrant, mass, is not appreciated, rebound tenderness, is not appreciated, no appreciated organomegaly, Rectal exam: the exam is deferred, because of patient request, Indicators: McBurney's point is not tender, Wood's sign is negative, Rovsing's sign is negative, Obturator sign is negative, Psoas sign is negative, Liver: no appreciated palpable abnormalities, Hernia: not appreciated. 07:49 ECG was reviewed by the Attending Physician. [facility] Vital Signs: 05:26 BP 128 / 89; Pulse 79; Resp 18; Temp 97.4; Pulse Ox 99% ; Weight 92.99 kg; Height 5 ft. wh 9 in. (175.26 cm); Pain 5/10; 06:29 BP 115 / 74; Pulse 69; Resp 18; Pulse Ox 97% on R/A; mg2 07:37 BP 131 / 72; Pulse 63; Resp 18; Pulse Ox 97% on R/A; ph 08:50 BP 130 / 88; Pulse 64; Resp 18; Pulse Ox 98% on R/A; ph 10:12 BP 111 / 71; Pulse 65; Resp 16; Temp 97.5; Pulse Ox 100% on R/A; ph 05:26 Body Mass Index 30.27 (92.99 kg, 175.26 cm) MDM: 07:41 Patient medically screened. [facility] 07:51 Differential diagnosis: cholecystitis, Cholelithiasis, diverticulitis, gastritis, [place] gastroesophageal reflux disease, non-specific abd pain, pancreatitis. Data reviewed: vital signs, nurses notes, lab test result(s), EKG, radiologic studies, CT scan, ultrasound. Data interpreted: quality assurance monitor chassis: rate is 63 beats/min, rhythm is regular, Pulse oximetry: on room air is 97 %. Test interpretation: by ED physician or midlevel provider: ECG. Counseling: I had a detailed discussion with the patient and/or guardian regarding: the historical points, exam findings, and any diagnostic results supporting the discharge/admit diagnosis, lab results, radiology results, the need for outpatient follow up, for definitive care, a gasoline pump installer, a general surgeon, a hydramatic specialist. 01/24 05:25 Order name: Basic Metabolic Panel; Complete Time: 06:15 [facility] 01/24 05:25 Order name: CBC with Diff; Complete Time: 06:15 [facility] 01/24 05:25 Order name: Hepatic Function; Complete Time: 06:15 [facility] 01/24 05:25 Order name: Lipase; Complete Time: 06:15 [facility] 01/24 06:16 Order name: CT Abd/Pelvis - IV Contrast Only; Complete Time: 07:42 [facility] 01/24 06:50 Order name: Urine Dipstick--Ancillary (enter results); Complete Time: 09:52 eb 01/24 05:25 Order name: IV Saline Lock; Complete Time: 05:27 [facility] 01/24 05:25 Order name: Labs collected and sent; Complete Time: 05:27 [facility] 01/24 07:43 Order name: US Abdomen Limited; Complete Time: 09:52 [place] 01/24 05:25 Order name: Urine Dipstick-Ancillary (obtain specimen); Complete Time: 06:49 [facility] 01/24 05:25 Order name: EKG - Nurse/Tech; Complete Time: 05:27 EC:49 Rate is 72 beats/min. Rhythm is regular. QRS [place] is Normal. IA interval is normal. QRS [place] interval is normal. QT interval is normal. No Q waves. T waves are Normal. No ST changes noted. Clinical impression: NSR w/ Non-specific ST/T Changes and No evidence of ischemia. Interpreted by me. Reviewed by me. Administered Medications: 05:38 Drug: morphine 2 mg {Note: RASS 0.} Route: IVP; Site: left antecubital; 06:09 Follow up: Response: No adverse reaction mg2 05:40 Drug: Zofran (Ondansetron) 4 mg Route: IVP; Site: left antecubital; 06:09 Follow up: Response: No adverse reaction mg2 05:42 Drug: Pepcid 20 mg Route: IVP; Site: left antecubital; 06:08 Follow up: Response: No adverse reaction mg2 08:31 Drug: Cipro 400 mg Volume: 200 ml; Route: IVPB; Infused Over: 60 mins; Site: left ph antecubital; 10:12 Follow up: Response: No adverse reaction; IV Status: Completed infusion; IV Intake: ph 200ml 08:32 Drug: Flagyl 500 mg Volume: 100 ml; Route: IVPB; Rate: 200 ml/hr; Infused Over: 30 ph mins; Site: left antecubital; 10:12 Follow up: Response: No adverse reaction; IV Status: Completed infusion; IV Intake: ph 100ml Disposition: 01/24/21 09:52 Discharged to Home. Impression: Left sided colitis - tranverse colitis, Unspecified combined systolic (congestive) and diastolic (congestive) heart failure, Cholelithiasis. - Condition is Stable. - Discharge Instructions: Heart Failure, Cholelithiasis, Cholelithiasis, Nxau-qm-Nyxj, Heart Failure, Tczx-qb-Zqsp, Colitis. - Prescriptions for Bentyl 20 mg Oral Tablet - take 1 tablet by ORAL route every 6 hours As needed; 20 tablet. Flagyl 500 mg Oral Tablet - take 1 tablet by ORAL route every 8 hours for 7 days; 21 tablet. Zofran 4 mg Oral Tablet - take 1 tablet by ORAL route every 12 hours As needed; 20 tablet. Cipro 500 mg Oral Tablet - take 1 tablet by ORAL route every 12 hours for 7 days; 14 tablet. - Medication Reconciliation Form, Thank You Letter, Antibiotic Education, Prescription Opioid Use, Work release form form. - Follow up: Private Physician; When: 2 - 3 days; Reason: Recheck today's complaints, Continuance of care, Re-evaluation by your physician. Follow up: Douglas Summers; When: 2 - 3 days; Reason: Recheck today's complaints, Re-evaluation by your physician. Follow up: Ashley Rico; When: 2 - 3 days; Reason: Recheck today's complaints, Re-evaluation by your physician. Follow up: Elliott Mack; When: 2 - 3 days; Reason: Recheck today's complaints, Re-evaluation by your physician. - Problem is new. - Symptoms have improved. Signatures: Dispatcher [employer] Shadi Stephenson MD MD cha Hall, Patricia, RN RN Randal Amador RN RN Juan Manuel Elizalde MD MD [facility] Molina Sauer RN mg2 Corrections: (The following items were deleted from the chart) 10:14 09:52 01/24/2021 09:52 Discharged to Home. Impression: Left sided colitis - tranverse ph colitis; Unspecified combined systolic (congestive) and diastolic (congestive) heart failure; Cholelithiasis. Condition is Stable. Discharge Instructions: Heart Failure, Cholelithiasis, Cholelithiasis, Fsun-kl-Abzv, Heart Failure, Vluj-ep-Hbdw, Colitis. Prescriptions for Bentyl 20 mg Oral Tablet - take 1 tablet by ORAL route every 6 hours As needed; 20 tablet, Flagyl 500 mg Oral Tablet - take 1 tablet by ORAL route every 8 hours for 7 days; 21 tablet, Zofran 4 mg Oral Tablet - take 1 tablet by ORAL route every 12 hours As needed; 20 tablet, Cipro 500 mg Oral Tablet - take 1 tablet by ORAL route every 12 hours for 7 days; 14 tablet. and Forms are Medication Reconciliation Form, Thank You Letter, Antibiotic Education, Prescription Opioid Use. Follow up: Private Physician; When: 2 - 3 days; Reason: Recheck today's complaints, Continuance of care, Re-evaluation by your physician. Follow up: Douglas Summers; When: 2 - 3 days; Reason: Recheck today's complaints, Re-evaluation by your physician. Follow up: Ashley Rico; When: 2 - 3 days; Reason: Recheck today's complaints, Re-evaluation by your physician. Follow up: Elliott Mack; When: 2 - 3 days; Reason: Recheck today's complaints, Re-evaluation by your physician. Problem is new. Symptoms have improved. [place]
--- NOTE | 2021-01-24 09:53 | ER ---
Nurse's Notes [facility] [place] Name: Chito Alfonso Age: 55 yrs Sex: Male : 1965 Arrival Date: 01/24/2021 Time: 05:08 Bed 7 Private MD: Diagnosis: Left sided colitis-tranverse colitis;Unspecified combined systolic (congestive) and diastolic (congestive) heart failure;Cholelithiasis Presentation: 01/24 05:17 Chief complaint: Patient states: RUQ pain that started 2 weeks ago progressively wh getting worse. Coronavirus screen: Client denies travel out of the [place] in the last 14 days. At this time, the client does not indicate any symptoms associated with coronavirus-19. Ebola Screen: Patient negative for fever greater than or equal to 101.5 degrees Fahrenheit, and additional compatible Ebola Virus Disease symptoms Patient denies exposure to infectious person. Initial Sepsis Screen: Does the patient meet any 2 criteria? No. Patient's initial sepsis screen is negative. Does the patient have a suspected source of infection? Yes: Acute abdominal pain. Risk Assessment: Do you want to hurt yourself or someone else? Patient reports no desire to harm self or others. Onset of symptoms was January 24, 2021. 05:17 Method Of Arrival: Ambulatory 05:17 Acuity: MARK 3 Historical: - Allergies: 05:19 No Known Allergies; wh - Home Meds: 05:19 carvedilol 25 mg oral tab 1 tab 2 times per day [Active]; pravastatin 40 mg Oral tab 1 wh tab once daily [Active]; spironolactone 25 mg Oral tab 1 tab once daily [Active]; Entresto 49-51 mg oral tab daily [Active]; - PMHx: 05:19 Atrial Fib; CHF; Cholecystitis; Hypertension; kidney stenting; Kidney stones; wh Myocardial infarction; PULMONARY HYPERTENSION; renal insufficiency; Sleep Apnea; splenic infarct; - Immunization history:: Adult Immunizations not up to date. - Social history:: Smoking status: Patient/guardian denies using. Screenin:25 Abuse screen: Denies threats or abuse. Denies injuries from another. Nutritional screening: No deficits noted. Tuberculosis screening: No symptoms or risk factors identified. Fall Risk None identified. Assessment: 05:24 General: Appears in no apparent distress. Behavior is calm, cooperative, appropriate wh for age. Pain: Complains of pain in right upper quadrant Pain began 2 weeks ago Is intermittent. Neuro: Level of Consciousness is awake, alert, obeys commands, Oriented to person, place, time, situation, Appropriate for age. Cardiovascular: Heart tones S1 S2. Respiratory: Airway is patent Respiratory effort is even, unlabored, Respiratory pattern is regular, symmetrical, Breath sounds are clear bilaterally. GI: Abdomen is flat, non-distended, Abd is soft and non tender Reports upper abdominal pain, diarrhea. : No signs and/or symptoms were reported regarding the genitourinary system. EENT: No signs and/or symptoms were reported regarding the EENT system. Derm: Skin is intact, is healthy with good turgor, Skin is pink, warm \T\ dry. normal. Musculoskeletal: Circulation, motion, and sensation intact. 06:29 Reassessment: Patient appears in no apparent distress at this time. Patient and/or mg2 family updated on plan of care and expected duration. Pain level reassessed. Patient is alert, oriented x 3, equal unlabored respirations, skin warm/dry/pink. 07:37 Reassessment: Patient appears in no apparent distress at this time. Patient and/or ph family updated on plan of care and expected duration. Pain level reassessed. Patient is alert, oriented x 3, equal unlabored respirations, skin warm/dry/pink. Patient denies pain at this time. 08:49 Reassessment: Patient appears in no apparent distress at this time. Patient and/or ph family updated on plan of care and expected duration. Pain level reassessed. Patient is alert, oriented x 3, equal unlabored respirations, skin warm/dry/pink. Pt requesting to take home medication Yomairasto, notified ERP, water provided to pt so that he could take home medication. Vital Signs: 05:26 BP 128 / 89; Pulse 79; Resp 18; Temp 97.4; Pulse Ox 99% ; Weight 92.99 kg; Height 5 ft. wh 9 in. (175.26 cm); Pain 5/10; 06:29 BP 115 / 74; Pulse 69; Resp 18; Pulse Ox 97% on R/A; mg2 07:37 BP 131 / 72; Pulse 63; Resp 18; Pulse Ox 97% on R/A; ph 08:50 BP 130 / 88; Pulse 64; Resp 18; Pulse Ox 98% on R/A; ph 10:12 BP 111 / 71; Pulse 65; Resp 16; Temp 97.5; Pulse Ox 100% on R/A; ph 05:26 Body Mass Index 30.27 (92.99 kg, 175.26 cm) ED Course: 05:08 Patient arrived in ED. cl3 05:16 Juan Manuel Elizalde MD is Attending Physician. 7 05:17 Randal Amador, RN is Primary Nurse. 05:17 Triage completed. 05:27 Arm band placed on right wrist. 05:27 Patient has correct armband on for positive identification. Bed in low position. Call light in reach. Side rails up X 1. telemetry monitor on. Pulse ox on. NIBP on. 05:27 Inserted saline lock: 20 gauge in left antecubital area, using aseptic technique. Blood wh collected. 07:13 CT Abd/Pelvis - IV Contrast Only In Process Unspecified. EDMS 07:41 Attending Physician role handed off by Juan Manuel Elizalde MD [place] 07:41 Shadi Reynoso MD is Attending Physician. beverly 09:38 US Abdomen Limited In Process Unspecified. EDMS 09:52 Douglas Summers MD is Referral Physician. [place] 09:52 Ashley Rico MD is Referral Physician. beverly 09:52 Elliott Mack MD is Referral Physician. beverly 10:13 No provider procedures requiring assistance completed. IV discontinued, intact, ph bleeding controlled, No redness/swelling at site. Pressure dressing applied. Administered Medications: 05:38 Drug: morphine 2 mg {Note: RASS 0.} Route: IVP; Site: left antecubital; 06:09 Follow up: Response: No adverse reaction mg2 05:40 Drug: Zofran (Ondansetron) 4 mg Route: IVP; Site: left antecubital; 06:09 Follow up: Response: No adverse reaction mg2 05:42 Drug: Pepcid 20 mg Route: IVP; Site: left antecubital; 06:08 Follow up: Response: No adverse reaction mg2 08:31 Drug: Cipro 400 mg Volume: 200 ml; Route: IVPB; Infused Over: 60 mins; Site: left ph antecubital; 10:12 Follow up: Response: No adverse reaction; IV Status: Completed infusion; IV Intake: ph 200ml 08:32 Drug: Flagyl 500 mg Volume: 100 ml; Route: IVPB; Rate: 200 ml/hr; Infused Over: 30 ph mins; Site: left antecubital; 10:12 Follow up: Response: No adverse reaction; IV Status: Completed infusion; IV Intake: ph 100ml Intake: 10:12 IV: 100ml; Total: 100ml. ph 10:12 IV: 200ml; Total: 300ml. ph Outcome: 09:52 Discharge ordered by . beverly 10:13 Discharged to home ambulatory. ph 10:13 Condition: good 10:13 Discharge instructions given to patient, Instructed on discharge instructions, follow up and referral plans. medication usage, Demonstrated understanding of instructions, follow-up care, medications, Prescriptions given X 4. 10:14 Patient left the ED. ph Signatures: Dispatcher [employer] EDShadi Driscoll MD MD cha Hall, Patricia, RN RN Randal Amador RN RN Molina Sauer RN RN [facility] Madhav Myers 3 Juan Manuel Elizalde MD MD 7 Corrections: (The following items were deleted from the chart) 10:12 09:05 Response: No adverse reaction; IV Status: Completed infusion ph ph
[2021-01-24 10:27] VITALS: BP 111/71; TEMP 97.5; O2SAT 100
--- NOTE | 2021-01-25 17:12 | EKG ---
Test Date: 2021-01-24 Test Time: 05:24:41 Veterans' Counselor: MG MEASUREMENT RESULTS: Intervals: Rate: 72 WY: 154 QRSD: 88 QT: 380 QTc: 416 [place]: P: 46 W[place]: 154 QRS: 33 T: -29 INTERPRETIVE STATEMENTS: Normal sinus rhythm Cannot rule out Anterior infarct, age undetermined Abnormal ECG Compared to ECG 09/10/2020 01:55:23 Myocardial infarct finding now present T-wave abnormality no longer present Possible ischemia no longer present Electronically Signed On 01-25-21 17:06:35 GRILL PREP COOK by Elliott Mack
== END 2021-01-24 10:14 | disposition home or self-care (01) ==
LOC: ER 05:06
DX: K51.50 Left sided colitis without complications (principal); K80.20 Calculus of gallbladder without cholecystitis without obstruction; I50.9 Heart failure, unspecified; I10 Essential (primary) hypertension
CPT/HCPCS: 36415; 74177; 76705; 80048; 80076; 81003; 83690; 85025; 93005; 96365; 96375; 99284; J0744; J2270; J2405; Q9967

== ENCOUNTER 2021-05-01 08:11 | Observation (INO) | payer OTHER, SELFPAY ==
--- OUTSIDE RECORDS SUMMARY | 2021-05-01 08:15 | XMS REPORT | Continuity of Care Document ---
:1965 Author Organization [facility] t Address [address] [place] [address] Care Team Providers Name Role Phone Pcp MD, No Primary Care Physician Unavailable Sonia JALLOH, Emilie Mcnair Attending Clinician [phone] Manjit Grant MD Attending Clinician Cabrera PECK Attending Clinician Tita Pichardo MD Attending Clinician DEBBIE SCOTT Attending Clinician Unavailable DEBBIE SCOTT Admitting Clinician Unavailable Problems Condition Condition Condition Status Onset Resolution Last Treating Co mments Source Name Details Category Date Date Treatment Clinician Date Cholelithi Cholelithi Disease Active [facility]26 [facility] - 00:[facility]: Medical 00 [place] Stage 3 Stage 3 Disease Active [facility] [...] Date Stop Date Quantity Comments Source History [facility] Std Drinks Medica l Center History SDNM [facility] Alcohol Binge Medical Jerry ter Sex Assigned At [facility] Alcohol intake 2020-05-22 2020-05-22 Current drinker ANTOINE yadav [facility] - 00:[facility]:00 00:00:00 of alcohol Medical Center (finding) Tobacco use and 2020-05-22 2020-05-22 [facility] Medical Center History SDOH 2020-05-12 2020-05-12 [address] [facility] - Alcohol Frequency 00:00:00 00:00:00 [facility] Social History 2013-10-04 2013-10-04 [facility] 00:31:09 00:31:09 Smoking Status Start Date Stop Date Source Never smoker [facility] edical [place] Medications Ordered Filled Start Stop Current Ordering Indication Dosage Frequency Signature Comments Components Source Medication Medication Date Date Medication? Clinician (SIG) Name Name warfarin Yes 5mg QD Take [address] (COUMADIN, 6-26 by mouth [facility] - JANTOVEN) 5 15:48: daily. Medi chandra MG tablet 56 [place] furosemide Yes 20mg QD Take [address] (LASIX) 20 6-26 by mouth [facility] - MG tablet 11:32: daily. Medica l 25 [place] spironolact 2020- No 25mg QD Take [address] one 6-24 06-24 tablet (25 [facility] - (ALDACTONE) 00:00: 23:59 mg total) Medical 25 MG 00 :00 by mouth [place] tablet daily. isosorbide 2019- No 5mg QD Take [address] dinitrate 6-23 06-23 by mouth [facility] - (ISORDIL) 5 16:11: 00:00 daily. Med ical MG tablet 52 :00 [place] sacubitriL- Yes 1{tbl} Q.5D Take [address] valsartan 6-23 tablet by [facility] - (ENTRESTO) 00:00: mouth 2 Medi chandra 24-26 mg 00 (two) [place] Tab times daily. carvediloL No 6.25mg Q.5D [...] blood 2020-05-22 15:46:00 105 mm[Hg] [facility] Diastolic blood 2020-05-22 15:46:00 74 mm[Hg] [facility] Heart rate 2020-05-22 15:46:00 60 /min [facility] Respiratory rate 2020-05-22 15:46:00 18 /min [facility] Body height 2020-05-22 15:46:00 175.3 cm [facility] Body weight 2020-05-22 15:46:00 79 kg [facility] BMI 2020-05-22 15:46:00 25.72 kg/m2 [facility] Body temperature 2020-05-19 11:40:00 36.5 Gail [facility] Oxygen saturation in 2020-05-19 11:40:00 96 /min [facility] - Arterial blood by Medical Ce nter Pulse oximetry Procedures Procedure Date / Time Performed Performing Clinician Sour e CARDIAC CATH REPORT - 2020-05-20 14:14:32 Provider, [facility] RHYTHM STRIP - SCAN 2020-05-20 14:14:30 Provider, [facility] PROTHROMBIN TIME/INR 2020-05-19 04:54:00 Manjit Ross [facility] APTT 2020-05-19 04:54:00 Bradly Pichardo [facility] CBC (HEMOGRAM ONLY) 2020-05-19 04:54:00 [facility] APTT 2020-05-18 22:06:00 [facility], [facility] APTT 2020-05-18 13:40:00 [facility], [facility] BASIC METABOLIC PANEL (7) 2020-05-18 05:30:00 Carolann Grant [facility] APTT 2020-05-18 05:30:00 [facility], [facility] CBC (HEMOGRAM ONLY) 2020-05-18 05:30:00 [facility] PROTHROMBIN TIME/INR 2020-05-18 05:30:00 Enid Peterson [facility] MAGNESIUM 2020-05-17 03:57:00 [facility]OL[facility] PANEL (7) 2020-05-17 03:57:00 Carolann Grant [facility] HEPATIC FUNCTION PANEL 2020-05-17 03:57:00 Carolann Grant [facility] APTT 2020-05-17 03:57:00 [facility], [facility] CBC (HEMOGRAM ONLY) 2020-05-17 03:57:00 [facility], [facility] APTT 2020-05-16 13:15:00 [facility] MR CARDIAC WITHOUT & WITH 2020-05-16 12:03:00 Toni [facility] MAGNESIUM 2020-05-16 05:22:00 [facility]IC [facility]OLIC PANEL (7) 2020-05-16 05:22:00 [facility] HEPATIC FUNCTION PANEL 2020-05-16 05:22:00 [facility] ([facility] ONLY) 2020-05-16 05:22:00 [facility], [facility] APTT 2020-05-16 05:22:00 [facility], [facility] APTT 2020-05-15 20:45:00 [facility] APTT 2020-05-15 13:18:00 [facility] CBC (HEMOGRAM ONLY) 2020-05-15 05:23:00 [facility], [facility] APTT 2020-05-15 05:20:00 [facility], [facility] MAGNESIUM 2020-05-15 05:16:00 Rudy [facility] BASIC METABOLIC PANEL (7) 2020-05-15 05:16:00 Rudy [facility] HEMOGLOBIN A1C 2020-05-15 05:16:00 Rudy, [facility] HEPATIC FUNCTION PANEL 2020-05-15 05:16:00 [facility] LIPID PANEL 2020-05-15 05:16:00 [facility] APTT 2020-05-14 22:11:00 [facility] TSH/FREE T4 IF INDICATED 2020-05-14 15:53:00 Carolann Grant [facility] CBC (HEMOGRAM ONLY) 2020-05-14 06:02:00 Iggy Angeleep [facility] BASIC METABOLIC PANEL (7) 2020-05-14 06:02:00 Kelle Verde [facility] MAGNESIUM 2020-05-14 06:02:00 Lukeantoineguicho, George [facility] R & L CATH / CORONARY 2020-05-13 13:36:00 Bradly Pcihardo [facility] S t [facility] - ANGIOS (+/- LV) [facility] BASIC METABOLIC PANEL (7) 2020-05-13 05:02:[address] [facility] MAGNESIUM 2020-05-13 05:02:00 [facility] CBC (HEMO[facility] ONLY) 2020-05-13 05:01:00 Justinaevelyne George [facility] APTT 2020-05-12 22:25:00 [facility] George [facility] TROPONIN I 2020-05-12 15:40:00 [facility], [facility] AP[facility] 2020-05-12 15:40:00 [facility] 2D ECHO W/ DOPPLER 2020-05-12 08:55:45 [facility] George [facility] S t [place] - (CW/PW/COLOR) [facility] SARS-COV2/RT-PCR ([facility] & 2020-05-12 08:53:00 [facility] TROPONIN I 2020-05-12 08:53:00 [facility], George [facility] POTASSIUM 2020-05-12 08:53:00 [facility], [facility] MAGNESIUM 2020-05-12 08:53:00 [facility], [facility] APTT 2020-05-12 07:34:00 [facility] XR CHEST 1 VIEW 2020-05-12 01:49:00 [facility] PORT[facility]IDE Medical [place] ECG 12-LEAD 2020-05-12 01:39:58 Unknown, [facility] ECG 12-LEAD 2020-05-12 01:39:24 Unknown, Hl7 [facility] CBC W/PLT COUNT & AUTO 2020-05-12 01:12:00 George Angel [facility] COMPREHENSIVE METABOLIC 2020-05-12 01:12:00 [facility] TROPONIN I 2020-05-12 01:12:00 [facility] B-TYPE NATRIURETIC FACTOR 2020-05-12 01:12:00 [facility] ([facility] LACTIC ACID, VENOUS 2020-05-12 01:12:00 [facility] APTT 2020-05-12 01:12:00 [facility] HEPATIC FUNCTION PANEL 2020-05-12 01:12:00 [facility] VASCULAR DIAGRAM -SCAN 2020-05-12 00:00:00 Provider, Anthony [facility] Plan of Care Planned Activity Planned Date Details Comments Source Future Scheduled 2025-05-[address] [facility] - Test 00:00:00 (procedure) [code = [facility] [id number]] Future Scheduled 2020-07-[address] [facility] - Test 00:00:00 (#1) [code = [facility] INFLUENZA VACCINE (#1)] Future Scheduled [address] [facility] - Test 00:00:00 malignant neoplasm Medical C enter of colon (procedure) [code = 765875436] Encounters Start End Encounter Admission Attending Care Care Encounter Source Date/Time Date/Time Type Type Clinicians Facility Department ID 2013-10-03 2013-10-03 Outpatient [id number] 18:31:10 18:31:09 2013-07-06 2013-07-06 Outpatient [id number] 18:23:12 18:22:52 Results Test Description Test Time Test Comments Results Result Sourc e Comments VASCULAR DIAGRAM 2020-10-16 Ordered by an ANTOINE Le -SCAN 10:48:09 unspecified - Medical provider. Center Prothrombin time/INR 2020-05-19 05:21:00 Test Item Value Reference Range Interpretation Comme nts Protime (test code = 14.2 See_Comment [Autom ated message] The 5902-2) system which Keenko nerated this result tra nsmitted reference range : 11.9 - 14.2 seconds. T he reference range was not used to interpr et this result as normal/abnormal . INR (test code = 1.1 See_Comment [Automated message] The 6301-6) system which Keenko nerated this result tra nsmitted reference range [...] valves. Lab Interpretation Normal (test code = 72187-4) [facility]/[id number] 05:21:00 Test Item Value Reference Range Interpretation [...] INR is2.5-3.5 for patients wiht mechanical heart valves.[id number] 05:19:00 Test Item Value Reference Range Interpretation Comments PTT (test code = 81.3 See_Comment H [Automated message] 69351-1) The system [employer] generated this result transmitted ref erence range: 22.5 - 3 6.0 seconds. The reference range was not used to int erpret this result as normal/abnormal . Lab Interpretation (test Abnormal code = 27736-6) [facility]APTT2020-06-23 05:19:00 Test Item Value Reference Range Interpretation Comments PARTIAL THROMBOPLASTIN TIME 81.3 seconds 22.5-36.0 H (BEAKER) (test code = 760) CBC (hemogram only)2020-05-19 05:06:00 Test Item Value Reference Range Interpretation Comments WBC (test code = 6690-2) 5.3 See_Comment [A utomated message] The system [employer] generated this result transmitted ref erence range: 3.5 - 10 .5 K/L. The refe rence range was not u sed to interpret this result as normal/abnor mal. RBC (test code = 789-8) 5.29 See_Comment [Au tomated message] The system [employer] generated this result transmitted ref erence range: 4.63 - 6 .08 M/L. The refe rence range was not u sed to interpret this result as normal/abnor mal. MCHC (test code = 786-4) 31.0 See_Comment L [A utomated message] The system [employer] generated this result transmitted ref erence range: [...] code = 213 See_Comment [Aut omated message] 887-3) The system [employer] generated this result transmitted ref erence range: 150 - 45 0 K/CU MM. The referen ce range was not u sed to interpret this result as normal/abnor mal. MPV (test code = 10.4 fL 9.4-12.4 44793-8) nRBC (test code = 413) 0 See_Comment [Aut omated message] The system [employer] generated this result transmitted ref erence range: 0 - 0 /1 00 WBC. The refere nce range was not u sed to interpret this result as normal/abnor mal. Lab Interpretation (test Abnormal code = 63564-9) [facility] (HEMOGRAM ONLY)2020-05-19 05:06:00 Test Item Value Reference [...] WBC 0-0 (BEAKER) (test code = 413) [id number] 22:22:00 Test Item Value Reference Range Interpretation Comments PARTIAL THROMBOPLASTIN TIME 74.7 seconds 22.5-36.0 H (BEAKER) (test code = 760) [id number] 14:21:00 Test Item Value Reference Range Interpretation Comments PARTIAL THROMBOPLASTIN TIME 69.9 seconds 22.5-36.0 H (BEAKER) (test code = 760) PROTHROMBIN TIME/[id number] 06:52:00 Test Item Value Reference Range Interpretation [...] for patients wiht mechanical heart valves.Basic Metabolic [id number] 06:46:00 Test Item Value Reference Range Interpretation Comments Sodium (test code = 140 meq/L 494-052 7720-2) Potassium (test code = 4.4 meq/L 3.5-5.1 2823-3) Chloride (test code = 108 meq/L 98-107 H 2075-0) CO2 (test code = 23 meq/L -8-9) BUN (test code = 14 mg/dL 7-21 3094-0) Creatinine (test code 1.12 mg/dL 0.57-1.25 = 2160-0) Glucose (test code = 112 mg/dL 70-105 H 2345-7) Calcium (test code = 9.4 mg/dL 8.4-10.2 22654-9) EGFR (test code = 83 mL/min/1.73 [place] [address]-4) NOT ACCURATE CREATININE CLEARANCE IN PREDICTING GLOMERULAR FILTRATION RATE . ESTIMATED GFR I S NOT APPLICABLE FOR DIALYSIS PATIENTS. TOBY (test code = TOBY) Prosthetic Assistant ID - PIAYA L Lab Interpretation Abnormal (test code = 58219-0) [facility] METABOLIC [id number] 06:46:00 Test Item Value Reference Range Interpretation [...] S NOT APPLICABLE FOR DIALYSIS PATIEN TS. Prosthetic Assistant ID - PIAYA [id number] 06:34:00 Test Item Value Reference Range Interpretation [...] (BEAKER) (test code = 413) MR, CARDIAC, [id number] 10:15:00Anesthesia:->NoneFINAL REPORT Cardiac MRI dated 16-May-20 INDICATION: [...] MDReport Verified Date/Time: 05/17/2020 10:15:01 Reading Location: [place] [address] [address] Reading Room cardiac without & with IV contrast 2020-05-17 10:15:00Interface, External Ris In - 05/17/2020 10:17 AM CDTFINAL REPORT Cardiac MRI dated 16-May-20 INDICATION: This is a 55 year-old male with cardiomyopathy presents for assessment. This also a concern for left ventricular thrombus. TECHNIQUE: Christophe Plixi MRI scanner. Morphologic and dynamic cine imaging [...] MDReport Verified Date/Time: 05/17/2020 10:15:01 Reading Location: [place] [address] [address] Reading [facility] function [id number] 05:35:00 Test Item Value Reference Range Interpretation Comments Protein, Total (test 7.0 See_Comment [Autom ated code = 2885-2) message] The system which generated this result transmit theron reference range : 6.0 - 8.3 gm/dL . The reference range was not u sed to interpret th is result as normal/abnormal . Albumin (test code = 3.4 g/dL 3.5-5 L 13545-6) Total Bilirubin (test 0.5 mg/dL 0.2-1.2 code = 1975-2) Bilirubin, Direct 0.3 mg/dL 0.1-0.5 (test code = 1968-7) Alkaline Phosphatase 129 U/L 40-150 (test code = 6768-6) AST (test code = 37 U/L 5-34 H 1920-8) ALT (test code = 48 U/L 6-55 1742-6) TOBY (test code = TOBY) Prosthetic Assistant ID - PIAYA L Lab Interpretation Abnormal (test code = 62052-9) [facility] CenterMagnesium2020-06-21 05:35:00 Test Item Value Reference Range Interpretation Comments Magnesium (test code = 1.6 mg/dL 1.6-2.6 50926-5) TOBY (test code = TOBY) Prosthetic Assistant ID - PIAYA L Lab Interpretation (test Normal code = 00018-9) [facility] CenterMAGNESIUM2020-06-21 05:35:00 Test Item Value Reference Range Interpretation Comments MAGNESIUM (BEAKER) (test code = 1.6 mg/dL 1.6-2.6 627) Prosthetic Assistant SAMUEL POSEY LBASIC METABOLIC [id number] 05:35:00 Test Item Value Reference Range Interpretation [...] S NOT APPLICABLE FOR DIALYSIS PATIEN TS. Prosthetic Assistant SAMUEL POSEY LHEPATIC FUNCTION [id number] 05:35:00 Test Item Value Reference Range Interpretation [...] (test code = 48 U/L 6-55 347) Prosthetic Assistant SAMUEL POSEY [id number] 05:02:00 Test Item Value Reference Range Interpretation [...] WBC 0-0 (BEAKER) (test code = 413) [id number] 13:44:00 Test Item Value Reference Range Interpretation Comments PARTIAL THROMBOPLASTIN TIME 67.5 seconds 22.5-36.0 H (BEAKER) (test code = 760) [id number] 07:07:00 Test Item Value Reference Range Interpretation Comments MAGNESIUM (BEAKER) (test code = 1.8 mg/dL 1.6-2.6 627) Prosthetic Assistant ID - DBBASIC METABOLIC [id number] 07:07:00 Test Item Value Reference Range Interpretation [...] S NOT APPLICABLE FOR DIALYSIS PATIEN TS. Prosthetic Assistant ID - DBHEPATIC FUNCTION [id number] 07:07:00 Test Item Value Reference Range Interpretation [...] (test code = 50 U/L 6-55 347) Prosthetic Assistant ID - [id number] 06:17:00 Test Item Value Reference Range Interpretation [...] WBC 0-0 (BEAKER) (test code = 413) [id number] 21:07:00 Test Item Value Reference Range Interpretation Comments PARTIAL THROMBOPLASTIN TIME 97.2 seconds 22.5-36.0 H (BEAKER) (test code = 760) [id number] 13:45:00 Test Item Value Reference Range Interpretation Comments PARTIAL THROMBOPLASTIN TIME 66.1 seconds 22.5-36.0 H (BEAKER) (test code = 760) Lipid [id number] 08:41:00 Test Item Value Reference Range Interpretation Comments Triglycerides (test 54 mg/dL Specimen code = 2571-8) slightly hemolyzed Cholesterol (test 97 mg/dL Specimen code = 2093-3) slightly hemolyzed HDL (test code = 31 mg/dL 5-9) LDL Calculated (test 55 mg/dL code = 93012-6) TOBY (test code = Triglyceride TOBY) Reference Range: Low Risk <150 Borderline 150-199 High Risk 200-499 Very High Risk >=500 Cholesterol Reference Range: Low Risk <200 Borderline 200-239 High Risk >240 HDL Cholesterol Reference Range: Low Risk >=60 High Risk <40 LDL Cholesterol Reference Range: Optimal <100 Near Optimal 100-129 Borderline 130-159 High 160-189 Very High >=190 Prosthetic Assistant ID - AALINDAID [facility]2020-[facility]-19 08:41:00 Test Item Value Reference Range Interpretation Comments MAGNESIUM (BEAKER) 1.7 mg/dL 1.6-2.6 Specimen slightly (test code = 627) hemolyzed Prosthetic Assistant ID - AAHAMIDBASIC METABOLIC [id number] 08:41:00 Test Item Value Reference Range Interpretation [...] S NOT APPLICABLE FOR DIALYSIS PATIEN TS. Prosthetic Assistant ID - AAHAMIDLIPID [id number] 08:41:00 Test Item Value Reference Range Interpretation [...] Borderline 130-159 High 160-189 Very High >=190 Prosthetic Assistant ID - AAHAMIDHEPATIC FUNCTION [id number] 08:41:00 Test Item Value Reference Range Interpretation [...] Specimen slightly (test code = 347) hemolyzed Prosthetic Assistant ID - AAHAMIDHemoglobin [id number] 07:06:00 Test Item Value Reference Range Interpretation Comments Hemoglobin A1C (test code = 4548-4) 6.1 % 4.3-6.1 Lab Interpretation (test code = Normal 66554-6) [facility] CenterHEMOGLOBIN [id number] 07:06:00 Test Item Value Reference Range Interpretation Comments HEMOGLOBIN A1C (BEAKER) (test code = 6.1 % 4.3-6.1 368) [id number] 06:13:00 Test Item Value Reference Range Interpretation [...] WBC 0-0 (BEAKER) (test code = 413) [id number] 22:40:00 Test Item Value Reference Range Interpretation Comments PARTIAL THROMBOPLASTIN TIME 63.8 seconds 22.5-36.0 H (BEAKER) (test code = 760) TSH/Free T4 If [id number] 16:53:00 Test Item Value Reference Range Interpretation Comments TSH (test code = 4.124 See_Comment [Automated 40296-4) message] The system which generated this result transmit theron reference range : 0.350 - 4.940 uIU/mL. The reference range was not used to interpret this result as normal/abnormal . TOBY (test code = TOBY) Prosthetic Assistant ID - BS Lab Interpretation Normal (test code = 77670-8) [facility] CenterTSH/FREE T4 IF [id number] 16:53:00 Test Item Value Reference Range Interpretation Comments THYROID STIMULATING HORMONE 4.124 uIU/mL 0.350-4.940 (BEAKER) (test code = 772) Prosthetic Assistant ID - [id number] 07:00:00 Test Item Value Reference Range Interpretation Comments MAGNESIUM (BEAKER) (test code = 1.8 mg/dL 1.6-2.6 627) Prosthetic Assistant ID - DEON CBASIC METABOLIC [id number] 07:00:00 Test Item Value Reference Range Interpretation [...] S NOT APPLICABLE FOR DIALYSIS PATIEN TS. Prosthetic Assistant ID - DEON CCBC (HEMOGRAM ONLY)2020-05-14 06:14:00 [...] WBC 0-0 (BEAKER) (test code = 413) [id number] 05:46:00 Test Item Value Reference Range Interpretation Comments MAGNESIUM (BEAKER) 2.0 mg/dL 1.6-2.6 Specimen slightly (test code = 627) hemolyzed Prosthetic Assistant ID - KALPESH LBASIC METABOLIC [id number] 05:46:00 Test Item Value Reference Range Interpretation [...] S NOT APPLICABLE FOR DIALYSIS PATIEN TS. Prosthetic Assistant ID - PIAYA LCBC (HEMOGRAM ONLY)2020-05-13 05:21:00 [...] WBC 0-0 (BEAKER) (test code = 413) [id number] 22:47:00 Test Item Value Reference Range Interpretation Comments PARTIAL THROMBOPLASTIN TIME 91.2 seconds 22.5-36.0 H (BEAKER) (test code = 760) Troponin [id number] 16:46:00 Test Item Value Reference Range Interpretation Comments Troponin I (test code = 3.14 ng/mL 0-0.03 00714-9) TOBY (test code = TOBY) Troponin I [...] BS Lab Interpretation (test Abnormal code = 19912-0) [facility] CenterTROPONIN [id number] 16:46:00 Test Item Value Reference Range Interpretation [...] failure, acidosis, acute neurological disease, and persistent tachyarrhythmia.Prosthetic Assistant ID - [id number] 16:16:00 Test Item Value Reference Range Interpretation Comments PARTIAL THROMBOPLASTIN TIME 89.0 seconds 22.5-36.0 H (NAPOLEON) (test code = 760) Transthoracic 2D echo w/ doppler (cw/pw/color)2020-05-12 13:39:24Ejection FractionSLEH ECHO HEARTLAB MKCKESSON CPACSInterface, External Ris In - 05/12/2020 1:39 PM CDTTransthoracic Echocardiography Report (TTE) Demographics Patient Name ALIDA SHER Date of Study 05/12/2020 Gender Male Visit Number [id number] Race Black Room Number [id number] Number Date of 1965 Referring Physician MD George Louis FELAge 55 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 The L[facility] method of disk . LV [...] Velocity: 3.14 m/s TR Gradient: 39.55 [facility] 12 [id number] 12:32:06Interface, External Ris In - 05/12/2020 12:32 PM CDTVentricular Rate 86 BPMAtrial Rate 86 BPMP-R Interval 144 msQRS Duration 88 msQ-T Interval 450 msQTC Calculation(Bazett) 538 msP [place] 64 degreesR [place] -13 degreesT [place] 129 degreesNormal sinus rhythmBiatrial enlargementPossible Anterior infarct , age undeterminedT wave inversion lateral leads consider postischemic changesProlonged QTAbnormal ECGNo previous ECGs availableConfirmed by MD MAGUE, SACHIN ([id number]) on 05/12/2020 12:32:03 [facility] SARS-CoV2/RT-PCR (Asymptomatic ONLY)2020-05-12 11:41:00 Test Item Value Reference Range Interpretation Comments SARS-COV2/RT-PCR Not Detected Not Detected, (test code = Negative 91334-0) SARS-COV-2 [facility] PERFORMING LAB (test code = 19048-8) TOBY (test code = Negative results do [...] of the Act. Fact Sheet for Healthcare Providers:https://www.JagTagid.[employer]/Documents/Xper t%20Xpress%20SARS%20CoV- 2/Fact%20Sheets/302-5431 %56EROE-JCL-7%20HEALTHCA RE%20PROVIDERS%20FACT%20 SHEET.pdf Fact Sheet for Healthcare Patients:https://www.Bidg[employer]/Documents/Xpert %20Xpress%20SARS%20CoV-2 /Fact%20Sheets/3023801% 17WWPE-PQT-8%20PATIENT%2 0FACT%20SHEET.pdf Performing Laboratory:[facility] [address] [facility] CenterARS[facility] ([facility])2020-05-12 11:41:00 Test Item Value Reference Range Interpretation Comments SARS-COV2/RT-PCR (test Not Detected Not Detected, Negative code = 2508685) SARS-COV-2 PERFORMING LAB [facility] (test code = 9196639) Negative results do not preclude SARS-CoV-2 infection [...] of the Act.Fact Sheet for Healthcare Pro viders:https://www.[employer]/Documents/Xpert%20Xpress%20SARS%20CoV-2/Fact%20Sh eets/3023802%89FRYY-EKU-2%20HEALTHCARE%20PROVIDERS%20FACT%20SHEET.pdfFact Sheet for Healthcare Patients:https://www.[employer]/Documents/Xpert%20Xpress%20SARS%20CoV-2/Fact%20Sheets/3023801%20SARS-COV -2%20PATIENT%20FACT%20SHEET.pdfPerforming Laboratory:[facility], [place] [address]VSHMCHSW [id number] 09:59:00 Test Item Value Reference Range Interpretation [...] failure, acidosis, acute neurological disease, and persistent tachyarrhythmia.Prosthetic Assistant ID Xiang JONES FPotassium 2020-05-12 09:50:00 Test Item Value Reference Range Interpretation Comments Potassium (test code = 3.6 meq/L 3.5-5.1 2823-3) TOBY (test code = TOBY) Prosthetic Assistant ID Xiang JONES F Lab Interpretation (test Normal code = 41184-8) [facility]2020-[facility]-16 09:50:00 Test Item Value Reference Range Interpretation Comments POTASSIUM (BEAKER) (test code = 3.6 meq/L 3.5-5.1 379) Prosthetic Assistant SAMUEL JONES [id number] 09:50:00 Test Item Value Reference Range Interpretation Comments MAGNESIUM (BEAKER) (test code = 1.7 mg/dL 1.6-2.6 627) Prosthetic Assistant ID Xiang JONES [id number] 08:06:00 Test Item Value Reference Range Interpretation Comments PARTIAL THROMBOPLASTIN TIME 58.6 seconds 22.5-36.0 H (BEAKER) (test code = 760) HEPATIC FUNCTION [id number] 02:41:00 Test Item Value Reference Range Interpretation [...] Specimen slightly (test code = 347) hemolyzed Prosthetic Assistant ID - ECHO GARCIAperator ID - STARR ALVAREZOPONIN [id number] 02:12:00 Test Item Value Reference Range Interpretation [...] failure, acidosis, acute neurological disease, and persistent tachyarrhythmia.Prosthetic Assistant ID - ECHO ACE, CHEST, 1 VIEW, NON [id number] 02:04:00Reason for exam:->sobShould this be performed at [...] 02:04:12 XR chest 1 view portable / [id number] 02:04:00Interface, External Ris In - 05/12/2020 2:06 [...] by: STANLEY TUCKER MD on 05/12/2020 02:04 [facility] [id number] 02:03:00 Test Item Value Reference Range Interpretation [...] 3.4 g/dL 3.5-5 L Specime n slightly 18597-2) hemolyzed Alkaline Phosphatase 113 U/L 40-150 (test code = 6768-6) Total Bilirubin (test 0.9 mg/dL 0.2-1.2 Specim en slightly code = 1974-2) hemolyzed Sodium (test code = 142 meq/L 205-113 7079-2) Potassium (test code 4.0 meq/L 3.5-5.1 Specime [...] Calcium (test code = 8.8 mg/dL 8.4-10.2 96251-8) AST (test code = 70 U/L 5-34 H Specimen sl ightly 0-8) hemolyzed ALT (test code = 105 U/L 6-55 H Specimen sl ightly 1742-6) hemolyzed EGFR (test code = 65 mL/min/1.73 [place] [address]-8) NOT ACCURATE CREATININE CLEARANCE IN PREDICTING GLOMERULAR FILTRATION RATE . ESTIMATED GFR I S NOT APPLICABLE FOR DIALYSIS PATIEN TS. LUIS (test code = TOBY) Prosthetic Assistant ID - ECHO [facility] Interpretation Abnormal (test code = 02907-8) [facility] CenterCOMPREHENSIVE METABOLIC [id number] 02:03:00 Test Item Value Reference Range Interpretation [...] S NOT APPLICABLE FOR DIALYSIS PATIEN TS. Prosthetic Assistant ID Xiang DODGE WB-type natriuretic [id number] 01:57:00 Test Item Value Reference Range Interpretation Comments BNP (test code = 50501-5) 766 pg/mL 0-100 H TOBY (test code = TOBY) Prosthetic Assistant ID - ECHO W Lab Interpretation (test Abnormal code = 83870-0) [facility] CenterB-TYPE NATRIURETIC FACTOR (BNP)2020-05-12 01:57:00 Test Item Value Reference Range Interpretation Comments B-TYPE NATRIURETIC PEPTIDE (BEAKER) 766 pg/mL 0-100 H (test code = 700) Prosthetic Assistant ID - ECHO WLactic acid, [id number] 01:47:00 Test Item Value Reference Range Interpretation Comments Lactate, Venous (test 0.98 mmol/L 0.5-2.2 Specim en code = 2872) slightly hemolyzed TOBY (test code = TOBY) Prosthetic Assistant ID Xiang DODGE W Lab Interpretation Normal (test code = 07798-8) [facility] CenterLACTIC ACID, [id number] 01:47:00 Test Item Value Reference Range Interpretation Comments LACTATE BLOOD VENOUS 0.98 mmol/L 0.50-2.20 Specime n slightly (2) (BEAKER) (test hemolyzed code = 2872) Prosthetic Assistant ID - ECHO [id number] 01:41:00 Test Item Value Reference Range Interpretation Comments PARTIAL THROMBOPLASTIN TIME 44.5 seconds 22.5-36.0 H (BEAKER) (test code = 760) Prior to initiating heparinCBC with platelet count + automated [id number] 01:30:00 Test Item Value Reference Range Interpretation Comments WBC (test code = 6690-2) 7.5 See_Comment [A utomated message] The system [employer] generated this result transmitted ref erence range: 3.5 - 10 .5 K/L. The refe rence range was not u sed to interpret this result as normal/abnor mal. RBC (test code = 789-8) 4.90 See_Comment [Au tomated message] The system [employer] generated this result transmitted ref erence range: 4.63 - 6 .08 M/L. The refe rence range was not u sed to interpret this result as normal/abnor mal. MCHC (test code = 786-4) 32.5 See_Comment [A utomated message] The system [employer] generated this result transmitted ref erence range: [...] See_Comment [Aut omated message] 777-3) The system [employer] generated this result transmitted ref erence range: 150 - 45 0 K/CU MM. The referen ce range was not u sed to interpret this result as normal/abnor mal. MPV (test code = 10.7 fL 9.4-12.4 35581-3) nRBC (test code = 413) 0 See_Comment [Aut omated message] The system [employer] generated this result transmitted ref erence range: [...] See_Comment [Aut omated message] 670) The system [employer] generated this result transmitted ref erence range: 1.78 - 5 .38 K/L. The refe rence range was not u sed to interpret this result as normal/abnor mal. # Lymphs (test code = 1.99 See_Comment [Auto mated message] 414) The system [employer] generated this result transmitted ref erence range: 1.32 - 3 .57 K/L. The refe rence range was not u sed to interpret this result as normal/abnor mal. # Monos (test code = 1.12 See_Comment H [Autom ated message] 415) The system [employer] generated this result transmitted ref erence range: 0.30 - 0 .82 K/L. The refe rence range was not u sed to interpret this result as normal/abnor mal. # Eos (test code = 416) 0.08 See_Comment [Au tomated message] The system [employer] generated this result transmitted ref erence range: 0.04 - 0 .54 K/L. The refe rence range was not u sed to interpret this result as normal/abnor mal. # Baso (test code = 417) 0.04 See_Comment [A utomated message] The system [employer] generated this result transmitted ref erence range: 0.01 - 0 .08 K/L. The refe rence range was not u sed to interpret this result as normal/abnor mal. Immature 0 % 0-1 Granulocytes-Relative (test code = 2801) Lab Interpretation (test Abnormal code = 50117-9) [facility] W/PLT COUNT & AUTO [id number] 01:30:00 Test Item Value Reference Range Interpretation [...]
[2021-05-01 08:52] LABS: Absolute Lymphocytes (CBC) 1.8 K/uL (0.7-4.9); Basophils % 0.8 % (0-1.3); Hematocrit 40.7 % (39.6-49.0); Lymphocytes % 35.7 % (15.3-44.8); MPV 8.1 fL (7.6-11.3); Protime INR 1.19
[2021-05-01] MEDS ORDERED: ASPIRIN 81 MG CHEWABLE TABLET ONE (09:00)
--- NOTE | 2021-05-01 09:11 | RAD REPORT ---
EXAM DESCRIPTION: CT - Head Brain Wo Cont - 05/01/2021 9:03 am CLINICAL HISTORY: DIZZINESS Headache, drowsiness, dizziness COMPARISON: No comparisons TECHNIQUE: All CT scans are performed using dose optimization technique as appropriate and may inclu de automated exposure control or mA/KV adjustment according to patient size. FINDINGS: No intracranial hemorrhage, hydrocephalus or extra-axial fluid collection.No areas of brai n edema or evidence of midline shift. The paranasal sinuses and mastoids are clear. The calvarium is intact. IMPRESSION: No acute intracranial abnormality.
--- NOTE | 2021-05-01 10:05 | ER ---
Nurse's Notes [facility] Name: Chito Alfonso Age: 56 yrs Sex: Male : 1965 Arrival Date: 05/01/2021 Time: 08:13 Bed 20 Private MD: Diagnosis: Chest pain, unspecified;Unspecified combined systolic (congestive) and diastolic (congestive) heart failure;Atrial fibrillation and flutter-hx of;Paresthesia of skin-face Presentation: 05/01 08:20 Chief complaint: Patient states: "I've got burning in my arm and chest and I feel like ss my face is drooping a little on my left side." Pt states that he noticed it when he woke up this morning at 0600, but last known well was 0100 when he went to bed. HX of CHF. Also c/o mild shortness of breath upon exertion. Coronavirus screen: Client denies travel out of the [place] in the last 14 days. Ebola Screen: Patient denies exposure to infectious person. Patient denies travel to an Ebola-affected area in the 21 days before illness onset. Initial Sepsis Screen: Does the patient meet any 2 criteria? No. Patient's initial sepsis screen is negative. Does the patient have a suspected source of infection? No. Patient's initial sepsis screen is negative. Risk Assessment: Do you want to hurt yourself or someone else? Patient reports no desire to harm self or others. Onset of symptoms is unknown. 08:20 Method Of Arrival: Ambulatory ss 08:20 Acuity: MARK 3 ss Historical: - Allergies: 08:25 No Known Allergies; ss - Home Meds: 08:25 carvedilol 25 mg Oral tab 1 tab 2 times per day [Active]; spironolactone 25 mg Oral tab ss 1 tab once daily [Active]; pravastatin 40 mg Oral tab 1 tab once daily [Active]; Entresto 49-51 mg Oral tab 1 tab daily [Active]; - PMHx: 08:25 Atrial Fib; CHF; Cholecystitis; Hypertension; kidney stenting; Kidney stones; ss Myocardial infarction; PULMONARY HYPERTENSION; renal insufficiency; Sleep Apnea; splenic infarct; - PSHx: 08:25 Tonsillectomy; R wrist repair; ss - Immunization history:: Adult Immunizations up to date. - Family history:: not pertinent. Screenin:15 Abuse screen: Denies threats or abuse. Denies injuries from another. Nutritional ss screening: No deficits noted. Tuberculosis screening: No symptoms or risk factors identified. Never had TB. VAN Screening: Arm Drift: Patient shows no arm weakness. Patient is VAN negative. Visual Disturbance: No visual disturbance noted. Aphasia: No aphasia noted. Neglect: No neglect noted. 09:01 The patient is alert, able to follow commands. The patient does not exhibit slurred or tr6 garbled speech The patient is not exhibiting difficulty speaking. The patient does not exhibit difficulty understanding words. The patient is able to swallow own secretions with no drooling or need for suction. Patient tolerated one teaspoon of water. No drooling, immediate coughing, gurgling, or clearing of the throat was noted. The patient tolerated 90mL of water. No drooling, immediate coughing, gurgling, or clearing of the throat was noted. The patient passed the bedside swallow screening. Oral medications may be given as ordered. Contact Physician for further diet orders. Provider notified of bedside swallow screening results: Shadi Reynoso MD. Fall Risk None identified. Assessment: 08:24 General: Appears in no apparent distress. well groomed, Behavior is cooperative, tr6 appropriate for age, anxious. Pain: Complains of pain in left sided cp/ burning radiating to left arm and up to left side of face Pain radiates to left side of face and left arm Pain began suddenly. Neuro: No deficits noted. Level of Consciousness is awake, alert, obeys commands, Oriented to person, place, time, situation, Chief Deputy Coroner are equal bilaterally Moves all extremities. Gait is steady, Speech is normal, Facial symmetry appears normal, pt states that he "feels like the left side of his face is droopy". Pupils are PERRLA, Intact Burning in on left side of body. Cardiovascular: No deficits noted. Reports chest pain. Respiratory: No deficits noted. GI: Abdomen is tender to palpation epigastric. : No deficits noted. EENT: No deficits noted. Derm: No deficits noted. Musculoskeletal: No deficits noted. 09:06 Reassessment: pt returned to room via wheelchair from CT. tr6 Vital Signs: 08:18 BP 115 / 70; Pulse 79; Resp 18; Pulse Ox 100% on R/A; tr6 08:20 Resp 17; Weight 93.44 kg; Height 5 ft. 9 in. (175.26 cm); Pain 4/10; ss 08:20 Body Mass Index 30.42 (93.44 kg, 175.26 cm) NIH Stroke Scale Scores: 08:15 NIHSS Score: 0 ED Course: 08:13 Patient arrived in ED. mr 08:15 Dunia Orta, RN is Primary Nurse. tr6 08:15 Patient has correct armband on for positive identification. Bed in low position. Call ss light in reach. bottle assembler on. Pulse ox on. NIBP on. 08:16 Shadi Reynoso MD is Attending Physician. beverly 08:23 Triage completed. ss 08:25 Arm band placed on right wrist. ss 08:26 Patient maintains SpO2 saturation greater than 95% on room air. ss 08:38 Inserted saline lock: 18 gauge in left antecubital area, using aseptic technique. Blood tr6 collected. 08:48 XRAY Chest (1 view) In Process Unspecified. EDMS 09:01 No provider procedures requiring assistance completed. tr6 09:03 CT Head Brain wo Cont In Process Unspecified. EDMS 10:02 Wilson Callahan MD is Hospitalizing Provider. beverly 12:36 Patient admitted, IV remains in place. tr6 Administered Medications: 08:20 CANCELLED (Duplicate Order): NS 0.9% 1000 ml IV at 125 ml/hr continuous beverly 08:39 Drug: Aspirin Chewable Tablet 324 mg Route: PO; tr6 10:08 Follow up: Response: No adverse reaction tr6 10:03 Drug: foLIC Acid 1 mg Route: IVPB; Site: left antecubital; tr6 10:08 Follow up: Response: No adverse reaction tr6 Outcome: 10:04 Decision to Hospitalize by Provider. beverly 12:36 Admitted to Tele accompanied by tech, via wheelchair, room 207, with chart, Report tr6 called to nicole CHENG 12:36 Condition: stable 12:36 Instructed on the need for admit, safety practices, Demonstrated understanding of instructions, follow-up care. 12:59 Patient left the ED. tr6 NIH Stroke Scale - NIH Stroke Score Date: 05/01/2021 Time: 08:15 Total Score = 0 1a. Level of Consciousness (LOC) - 0(Alert) 1b. Level of Consciousness (LOC) (Year \\T\\ Age) - 0(Both) 1c. LOC Commands (Open \\T\\ Closes Eyes/Skiving Machine Operator) - 0(Both) 2. Best Gaze (Lateral Gaze Paresis) - 0(Normal) 3. Visual Field Loss - 0(No visual loss) 4. Facial Palsy - 0(Normal) 5a. Left Arm: Motor (10-second hold) - 0(No drift) 5b. Right Arm: Motor (10-second hold) - 0(No drift) 6a. Left Leg: Motor (5-second hold - always test supine) - 0(No drift) 6b. Right Leg: Motor (5-second hold - always test supine) - 0(No drift) 7. Limb Ataxia (finger/nose \\T\\ heel/long - test with eyes open) - 0(Absent) 8. Sensory Loss (pinprick arms/legs/face) - 0(Normal) 9. Best Language: Aphasia (description/naming/reading) - 0(No aphasia) 10. Dysarthria (speech clarity - read or repeat words) - 0(Normal) 11. Extinction and Inattention (visual/tactile/auditory/spatial/personal) - 0(No abnormality) Initials: ss Signatures: Dispatcher [employer] Shadi Stephenson MD MD cha Rivera, Veronica mr Racquel Gardner RN RN ss Ramnanan, Tiffany, RN RN tr6
--- NOTE | 2021-05-01 10:05 | EDPHYS ---
Physician Documentation [facility] Name: Chito Alfonso Age: 56 yrs Sex: Male : 1965 Arrival Date: 05/01/2021 Time: 08:13 Bed 20 Private MD: ED Physician Shadi Reynoso HPI: 05/01 08:47 This 56 yrs old Black Male presents to ER via Ambulatory with complaints of Chest Pain, beverly Breathing Difficulty. 08:47 The patient or guardian reports chest pain that is located primarily in the substernal beverly area. Onset: just prior to arrival. The pain does not radiate. Associated signs and symptoms: Pertinent positives: shortness of breath. 08:48 The patient has shortness of breath with light activity. Onset: The symptoms/episode beverly began/occurred just prior to arrival, this morning. Duration: The symptoms are continuous, and are unchanged since they started. The patient's shortness of breath has no apparent modifying factors. The patient presents to the emergency department with paresthesias of the left side of the face, that is mild. Onset: The symptoms/episode began/occurred today, awoke this way, not present at bedtime. Context: occurred at home. Associated signs and symptoms: Pertinent positives: chest pain. Historical: - Allergies: 08:25 No Known Allergies; ss - Home Meds: 08:25 carvedilol 25 mg Oral tab 1 tab 2 times per day [Active]; spironolactone 25 mg Oral tab ss 1 tab once daily [Active]; pravastatin 40 mg Oral tab 1 tab once daily [Active]; Entresto 49-51 mg Oral tab 1 tab daily [Active]; - PMHx: 08:25 Atrial Fib; CHF; Cholecystitis; Hypertension; kidney stenting; Kidney stones; ss Myocardial infarction; PULMONARY HYPERTENSION; renal insufficiency; Sleep Apnea; splenic infarct; - PSHx: 08:25 Tonsillectomy; R wrist repair; ss - Immunization history:: Adult Immunizations up to date. - Family history:: not pertinent. ROS: 08:48 Constitutional: Negative for fever, chills, and weight loss, Eyes: Negative for injury, beverly pain, redness, and discharge, ENT: Negative for injury, pain, and discharge, Neck: Negative for injury, pain, and swelling, Abdomen/GI: Negative for abdominal pain, nausea, vomiting, diarrhea, and constipation, Back: Negative for injury and pain, : Negative for injury, bleeding, discharge, and swelling, MS/Extremity: Negative for injury and deformity, Skin: Negative for injury, rash, and discoloration, Psych: Negative for depression, anxiety, suicide ideation, homicidal ideation, and hallucinations, Allergy/Immunology: Negative for hives, rash, and allergies, Endocrine: Negative for neck swelling, polydipsia, polyuria, polyphagia, and marked weight changes, Hematologic/Lymphatic: Negative for swollen nodes, abnormal bleeding, and unusual bruising. 08:48 Cardiovascular: Positive for chest pain, of the anterior aspect of left upper chest, left lateral anterior chest, left lateral posterior chest and left breast. 08:48 Respiratory: Positive for shortness of breath. 08:48 Neuro: Positive for numbness, of the left cheek. Exam: 08:48 Constitutional: This is a well developed, well nourished patient who is awake, alert, beverly and in no acute distress. Head/Face: Normocephalic, atraumatic. Eyes: Pupils equal round and reactive to light, extra-ocular motions intact. Lids and lashes normal. Conjunctiva and sclera are non-icteric and not injected. Cornea within normal limits. Periorbital areas with no swelling, redness, or edema. ENT: Nares patent. No nasal discharge, no septal abnormalities noted. Tympanic membranes are normal and external auditory canals are clear. Oropharynx with no redness, swelling, or masses, exudates, or evidence of obstruction, uvula midline. Mucous membranes moist. Neck: Trachea midline, no thyromegaly or masses palpated, and no cervical lymphadenopathy. Supple, full range of motion without nuchal rigidity, or vertebral point tenderness. No Meningismus. Chest/axilla: Normal chest wall appearance and motion. Nontender with no deformity. No lesions are appreciated. Cardiovascular: Regular rate and rhythm with a normal S1 and S2. No gallops, murmurs, or rubs. Normal PMI, no JVD. No pulse deficits. Respiratory: Lungs have equal breath sounds bilaterally, clear to auscultation and percussion. No rales, rhonchi or wheezes noted. No increased work of breathing, no retractions or nasal flaring. Abdomen/GI: Soft, non-tender, with normal bowel sounds. No distension or tympany. No guarding or rebound. No evidence of tenderness throughout. Back: No spinal tenderness. No costovertebral tenderness. Full range of motion. Male : Normal genitalia with no discharge or lesions. Skin: Warm, dry with normal turgor. Normal color with no rashes, no lesions, and no evidence of cellulitis. MS/ Extremity: Pulses equal, no cyanosis. Neurovascular intact. Full, normal range of motion. Neuro: Awake and alert, GCS 15, oriented to person, place, time, and situation. Cranial nerves II-XII grossly intact. Motor strength 5/5 in all extremities. Sensory grossly intact. Cerebellar exam normal. Normal gait. Psych: Awake, alert, with orientation to person, place and time. Behavior, mood, and affect are within normal limits. 08:48 Musculoskeletal/extremity: DVT Exam: No signs of deep vein thrombosis. no pain, no swelling, no tenderness, negative Homans' sign noted on exam, no appreciated bluish discoloration, no erythema, no increased warmth. 09:58 ECG was reviewed by the Attending Physician. [facility] Vital Signs: 08:18 BP 115 / 70; Pulse 79; Resp 18; Pulse Ox 100% on R/A; tr6 08:20 Resp 17; Weight 93.44 kg; Height 5 ft. 9 in. (175.26 cm); Pain 4/10; ss 08:20 Body Mass Index 30.42 (93.44 kg, 175.26 cm) ss NIH Stroke Scale Scores: 08:15 NIHSS Score: 0 ss MDM: 08:19 Patient medically screened. beverly 08:51 Antibiotic administration: Not indicated. Differential diagnosis: Anemia Anxiety beverly Reaction asthma, CHF exacerbation, Chronic Obstructive Pulmonary Disease abnormal EKG, anxiety, coronary artery disease congestive heart failure stable angina, unstable angina, Myocardial Infarction pneumonia, pulmonary edema, Pulmonary Embolism Unstable Angina. HEART Score: History: Moderately Suspicious (1), ECG: Normal (0), Age: > 45 and < 65 years (1), Risk Factors: > or = 3 Risk factors for atherosclerotic disease (2), [Hypercholesterolemia] [Hypertension] [+ Family HX] [Obesity] Troponin: < or = 1 x Normal Limit (0). The patient was given aspirin in the Emergency Department. The patient's deep vein thrombosis risk score was calculated as follows: Total Score: 0. This patient was found to be at low risk for a deep vein thrombosis by using the Well's assessment criteria Total Score: 0-2 Pts- Low Risk. The patient's pulmonary embolism risk score was calculated as follows: Total Score: 0-2 points. This patient was found to be at low risk for a pulmonary embolism by using the Well's assessment criteria Total Score: 0-2 points. This patient was found to be at low risk for a pulmonary embolism by using the Well's assessment criteria. ALEXANDRE Risk Score: 1 - Three or more CAD risk factors, TOTAL SCORE = 1. Immunization status: Influenza vaccine: Data reviewed: vital signs, nurses notes, lab test result(s), EKG, radiologic studies, CT scan, plain films. Data interpreted: library monitor: rate is 85 beats/min, rhythm is regular, Pulse oximetry: on room air is 98 %. Test interpretation: by ED physician or midlevel provider: ECG, plain radiologic studies. 05/01 08:19 Order name: Basic Metabolic Panel [facility] 05/01 08:19 Order name: CBC with Diff [facility] 05/01 08:19 Order name: LFT's [facility] 05/01 08:19 Order name: Magnesium [facility] 05/01 08:19 Order name: NT PRO-BNP [facility] 05/01 08:19 Order name: PT-INR; Complete Time: 09:53 [facility] 05/01 08:19 Order name: Troponin (emerg Dept Use Only) [facility] 05/01 08:19 Order name: Lipase [facility] 05/01 08:19 Order name: Basic Metabolic Panel [facility] 05/01 08:19 Order name: CBC with Automated Diff; Complete Time: 09:53 [facility] 05/01 08:19 Order name: Liver (Hepatic) Function [facility] 05/01 08:19 Order name: Magnesium [facility] 05/01 12:02 Order name: Lipid Profile [facility] 05/01 08:19 Order name: XRAY Chest (1 view) [facility] 05/01 08:19 Order name: EKG; Complete Time: 08:19 [facility] 05/01 08:19 Order name: Cardiac monitoring; Complete Time: 08:38 [facility] 05/01 08:19 Order name: EKG - Nurse/Tech; Complete Time: 09:04 beverly 05/01 08:19 Order name: IV Saline Lock; Complete Time: 08:39 [facility] 05/01 08:20 Order name: CT Head Brain wo Cont; Complete Time: 09:53 [facility] 05/01 12:02 Order name: CONS Physician Consult [facility] 05/01 12:02 Order name: Heart Healthy [facility] 05/01 12:02 Order name: EKG Electrocardiogram [facility] 05/01 12:02 Order name: Lipid Profile [facility] 05/01 12:02 Order name: Troponin I [facility] 05/01 12:02 Order name: Troponin I [facility] 05/01 12:02 Order name: EKG Electrocardiogram [facility] 05/01 08:19 Order name: Labs collected and sent; Complete Time: 09:04 [facility] 05/01 08:19 Order name: O2 Per Protocol; Complete Time: 08:39 [facility] 05/01 08:19 Order name: O2 Sat Monitoring; Complete Time: 08:39 [facility] 05/01 08:49 Order name: Labs - recollect needed: recollect chemistries; Complete Time: 09:00 eb EC:58 Rate is 73 beats/min. Rhythm is regular. QRS Mcintire is Normal. MT interval is normal. QRS beverly interval is normal. QT interval is normal. No Q waves. T waves are Normal. No ST changes noted. Clinical impression: NSR w/ Non-specific ST/T Changes and No evidence of ischemia. Interpreted by me. Reviewed by me. Administered Medications: 08:20 CANCELLED (Duplicate Order): NS 0.9% 1000 ml IV at 125 ml/hr continuous [facility] 08:39 Drug: Aspirin Chewable Tablet 324 mg Route: PO; tr6 10:08 Follow up: Response: No adverse reaction tr6 10:03 Drug: foLIC Acid 1 mg Route: IVPB; Site: left antecubital; tr6 10:08 Follow up: Response: No adverse reaction tr6 Disposition: 05/01/21 10:04 Hospitalization ordered by Wilson Callahan for Observation. Preliminary diagnosis are Chest pain, unspecified, Unspecified combined systolic (congestive) and diastolic (congestive) heart failure, Atrial fibrillation and flutter - hx of, Paresthesia of skin - face. - Bed requested for Telemetry/MedSurg (observation). - Status is Observation. tr6 - Condition is Fair. - Problem is new. - Symptoms have improved. NIH Stroke Scale - NIH Stroke Score Date: 05/01/2021 Time: 08:15 Total Score = 0 1a. Level of Consciousness (LOC) - 0(Alert) 1b. Level of Consciousness (LOC) (Year \T\ Age) - 0(Both) 1c. LOC Commands (Open \T\ Closes Eyes/Medical Staff Physician) - 0(Both) 2. Best Gaze (Lateral Gaze Paresis) - 0(Normal) 3. Visual Field Loss - 0(No visual loss) 4. Facial Palsy - 0(Normal) 5a. Left Arm: Motor (10-second hold) - 0(No drift) 5b. Right Arm: Motor (10-second hold) - 0(No drift) 6a. Left Leg: Motor (5-second hold - always test supine) - 0(No drift) 6b. Right Leg: Motor (5-second hold - always test supine) - 0(No drift) 7. Limb Ataxia (finger/nose \T\ heel/long - test with eyes open) - 0(Absent) 8. Sensory Loss (pinprick arms/legs/face) - 0(Normal) 9. Best Language: Aphasia (description/naming/reading) - 0(No aphasia) 10. Dysarthria (speech clarity - read or repeat words) - 0(Normal) 11. Extinction and Inattention (visual/tactile/auditory/spatial/personal) - 0(No abnormality) Initials: Signatures: Dispatcher [employer] [facility] Tiny Myers RN RN kl Anderson, Corey, MD MD cha Smirch, Shelby, RN RN Lashay Grey Tiffany, RN RN tr6 Corrections: (The following items were deleted from the chart) 08:20 08:19 NS 0.9% 1000 ml IV at 125 ml/hr continuous ordered. [facility] 08:59 08:19 CORONAVIRUS+MR.LAB.BRZ ordered. [facility] 12:14 10:04 Hospitalization Ordered by Wilson Callahan MD for Observation. Preliminary kl diagnosis is Chest pain, unspecified; Unspecified combined systolic (congestive) and diastolic (congestive) heart failure; Atrial fibrillation and flutter - hx of; Paresthesia of skin - face. Bed requested for Telemetry/MedSurg (observation). Status is Observation. Condition is Fair. Problem is new. Symptoms have improved. [facility] 12:59 12:14 05/01/2021 10:04 Hospitalization Ordered by Wilson Callahan MD for tr6 Observation. Preliminary diagnosis is Chest pain, unspecified; Unspecified combined systolic (congestive) and diastolic (congestive) heart failure; Atrial fibrillation and flutter - hx of; Paresthesia of skin - face. Bed requested for Telemetry/MedSurg (observation). Status is Observation. Condition is Fair. Problem is new. Symptoms have improved. kl
[2021-05-01] MEDS ORDERED: FOLIC ACID 5 MG/ML VIAL ONE (10:22)
[2021-05-01 10:31] LABS: ALT/SGPT 42 U/L (12-78); AST/SGOT 29 U/L (15-37); Albumin 4.1 g/dL (3.4-5.0); Alkaline Phosphatase 72 U/L (45-117); BUN Blood Urea Nitrogen 20 mg/dL (7-18); Bicarbonate 26 mmol/L (21-32); Bilirubin Direct < 0.1 mg/dL (0-0.2); Bilirubin Total 0.3 mg/dL (0.2-1.0); Glucose Level 115 mg/dL (74-106); Lipase 148 U/L (73-393); NT PRO-BNP 9 pg/mL (<125); Protein, Total 7.8 g/dL (6.4-8.2); Sodium Level 141 mmol/L (136-145); Troponin (Emerg Dept Use Only) < 0.02 ng/mL (0.0-0.045)
[2021-05-01 10:33] LABS: Potassium 4.2 mmol/L (3.5-5.1)
[2021-05-01] MEDS ORDERED: ACETAMINOPHEN 500 MG TAB PO PRN (11:59)
[2021-05-01] MEDS ORDERED: MORPHINE 4 MG/ML SYR IV PRN (11:59)
[2021-05-01] MEDS ORDERED: ALPRAZOLAM 0.25 MG TABLET PO PRN (11:59)
--- NOTE | 2021-05-01 12:12 | RAD REPORT ---
EXAM DESCRIPTION: RAD - Chest Single View - 05/01/2021 8:48 am CLINICAL HISTORY: Chest pain;Dyspnea Chest pain. COMPARISON: Chest Single View dated 09/10/2020; Chest Single View dated 08/12/2020; Chest Single View dated 05/10/2020; Chest Single View dated 05/05/2020 FINDINGS: Portable technique limits examination quality. The lungs are grossly clear. The heart is normal in size. No displaced fractures. IMPRESSION: No acute intrathoracic process suspected.
[2021-05-01 14:04] VITALS: BMI 30.5
--- NOTE | 2021-05-01 15:50 | CON ---
Reason For Consultation: Chest pain. History Of Present Illness: A 56-year-old male comes in with chest pain on the left side of his ches t, under the arm, under the axilla area, and it is burning sensation goes to the arm. The patient is known to have history of congestive heart failure as per his report, is on Entresto and carvedilol. Also has history of AFib, hypertension. The patient claimed that he had coronary angiogram in the p ast with normal coronary arteries when his ejection fraction was as low as 10%. No cardiac stents or any surgical intervention on the heart. Denies having any chest pain with activities. He feels wel l right now. No shortness of breath, cough, or fever. No other complaints. Past Medical History: Outlined above in the HPI. Medications: Refer to reconciliation sheet for detailed list. Allergies: NO KNOWN DRUG ALLERGIES. Family History: No premature coronary artery disease or cancer. Social History: Does not drink. Does not use any drugs. Review of Systems: All systems reviewed and they were negative except what mentioned in the HPI. Physical Examination: Vital Signs: Temperature is 97.6, pulse 66, breathing 18, blood pressure 113/74, saturating 93% on r oom air. General: Pleasant, middle-aged male, in no apparent distress. Head and Neck: Pupils are equal, reactive to light. Intact eye movements. Neck: No JVD. No cervical lymphadenopathy. Neck is supple. Thyroid is not enlarged. Lungs: Clear to auscultation bilaterally. No rhonchi, rales, or crackles. No accessory muscle use. Heart: Regular rate and rhythm. No extra sounds. Abdomen: Soft, nontender. Bowel sounds positive. No organomegaly. No masses or hernia. No rigidi ty or rebound. Extremities: No edema, clubbing, cyanosis. Intact pulses. Skin: No rashes. Neurologic: Alert, awake, oriented x3. No acute focal deficits appreciated. Lymph Nodes: No cervical lymphadenopathy. Investigations: Troponin less than 0.02. Creatinine 1.31, hemoglobin is 13.7. EKG without acute sp ecific abnormalities. Assessment And Recommendation: Chest pain, atypical pain. He claims normal coronary angiogram withi n the recent past. Admit, do serial cardiac enzymes. If troponins are negative, patient can be rele ased and have an echo and possible stress test as an outpatient. Please put the patient on aspirin a nd we can follow the patient in the clinic and proceed with further workup if deemed necessary. /GULSHAN Voice ID: [id number] Report ID: [id number]
[2021-05-01] MEDS: carvediloL 12.5 MG TAB PO SCH (20:51)
[2021-05-01] MEDS: SACUBITRIL/VALSARTAN 24/26 MG TAB PO SCH (20:51)
[2021-05-01] MEDS: METOPROLOL TAR 50 MG TAB PO SCH (20:51)
[2021-05-02 05:36] VITALS: O2SAT 97
[2021-05-02] MEDS ORDERED: ENOXAPARIN 40 MG/0.4 ML SQ SCH (09:00)
[2021-05-02] MEDS: METOPROLOL TAR 50 MG TAB PO SCH (09:00)
[2021-05-02] MEDS ORDERED: ASPIRIN EC 81 MG TAB PO SCH (09:00)
[2021-05-02] MEDS ORDERED: SPIRONOLACTONE 25 MG TABLET PO SCH (09:00)
[2021-05-02] MEDS ORDERED: ATORVASTATIN 10 MG TAB PO SCH (09:00)
[2021-05-02] MEDS: carvediloL 12.5 MG TAB PO SCH (09:05)
[2021-05-02] MEDS: SACUBITRIL/VALSARTAN 24/26 MG TAB PO SCH (09:05)
[2021-05-02 09:10] VITALS: BP 125/65
[2021-05-02 10:51] VITALS: TEMP 97.5
--- NOTE | 2021-05-02 12:25 | P.HP ---
Certification for Inpatient Patient admitted to: Observation With expected LOS: <2 Midnights Patient will require the following post-hospital care: None Practitioner: I am a practitioner with admitting privileges, knowledge of patient current condition, hospital course, and medical plan of care. Services: Services provided to patient in accordance with Admission requirements found in Title 42 Section 412.3 of the Code of Federal Regulations Patient History Date of Service: 05/01/21 Reason for admission: Chest pain rule out acute coronary syndrome History of Present Illness: Patient is a 56-year-old gentleman who came to the hospital with chest discomfort. Pain was mainly in the left arm but when courses chest. He had similar pain about a year ago and was found have an acute myocardial infarction. He did not require stent placement. His heart muscle was left fairly weak. However, over the next 6 months he states is the ejection fraction went from 8% to 70%. He no longer gets short of breath when ambulating. He can walk over a mile without a lot of difficulty. At this time, he has his band tacker in [place] who he can follow-up with. Dr. Scott is his regular band tacker. At this time, patient will be admitted to the hospital for further evaluation. Patient will be under observation care and anticipate discharge in the morning Allergies No Known Allergies Allergy (Verified 05/11/20 01:23) Home Medications: Spironolactone [Aldactone*] 25 mg PO DAILY #30 tab 05/10/20 Sacubitril/Valsartan [Entresto 24 mg-26 mg Tablet] 1 tab PO BID 09/10/20 carvediloL [Coreg*] 25 mg PO BID 09/10/20 Pravastatin [Pravachol*] 40 mg PO DAILY 05/01/21 - Past Medical/Surgical History Has patient received pneumonia vaccine in the past: No Diabetic: No -: Hypertension -: Chronic systolic CHF -: Kidney stones -: Paroxysmally atrial fibrillation -: History of blood clot to the heart -: On chronic anti coagulation therapy -: Removal of soft palate,uvula, tonsils -: Removal of kidney stones -: surgery on right wrist- with Titanium plate Psychosocial/ Personal History: Patient lives at home with his son and is currently unemployed. - Family History Father Family History: Reviewed- Non-Contributory - Social History Smoking Status: Never smoker Alcohol use: Yes CD- Drugs: No Caffeine use: No Place of Residence: Home Review of Systems 10-point ROS is otherwise unremarkable Physical Examination - Vital Signs Temperature: 97.5 F Blood Pressure: 125/65 Pulse: 69 Respirations: 18 Pulse Ox (%): 96 - Physical Exam General: Alert, In no apparent distress, Oriented x3 HEENT: Atraumatic, PERRLA, Mucous membr. moist/pink, EOMI, Sclerae nonicteric Neck: Supple, 2+ carotid pulse no bruit, No LAD, Without JVD or thyroid abnormality Respiratory: Clear to auscultation bilaterally, Normal air movement Cardiovascular: Regular rate/rhythm, Normal S1 S2, No murmurs Gastrointestinal: Normal bowel sounds, Soft and benign, Non-distended, No tenderness Musculoskeletal: No clubbing, No swelling, No tenderness Integumentary: No rashes Neurological: Normal gait, Normal speech, Normal strength at 5/5 x4 extr, Normal tone, Normal affect Lymphatics: No axilla or inguinal lymphadenopathy Assessment & Plan - Problems (Diagnosis) (1) Chest pain, rule out acute myocardial infarction Current Visit: Yes Status: Acute (2) History of cardiomyopathy Current Visit: Yes Status: Acute (3) Atrial fibrillation Current Visit: No Status: Acute - Plan 1. Serial troponins and EKG 2. Outpatient cardiology evaluation if serial troponins and EKG are negative 3. Continue with Entresto, carvedilol, Aldactone 4. Anti-platelet therapy, beta-sagar, statin, and O2 as needed 5. IV morphine for pain 6. Nitro p.r.n. Discharge Plan: Home Plan to discharge in: Greater than 2 days - Advance Directives Does patient have a Living Will: No Does patient have a Durable POA for Healthcare: Yes - Code Status/Comfort Care Code Status Assessed: Yes Code Status: Full Code Critical Care: No Time Spent Managing PTS Care (In Minutes): 45
--- NOTE | 2021-05-02 12:31 | P.DS ---
Discharge Date: 05/02/21 Disposition: ROUTINE DISCHARGE Discharge Condition: GOOD Reason for Admission: Chest pain rule out acute coronary syndrome - Problems (1) Chest pain, rule out acute myocardial infarction Current Visit: Yes Status: Acute (2) History of cardiomyopathy Current Visit: Yes Status: Acute (3) Atrial fibrillation Current Visit: No Status: Acute Brief History of Present Illness: Patient is a 56-year-old gentleman who came to the hospital with chest discomfort. Pain was mainly in the left arm but when courses chest. He had similar pain about a year ago and was found have an acute myocardial infarction. He did not require stent placement. His heart muscle was left fairly weak. However, over the next 6 months he states is the ejection fraction went from 8% to 70%. He no longer gets short of breath when ambulating. He can walk over a mile without a lot of difficulty. At this time, he has his international editorial producer in [place] who he can follow-up with. Dr. Scott is his regular international editorial producer. At this time, patient will be admitted to the hospital for further evaluation. Patient will be under observation care and anticipate discharge in the morning Hospital Course: Patient was ruled out for acute coronary syndrome. Patient follows up with his international editorial producer later this week. At this time, patient is stable for discharge home. Vital Signs/Physical Exam: Temp Pulse Resp BP Pulse Ox 97.5 F 69 18 125/65 96 05/02/21 12:27 05/02/21 12:27 05/02/21 12:27 05/02/21 12:27 05/02/21 12:27 General: Alert, In no apparent distress, Oriented x3 Laboratory Data at Discharge: WBC 5.00 K/uL (4.3-10.9) 05/01/21 08:36 Hgb 13.7 g/dL (13.6-17.9) 05/01/21 08:36 Hct 40.7 % (39.6-49.0) 05/01/21 08:36 Plt Count 207 K/uL (152-406) 05/01/21 08:36 PT 13.7 SECONDS (9.5-12.5) H 05/01/21 08:36 INR 1.19 05/01/21 08:36 Sodium 141 mmol/L (136-145) 05/01/21 09:57 Potassium 4.2 mmol/L (3.5-5.1) 05/01/21 09:57 BUN 20 mg/dL (7-18) H 05/01/21 09:57 Creatinine 1.31 mg/dL (0.55-1.3) H 05/01/21 09:57 Glucose 115 mg/dL (74-106) H 05/01/21 09:57 Magnesium 2.0 mg/dL (1.8-2.4) 05/01/21 09:57 Total Bilirubin 0.3 mg/dL (0.2-1.0) 05/01/21 09:57 AST 29 U/L (15-37) 05/01/21 09:57 ALT 42 U/L (12-78) 05/01/21 09:57 Alkaline Phosphatase 72 U/L (45-117) 05/01/21 09:57 Troponin I < 0.02 ng/mL (0.0-0.045) 05/01/21 20:41 Triglycerides 228 mg/dL (<150) H 05/02/21 05:47 Cholesterol 123 mg/dL (<200) 05/02/21 05:47 HDL Cholesterol 33 mg/dL (40-60) L 05/02/21 05:47 Cholesterol/HDL Ratio 3.73 05/02/21 05:47 Lipase 148 U/L (73-393) 05/01/21 09:57 Home Medications: Spironolactone [Aldactone*] 25 mg PO DAILY #30 tab 05/10/20 Sacubitril/Valsartan [Entresto 24 mg-26 mg Tablet] 1 tab PO BID 09/10/20 carvediloL [Coreg*] 25 mg PO BID 09/10/20 Pravastatin [Pravachol*] 40 mg PO DAILY 05/01/21 Physician Discharge Instructions: OK TO DC IV AND DC HOME FOLLOW-UP WITH PRIMARY CARE PROVIDER IN 1-2 WEEKS FOLLOW-UP WITH CARDIOLOGY IN 1-2 WEEKS RETURN TO THE ER IF symptoms worsen CALL or TEXT DR. ARCE AT [phone] IF ANY QUESTIONS REGARDING HOSPITAL STAY. PLEASE CALL THE FLOOR AT [phone] IF ANY MEDICATION OR NURSING QUESTIONS. Diet: AHA Activity: Fall precautions Followup: NONE,NONE [Primary Care Provider] - Time spent managing pt's care (in minutes): 35
== END 2021-05-02 14:55 | disposition home or self-care (01) ==
LOC: ER 08:11 → ERHOLD 11:59 → 2ND 12:39
PROVIDERS: ADMIT Hospitalist; ATTEND Hospitalist
DX: R07.89 Other chest pain (principal); I11.0 Hypertensive heart disease with heart failure; I50.22 Chronic systolic (congestive) heart failure; I27.20 Pulmonary hypertension, unspecified; I48.0 Paroxysmal atrial fibrillation; I42.9 Cardiomyopathy, unspecified; I25.2 Old myocardial infarction; G47.30 Sleep apnea, unspecified; Z79.01 Long term (current) use of anticoagulants; Z87.442 Personal history of urinary calculi
CPT/HCPCS: 93005 ×2; 85025; 80048; 36415; 83735; 85610; 80061; 80076; 84484 ×2; 83690; 83880; 70450; 71045; 96374; 99285; U0003; J1650; G0378 ×3

== ENCOUNTER 2021-08-23 07:26 | Emergency (ER) | payer OTHER ==
[2021-08-23] MEDS ORDERED: MORPHINE 2 MG/ML SYR ONE (08:54)
[2021-08-23 08:56] LABS: Absolute Lymphocytes (CBC) 1.5 K/uL (0.7-4.9); Basophils % 0.7 % (0-1.3); Hematocrit 42.1 % (39.6-49.0); Lymphocytes % 32.6 % (15.3-44.8); MPV 7.9 fL (7.6-11.3); RBC Red Blood Cell Count 4.35 M/uL (4.33-5.43)
[2021-08-23 09:16] LABS: Albumin 4.3 g/dL (3.4-5.0); Bilirubin Direct 0.1 mg/dL (0-0.2); Bilirubin Total 0.4 mg/dL (0.2-1.0); Potassium 4.5 mmol/L (3.5-5.1); Protein, Total 8.1 g/dL (6.4-8.2)
[2021-08-23 09:34] LABS: Blood Morphology Comment NOT SEEN (NOT SEEN); Platelet Estimate ADEQ; White Blood Cell Scan OK (OK)
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
[2021-08-23 10:22] LABS: Urine Blood Trace-intact (Negative); Urine Glucose Negative (Negative); Urine Protein Negative (Negative)
[2021-08-23 10:34] VITALS: TEMP 98.2
[2021-08-23 10:36] VITALS: O2SAT 100
[2021-08-23 10:37] VITALS: BP 125/68
--- NOTE | 2021-08-24 16:43 | EKG ---
Test Date: 2021-08-23 Test Time: 09:16:54 Local Area Network Administrator: [place]N MEASUREMENT RESULTS: Intervals: Rate: 61 OR: 156 QRSD: 90 QT: 430 QTc: 432 [place]: P: 43 OR: 156 QRS: 14 T: 0 INTERPRETIVE STATEMENTS: Normal sinus rhythm Normal ECG Compared to ECG 05/02/2021 06:43:33 T-wave abnormality no longer present Electronically Signed On 08-24-21 16:39:21 CDT by Elliott Mack
== END 2021-08-23 10:29 | disposition home or self-care (01) ==
LOC: ER 07:26
DX: S16.1XXA Strain of muscle, fascia and tendon at neck level, initial encounter (principal); V49.40XA Driver injured in collision with unspecified motor vehicles in traffic accident, initial encounter; I50.40 Unspecified combined systolic (congestive) and diastolic (congestive) heart failure; I10 Essential (primary) hypertension
CPT/HCPCS: 93005; 85025; 80048; 36415; 80076; 81003; 83690; 70450; 72125; 71260; 74177; 96375; 96374; 99284; Q9967; J2270